=== PATIENT | male | born 1945 | race Caucasian/White ===

== ENCOUNTER 2022-07-01 08:51 | Outpatient (REF) | payer MEDICARE, MEDICAID, SELFPAY ==
--- NOTE | ~2022-07-01 | US_ITS ---
EXAMINATION: US VENOUS WITH DOPPLER LOWER EXTREMITY, LEFT CLINICAL INFORMATION: Left leg edema. Evaluate for deep vein thrombosis. COMPARISON: None TECHNIQUE: Ultrasound of the deep veins is performed from the hip to the calf with compression sonography and color and pulse Doppler assessment. Spectral analysis with color-flow imaging is performed. FINDINGS: There is normal venous compression and respiratory variation and augmented flow. The visualized common femoral vein, superficial femoral vein, profunda femoral vein, popliteal vein, and the trifurcation region shows no evidence of deep venous thrombosis. Prominent lower leg subcutaneous edema. There is no significant popliteal fossa cyst. Prominent left inguinal lymph nodes with normal fatty renae with the largest measuring up to 3 x 1.3 x 1.8 cm. If the patient's symptoms persist, followup ultrasound in 5 days 7 days might be of value to exclude proximal propagation from a non-visualized calf vein. US/US venous duplex LE LT IMPRESSION: No DVT demonstrated in the left lower extremity. Lower leg subcutaneous edema. Prominent left inguinal lymph nodes with normal fatty renae.
== END 2022-07-01 08:52 | disposition home or self-care (01) ==
LOC: HO.US 08:51
PROVIDERS: Visit Provider Nurse Practitioner
DX: M79.89 Other specified soft tissue disorders (principal)
CPT/HCPCS: 93971

== ENCOUNTER 2022-10-07 10:47 | Emergency (ER) | payer MEDICARE, MEDICAID, SELFPAY ==
--- NOTE | ~2022-10-07 | XR_ITS ---
EXAMINATION: XR CHEST CLINICAL INFORMATION: Weakness. Leukocytosis. COMPARISON: Chest 09/19/2015. TECHNIQUE: Frontal view of the chest was obtained. FINDINGS: There is mild cardiomegaly. The pulmonary vascularity is normal. Right central venous dialysis catheter tip is at atrial ventricular junction. The lungs are well-expanded with left basilar opacity likely effusion/atelectasis. No gross bony abnormality seen. XR/XR chest 1V IMPRESSION: Left basilar opacity likely effusion/atelectasis. Tip of right dialysis catheter is at atrial ventricular junction. The heart size is enlarged.
--- NOTE | ~2022-10-07 | CT_ITS ---
EXAMINATION: CT CHEST WITHOUT IV CONTRAST CT ABDOMEN AND PELVIS WITHOUT IV CONTRAST CLINICAL INFORMATION: 77-year-old male with history of sepsis of unknown source. COMPARISON: Chest radiograph from 10/07/2022. TECHNIQUE: Noncontrast multidetector CT imaging examination of the chest, abdomen and pelvis was performed. Axial images are displayed at 0.6 mm and 5 mm slice thickness. Coronal and sagittal reformatted images were generated at the technologist's workstation and submitted for review. This CT examination was performed using dose optimization techniques as appropriate, variously including the following: *Automated exposure control *Adjustment of mA and/or kV according to patient size (this includes techniques or standardized protocols for targeted exams where dose is matched to indication/reason for exam; i.e. extremities or head) *Use of iterative reconstruction technique DLP: 464 mGy-cm FINDINGS: CHEST - LUNGS AND PLEURA: Mild respiratory motion on images through the chest. An old small calcified nodule is present in the lateral segment of the right middle lobe. Small left pleural effusion has a chronic, loculated appearance. The left lower lobe is partially collapsed. The opacity in the periphery of the left lower lobe has the appearance of rounded atelectasis. A linear opacity of focal scarring or atelectasis is present in the posterolateral left upper lobe and at its inferior aspect within the lingula there is a rounded opacity that measures up to 2.7 cm AP dimension. It likely represents chronic rounded atelectasis although there is a degree of uncertainty and no comparison chest CT imaging exams are available. For this reason, consider chest CT follow up in 3 months to ensure stability (or compare with any outside prior CT exams to determine stability). MEDIASTINUM/LOWER NECK: Cardiomegaly with multichamber cardiac enlargement. Three-vessel coronary artery atherosclerotic calcification is present. Atherosclerotic disease of thoracic aorta. The mildly dilated ascending thoracic aorta is 4.1 cm AP diameter at the level the right pulmonary artery. Pulmonary arteries are unremarkable for s noncontrast examination. The tip of the dual-lumen dialysis catheter is within proximal right atrium. The esophagus is unremarkable. Thyroid gland is atrophied. LYMPHATICS: No axillary or internal mammary lymphadenopathy. A prominent lymph node in the precarinal region is 1.5 cm in short axis dimension and subcarinal lymph node 1.2 cm in short axis dimension. No evidence of hilar lymphadenopathy. CHEST WALL/BONES OF THORAX: Mild spondylosis of the thoracic spine. No acute or suspicious osseous abnormality within the thorax. ABDOMEN AND PELVIS - HEPATOBILIARY: Liver has nodular contour, cirrhotic morphology. No focal hepatic lesion. No liver abscess is identified on this noncontrast examination. 1.5 cm stone in the lumen of the gallbladder. No gallbladder wall thickening or pericholecystic fluid. Pneumobilia is present. Query if there is any history of ERCP and sphincterotomy to account for this observation. PANCREAS: Unremarkable. SPLEEN: Mild splenomegaly. Spleen measures up to 14 cm maximum dimension. ADRENAL GLANDS: Unremarkable. KIDNEYS AND URETERS: Mild bilateral cortical atrophy. 4 cm simple parapelvic cyst of the left kidney. No renal imaging follow-up is recommended for a simple cyst. 0.4 cm stone of the mid left kidney. No hydronephrosis or perinephric edema. The ureters are unremarkable. BOWEL AND PERITONEUM: No dilated loops of bowel. The appendix is normal. No overt bowel wall thickening. No mesenteric fat stranding, ascites or pneumoperitoneum. Multiple diverticula of the descending and sigmoid colon without evidence of diverticulitis. No abdominal abscess. ABDOMINAL WALL: A small hernia of the lower abdominal wall directed to the right of midline contains fat and a short segment of small bowel. VESSELS: Atherosclerotic disease of the abdominal aorta and branch vessels. No aortic aneurysm. LYMPH NODES: No pathologic sized lymph nodes in the abdomen or pelvis. No inguinal lymphadenopathy. BLADDER AND PELVIC VISCERA: There is gas within the bladder lumen. Correlate for any recent bladder catheterization. No bladder wall thickening or perivesical edema. Prostate gland is unremarkable. No pelvic free fluid. OTHER MUSCULOSKELETAL: Bones are diffusely osteopenic. Facet osteoarthritis and minimal anterolisthesis at L5-S1. Pelvic bones and proximal femurs are intact. CT/CT abdomen pelvis wo IV con IMPRESSION: * No evidence of pneumonia. No specific source of sepsis is identified. * Small left pleural effusion has a chronic, loculated appearance and there is rounded atelectasis of the left lower lobe and likely chronic rounded atelectasis of the adjacent lingula. * Nonspecific mild mediastinal lymphadenopathy. * Atherosclerotic disease of coronary arteries and aorta. The mildly dilated ascending thoracic aorta is 4.1 cm AP diameter at the level the right pulmonary artery. Cardiomegaly without acute pulmonary edema. * Cholelithiasis without cholecystitis. The presence of pneumobilia requires clinical correlation. Query if there is any history of ERCP and sphincterotomy. * Cirrhotic liver and mild splenomegaly. * Colonic diverticulosis without diverticulitis. * Incidentally noted is a hernia of the lower abdominal wall projecting to the right of midline which contains fat and a short segment of unobstructed small bowel. * The finding of gas within the urinary bladder requires clinical correlation; this could be secondary to recent bladder catheterization.
--- NOTE | 2022-10-07 10:53 | ED_ITS ---
HPI - General Adult General Chief complaint: General Medical Stated complaint: ABNORMAL LABS FROM DIALYSIS PER EMS Time Seen by Provider: 10/07/22 10:52 Source: patient, EMS and old records reviewed Mode of arrival: EMS Limitations: no limitations History of Present Illness HPI narrative: 77 yo male with complex medical history including recently diagnosed ESRD on HD via right chest PermCath for the last couple of months, HTN, history of Vfib arrest in 2016, asthma, vascular dementia, afib no longer on anticoagulation due to recurrent hematuria and GI bleed, portal hypertensive gastropathy, hx CVA wtih left sided deficits, HLD, CLL (not on any treatment), CHF w/ EF 10-20%, liver cirrhosis who presents to the ER from dialysis via EMS for evaluation of low blood pressure and high white blood cell count. Patient reportedly had been hypotensive this week with dialysis. He was found to have a WBC 19K today. Patient states he is here because of blood counts are low. He is otherwise feeling well and offers no physical complaints. He states sometimes dialysis makes him run down but he denies any focal weakness, no nausea, vomiting, abdominal pain, chest pain, SOB, fever or chills. MD complaint: low blood counts? Onset (ago): unknown Relieving factors: none Exacerbating factors: none Associated symptoms: weakness Treatments prior to arrival: none Related Data Home Medications Medication Instructions Recorded Confirmed aspirin 81 mg tablet,delayed 81 mg PO DAILY 10/07/22 10/07/22 release cyanocobalamin (vitamin B-12) 500 500 mcg PO DAILY 10/07/22 10/07/22 mcg tablet docusate sodium 100 mg capsule 100 mg PO DAILY 10/07/22 10/07/22 levothyroxine 50 mcg tablet 50 mcg PO DAILY 10/07/22 10/07/22 rosuvastatin 40 mg tablet 40 mg PO BEDTIME 10/07/22 10/07/22 silver (SilvaSorb topical 1 appl topical DAILY 10/07/22 10/07/22 gel,extended release) vitamin B complex and vitamin C 1 cap PO DAILY 10/07/22 10/07/22 no.20-folic acid 1 mg capsule Allergies Allergy/AdvReac Type Severity Reaction Status Date / Time No Known Allergies Allergy Unverified 02/19/20 14:34 [No Known Allergies*] Review of Systems Review of Systems: Yes all other systems are reviewed and are negative PMFSH Past Medical History Medical History (Updated 10/07/22 @ 14:44 by NESSA Glynn) Afib Chronic kidney disease Social History Social History Alcohol intake: never Smoked in Last 30 Days: No Use of substances other than those prescribed or required for medical reasons: No Advance Directives: No Advance Directives Information Provided: No Physical Exam ED Vital Signs: Vital Signs - 24 hr 10/07/22 11:09 10/07/22 12:00 Temperature 97.3 F 98.4 F Pulse Rate 84 78 Respiratory Rate 18 18 Blood Pressure 104/67 102/62 Pulse Oximetry 94 Oxygen Delivery Method Room Air BMI result Body Mass Index 18.4 Appearance: Alert. Oriented X3. No acute distress. Head: normocephalic, atraumatic. Eyes: Pupils equal, round and reactive to light. ENT: Pharynx normal. No tonsillar swelling or exudate. Neck: Normal inspection. Neck supple. CVS: irregularly irregular, regular rate Pulses normal. Respiratory: No respiratory distress. Breath sounds normal. Abdomen: Well healed surgical scars, Soft and nontender. +BS x4 Skin: Skin warm and dry. Normal skin color. Normal skin turgor. No rashes. Extremities: No lower extremity edema. No joint swelling. Scattered ecchymosis on all 4 extremities Neuro/psych: Oriented X 3. No motor deficit. No sensory deficit. Confused, poor historian. CN II-XII intact. Normal speech and cognition. Course Reevaluation(s) Reevaluation #1: Recent Discharge summary from [facility] 08/21- - he was admitted for CHF exacerbation, loculated pleural effusion. Time: 11:46 Reevaluation #2: Patient found to have a lactic acid of 4.0. He has been hemodynamically stable here. This is most likely due to transient hypotension during dialysis. Sepsis has not been ruled out. He does have leukocytosis of 15.9. No obvious source of infection. Will scan his chest abdomen pelvis. Blood cultures have been sent. He is high risk for line infection. Will start empiric vanco and Zosyn given Time: 14:38 Reevaluation #3: spoke with dialysis nurse - patient received 10 mg of midodrine before treatment. BP 100/40 prior to tx, was as low as 80/50s. he was ran even net UF. Time: 15:22 Additional Reevaluation(s): Signed out to Dhara GILL who will follow-up results of CT scans and plan for admission. Medications Administered Discontinued Medications Generic Name Dose Route Start Last Admin Trade Name Calli PRN Reason Stop Dose Admin Albumin Human 100 mls @ 133.333 mls/hr 10/07/22 14:15 10/07/22 16:17 Kedbumin 25 % IV 10/07/22 15:59 Infused Q1H ROSALIA Infusion Vancomycin HCl 1,500 mg/ 500 mls @ 333.333 mls/hr 10/07/22 14:37 10/07/22 15:47 Sodium Chloride IV 10/07/22 16:06 333.33 mls/hr ONCE ONE Administration Piperacillin Sod/Tazobactam 50 mls @ 100 mls/hr 10/07/22 14:37 10/07/22 15:56 Sod 3.375 gm/ Sodium Chloride IV 10/07/22 15:06 Infused ONCE ONE Infusion Medical Decision Making Medical Decision Making MDM Narrative: 77 yo male with complex medical history including recently diagnosed ESRD on HD via right chest PermCath for the last couple of months, HTN, history of Vfib arrest in 2016, asthma, vascular dementia, afib no longer on anticoagulation due to recurrent hematuria and GI bleed, portal hypertensive gastropathy, hx CVA wtih left sided deficits, HLD, CLL (not on any treatment), CHF w/ EF 10-20%, liver cirrhosis who presents to the ER for evaluation of hypotension during HD along with leukocytosis 19K. Patient normotensive with minimal complaints on arrival. He is a poor historian. No fevers. Labs showing leukocytosis 15.9 with lactic acid 4.0. He is anuric. His CXR shows pleural effusion on the left which is chronic. He has no abd complaints. CT C/A/P pending to assess for other possible source of infection. He may have an infected permcath, blood cultures pending. Leukocytosis also may be from CLL. Patient has a contraindication to 30 cc/kg sepsis bolus with known EF 10%. he has been hemodynamically stable here. He was given albumin 25% x2 instead of sepsis IVF bolus. he meets criteria for exclusion. Differential Diagnosis Differential Diagnoses: The differential diagnosis associated with the presentation includes severe sepsis, empyema, line infection, PNA, dialysis related hypotension with fluid shifts and volume removal acalculus cholecystitis, SBP, diverticulitis, appendicitis less likely given no pain Admission/Observation Consideration of admission/observation: Escalation of care including admission/observation considered Consult Healthcare Provider Management of the patient was discussed with: Hospitalist Lab Data MDM Lab Attestation statement: I reviewed the patient's lab results. reviewed - leukocytosis with elevated lactic acid 10/07/22 13:30 10/07/22 13:30 Labs: Lab Results 10/07/22 10/07/22 10/07/22 Range/Units 13:30 13:30 13:30 WBC 15.9 H (4.8-10.8) X10*3/uL RBC 3.81 L D (4.60-5.80) X10*6/uL Hgb 12.5 L D (14.0-18.0) g/dl Hct 38.4 L D (42.0-52.0) % MCV 100.8 H (80.0-98.0) fL MCH 32.8 (27.0-33.0) pg MCHC 32.6 (31.0-36.0) g/dl RDW 18.1 H (11.0-16.0) % Plt Count 152 L (160-400) X10*3/uL MPV 9.1 L (9.4-12.4) fL Immature Gran % (Auto) 0.4 (0.0-0.4) % Neut % (Auto) 38.9 L (45-73) % Lymph % (Auto) 57.3 H (20-40) % [place] % (Auto) 2.2 (2-11) % Eos % (Auto) 0.9 (0-4) % Baso % (Auto) 0.3 (0-2) % Lymph # (Auto) 9.1 H (1.2-4.9) X10*3/uL [place] # (Auto) 0.4 (0.1-1.2) X10*3/uL Eos # (Auto) 0.2 (0.0-0.4) X10*3/uL Baso # (Auto) 0.1 (0.0-0.2) X10*3/uL Abs Immat Gran (auto) 0.07 H (0.00-0.03) X10*3/uL Absolute Neuts (auto) 6.2 (2.0-8.3) x10*3/uL Absolute Nucleated RBC 0.000 (0.0-0.012) X10*3/uL Nucleated RBC % (auto) 0.0 (0.0-0.2) /100WBC Smear Tech's Comments VERIFIED Absolute Retic 0.096 H (0.026-0.095) X10*6/uL Percent Retic 2.5 H (0.5-1.8) % Immature Retic Fraction 22.2 H (2.3-13.4) % Retic Hgb Equivalent 39.4 H (30.0-35.0) pg PT 12.1 (10.0-13.1) SEC INR 1.1 (0.9-1.1) APTT 29.5 (26.0-36.4) SEC Sodium 141 (135-145) mmol/L Potassium 3.5 (3.3-5.1) mmol/L Chloride 107 (96-108) mmol/L Carbon Dioxide 23 (22-29) mmol/L Anion Gap 15 (12-20) BUN 16 (9-16) mg/dL Creatinine 2.42 H (0.5-1.4) mg/dL Estim Creat Clear Calc 21.5 Estimated GFR 26 Random Glucose 84 (60-115) mg/dL Lactic Acid (0.5-2.0) mmol/L Calcium 7.5 L (8.4-10.2) mg/dL Magnesium 1.7 (1.6-2.6) mg/dL Iron 94 (45-160) mcg/dL TIBC 208 L (228-428) mcg/dL % Saturation 45 (15-50) % Unsat Iron Binding 114 ug/dL Total Bilirubin 1.3 H (0.0-1.0) mg/dL Direct Bilirubin 0.5 (0.0-0.5) mg/dL AST 16 (5-37) U/L ALT 8 (0-40) U/L Alkaline Phosphatase 87 (39-117) U/L Total Protein 6.0 L (6.5-8.0) g/dL Albumin 3.0 L (3.5-5.0) g/dL Blood Type Antibody Screen 10/07/22 10/07/22 10/07/22 Range/Units 13:30 13:31 13:31 WBC (4.8-10.8) X10*3/uL RBC (4.60-5.80) X10*6/uL Hgb (14.0-18.0) g/dl Hct (42.0-52.0) % MCV (80.0-98.0) fL MCH (27.0-33.0) pg MCHC (31.0-36.0) g/dl RDW (11.0-16.0) % Plt Count (160-400) X10*3/uL MPV (9.4-12.4) fL Immature Gran % (Auto) (0.0-0.4) % Neut % (Auto) (45-73) % Lymph % (Auto) (20-40) % [place] % (Auto) (2-11) % Eos % (Auto) (0-4) % Baso % (Auto) (0-2) % Lymph # (Auto) (1.2-4.9) X10*3/uL [place] # (Auto) (0.1-1.2) X10*3/uL Eos # (Auto) (0.0-0.4) X10*3/uL Baso # (Auto) (0.0-0.2) X10*3/uL Abs Immat Gran (auto) (0.00-0.03) X10*3/uL Absolute Neuts (auto) (2.0-8.3) x10*3/uL Absolute Nucleated RBC (0.0-0.012) X10*3/uL Nucleated RBC % (auto) (0.0-0.2) /100WBC Smear Tech's Comments Absolute Retic Cancelled (0.026-0.095) X10*6/uL Percent Retic Cancelled (0.5-1.8) % Immature Retic Fraction Cancelled (2.3-13.4) % Retic Hgb Equivalent Cancelled (30.0-35.0) pg PT (10.0-13.1) SEC INR (0.9-1.1) APTT (26.0-36.4) SEC Sodium (135-145) mmol/L Potassium (3.3-5.1) mmol/L Chloride (96-108) mmol/L Carbon Dioxide (22-29) mmol/L Anion Gap (12-20) BUN (9-16) mg/dL Creatinine (0.5-1.4) mg/dL Estim Creat Clear Calc Estimated GFR Random Glucose (60-115) mg/dL Lactic Acid 4.0 H* (0.5-2.0) mmol/L Calcium (8.4-10.2) mg/dL Magnesium (1.6-2.6) mg/dL Iron (45-160) mcg/dL TIBC (228-428) mcg/dL % Saturation (15-50) % Unsat Iron Binding ug/dL Total Bilirubin (0.0-1.0) mg/dL Direct Bilirubin (0.0-0.5) mg/dL AST (5-37) U/L ALT (0-40) U/L Alkaline Phosphatase (39-117) U/L Total Protein (6.5-8.0) g/dL Albumin (3.5-5.0) g/dL Blood Type A Positive Antibody Screen NEGATIVE Independent Interpretation I performed an independent interpretation of an: EKG and Plain X-Ray Interpretation: EKG with atrial fibrillation, bifascicular block, ventricular rate 70 beats per minute, question ST depression in V2 only Radiology Impression Discussion of test interpretation with radiology: I have reviewed the radiologist's reading. Radiologist Impression: EXAMINATION: XR CHEST CLINICAL INFORMATION: Weakness. Leukocytosis. COMPARISON: Chest 09/19/2015. TECHNIQUE: Frontal view of the chest was obtained. FINDINGS: There is mild cardiomegaly. The pulmonary vascularity is normal. Right central venous dialysis catheter tip is at atrial ventricular junction. The lungs are well-expanded with left basilar opacity likely effusion/atelectasis. No gross bony abnormality seen. XR/XR chest 1V IMPRESSION: Left basilar opacity likely effusion/atelectasis. Tip of right dialysis catheter is at atrial ventricular junction. The heart size is enlarged. Independent Historian Clinical information obtained from an independent historian. History obtained from or confirmed by: EMS External Record Review External record reviewed: Inpatient record, Outpatient record, Prior outpatient labs and Prior outpatient radiology Prescription Management I considered prescription management with: Antibiotic Chronic Conditions Patient?s care impacted by: Other (ESRD) Critical Care Time Critical Care Time Critical Care Time: Yes Total Critical Care Time: 44 Attestation: I have personally provided critical care time exclusive of time spent on separately billable procedures. Time includes review of lab data, radiology res ults, discussion with consultants, and monitoring for potential decompensation. Intervention performed as documented. Discharge Plan Discharge Clinical Impression: Severe sepsis Patient Disposition: Still a Patient Prescriptions: No Action aspirin 81 mg Tablet,Delayed Release (Dr/Ec) 81 mg PO DAILY levothyroxine 50 mcg tablet 50 mcg PO DAILY docusate sodium 100 mg Capsule 100 mg PO DAILY rosuvastatin 40 mg tablet 40 mg PO BEDTIME cyanocobalamin (vitamin B-12) 500 mcg Tablet 500 mcg PO DAILY Nephrocaps 1 mg Capsule 1 cap PO DAILY SilvaSorb Gel,Extended Release 1 appl TOPICAL DAILY
[2022-10-07 11:09] VITALS: BP 104/67; BP 108/56; PULSE 78; PULSE 84; RESP 18; TEMP 36.3; O2SAT 98; BMI 18.4
--- NOTE | 2022-10-07 11:10 | ECG_ITS ---
Test Reason : HYPOTENSION Blood Pressure : / mmHG Vent. Rate : 070 BPM Atrial Rate : 000 BPM P-R Int : 000 ms QRS Dur : 196 ms QT Int : 498 ms P-R-T Axes : 000 -65 096 degrees QTc Int : 537 ms Atrial fibrillation Right bundle branch block Left anterior fascicular block Bifascicular block Abnormal ECG When compared with ECG of 19-SEP-2015 12:20, Atrial fibrillation has replaced Sinus rhythm Left anterior fascicular block is now Present Borderline criteria for Lateral infarct are no longer Present Referred By: Eliana Ding Electronically Signed By:ELLEN ROSADO MD
[2022-10-07 12:00] VITALS: BP 102/62; PULSE 78; RESP 18; TEMP 36.9; O2SAT 94
--- NOTE | 2022-10-07 13:20 | PC.NURSE ---
pt very difficult stick. tech has been unable to get lab draw. phlebotomy is not answering phone. RN trying at the moment to get labs and BCs
--- NOTE | 2022-10-07 13:33 | PC.NURSE ---
pt alert/oriented, forgetful due to dementia. pt on heparin and has sig bruising around left hand and right wrist. Pt began dialysis approx 5 weeks ago and has port in right chest vitals stable. Labs and blood cultures drawn and sent to lab. IV inserted and patent.
[2022-10-07 13:43] LABS: Basophils Absolute Auto 0.1 X10*3/uL (0.0-0.2); Basophils Percent Auto 0.3 % (0-2); Eosinophils Absolute Auto 0.2 X10*3/uL (0.0-0.4); Eosinophils Percent Auto 0.9 % (0-4); Hematocrit 38.4 % (42.0-52.0); Hemoglobin 12.5 g/dl (14.0-18.0); Imm Gran Abs Auto 0.07 X10*3/uL (0.00-0.03); Imm Gran Pct Auto 0.4 % (0.0-0.4); Immature Retic Fraction 22.2 % (2.3-13.4); Lymphocytes Percent Auto 57.3 % (20-40); MANUAL DIFF FLAG SCAN; Mean Corpuscular HGB Conc 32.6 g/dl (31.0-36.0); Mean Corpuscular Hemoglobin 32.8 pg (27.0-33.0); Mean Corpuscular Volume 100.8 fL (80.0-98.0); Mean Platelet Volume 9.1 fL (9.4-12.4); Monocytes Absolute Auto 0.4 X10*3/uL (0.1-1.2); Monocytes Percent Auto 2.2 % (2-11); Neutrophils Absolute Auto 6.2 x10*3/uL (2.0-8.3); Neutrophils Percent Auto 38.9 % (45-73); Platelet Count 152 X10*3/uL (160-400); Red Blood Count 3.81 X10*6/uL (4.60-5.80); Red Cell Distribution Width 18.1 % (11.0-16.0); Retic HGB Equivalent 39.4 pg (30.0-35.0); Reticulocyte Percent 2.5 % (0.5-1.8); Reticulocytes Absolute 0.096 X10*6/uL (0.026-0.095); SCAN SMEAR FLAG 1; White Blood Count 15.9 X10*3/uL (4.8-10.8)
[2022-10-07 13:44] LABS: INTERNATIONAL NORM RATIO 1.1 (0.9-1.1); Lymphocytes Absolute Auto 9.1 X10*3/uL (1.2-4.9); Prothrombin Time 12.1 SEC (10.0-13.1)
[2022-10-07 13:47] LABS: Partial Thromboplastin Time 29.5 SEC (26.0-36.4)
[2022-10-07 13:56] LABS: Alanine Aminotransferase 8 U/L (0-40); Alkaline Phosphatase 87 U/L (39-117); Anion Gap 15 (12-20); Aspartate Amino Transferase 16 U/L (5-37); Bilirubin Direct 0.5 mg/dL (0.0-0.5); Bilirubin Total 1.3 mg/dL (0.0-1.0); Blood Urea Nitrogen 16 mg/dL (9-16); Calcium 7.5 mg/dL (8.4-10.2); Carbon Dioxide 23 mmol/L (22-29); Chloride 107 mmol/L (96-108); Creatinine Clr Calc Pharmacy 21.5; Estimated Glomerular Filt Rate 26; Glucose Random 84 mg/dL (60-115); Iron 94 mcg/dL (45-160); Magnesium 1.7 mg/dL (1.6-2.6); Percent Iron Saturation 45 % (15-50); Potassium 3.5 mmol/L (3.3-5.1); Sodium 141 mmol/L (135-145); Total Iron Binding Capacity 208 mcg/dL (228-428); Unsaturated Iron Binding 114 ug/dL
[2022-10-07] MEDS: Albumin Human 25 % 100 ML 133.33 ML IV ×2 (14:17→15:17)
--- NOTE | 2022-10-07 14:19 | PC.NURSE ---
Albumin infusion started as ordered, documented in appropriate section. pt resting quietly, no apparent distress, denies pain.
[2022-10-07 14:21] LABS: SLIDE REVIEW VERIFIED
[2022-10-07] MEDS: Piperacillin Sodium/Tazobactam 3.375 GM in 0.9 % Sodium Chloride 50 ML IV (15:22)
--- NOTE | 2022-10-07 15:22 | PC.NURSE ---
2 IVs inserted via ultrasound by . second Bill bueno and Joseline per rufino
[2022-10-07 15:36] LABS: Reflex Lactate? Lactic Acid Added
[2022-10-07] MEDS: vancomycin HCL 1,500 MG in 0.9 % Sodium Chloride 500 ML 333.33 MG IV (15:47)
--- NOTE | 2022-10-07 15:48 | PC.NURSE ---
pt to CT scan, tawanda running per NAFISA
--- NOTE | 2022-10-07 16:04 | PHA.MEDREC ---
Pharmacy Consult ? Medication Reconciliation Pharmacy has completed the medication reconciliation. Spoke to patient to confirm meds. Patient recently discharged from [facility] on 08/30/2022 and reported no changes to medications since discharge from the hospital.
--- NOTE | 2022-10-07 16:35 | PM.SEPSBOL4 ---
Sepsis Bolus Exclusion Sepsis Bolus Exclusion Date of Occurrence: 10/07/22 This patient met severe sepsis criteria due to the following condition(s):: Lactate>=4mmol/L In my clinical judgement the administration of 30 ml/kg of crystalloid would be detrimental to this patient due to the patient's following conditions:: NYHA class III or IV Heart Failure(symptoms with low exertion or rest) and Stage III or IV Chronic Kidney Disease (GFR<30) Other (must be specific):: albumin 25% x2 for sepsis Replace the 30 mls/kg with (*zero amount not acceptable): *Note: One of the givens must be documented
[2022-10-07 17:21] VITALS: BP 95/58; PULSE 64; RESP 18; TEMP 36.6; O2SAT 96
[2022-10-07 17:48] VITALS: BP 105/53; PULSE 69; RESP 18; TEMP 36.7
--- NOTE | 2022-10-07 17:48 | PC.NURSE ---
pt moved to Rm 2
[2022-10-07 22:00] VITALS: BP 121/79; PULSE 69; RESP 17; O2SAT 99
[2022-10-07 22:56] LABS: Lactic Acid 0.9 mmol/L (0.5-2.0)
[2022-10-07] MEDS: 0.9 % Sodium Chloride 500 ML IV (22:57)
--- NOTE | 2022-10-07 23:35 | PM.EVENT ---
Event Note Date of Service: 10/07/22 Event Note: I was asked to see this patient for possible admission. The report I received was that patient was sent to the hospital from dialysis with hypotension and increased white cell count. On my evaluation, patient is alert, oriented to self place and time. He states that he wants to go home, has no complaints, denies any shortness of breath, no abdominal pain nausea or vomiting, no diarrhea or constipation, no urinary symptoms, no skin infection, redness or swelling. Denies any pain at the port, the port is clean, no erythema, no warmth. He ate well, on repeat of his l lactic acid after receiving 500 cc of fluid improved from 4 to 0.9. Blood pressure stable. I believe that this is likely secondary to dehydration in the setting of dialysis. I do not believe the patient has sepsis and likely abnormalities are due to dehydration and hemoconcentration. Blood cultures have been obtained. Patient would like to go home. Based on my assessment, history taking, as well as exam, I do not believe the patient is septic or requires admission for further evaluation or monitoring or management. I agree with ED provider in sending patient home. Patient has been advised to return if he becomes symptomatic, has fever, chills, or worsening overall health. Time Spent With Patient Time: Total time managing care of this patient today ____ minutes.
[2022-10-08] VITALS (7 sets, daily range): BP systolic 92–115; BP diastolic 54–81; PULSE 56–73; RESP 13–18; TEMP 36.6–36.7; O2SAT 94–100
[2022-10-08 00:29] LABS: Basophils Absolute Auto 0.1 X10*3/uL (0.0-0.2); Basophils Percent Auto 0.5 % (0-2); Eosinophils Absolute Auto 0.2 X10*3/uL (0.0-0.4); Eosinophils Percent Auto 1.6 % (0-4); Hematocrit 29.7 % (42.0-52.0); Hemoglobin 9.6 g/dl (14.0-18.0); Imm Gran Abs Auto 0.04 X10*3/uL (0.00-0.03); Imm Gran Pct Auto 0.3 % (0.0-0.4); Lymphocytes Absolute Auto 5.9 X10*3/uL (1.2-4.9); Lymphocytes Percent Auto 49.7 % (20-40); MANUAL DIFF FLAG SCAN; Mean Corpuscular HGB Conc 32.3 g/dl (31.0-36.0); Mean Corpuscular Hemoglobin 32.8 pg (27.0-33.0); Mean Corpuscular Volume 101.4 fL (80.0-98.0); Monocytes Absolute Auto 0.5 X10*3/uL (0.1-1.2); Monocytes Percent Auto 4.4 % (2-11); Neutrophils Absolute Auto 5.2 x10*3/uL (2.0-8.3); Neutrophils Percent Auto 43.5 % (45-73); Platelet Count 105 X10*3/uL (160-400); Red Blood Count 2.93 X10*6/uL (4.60-5.80); SCAN SMEAR FLAG 1; White Blood Count 11.9 X10*3/uL (4.8-10.8)
[2022-10-08 01:07] LABS: SLIDE REVIEW VERIFIED
[2022-10-08 02:13] LABS: Appearance Urine Turbid; Color Urine Dark Yellow; Glucose Urine UA Negative (Negative); Leukocyte Esterase Urine Large (3+) (Negative); Nitrite Urine Negative (Negative); PH 5.5 (5.0-9.0); UMIC TRIGGER UACC YES; Urine Blood Large (3+) (Negative); Urine Ketones Trace mg/dL (Negative); Urine Protein 300 (3+) mg/dL (Neg-Trace)
[2022-10-08 02:34] LABS: Bacteria Urine 4+ (None Seen); Hyaline Casts Urine >20 /LPF (0-2); RBC Urine >20 /HPF (0-2); UACC Culture Trigger YES; WBC Urine >50 /HPF (0-5)
[2022-10-08] MEDS: cephALEXin 500 MG CAPSULE PO (06:14)
--- NOTE | 2022-10-08 07:35 | PC.NURSE ---
resumed care of patient this morning, he is resting comfortablly in bed, pt plan is to be discharged back to facility today. Vitals stable at this time
--- NOTE | 2022-10-08 08:49 | PC.NURSE ---
Pt is alert and oriented at this time, denying pain at this time, pt in agreement with plan to d/c back to facility. He states he feels that he is dealing with dialysis well at this time.
--- NOTE | 2022-10-08 11:17 | PC.NURSE ---
Attempted to call sister again to discuss d/c and to come pick pt up, however she did not answer and I was unable to leave a VM
== END 2022-10-08 14:02 | disposition home or self-care (01) ==
PROVIDERS: Physician Assistant; Emergency Provider Emergency Medicine Emergency Medical Services
DX: A41.9 Sepsis, unspecified organism (principal); E78.5 Hyperlipidemia, unspecified; I48.91 Unspecified atrial fibrillation; I69.354 Hemiplegia and hemiparesis following cerebral infarction affecting left non-dominant side; I12.0 Hypertensive chronic kidney disease with stage 5 chronic kidney disease or end stage renal disease; N18.6 End stage renal disease; Z99.2 Dependence on renal dialysis; Z79.82 Long term (current) use of aspirin; Z79.02 Long term (current) use of antithrombotics/antiplatelets; Z79.899 Other long term (current) drug therapy
CPT/HCPCS: 36415; 51701; 71045; 71250; 74176; 80048; 80076; 81001; 83540; 83605; 83735; 85025; 85045; 85610; 85730; 86850; 86900; 86901; 87040; 87086; 87088; 87186; 93005; 96361; 96365; 96366; 96368; 96375; 99285; J2543; J3371; P9047

== ENCOUNTER 2022-10-19 11:13 | Emergency (ER) | payer MEDICARE, MEDICAID, SELFPAY ==
--- NOTE | ~2022-10-19 | CT_ITS ---
EXAMINATION: CT CERVICAL SPINE WITHOUT CONTRAST CLINICAL INFORMATION: Fall with pain COMPARISON: None available. TECHNIQUE: CT cervical spine with sagittal and coronal reconstructions. This CT examination was performed using dose optimization techniques as appropriate, variously including the following: *Automated exposure control *Adjustment of mA and/or kV according to patient size (this includes techniques or standardized protocols for targeted exams where dose is matched to indication/reason for exam; i.e. extremities or head) *Use of iterative reconstruction technique DLP: 327 mGy-cm FINDINGS: No abnormal prevertebral soft tissue swelling is identified. The paraspinal muscle fat planes are maintained. No acute cervical spine fracture is evident. There is narrowing of the anterior atlantodental axial joint with spurring and synovial calcification. There is disc space narrowing seen C2-C6. Marginal spurring is noted at these levels. There is some mild neural foraminal management anteriorly from spurring of joints of [place] at the C3-C4, C3 C5, and C5-C6 levels on the right and C4-C5 and C5-C6 levels on the left. There is bilateral facet arthropathy seen C2-C7. Apical pleural-parenchymal scarring is seen bilaterally. Visualized thyroid gland unremarkable. Dual lumen right internal jugular dialysis catheter present. Carotid and vertebral artery calcifications present. CT/CT cervical spine wo IV con IMPRESSION: No acute cervical spine fracture. Diffuse cervical spondylosis. Fleischner guidelines were followed.
--- NOTE | ~2022-10-19 | CT_ITS ---
EXAMINATION: CT HEAD WITHOUT CONTRAST CLINICAL INFORMATION: Fall COMPARISON: MRI of September 19, 2014 TECHNIQUE: Contiguous axial imaging was performed from the skull base to vertex without intravenous administration of contrast. This CT examination was performed using dose optimization techniques as appropriate, variously including the following: *Automated exposure control *Adjustment of mA and/or kV according to patient size (this includes techniques or standardized protocols for targeted exams where dose is matched to indication/reason for exam; i.e. extremities or head) *Use of iterative reconstruction technique DLP: 669 mGy-cm FINDINGS: No intracranial hemorrhage is identified. No significant mass effect or midline structure shift is seen. There is a large region of encephalomalacia seen within the left posterior parietal/occipital region which is chronic. There is a large amount of periventricular white matter low density. There is prominence of ventricles, sulci, and cisterns. There is calcification of the vertebral and carotid arteries. Calvarium intact. Visualized paranasal sinuses and mastoid air cells are aerated. Pterygoid plates intact. There is some degenerative change of the left temporomandibular joint with narrowing of the joint space and sclerosis with subchondral cyst formation about the mandibular head. CT/CT head/brain wo IV con IMPRESSION: No acute intracranial pathology. Previous left parietal/occipital infarct with encephalomalacia. Large amount of periventricular white matter low density consistent with microangiopathy.
[2022-10-19 11:26] VITALS: BP 110/77; BP 115/76; PULSE 58; PULSE 63; RESP 18; TEMP 36.4; O2SAT 99; BMI 19.3
--- NOTE | 2022-10-19 12:00 | ECG_ITS ---
Test Reason : FALL/SYNCOPE? Blood Pressure : / mmHG Vent. Rate : 076 BPM Atrial Rate : 088 BPM P-R Int : 192 ms QRS Dur : 184 ms QT Int : 508 ms P-R-T Axes : 066 -70 102 degrees QTc Int : 571 ms Undetermined rhythm Right bundle branch block Left anterior fascicular block Bifascicular block T wave abnormality, consider lateral ischemia Abnormal ECG When compared with ECG of 07-OCT-2022 11:41, Current undetermined rhythm precludes rhythm comparison, needs review Referred By: Vickie Brandon Electronically Signed By:
--- NOTE | 2022-10-19 12:03 | ED_ITS ---
HPI - Fall General Chief Complaint: Fall Stated Complaint: fell at dialysis per ems Time Seen by Provider: 10/19/22 11:40 Source: patient Mode of arrival: EMS History of Present Illness HPI Narrative: This is a 77-year-old male who is brought in by EMS from the dialysis center with reports that patient got up after his dialysis and fell due to his legs giving out , denies any loss of consciousness or use of blood thinners. Patient denies any recent fevers, chills and is otherwise been eating and drinking at his normal rate and has no acute complaints of pain. Related Data Home Medications Medication Instructions Recorded Confirmed aspirin 81 mg tablet,delayed 81 mg PO DAILY 10/07/22 10/07/22 release cyanocobalamin (vitamin B-12) 500 500 mcg PO DAILY 10/07/22 10/07/22 mcg tablet docusate sodium 100 mg capsule 100 mg PO DAILY 10/07/22 10/07/22 levothyroxine 50 mcg tablet 50 mcg PO DAILY 10/07/22 10/07/22 rosuvastatin 40 mg tablet 40 mg PO BEDTIME 10/07/22 10/07/22 silver (SilvaSorb topical 1 appl topical DAILY 10/07/22 10/07/22 gel,extended release) vitamin B complex and vitamin C 1 cap PO DAILY 10/07/22 10/07/22 no.20-folic acid 1 mg capsule Previous Rx's Medication Instructions Recorded cephalexin 500 mg capsule 500 mg PO QID 5 days #20 caps 10/08/22 nitrofurantoin 100 mg PO BID uti 7 days #14 caps 10/13/22 monohydrate/macrocrystals 100 mg capsule (Macrobid) Allergies Allergy/AdvReac Type Severity Reaction Status Date / Time No Known Allergies Allergy Unverified 02/19/20 14:34 [No Known Allergies*] Review of Systems Review of Systems: Pertinent positives and negatives as stated in HPI PMFSH Past Medical History Source: nursing notes reviewed Medical History Afib Chronic kidney disease Social History Social History Alcohol intake: never Smoked in Last 30 Days: No Use of substances other than those prescribed or required for medical reasons: No Advance Directives: No Physical Exam Vital Signs: Vital Signs: Last Vital Signs Temp 97.6 F 10/19/22 11:26 Pulse 63 10/19/22 11:26 Resp 18 10/19/22 11:26 BP 115/76 10/19/22 11:26 Pulse Ox 99 10/19/22 11:26 O2 Del Method Room Air 10/19/22 11:26 BMI result Body Mass Index 19.3 VITAL SIGNS: Reviewed. GENERAL: Well developed, well nourished, in no acute distress. HEAD: Normocephalic/atraumatic EYES: PERRLA, EOMI EARS: Ext canals without abnormality NOSE: Nares patent bilateral OROPHARYNX: no oral lesions noted, posterior pharynx clear NECK: Supple, no adenopathy LUNGS: Normal breath sounds. No adventitious sounds or accessory muscle use. SpO2<99>; CHEST WALL: No deformity or crepitus and no tenderness on palpation, there is a dialysis catheter noted to the right anterior chest does not have any surrounding erythema or induration. CARDIOVASCULAR: Regular rate and rhythm without noted murmurs, no JVD or lower extremity edema. ABDOMEN: Soft, non-tender, non-distended with bowel sounds. MUSCULOSKELETAL: No tenderness, deformities, or effusions noted on gross inspection. EXTREMITIES: No cyanosis, clubbing or edema, bilateral skin tears to the knees that have been approximated after significant irrigation with Steri-Strips, Telfa was then applied with Kerlix overlying.. SKIN: Inspection of the skin reveals no rashes NEUROLOGIC: Alert and oriented x 4. Strength and sensation to light touch were grossly intact x 4. Medical Decision Making Medical Decision Making MDM Narrative: 77-year-old male with history and clinical presentation consistent with vasovagal syncope after fluid shift from dialysis. He has minor skin tears to bilateral knees which were approximated with Steri-Strips and otherwise bandaged after irrigation of the wounds. There are no other traumatic injuries noted in patient has no acute complaints. Lab work on review appears to be chronically stable, imaging studies are interpreted by me in agreement with radiology's impression. Patient is otherwise discharged to home with instructions to follow-up with his primary care provider. Differential Diagnosis Please see the discussion above Lab Data Please see the discussion above 10/19/22 12:29 10/19/22 12:29 Labs: Lab Results 05/18/23 05/18/23 05/18/23 Range/Units 12:29 12:29 12:29 WBC 12.2 H (4.8-10.8) X10*3/uL RBC 3.20 L (4.60-5.80) X10*6/uL Hgb 10.5 L (14.0-18.0) g/dl Hct 32.7 L (42.0-52.0) % MCV 102.2 H (80.0-98.0) fL MCH 32.8 (27.0-33.0) pg MCHC 32.1 (31.0-36.0) g/dl RDW 17.4 H (11.0-16.0) % Plt Count 102 L (160-400) X10*3/uL MPV 9.2 L (9.4-12.4) fL Immature Gran % (Auto) 0.2 (0.0-0.4) % Neut % (Auto) 57.4 (45-73) % Lymph % (Auto) 38.5 (20-40) % [place] % (Auto) 3.3 (2-11) % Eos % (Auto) 0.4 (0-4) % Baso % (Auto) 0.2 (0-2) % Lymph # (Auto) 4.7 (1.2-4.9) X10*3/uL [place] # (Auto) 0.4 (0.1-1.2) X10*3/uL Eos # (Auto) 0.1 (0.0-0.4) X10*3/uL Baso # (Auto) 0.0 (0.0-0.2) X10*3/uL Abs Immat Gran (auto) 0.03 (0.00-0.03) X10*3/uL Absolute Neuts (auto) 7.0 (2.0-8.3) x10*3/uL Absolute Nucleated RBC 0.000 (0.0-0.012) X10*3/uL Nucleated RBC % (auto) 0.0 (0.0-0.2) /100WBC PT 12.0 (10.0-13.1) SEC INR 1.0 (0.9-1.1) Sodium 137 (135-145) mmol/L Potassium 4.2 (3.3-5.1) mmol/L Chloride 98 (96-108) mmol/L Carbon Dioxide 24 (22-29) mmol/L Anion Gap 19 (12-20) BUN 16 (9-16) mg/dL Creatinine 2.28 H (0.5-1.4) mg/dL Estim Creat Clear Calc 23.9 Estimated GFR 28 Random Glucose 94 (60-115) mg/dL Calcium 8.6 D (8.4-10.2) mg/dL Total Bilirubin 1.5 H (0.0-1.0) mg/dL AST 31 (5-37) U/L ALT 14 (0-40) U/L Alkaline Phosphatase 101 (39-117) U/L Total Protein 6.8 (6.5-8.0) g/dL Albumin 3.4 L (3.5-5.0) g/dL Independent Interpretation I performed an independent interpretation of an: EKG Interpretation: Atrial fibrillation with PVCs, HR-80, no STEMI, QRS and QTC are consistent with baseline. Radiology Impression Radiologist Impression: My interpretation is in agreement with radiology's impression of the imaging studies. External Record Review External record reviewed: Outpatient record and Prior outpatient labs Discharge Plan Discharge Clinical Impression: Vasovagal near syncope, Skin tear of lower leg without complication Patient Disposition: Home, Self-Care Instructions: Near Syncope (ED), Skin Tear (ED) Additional Instructions: 1. Resume all home medications as prescribed. 2. Follow-up with your primary care provider tomorrow morning. Return to the ER for any worsening symptoms. Prescriptions: No Action aspirin 81 mg Tablet,Delayed Release (Dr/Ec) 81 mg PO DAILY levothyroxine 50 mcg tablet 50 mcg PO DAILY docusate sodium 100 mg Capsule 100 mg PO DAILY rosuvastatin 40 mg tablet 40 mg PO BEDTIME cyanocobalamin (vitamin B-12) 500 mcg Tablet 500 mcg PO DAILY Nephrocaps 1 mg Capsule 1 cap PO DAILY SilvaSorb Gel,Extended Release 1 appl TOPICAL DAILY cephalexin 500 mg capsule 500 mg PO QID 5 Days Qty: 20 0RF nitrofurantoin monohyd/m-cryst [Macrobid] 100 mg capsule 100 mg PO BID 7 Days Qty: 14 0RF Rx Instructions: must administer with a meal/food
[2022-10-19 12:32] LABS: MANUAL DIFF FLAG NO
[2022-10-19 12:34] LABS: Basophils Percent Auto 0.2 % (0-2); Eosinophils Absolute Auto 0.1 X10*3/uL (0.0-0.4); Eosinophils Percent Auto 0.4 % (0-4); Hematocrit 32.7 % (42.0-52.0); Hemoglobin 10.5 g/dl (14.0-18.0); Imm Gran Abs Auto 0.03 X10*3/uL (0.00-0.03); Imm Gran Pct Auto 0.2 % (0.0-0.4); Lymphocytes Absolute Auto 4.7 X10*3/uL (1.2-4.9); Lymphocytes Percent Auto 38.5 % (20-40); Mean Corpuscular HGB Conc 32.1 g/dl (31.0-36.0); Mean Corpuscular Hemoglobin 32.8 pg (27.0-33.0); Mean Corpuscular Volume 102.2 fL (80.0-98.0); Mean Platelet Volume 9.2 fL (9.4-12.4); Monocytes Absolute Auto 0.4 X10*3/uL (0.1-1.2); Monocytes Percent Auto 3.3 % (2-11); Neutrophils Percent Auto 57.4 % (45-73); Platelet Count 102 X10*3/uL (160-400); Red Cell Distribution Width 17.4 % (11.0-16.0); White Blood Count 12.2 X10*3/uL (4.8-10.8)
[2022-10-19 12:59] LABS: Alanine Aminotransferase 14 U/L (0-40); Albumin Level 3.4 g/dL (3.5-5.0); Alkaline Phosphatase 101 U/L (39-117); Anion Gap 19 (12-20); Aspartate Amino Transferase 31 U/L (5-37); Bilirubin Total 1.5 mg/dL (0.0-1.0); Blood Urea Nitrogen 16 mg/dL (9-16); Calcium 8.6 mg/dL (8.4-10.2); Carbon Dioxide 24 mmol/L (22-29); Chloride 98 mmol/L (96-108); Creatinine Clr Calc Pharmacy 23.9; Estimated Glomerular Filt Rate 28; Glucose Random 94 mg/dL (60-115); Potassium 4.2 mmol/L (3.3-5.1); Sodium 137 mmol/L (135-145); Total Protein 6.8 g/dL (6.5-8.0)
[2022-10-19 15:19] VITALS: BP 100/54; PULSE 86; RESP 16; TEMP 36.7; O2SAT 99
--- NOTE | 2022-10-19 15:26 | PC.NURSE ---
called family to pick pt up
== END 2022-10-19 16:36 | disposition home or self-care (01) ==
PROVIDERS: Emergency Provider Student in an Organized Health Care Education/Training Program
DX: R55 Syncope and collapse (principal); S81.812A Laceration without foreign body, left lower leg, initial encounter; W17.89XA Other fall from one level to another, initial encounter; Y93.89 Activity, other specified; Y92.538 Other ambulatory health services establishments as the place of occurrence of the external cause; Y99.9 Unspecified external cause status; Z79.899 Other long term (current) drug therapy
CPT/HCPCS: 36415; 70450; 72125; 80053; 85025; 85610; 93005; 99284

== ENCOUNTER 2022-12-27 13:58 | Outpatient (REF) | payer MEDICARE, MEDICAID, SELFPAY ==
--- NOTE | ~2022-12-27 | US_ITS ---
EXAMINATION: NONINVASIVE ASSESSMENT OF THE ARTERIES OF BOTH LOWER EXTREMITIES WITH PVR EXAM AND BILATERAL LOWER EXTREMITY DUPLEX Therese Denny MD CLINICAL INFORMATION: PAD, pain TECHNIQUE: Ankle pulse volume recordings, ankle pressure measurements and ankle brachial indices were obtained of the lower extremity arterial system bilaterally in addition to duplex Doppler techniques with wave form analysis and measurement of velocities in the common femoral, profunda femoral, superficial femoral, popliteal and tibial arteries. The study was performed only at rest. COMPARISON: None FINDINGS: a) AT REST: RIGHT LE. The right ankle-brachial index is: 0.90 * >0.97-1.25 = normal - no significant arterial disease * 0.75-0.96 = mild peripheral arterial disease * 0.5-0.74 = moderate peripheral arterial disease * <0.50 = severe peripheral arterial disease 2. Right ankle pressure: normal. 3. Right ankle PVR waveform: Abnormal 4. Right direct duplex Doppler findings: Common femoral artery: 124 cm/s, Multiphasic Profunda femoris artery: 71 cm/s, Multiphasic Superficial femoral artery (proximal): 173 cm/s, Multiphasic Superficial femoral artery (mid): 109 cm/s, Multiphasic Superficial femoral artery (distal): 146 cm/s, Multiphasic Proximal Popliteal artery: 93 cm/s, Multiphasic Mid posterior tibial artery: 118 cm/s, Multiphasic LEFT LE. The left ankle-brachial index is: 0.78 * >0.97-1.25 = normal - no significant arterial disease * 0.75-0.96 = mild peripheral arterial disease * 0.5-0.74 = moderate peripheral arterial disease * <0.50 = severe peripheral arterial disease 2. Left ankle pressure: normal. 3. Left ankle PVR waveform: Abnormal 4. Left direct duplex Doppler findings: Common femoral artery: 143 cm/s, Multiphasic Profunda femoris artery: 162 cm/s, Multiphasic Superficial femoral artery (proximal): 61 cm/s, Multiphasic Superficial femoral artery (mid): 76 cm/s, Multiphasic Superficial femoral artery (distal): 139 cm/s, Multiphasic Proximal Popliteal artery: 58 cm/s, Multiphasic Mid posterior tibial artery: 124 cm/s, Multiphasic US/US YOHANA complete IMPRESSION: RIGHT LEG: Mild peripheral arterial disease. LEFT LEG: Mild-moderate peripheral arterial disease.
--- NOTE | ~2022-12-27 | US_ITS ---
EXAMINATION: NONINVASIVE ASSESSMENT OF THE ARTERIES OF BOTH LOWER EXTREMITIES WITH PVR EXAM AND BILATERAL LOWER EXTREMITY DUPLEX Therese Denny MD CLINICAL INFORMATION: PAD, pain TECHNIQUE: Ankle pulse volume recordings, ankle pressure measurements and ankle brachial indices were obtained of the lower extremity arterial system bilaterally in addition to duplex Doppler techniques with wave form analysis and measurement of velocities in the common femoral, profunda femoral, superficial femoral, popliteal and tibial arteries. The study was performed only at rest. COMPARISON: None FINDINGS: a) AT REST: RIGHT LE. The right ankle-brachial index is: 0.90 * >0.97-1.25 = normal - no significant arterial disease * 0.75-0.96 = mild peripheral arterial disease * 0.5-0.74 = moderate peripheral arterial disease * <0.50 = severe peripheral arterial disease 2. Right ankle pressure: normal. 3. Right ankle PVR waveform: Abnormal 4. Right direct duplex Doppler findings: Common femoral artery: 124 cm/s, Multiphasic Profunda femoris artery: 71 cm/s, Multiphasic Superficial femoral artery (proximal): 173 cm/s, Multiphasic Superficial femoral artery (mid): 109 cm/s, Multiphasic Superficial femoral artery (distal): 146 cm/s, Multiphasic Proximal Popliteal artery: 93 cm/s, Multiphasic Mid posterior tibial artery: 118 cm/s, Multiphasic LEFT LE. The left ankle-brachial index is: 0.78 * >0.97-1.25 = normal - no significant arterial disease * 0.75-0.96 = mild peripheral arterial disease * 0.5-0.74 = moderate peripheral arterial disease * <0.50 = severe peripheral arterial disease 2. Left ankle pressure: normal. 3. Left ankle PVR waveform: Abnormal 4. Left direct duplex Doppler findings: Common femoral artery: 143 cm/s, Multiphasic Profunda femoris artery: 162 cm/s, Multiphasic Superficial femoral artery (proximal): 61 cm/s, Multiphasic Superficial femoral artery (mid): 76 cm/s, Multiphasic Superficial femoral artery (distal): 139 cm/s, Multiphasic Proximal Popliteal artery: 58 cm/s, Multiphasic Mid posterior tibial artery: 124 cm/s, Multiphasic US/US arterial duplex LE BI IMPRESSION: RIGHT LEG: Mild peripheral arterial disease. LEFT LEG: Mild-moderate peripheral arterial disease.
== END 2022-12-27 13:59 | disposition home or self-care (01) ==
LOC: HO.US 13:58
PROVIDERS: Visit Provider Surgery
DX: I73.9 Peripheral vascular disease, unspecified (principal)
CPT/HCPCS: 93923; 93925

== ENCOUNTER 2023-01-12 15:52 | Emergency (ER) | payer MEDICARE, MEDICAID, SELFPAY ==
[2023-01-12 17:02] VITALS: BP 117/71; PULSE 89; RESP 16; TEMP 36.9; O2SAT 99; BMI 20.8
--- NOTE | 2023-01-12 17:05 | ED_ITS ---
HPI - General Adult General Chief complaint: Urogenital-Male Stated complaint: UTI Related Data Home Medications ?Medication ?Instructions ?Recorded ?Confirmed levothyroxine 50 mcg tablet 50 mcg PO DAILY 10/07/22 07/09/23 vitamin B complex and vitamin C 1 cap PO DAILY 10/07/22 07/09/23 no.20-folic acid 1 mg capsule rosuvastatin 10 mg tablet (Crestor) 10 mg PO BEDTIME 05/01/23 07/09/23 ipratropium 0.5 mg-albuterol 3 mg 3 ml inhalation Q4H PRN Shortness 07/09/23 07/09/23 (2.5 mg base)/3 mL nebulization Of Breath/Wheezing soln sevelamer carbonate 0.8 gram oral 0.8 g PO TID 07/09/23 07/09/23 powder packet Previous Rx's ?Medication ?Instructions ?Recorded acetaminophen 325 mg tablet 650 mg (2 x 325 mg) PO Q6H PRN 05/07/23 Pain, Mild (Pain Scale 1-3) #30 tabs docusate sodium 100 mg capsule 100 mg PO DAILY PRN Constipation 05/07/23 #30 caps heparin (porcine) 5,000 unit/mL 5,000 unit subcut Q12H 42 days #84 05/07/23 injection solution mL fosfomycin tromethamine 3 gram 1 packet PO Q OTHER DAY 3 doses #3 07/13/23 oral packet ea oxycodone 5 mg tablet 5 mg PO Q4H PRN mod pain #15 tabs 07/13/23 Allergies Allergy/AdvReac Type Severity Reaction Status Date / Time No Known Allergies Allergy Verified 05/08/23 04:31 [No Known Allergies*] [facility] Past Medical History Medical History Cardiomyopathy CAD (coronary artery disease) ESRD (end stage renal disease) Liver cirrhosis CHF (congestive heart failure) CLL (chronic lymphocytic leukemia) CVA (cerebral vascular accident) GI bleed Recurrent hematuria HLD (hyperlipidemia) HTN (hypertension) Hypothyroid Dementia Dialysis patient Afib Chronic kidney disease Surgical History S/P triple vessel bypass Social History Social History Household Members: Other Household Members Other:: sister, patient was currently at a rehab facility Housing: House Do you presently have visiting nurse or other home services: Yes Alcohol intake: never Patient Tobacco Use Status: Never used Tobacco Advance Directives Date on File: 05/08/23 service: No Physical Exam ED Vital Signs: BMI result Body Mass Index 20.8 Course Course Course Narrative: This is an RME: Additional HPI, ROS, PE not included below will be deferred to primary provider. 77 year old male present w/ urinary frequency, urgency, hesitancy X 5 days was told by pcp to come to the ED. Sister says however he has been retianing urine and now has been complaining of flank pain Plan- labs, UA Medical Decision Making Lab Data 01/12/23 17:41 01/12/23 17:41 Labs: Lab Results 01/12/23 01/12/23 Range/Units 17:41 18:43 WBC 10.4 (4.8-10.8) X10*3/uL RBC 3.72 L D (4.60-5.80) X10*6/uL Hgb 13.1 L D (14.0-18.0) g/dl Hct 41.5 L D (42.0-52.0) % MCV 111.6 H (80.0-98.0) fL MCH 35.2 H (27.0-33.0) pg MCHC 31.6 (31.0-36.0) g/dl RDW 16.7 H (11.0-16.0) % Plt Count 127 L D (160-400) X10*3/uL MPV 9.5 (9.4-12.4) fL Immature Gran % (Auto) 0.5 H (0.0-0.4) % Neut % (Auto) 54.0 (45-73) % Lymph % (Auto) 38.4 (20-40) % [place] % (Auto) 5.3 (2-11) % Eos % (Auto) 1.2 (0-4) % Baso % (Auto) 0.6 (0-2) % Lymph # (Auto) 4.0 (1.2-4.9) X10*3/uL [place] # (Auto) 0.6 (0.1-1.2) X10*3/uL Eos # (Auto) 0.1 (0.0-0.4) X10*3/uL Baso # (Auto) 0.1 (0.0-0.2) X10*3/uL Abs Immat Gran (auto) 0.05 H (0.00-0.03) X10*3/uL Absolute Neuts (auto) 5.6 (2.0-8.3) x10*3/uL Absolute Nucleated RBC 0.000 (0.0-0.012) X10*3/uL Nucleated RBC % (auto) 0.0 (0.0-0.2) /100WBC Sodium 139 (135-145) mmol/L Potassium 4.4 (3.3-5.1) mmol/L Chloride 101 (96-108) mmol/L Carbon Dioxide 26 (22-29) mmol/L Anion Gap 16 (12-20) BUN 31 H (9-16) mg/dL Creatinine 3.96 H (0.5-1.4) mg/dL Estim Creat Clear Calc 13.6 Estimated GFR 15 Random Glucose 85 (60-115) mg/dL Calcium 9.7 D (8.4-10.2) mg/dL Magnesium 2.5 (1.6-2.6) mg/dL Total Bilirubin 1.2 H (0.0-1.0) mg/dL AST 31 (5-37) U/L ALT 21 (0-40) U/L Alkaline Phosphatase 128 H (39-117) U/L Total Protein 8.1 H (6.5-8.0) g/dL Albumin 4.2 (3.5-5.0) g/dL Lipase 14 (8-78) U/L Urine Color Straw Urine Appearance Clear Urine pH 7.0 (5.0-9.0) Ur Specific [place] <= 1.005 (1.005-1.025) Urine Protein Negative (Neg-Trace) mg/dL Urine Glucose (UA) Negative (Negative) mg/dL Urine Ketones Negative (Negative) mg/dL Urine Blood Large (3+) H (Negative) Urine Nitrite Negative (Negative) Ur Leukocyte Esterase Moderate (2+) H (Negative) Urine RBC 3-5 H (0-2) /HPF Urine WBC 11-20 H (0-5) /HPF Ur Squamous Epith Cells 0-2 (0-2) /HPF Urine Bacteria Trace (None Seen) Hyaline Casts 0-2 (0-2) /LPF Discharge Plan Discharge Clinical Impression: Eloped from emergency department Patient Disposition: Elopement Prescriptions: No Action levothyroxine 50 mcg tablet 50 mcg PO DAILY B complex with C 20-folic acid 1 mg Capsule 1 cap PO DAILY rosuvastatin [Crestor] 10 mg Tablet 10 mg PO BEDTIME docusate sodium 100 mg Capsule 100 mg PO DAILY PRN (Reason: Constipation) Qty: 30 0RF acetaminophen 325 mg Tablet 650 mg PO Q6H PRN (Reason: Pain, Mild (Pain Scale 1-3)) Qty: 30 0RF heparin (porcine) 5,000 unit/mL Solution 5,000 unit subcut Q12H 42 Days Qty: 84 0RF sevelamer carbonate 0.8 gram powder in packet 0.8 g PO TID ipratropium-albuterol 0.5 mg-3 mg(2.5 mg base)/3 mL solution for nebulization 3 ml inhalation Q4H PRN (Reason: Shortness Of Breath/Wheezing) oxycodone 5 mg Tablet 5 mg PO Q4H PRN (Reason: mod pain) Qty: 15 0RF Rx Instructions: Partial Fill upon patient request. fosfomycin tromethamine 3 gram packet 1 packet PO Q OTHER DAY Qty: 3 0RF Interventions: ED Discharge Assessment Last Done: 01/12/23 21:55 Discharge Date/Time: 01/12/23 21:56 Print Language: German
[2023-01-12 17:44] LABS: MANUAL DIFF FLAG NO
[2023-01-12 17:47] LABS: Basophils Absolute Auto 0.1 X10*3/uL (0.0-0.2); Basophils Percent Auto 0.6 % (0-2); Eosinophils Absolute Auto 0.1 X10*3/uL (0.0-0.4); Eosinophils Percent Auto 1.2 % (0-4); Hematocrit 41.5 % (42.0-52.0); Hemoglobin 13.1 g/dl (14.0-18.0); Imm Gran Abs Auto 0.05 X10*3/uL (0.00-0.03); Imm Gran Pct Auto 0.5 % (0.0-0.4); Lymphocytes Percent Auto 38.4 % (20-40); Mean Corpuscular HGB Conc 31.6 g/dl (31.0-36.0); Mean Corpuscular Hemoglobin 35.2 pg (27.0-33.0); Mean Platelet Volume 9.5 fL (9.4-12.4); Monocytes Absolute Auto 0.6 X10*3/uL (0.1-1.2); Monocytes Percent Auto 5.3 % (2-11); Neutrophils Absolute Auto 5.6 x10*3/uL (2.0-8.3); Platelet Count 127 X10*3/uL (160-400); Red Blood Count 3.72 X10*6/uL (4.60-5.80); Red Cell Distribution Width 16.7 % (11.0-16.0); White Blood Count 10.4 X10*3/uL (4.8-10.8)
--- NOTE | 2023-01-12 17:47 | MHC.EDTECH ---
Patient unable to void at this time. Is aware we need urine specimn. SG
[2023-01-12 17:48] LABS: Mean Corpuscular Volume 111.6 fL (80.0-98.0)
[2023-01-12 18:09] LABS: Alanine Aminotransferase 21 U/L (0-40); Albumin Level 4.2 g/dL (3.5-5.0); Alkaline Phosphatase 128 U/L (39-117); Anion Gap 16 (12-20); Aspartate Amino Transferase 31 U/L (5-37); Bilirubin Total 1.2 mg/dL (0.0-1.0); Blood Urea Nitrogen 31 mg/dL (9-16); Calcium 9.7 mg/dL (8.4-10.2); Carbon Dioxide 26 mmol/L (22-29); Chloride 101 mmol/L (96-108); Creatinine Clr Calc Pharmacy 13.6; Estimated Glomerular Filt Rate 15; Glucose Random 85 mg/dL (60-115); Lipase 14 U/L (8-78); Magnesium 2.5 mg/dL (1.6-2.6); Potassium 4.4 mmol/L (3.3-5.1); Sodium 139 mmol/L (135-145); Total Protein 8.1 g/dL (6.5-8.0)
[2023-01-12 20:34] LABS: Appearance Urine Clear; Color Urine Straw; Glucose Urine UA Negative (Negative); Leukocyte Esterase Urine Moderate (2+) (Negative); Nitrite Urine Negative (Negative); Specific Gravity - Urine <= 1.005 (1.005-1.025); UMIC TRIGGER UACC YES; Urine Blood Large (3+) (Negative); Urine Ketones Negative (Negative); Urine Protein Negative (Neg-Trace)
[2023-01-12 20:47] LABS: Bacteria Urine Trace (None Seen); Hyaline Casts Urine 0-2 /LPF (0-2); Squamous Epithelial Cell Urine 0-2 /HPF (0-2); UACC Culture Trigger YES
== END 2023-01-12 21:56 | disposition left against medical advice (07) ==
PROVIDERS: Physician Assistant; Emergency Provider Emergency Medicine; PCP Family Medicine
DX: N39.0 Urinary tract infection, site not specified (principal); B96.20 Unspecified Escherichia coli [E. coli] as the cause of diseases classified elsewhere; N18.9 Chronic kidney disease, unspecified; I48.91 Unspecified atrial fibrillation
CPT/HCPCS: 36415; 51798; 80053; 81001; 81003; 83690; 83735; 85025; 87086; 87088; 87186; 99282; 99283

== ENCOUNTER 2023-01-14 13:41 | Emergency (ER) | payer MEDICARE, MEDICAID, SELFPAY ==
--- NOTE | 2023-01-14 | ECG_ITS ---
Test Reason : BRADYCARDIA Blood Pressure : / mmHG Vent. Rate : 075 BPM Atrial Rate : 000 BPM P-R Int : 000 ms QRS Dur : 176 ms QT Int : 470 ms P-R-T Axes : 000 -68 083 degrees QTc Int : 524 ms Atrial fibrillation with premature ventricular or aberrantly conducted complexes Left axis deviation Right bundle branch block Abnormal ECG When compared with ECG of 19-OCT-2022 12:50, Criteria for Septal infarct are no longer Present Referred By: Generic ED Physician Electronically Signed By:ELLEN ROSADO MD
[2023-01-14 14:33] VITALS: BP 94/36; PULSE 61; RESP 18; TEMP 36.4; O2SAT 97; BMI 19.8
--- NOTE | 2023-01-14 14:36 | ED_ITS ---
HPI - General Adult General Chief complaint: Urogenital-Male Stated complaint: UTI? Time Seen by Provider: 01/14/23 16:14 Source: patient and family Mode of arrival: ambulatory Limitations: no limitations History of Present Illness HPI narrative: Patient with history of end-stage renal disease on hemodialysis //Sunday with recurrent UTI last UTI was in 10/08/2022 with E coli was grown which was ESBL positive was seen here on 01/12 for your symptoms with frequency and disc UA was done which was infective but patient discharged on cephalexin comes back as still having the same feeling with frequency and dysuria otherwise patient feels good no fever no chills Related Data Home Medications Medication Instructions Recorded Confirmed aspirin 81 mg tablet,delayed 81 mg PO DAILY 10/07/22 10/07/22 release cyanocobalamin (vitamin B-12) 500 500 mcg PO DAILY 10/07/22 10/07/22 mcg tablet docusate sodium 100 mg capsule 100 mg PO DAILY 10/07/22 10/07/22 levothyroxine 50 mcg tablet 50 mcg PO DAILY 10/07/22 10/07/22 rosuvastatin 40 mg tablet 40 mg PO BEDTIME 10/07/22 10/07/22 silver (SilvaSorb topical 1 appl topical DAILY 10/07/22 10/07/22 gel,extended release) vitamin B complex and vitamin C 1 cap PO DAILY 10/07/22 10/07/22 no.20-folic acid 1 mg capsule Previous Rx's Medication Instructions Recorded cephalexin 500 mg capsule 500 mg PO QID 5 days #20 caps 10/08/22 nitrofurantoin 100 mg PO BID uti 7 days #14 caps 10/13/22 monohydrate/macrocrystals 100 mg capsule (Macrobid) Allergies Allergy/AdvReac Type Severity Reaction Status Date / Time No Known Allergies Allergy Verified 01/14/23 14:33 [No Known Allergies*] Review of Systems Review of Systems: Yes all other systems are reviewed and are negative [facility] Past Medical History Medical History Afib Chronic kidney disease Surgical History S/P triple vessel bypass Social History Social History Alcohol intake: never Smoked in Last 30 Days: No Use of substances other than those prescribed or required for medical reasons: No Advance Directives: No Advance Directives Information Provided: Yes Physical Exam ED Vital Signs: Vital Signs - 24 hr 01/14/23 14:33 01/14/23 14:44 01/14/23 16:00 Temperature 97.6 F 98 F Pulse Rate 61 70 69 Respiratory Rate 18 12 16 Blood Pressure 94/36 L 93/46 L 117/59 L Pulse Oximetry 97 99 98 Oxygen Delivery Method Room Air Room Air Room Air 01/14/23 17:32 01/14/23 20:00 Temperature 98 F Pulse Rate 77 77 Respiratory Rate 16 18 Blood Pressure 99/59 L 103/70 Pulse Oximetry 98 98 Oxygen Delivery Method Room Air Room Air BMI result Body Mass Index 19.8 Appearance: Alert. Oriented X3. No acute distress. Eyes: No pallor or icterus ENT: Pharynx normal. Oral Mucosa moist Neck: Normal inspection. Neck supple. CVS: Normal heart rate and rhythm. Pulses normal. Respiratory: No respiratory distress. Equal air entry bilateral, no wheezing/rales/rhonchi Abdomen: Soft and nontender. Bowel sounds are present, no mass palpable, no CVA tenderness Skin: Skin warm and dry. Normal skin color. Normal skin turgor. Extremities: No lower extremity edema. No calf tenderness Neuro: Oriented X 3. No motor deficit. No sensory deficit.No cerebellar signs , cranial nerves II-XII intact Course Course Course Narrative: RME: 77 yold male with recurrent UTI presents to the ED with UTI Symptoms. Patient left before getting results when they in waiting room on sunday. Patient looks well, but positive for UTI. hypotensive, but looks well. Charge nurse made aware. patieint brought into the ED Medications Administered Discontinued Medications Generic Name Dose Route Start Last Admin Trade Name Freq PRN Reason Stop Dose Admin Sodium Chloride 2,000 mls @ 2,000 mls/hr 01/14/23 16:23 01/14/23 17:19 Ns IV 01/14/23 17:22 2,000 mls/hr .Q1H STA Administration Ertapenem 1 gm/ Sodium 50 mls @ 100 mls/hr 01/14/23 17:30 01/14/23 17:34 Chloride IV 01/14/23 17:59 100 mls/hr ONCE ONE Administration Medical Decision Making Medical Decision Making [facility] Narrative: Patient Gram-negative E coli likely ESBL in the urine as in the past no signs of systemic sepsis patient received ertapenem 1 g discharge patient home advised to have ertapenem 1 g during days of dialysis and follow-up with Nephrology stra ight cath was placed to drain the urine Differential Diagnosis UTI/urinary retention/bacteremia Lab Data [facility] Lab Attestation statement: I reviewed the patient's lab results. 01/14/23 15:06 01/14/23 15:06 Labs: Lab Results 01/14/23 01/14/23 01/14/23 Range/Units 15:06 15:06 15:06 WBC 10.0 (4.8-10.8) X10*3/uL RBC 2.82 L D (4.60-5.80) X10*6/uL Hgb 10.1 L D (14.0-18.0) g/dl Hct 30.9 L D (42.0-52.0) % MCV 109.6 H (80.0-98.0) fL MCH 35.8 H (27.0-33.0) pg MCHC 32.7 (31.0-36.0) g/dl RDW 16.5 H (11.0-16.0) % Plt Count 115 L (160-400) X10*3/uL MPV 9.4 (9.4-12.4) fL Immature Gran % (Auto) 0.6 H (0.0-0.4) % Neut % (Auto) 56.7 (45-73) % Lymph % (Auto) 35.0 (20-40) % [place] % (Auto) 6.5 (2-11) % Eos % (Auto) 0.8 (0-4) % Baso % (Auto) 0.4 (0-2) % Lymph # (Auto) 3.5 (1.2-4.9) X10*3/uL [place] # (Auto) 0.7 (0.1-1.2) X10*3/uL Eos # (Auto) 0.1 (0.0-0.4) X10*3/uL Baso # (Auto) 0.0 (0.0-0.2) X10*3/uL Abs Immat Gran (auto) 0.06 H (0.00-0.03) X10*3/uL Absolute Neuts (auto) 5.7 (2.0-8.3) x10*3/uL Absolute Nucleated RBC 0.000 (0.0-0.012) X10*3/uL Nucleated RBC % (auto) 0.0 (0.0-0.2) /100WBC Sodium 142 (135-145) mmol/L Potassium 3.9 (3.3-5.1) mmol/L Chloride 101 (96-108) mmol/L Carbon Dioxide 29 (22-29) mmol/L Anion Gap 16 (12-20) BUN 35 H (9-16) mg/dL Creatinine 4.22 H* (0.5-1.4) mg/dL Estim Creat Clear Calc 12.9 Estimated GFR 14 Random Glucose 116 H (60-115) mg/dL Lactic Acid 1.0 (0.5-2.0) mmol/L Calcium 8.9 D (8.4-10.2) mg/dL Total Bilirubin 1.0 (0.0-1.0) mg/dL AST 20 (5-37) U/L ALT 16 (0-40) U/L Alkaline Phosphatase 103 (39-117) U/L Total Protein 6.6 (6.5-8.0) g/dL Albumin 3.5 (3.5-5.0) g/dL Urine Color Urine Appearance Urine pH (5.0-9.0) Ur Specific [place] (1.005-1.025) Urine Protein (Neg-Trace) mg/dL Urine Glucose (UA) (Negative) mg/dL Urine Ketones (Negative) mg/dL Urine Blood (Negative) Urine Nitrite (Negative) Ur Leukocyte Esterase (Negative) Urine RBC (0-2) /HPF Urine WBC (0-5) /HPF Ur Squamous Epith Cells (0-2) /HPF Urine Bacteria (None Seen) Hyaline Casts (0-2) /LPF 01/14/23 Range/Units 20:43 WBC (4.8-10.8) X10*3/uL RBC (4.60-5.80) X10*6/uL Hgb (14.0-18.0) g/dl Hct (42.0-52.0) % MCV (80.0-98.0) fL MCH (27.0-33.0) pg MCHC (31.0-36.0) g/dl RDW (11.0-16.0) % Plt Count (160-400) X10*3/uL MPV (9.4-12.4) fL Immature Gran % (Auto) (0.0-0.4) % Neut % (Auto) (45-73) % Lymph % (Auto) (20-40) % [place] % (Auto) (2-11) % Eos % (Auto) (0-4) % Baso % (Auto) (0-2) % Lymph # (Auto) (1.2-4.9) X10*3/uL [place] # (Auto) (0.1-1.2) X10*3/uL Eos # (Auto) (0.0-0.4) X10*3/uL Baso # (Auto) (0.0-0.2) X10*3/uL Abs Immat Gran (auto) (0.00-0.03) X10*3/uL Absolute Neuts (auto) (2.0-8.3) x10*3/uL Absolute Nucleated RBC (0.0-0.012) X10*3/uL Nucleated RBC % (auto) (0.0-0.2) /100WBC Sodium (135-145) mmol/L Potassium (3.3-5.1) mmol/L Chloride (96-108) mmol/L Carbon Dioxide (22-29) mmol/L Anion Gap (12-20) BUN (9-16) mg/dL Creatinine (0.5-1.4) mg/dL Estim Creat Clear Calc Estimated GFR Random Glucose (60-115) mg/dL Lactic Acid (0.5-2.0) mmol/L Calcium (8.4-10.2) mg/dL Total Bilirubin (0.0-1.0) mg/dL AST (5-37) U/L ALT (0-40) U/L Alkaline Phosphatase (39-117) U/L Total Protein (6.5-8.0) g/dL Albumin (3.5-5.0) g/dL Urine Color Dark Yellow Urine Appearance Cloudy Urine pH 6.5 (5.0-9.0) Ur Specific [place] 1.020 (1.005-1.025) Urine Protein 300 (3+) H (Neg-Trace) mg/dL Urine Glucose (UA) Negative (Negative) mg/dL Urine Ketones Trace (Negative) mg/dL Urine Blood Moderate (2+) H (Negative) Urine Nitrite Negative (Negative) Ur Leukocyte Esterase Large (3+) H (Negative) Urine RBC 6-10 H (0-2) /HPF Urine WBC 21-50 (0-5) /HPF Ur Squamous Epith Cells 0-2 (0-2) /HPF Urine Bacteria 4+ (None Seen) Hyaline Casts 3-5 (0-2) /LPF Discharge Plan Discharge Clinical Impression: Urinary tract infection Patient Disposition: Home, Self-Care Instructions: Urinary Tract Infection in Men (ED) Additional Instructions: Likely you have E coli ESBL infection as in the past Advised to stop cephalexin Start taking ertapenem 1 g at the time of dialysis for 4 weeks to be decided by the cage maker depending upon urine results Prescriptions: No Action aspirin 81 mg Tablet,Delayed Release (Dr/Ec) 81 mg PO DAILY levothyroxine 50 mcg tablet 50 mcg PO DAILY docusate sodium 100 mg Capsule 100 mg PO DAILY rosuvastatin 40 mg tablet 40 mg PO BEDTIME cyanocobalamin (vitamin B-12) 500 mcg Tablet 500 mcg PO DAILY Nephrocaps 1 mg Capsule 1 cap PO DAILY SilvaSorb Gel,Extended Release 1 appl TOPICAL DAILY cephalexin 500 mg capsule 500 mg PO QID 5 Days Qty: 20 0RF nitrofurantoin monohyd/m-cryst [Macrobid] 100 mg capsule 100 mg PO BID 7 Days Qty: 14 0RF Rx Instructions: must administer with a meal/food Interventions: ED Discharge Assessment Last Done: 01/14/23 21:17 Discharge Date/Time: 01/14/23 20:30
[2023-01-14 14:44] VITALS: BP 93/46; PULSE 70; RESP 12; O2SAT 99
[2023-01-14 15:17] LABS: MANUAL DIFF FLAG NO
[2023-01-14 15:23] LABS: Basophils Percent Auto 0.4 % (0-2); Eosinophils Absolute Auto 0.1 X10*3/uL (0.0-0.4); Eosinophils Percent Auto 0.8 % (0-4); Hematocrit 30.9 % (42.0-52.0); Hemoglobin 10.1 g/dl (14.0-18.0); Imm Gran Abs Auto 0.06 X10*3/uL (0.00-0.03); Imm Gran Pct Auto 0.6 % (0.0-0.4); Lymphocytes Absolute Auto 3.5 X10*3/uL (1.2-4.9); Mean Corpuscular HGB Conc 32.7 g/dl (31.0-36.0); Mean Corpuscular Hemoglobin 35.8 pg (27.0-33.0); Mean Corpuscular Volume 109.6 fL (80.0-98.0); Mean Platelet Volume 9.4 fL (9.4-12.4); Monocytes Absolute Auto 0.7 X10*3/uL (0.1-1.2); Monocytes Percent Auto 6.5 % (2-11); Neutrophils Absolute Auto 5.7 x10*3/uL (2.0-8.3); Neutrophils Percent Auto 56.7 % (45-73); Platelet Count 115 X10*3/uL (160-400); Red Blood Count 2.82 X10*6/uL (4.60-5.80); Red Cell Distribution Width 16.5 % (11.0-16.0)
--- NOTE | 2023-01-14 15:32 | PC.NURSE ---
pt alert and oriented only to self, pt stating that he is at [facility] and that he is unsure of what year it is. vss, nsr with frequent pvc's on the court monitor. ekg performed, documented, and given to provider. pt stating that he has dysuria on urination. denies hematuria, n/v/d. pt also denies chills/having fever within the past few days. abdomen non-tender to the touch, hyperactive bs noted. pt states that he has slight lower back discomfort. pt's sister is bedside for support. call infante placed within reach. will continue to monitor.
[2023-01-14 15:56] LABS: Alanine Aminotransferase 16 U/L (0-40); Albumin Level 3.5 g/dL (3.5-5.0); Alkaline Phosphatase 103 U/L (39-117); Anion Gap 16 (12-20); Aspartate Amino Transferase 20 U/L (5-37); Blood Urea Nitrogen 35 mg/dL (9-16); Calcium 8.9 mg/dL (8.4-10.2); Carbon Dioxide 29 mmol/L (22-29); Chloride 101 mmol/L (96-108); Creatinine Clr Calc Pharmacy 12.9; Estimated Glomerular Filt Rate 14; Glucose Random 116 mg/dL (60-115); Potassium 3.9 mmol/L (3.3-5.1); Sodium 142 mmol/L (135-145); Total Protein 6.6 g/dL (6.5-8.0)
[2023-01-14 16:00] VITALS: BP 117/59; PULSE 69; RESP 16; TEMP 36.6; O2SAT 98
--- NOTE | 2023-01-14 16:29 | PC.NURSE ---
resting. vss. talking well. denies pain
--- NOTE | 2023-01-14 17:00 | PC.NURSE ---
md browne notified bl scan results- no interventions further ordered. no bladder tenderness/distention
[2023-01-14] MEDS: 0.9 % Sodium Chloride 2,000 ML 2000 ML IV (17:19)
[2023-01-14 17:32] VITALS: BP 99/59; PULSE 77; RESP 16; O2SAT 98
--- NOTE | 2023-01-14 17:33 | PC.NURSE ---
vss. medication administered per provider order.
[2023-01-14] MEDS: Ertapenem Sodium 1 GM in 0.9 % Sodium Chloride 50 ML IV (17:34)
[2023-01-14 20:00] VITALS: BP 103/70; PULSE 77; RESP 18; TEMP 36.6; O2SAT 98
[2023-01-14 20:56] LABS: Appearance Urine Cloudy; Color Urine Dark Yellow; Glucose Urine UA Negative (Negative); Leukocyte Esterase Urine Large (3+) (Negative); Nitrite Urine Negative (Negative); PH 6.5 (5.0-9.0); UMIC TRIGGER UACC YES; Urine Blood Moderate (2+) (Negative); Urine Ketones Trace mg/dL (Negative); Urine Protein 300 (3+) mg/dL (Neg-Trace)
--- NOTE | 2023-01-14 21:08 | PC.NURSE ---
Reviewed discharge instructions with pt, pt verbalized understanding, Notified GUERLINE Bal
--- NOTE | 2023-01-14 21:18 | PC.NURSE ---
dc at 2029- delay for d/c r/t md browne need to straight cath for urine sample as attempted multiple times by staff for urine w strt caths. calm, coop. no distress. ambulated to wheelchair w rn assist to waiting room. piv out. vss
[2023-01-14 21:27] LABS: Bacteria Urine 4+ (None Seen); Squamous Epithelial Cell Urine 0-2 /HPF (0-2); UACC Culture Trigger YES; WBC Urine 21-50 /HPF (0-5)
== END 2023-01-14 20:30 | disposition home or self-care (01) ==
PROVIDERS: Physician Assistant; Emergency Provider Internal Medicine; PCP Family Medicine
DX: N39.0 Urinary tract infection, site not specified (principal); R00.1 Bradycardia, unspecified; I45.10 Unspecified right bundle-branch block; I48.91 Unspecified atrial fibrillation; Z79.899 Other long term (current) drug therapy
CPT/HCPCS: 36415; 51798; 80053; 81001; 83605; 85025; 87040; 87086; 87088; 87186; 93005; 96365; 96366; 99284; 99285; J1335

== ENCOUNTER → 2023-01-14 15:08 | Outpatient (BNV) | payer MEDICARE, MEDICAID, SELFPAY | PROVIDERS: Emergency Provider Internal Medicine; PCP Family Medicine; Visit Provider Internal Medicine Cardiovascular Disease | DX: I49.3 Ventricular premature depolarization (principal); I45.10 Unspecified right bundle-branch block | CPT/HCPCS: 93010 ==

== ENCOUNTER 2023-05-01 12:44 | Inpatient (IN) | payer MEDICARE, MEDICAID, SELFPAY ==
--- NOTE | ~2023-05-01 | XR_ITS ---
EXAMINATION: Right hip and pelvis. Chest 2 views. COMPARISON: Chest x-ray 10/07/2022 CLINICAL INDICATIONS: Fall and pain. TECHNIQUE: Chest 2 views. AP pelvis and right hip 3 views. FINDINGS: CHEST: The lungs are well-expanded with moderate left lower lobe opacity likely consolidation/atelectasis. Effusion cannot be excluded. Rest lungs are clear. The heart size is enlarged. Pulmonary vascularity is normal. There is a right central venous dialysis catheter with its tip in mid to distal SVC. No gross bony abnormality seen. AP PELVIS AND RIGHT HIP: There is a minimally distracted right femoral neck fracture. No dislocation. Rest of the visualized pelvis, left hip and SI joints are unremarkable. XR/XR hip RT w PEL1V IMPRESSION: Nondisplaced right femoral neck fracture. Left lower lobe consolidation/atelectasis. Effusion is not excluded. Rest of lungs are clear.
--- NOTE | ~2023-05-01 | XR_ITS ---
EXAMINATION: Right hip and pelvis. Chest 2 views. COMPARISON: Chest x-ray 10/07/2022 CLINICAL INDICATIONS: Fall and pain. TECHNIQUE: Chest 2 views. AP pelvis and right hip 3 views. FINDINGS: CHEST: The lungs are well-expanded with moderate left lower lobe opacity likely consolidation/atelectasis. Effusion cannot be excluded. Rest lungs are clear. The heart size is enlarged. Pulmonary vascularity is normal. There is a right central venous dialysis catheter with its tip in mid to distal SVC. No gross bony abnormality seen. AP PELVIS AND RIGHT HIP: There is a minimally distracted right femoral neck fracture. No dislocation. Rest of the visualized pelvis, left hip and SI joints are unremarkable. XR/XR chest 1V IMPRESSION: Nondisplaced right femoral neck fracture. Left lower lobe consolidation/atelectasis. Effusion is not excluded. Rest of lungs are clear.
--- NOTE | ~2023-05-01 | CT_ITS ---
CT HEAD WITHOUT IV CONTRAST CT CERVICAL SPINE WITHOUT IV CONTRAST INDICATION: Fall with pain. COMPARISON: Head and cervical spine CT 10/19/2022. TECHNIQUE: Multidetector CT acquisitions of the head and cervical spine were obtained without IV contrast. Multiplanar reformats were acquired and utilized for image interpretation. This CT examination was performed using dose optimization techniques as appropriate, variously including the following: *Automated exposure control *Adjustment of mA and/or kV according to patient size (this includes techniques or standardized protocols for targeted exams where dose is matched to indication/reason for exam; i.e. extremities or head) *Use of iterative reconstruction technique FINDINGS: HEAD: There is global cerebral volume loss, there is advanced chronic microangiopathy, and there is a chronic left SALES MANAGER [employer]ANGED [employer]ERALS territory infarct. There is extensive atherosclerotic calcification throughout the intracranial arterial vasculature. There is no intracranial hemorrhage, hydrocephalus, extra-axial surface collection, midline shift, or other herniation pattern. Calderon to white matter differentiation is diffusely maintained without evidence of an evolved acute territorial infarct. The basilar cisterns are preserved. No significant soft tissue abnormality. No acute osseous abnormality. The paranasal sinuses and the mastoid air cells are well aerated. CERVICAL SPINE: Mild degenerative anterior subluxation of C7 on T1. There is multilevel hypertrophic facet arthropathy and there are hypertrophic degenerative changes involving the atlantodental interval. Multilevel degenerative disc disease and multilevel endplate osteophytes. There are no acute fractures and there are no acute subluxations. There is no prevertebral soft tissue swelling. No significant soft tissue abnormality within the neck. The visualized lung apices are clear. Right IJ venous catheter partially imaged. CT/CT head/brain wo IV con IMPRESSION: - No acute intracranial abnormality. There is global cerebral volume loss, there is advanced chronic microangiopathy, and there is a chronic left SALES MANAGER [employer] territory infarct. There is extensive atherosclerotic calcification throughout the intracranial arterial vasculature. - No acute osseous abnormality within the cervical spine. Cervical spondylosis.
--- NOTE | ~2023-05-01 | CT_ITS ---
CT HEAD WITHOUT IV CONTRAST CT CERVICAL SPINE WITHOUT IV CONTRAST INDICATION: Fall with pain. COMPARISON: Head and cervical spine CT 10/19/2022. TECHNIQUE: Multidetector CT acquisitions of the head and cervical spine were obtained without IV contrast. Multiplanar reformats were acquired and utilized for image interpretation. This CT examination was performed using dose optimization techniques as appropriate, variously including the following: *Automated exposure control *Adjustment of mA and/or kV according to patient size (this includes techniques or standardized protocols for targeted exams where dose is matched to indication/reason for exam; i.e. extremities or head) *Use of iterative reconstruction technique FINDINGS: HEAD: There is global cerebral volume loss, there is advanced chronic microangiopathy, and there is a chronic left AIRDROP SYSTEMS TECHNICIAN territory infarct. There is extensive atherosclerotic calcification throughout the intracranial arterial vasculature. There is no intracranial hemorrhage, hydrocephalus, extra-axial surface collection, midline shift, or other herniation pattern. Calderon to white matter differentiation is diffusely maintained without evidence of an evolved acute territorial infarct. The basilar cisterns are preserved. No significant soft tissue abnormality. No acute osseous abnormality. The paranasal sinuses and the mastoid air cells are well aerated. CERVICAL SPINE: Mild degenerative anterior subluxation of C7 on T1. There is multilevel hypertrophic facet arthropathy and there are hypertrophic degenerative changes involving the atlantodental interval. Multilevel degenerative disc disease and multilevel endplate osteophytes. There are no acute fractures and there are no acute subluxations. There is no prevertebral soft tissue swelling. No significant soft tissue abnormality within the neck. The visualized lung apices are clear. Right IJ venous catheter partially imaged. CT/CT cervical spine wo IV con IMPRESSION: - No acute intracranial abnormality. There is global cerebral volume loss, there is advanced chronic microangiopathy, and there is a chronic left AIRDROP SYSTEMS TECHNICIAN territory infarct. There is extensive atherosclerotic calcification throughout the intracranial arterial vasculature. - No acute osseous abnormality within the cervical spine. Cervical spondylosis.
[2023-05-01 12:58] VITALS: BP 155/65; BP 93/60; PULSE 84; PULSE 88; RESP 18; TEMP 36.4; O2SAT 95; O2SAT 99; BMI 20.4
--- NOTE | 2023-05-01 13:28 | ED.FALL ---
HPI - Fall General Chief Complaint: Fall Stated Complaint: SLIP/FALL OUT OF SHOWER,R HIP PAIN W/ROTATION Time Seen by Provider: 05/01/23 13:14 Source: patient and EMS Mode of arrival: EMS Limitations: other (dementia) History of Present Illness HPI Narrative: Patient is supposed to walk with walker, unsure if he did, slipped and fall at home, sister called EMS, patient complaining of hip pain complaint: fall Onset (ago): minute(s) Fall from: standing Fall witnessed: no Place fall occurred: home Loss of consciousness: none Related Data Home Medications Medication Instructions Recorded Confirmed aspirin 81 mg tablet,delayed 81 mg PO DAILY 10/07/22 10/07/22 release cyanocobalamin (vitamin B-12) 500 500 mcg PO DAILY 10/07/22 10/07/22 mcg tablet docusate sodium 100 mg capsule 100 mg PO DAILY 10/07/22 10/07/22 levothyroxine 50 mcg tablet 50 mcg PO DAILY 10/07/22 10/07/22 rosuvastatin 40 mg tablet 40 mg PO BEDTIME 10/07/22 10/07/22 silver (SilvaSorb topical 1 appl topical DAILY 10/07/22 10/07/22 gel,extended release) vitamin B complex and vitamin C 1 cap PO DAILY 10/07/22 10/07/22 no.20-folic acid 1 mg capsule Previous Rx's Medication Instructions Recorded cephalexin 500 mg capsule 500 mg PO QID 5 days #20 caps 10/08/22 nitrofurantoin 100 mg PO BID uti 7 days #14 caps 10/13/22 monohydrate/macrocrystals 100 mg capsule (Macrobid) Allergies Allergy/AdvReac Type Severity Reaction Status Date / Time No Known Allergies Allergy Verified 05/01/23 13:03 [No Known Allergies*] Review of Systems Review of Systems: Yes Unobtainable due to mental status (dementia) Neurologic: Denies Sensory deficit (Neuro) PMFSH Past Medical History Medical History Hypothyroid Dementia Dialysis patient Afib Chronic kidney disease Surgical History S/P triple vessel bypass Social History Social History Alcohol intake: never Smoked in Last 30 Days: No Use of substances other than those prescribed or required for medical reasons: No Advance Directives: Yes Advance Directives Information Provided: Yes Advance Directives on File: No Physical Exam Vital Signs: Vital Signs: Last Vital Signs Temp 98.5 F 05/01/23 13:29 Pulse 80 05/01/23 14:42 Resp 18 05/01/23 14:42 BP 118/69 05/01/23 14:42 Pulse Ox 95 05/01/23 14:42 O2 Del Method Room Air 05/01/23 14:42 BMI result Body Mass Index 20.4 Const: Other: frail chronically ill Orientation/consciousness: oriented to person and patient oriented x3 Limitations: other limitations (dementia) HEENT: Head: Yes normal to inspection Ears: external ears normal General nose exam: Normal external nose present Mouth: Normal oral and palatal mucosa present and oropharynx normal Throat: Yes posterior oropharynx normal Eyes: General: appearance normal, both eyes and all related structures Neck: Other: ccollar Chest: Chest palpation & inspection: normal inspection of the chest Resp: Auscultation: clear to auscultation bilaterally Cardio: Jugular venous distension: no JVD Rate: regular rate Rhythm: regular rhythm Heart sounds: S1 normal heart sound present and S2 normal heart sound present GI: Inspection: Yes normal to inspection Palpation (GI): Soft to palpation, nontender and No hepatosplenomegaly present Auscultation: normal bowel sounds : General: Yes no CVA tenderness Back/Spine/Pelvis: Back: no CVA tenderness Skin: Other: multiple ecchymosis Neuro: General: oriented to person and patient oriented x3 Cranial nerves: Yes CN's II-XII intact bilaterally Motor exam (neuro): 5/5 motor strength present throughout Sensory Exam: No Sensory deficit (Neuro) Extrem: Other: right hip with external rotation and pain and movement Psych: Appearance: grossly normal Course Reevaluation(s) Reevaluation #1: Patient with right femoral neck fracture and hyperkalemia due for diaylsis tomorrow will admit Time: 15:51 Medical Decision Making Differential Diagnosis Differential Diagnoses: The differential diagnosis associated with the presentation includes (head trauma, neck trauma, hip fracture, hyperkalemia) Admission/Observation Consideration of admission/observation: Escalation of care including admission/observation considered (upon arrival patient was considered for admission) Consult Healthcare Provider Management of the patient was discussed with: Hospitalist and [employer] Operator (ortho) Lab Data MDM Lab Attestation statement: I reviewed the patient's lab results. (hyperkalemia) 05/01/23 14:15 05/01/23 14:15 Labs: Lab Results 05/01/23 Range/Units 14:15 WBC 10.3 (4.8-10.8) X10*3/uL RBC 3.25 L (4.60-5.80) X10*6/uL Hgb 11.3 L (14.0-18.0) g/dl Hct 34.9 L (42.0-52.0) % MCV 107.4 H (80.0-98.0) fL MCH 34.8 H (27.0-33.0) pg MCHC 32.4 (31.0-36.0) g/dl RDW 14.2 (11.0-16.0) % Plt Count 101 L (160-400) X10*3/uL MPV 9.1 L (9.4-12.4) fL Immature Gran % (Auto) 0.6 H (0.0-0.4) % Neut % (Auto) 72.7 (45-73) % Lymph % (Auto) 21.5 (20-40) % [place] % (Auto) 4.6 (2-11) % Eos % (Auto) 0.3 (0-4) % Baso % (Auto) 0.3 (0-2) % Lymph # (Auto) 2.2 (1.2-4.9) X10*3/uL [place] # (Auto) 0.5 (0.1-1.2) X10*3/uL Eos # (Auto) 0.0 (0.0-0.4) X10*3/uL Baso # (Auto) 0.0 (0.0-0.2) X10*3/uL Abs Immat Gran (auto) 0.06 H (0.00-0.03) X10*3/uL Absolute Neuts (auto) 7.5 (2.0-8.3) x10*3/uL Absolute Nucleated RBC 0.000 (0.0-0.012) X10*3/uL Nucleated RBC % (auto) 0.0 (0.0-0.2) /100WBC Sodium 139 (135-145) mmol/L Potassium 5.7 H D (3.3-5.1) mmol/L Chloride 102 (96-108) mmol/L Carbon Dioxide 27 (22-29) mmol/L Anion Gap 16 (12-20) BUN 68 H (9-16) mg/dL Creatinine 6.40 H* (0.5-1.4) mg/dL Estim Creat Clear Calc 9.3 Estimated GFR 8 Random Glucose 135 H (60-115) mg/dL Calcium 9.5 D (8.4-10.2) mg/dL Independent Interpretation I performed an independent interpretation of an: EKG (atrial fibrillation RBBB no hyper acute ts), Plain X-Ray (right femoral neck fracture) and CT Scan (Brain: atrophy neck: no fracture) Radiology Impression Discussion of test interpretation with radiology: I have reviewed the radiologist's reading. Independent Historian Clinical information obtained from an independent historian. History obtained from or confirmed by: EMS External Record Review External record reviewed: Outpatient record Chronic Conditions Patient?s care impacted by: Other (end stage renal disease) Discharge Plan Discharge Clinical Impression: Closed hip fracture, Renal failure, Acute hyperkalemia Patient Disposition: Admitted As Inpatient
[2023-05-01 13:29] VITALS: BP 112/68; PULSE 84; RESP 18; TEMP 36.9; O2SAT 99
--- NOTE | 2023-05-01 13:29 | ECG_ITS ---
Test Reason : WEAKNESS Blood Pressure : / mmHG Vent. Rate : 081 BPM Atrial Rate : 000 BPM P-R Int : 000 ms QRS Dur : 170 ms QT Int : 440 ms P-R-T Axes : 000 -72 084 degrees QTc Int : 511 ms Atrial fibrillation Left axis deviation Right bundle branch block Abnormal ECG When compared with ECG of 14-JAN-2023 15:08, Premature ventricular complexes is no longer Present Referred By: Antoni Aguayo Electronically Signed By:DEBI COLEY MD
[2023-05-01 14:17] LABS: MANUAL DIFF FLAG NO
--- NOTE | 2023-05-01 14:19 | PM.EVENT ---
Event Note Date of Service: 05/01/23 Event Note: X-rays reviewed revealse a right hip femoral neck fracture Admit to medicine NPO after midnight Formal consult to follow Time Spent With Patient Time: Total time managing care of this patient today ____ minutes.
[2023-05-01 14:21] LABS: Basophils Percent Auto 0.3 % (0-2); Eosinophils Percent Auto 0.3 % (0-4); Hematocrit 34.9 % (42.0-52.0); Hemoglobin 11.3 g/dl (14.0-18.0); Imm Gran Abs Auto 0.06 X10*3/uL (0.00-0.03); Imm Gran Pct Auto 0.6 % (0.0-0.4); Lymphocytes Absolute Auto 2.2 X10*3/uL (1.2-4.9); Lymphocytes Percent Auto 21.5 % (20-40); Mean Corpuscular HGB Conc 32.4 g/dl (31.0-36.0); Mean Corpuscular Hemoglobin 34.8 pg (27.0-33.0); Mean Corpuscular Volume 107.4 fL (80.0-98.0); Mean Platelet Volume 9.1 fL (9.4-12.4); Monocytes Absolute Auto 0.5 X10*3/uL (0.1-1.2); Monocytes Percent Auto 4.6 % (2-11); Neutrophils Absolute Auto 7.5 x10*3/uL (2.0-8.3); Neutrophils Percent Auto 72.7 % (45-73); Platelet Count 101 X10*3/uL (160-400); Red Blood Count 3.25 X10*6/uL (4.60-5.80); Red Cell Distribution Width 14.2 % (11.0-16.0); White Blood Count 10.3 X10*3/uL (4.8-10.8)
[2023-05-01 14:42] VITALS: BP 118/69; PULSE 80; RESP 18; O2SAT 95
[2023-05-01 14:53] LABS: Anion Gap 16 (12-20); Blood Urea Nitrogen 68 mg/dL (9-16); Calcium 9.5 mg/dL (8.4-10.2); Carbon Dioxide 27 mmol/L (22-29); Chloride 102 mmol/L (96-108); Creatinine Clr Calc Pharmacy 9.3; Estimated Glomerular Filt Rate 8; Glucose Random 135 mg/dL (60-115); Potassium 5.7 mmol/L (3.3-5.1); Sodium 139 mmol/L (135-145)
[2023-05-01] MEDS: Sodium Zirconium Cyclosilicate 10 GM POWD.PACK PO (16:38)
--- NOTE | 2023-05-01 16:44 | P.HPHOSP_ITS ---
History of Present Illness Date of Service: 05/01/23 Attending physician on admission: Bear Arauz Chief Complaint: Right hip pain after fall at home Pt is a 77-year-old male with a PMH significant for?ESRD on HD on Sun/Sun/Sun, vascular dementia, hypothyroidism, HTN, HLD, history of Vfib arrest in 2016, asthma, afib no longer on anticoagulation due to recurrent hematuria and GI bleed, portal hypertensive gastropathy, hx CVA wtih left sided deficits, CLL (not on any treatment), CHF w/ EF 10-20%, and liver cirrhosis who presents to the ED with?right leg pain after mechanical fall at home. Patient with vascular dementia at baseline, is fully alert and oriented to self only. HPI supplemented by his sister whom he lives with. Sister says patient was shaving in the bathroom earlier today getting ready for dialysis when [employer] entered the home and startled the pt, who fell to the floor on his right side. Denies head strike, no lightheadedness or dizziness. Sister notes pt has been less steady on his feet since he has started dialysis and she has insisted he use the walker in the house. Pt only complains of right leg pain, though he is unable to further specify the location. Pt otherwise denies any other acute medical complaints. No shortness of breath, cough, BONNER. Denies chest pain/pressure, palpitation. No fever, chills, nausea, vomiting, abdominal pain. Pt did miss dialysis today d/t fall and presentation to the ED. Of note, sister mentions that pt has been to STR at [facility] twice before and would prefer to stay there if possible as it is close to his dialysis center. In the ED pt was afebrile and otherwise hemodynamically stable, satting at 95% on RA. Labs were significant for stable macrocytic anemia of H&H of 11.3/34.9, potassium 5.7, BUN 68, and creatinine 6.40, otherwise grossly WNL. Hip and pelvis x-ray found nondisplaced right femoral neck fracture. CXR showed left lower lobe consolidation/atelectasis with effusion not excluded. CT of head showed no acute intracranial abnormality but with global cerebral volume loss and advanced chronic microangiopathy with a chronic left MASH TUB COOKER OPERATOR territory infarct and extensive atherosclerotic calcification throughout the intracranial arteriovascular. CT of cervical spine found no acute osseous abnormality but with cervical spondylolysis. EKG demonstrated atrial fibrillation with right bundle-branch block but no significant ST elevations or depressions. Pt was treated with Lokelma. Pt will be admitted to the hospital for treatment further evaluation of right hip fracture with likely surgical procedure tomorrow. Review of Systems 2 Review of Systems: Right leg pain after mechanical fall at home Patient has no other acute medical complaints at this time [facility] Medical History (Updated 05/02/23 @ 16:34 by Sofi Horta MD) ESRD (end stage renal disease) Liver cirrhosis CHF (congestive heart failure) CLL (chronic lymphocytic leukemia) CVA (cerebral vascular accident) GI bleed Recurrent hematuria HLD (hyperlipidemia) HTN (hypertension) Hypothyroid Dementia Dialysis patient Afib Chronic kidney disease Surgical History S/P triple vessel bypass Social History Alcohol intake: never Patient Tobacco Use Status: Never used Tobacco service: No Meds Allergies Allergy/AdvReac Type Severity Reaction Status Date / Time No Known Allergies Allergy Verified 05/01/23 13:03 [No Known Allergies*] Home Medications Medication Instructions Recorded Confirmed Last Taken Type aspirin 81 mg tablet,delayed 81 mg PO DAILY 10/07/22 05/01/23 05/01/23 History release levothyroxine 50 mcg tablet 50 mcg PO DAILY 10/07/22 05/01/23 05/01/23 History vitamin B complex and vitamin C 1 cap PO DAILY 10/07/22 05/01/23 05/01/23 History no.20-folic acid 1 mg capsule rosuvastatin 10 mg tablet (Crestor) 10 mg PO BEDTIME 05/01/23 05/01/23 04/30/23 History Physical Exam 2 Vital Signs and Narrative: Vital Signs: Last Vital Signs Temp 98.5 F 05/01/23 13:29 Pulse 80 05/01/23 14:42 Resp 18 05/01/23 14:42 BP 118/69 05/01/23 14:42 Pulse Ox 95 05/01/23 14:42 O2 Del Method Room Air 05/01/23 14:42 BMI result Body Mass Index 20.4 Constitutional: Alert, pleasantly confused, in no acute distress. Mental Status: Oriented to person, but not to time or fully to place or situation. Eyes: Pupils are equal, round, and reactive to light. Ear, Nose, and Throat: Oropharynx clear, mucous membranes moist. Ears and nose without deformities. Trachea midline. Respiratory: Clear to auscultation bilaterally. No wheezing, rales, or rhonchi. Cardiovascular: Irregularly irregular rhythm, fast. No murmurs, rubs, or gallops. Gastrointestinal: Abdomen soft, non-tender, non-distended. Normal bowel sounds. Neurologic: Cranial nerves II-XII are grossly intact bilaterally. No focal neurological deficits. Moves all extremities spontaneously. Skin: Warm, dry. Areas of ecchymosis on upper extremities bilaterally. Musculoskeletal: Right leg shortened and externally rotated. Extremities: No edema. Results Labs 05/02/23 05:10 05/02/23 16:20 Labs: Laboratory Results - last 24 hr 05/01/23 14:15 MCV 107.4 H MCH 34.8 H MCHC 32.4 RDW 14.2 Plt Count 101 L MPV 9.1 L Immature Gran % (Auto) 0.6 H Neut % (Auto) 72.7 Lymph % (Auto) 21.5 [place] % (Auto) 4.6 Eos % (Auto) 0.3 Baso % (Auto) 0.3 Lymph # (Auto) 2.2 [place] # (Auto) 0.5 Eos # (Auto) 0.0 Baso # (Auto) 0.0 Abs Immat Gran (auto) 0.06 H Absolute Neuts (auto) 7.5 Absolute Nucleated RBC 0.000 Nucleated RBC % (auto) 0.0 Anion Gap 16 Estim Creat Clear Calc 9.3 Estimated GFR 8 Random Glucose 135 H Calcium 9.5 D Imaging Radiologist's Impressions: Impressions Chest X-Ray 05/01/23 13:50 IMPRESSION: Nondisplaced right femoral neck fracture. Left lower lobe consolidation/atelectasis. Effusion is not excluded. Rest of lungs are clear. Hip/Pelvis X-Ray 05/01/23 13:50 IMPRESSION: Nondisplaced right femoral neck fracture. Left lower lobe consolidation/atelectasis. Effusion is not excluded. Rest of lungs are clear. Cervical Spine CT 05/01/23 13:54 IMPRESSION: - No acute intracranial abnormality. There is global cerebral volume loss, there is advanced chronic microangiopathy, and there is a chronic left MASH TUB COOKER OPERATOR territory infarct. There is extensive atherosclerotic calcification throughout the intracranial arterial vasculature. - No acute osseous abnormality within the cervical spine. Cervical spondylosis. Head CT 05/01/23 13:54 IMPRESSION: - No acute intracranial abnormality. There is global cerebral volume loss, there is advanced chronic microangiopathy, and there is a chronic left MASH TUB COOKER OPERATOR territory infarct. There is extensive atherosclerotic calcification throughout the intracranial arterial vasculature. - No acute osseous abnormality within the cervical spine. Cervical spondylosis. Assessment and Plan (1) Acute hyperkalemia: Status: Acute (2) Closed hip fracture: Status: Acute Plan Pt is a 77-year-old male with a PMH significant for?ESRD on HD on Sun/Yanira/Sun, vascular dementia, hypothyroidism, HTN, HLD, history of Vfib arrest in 2015, asthma, afib no longer on anticoagulation due to recurrent hematuria and GI bleed, portal hypertensive gastropathy, hx CVA wtih left sided deficits, CLL (not on any treatment), CHF w/ EF 10-20%, and liver cirrhosis who presents to the ED with?right leg pain after mechanical fall at home. Pt will be admitted to the hospital for treatment further evaluation of right hip fracture with likely surgical procedure tomorrow. Right hip fracture Secondary to mechanical fall at home in bathroom Hip x-ray found nondisplaced right femoral neck fracture Will be made NPO in anticipation of likely surgical procedure tomorrow Analgesics for pain management IVF: D5ns Hold aspirin Pt will be moderate risk for planned procedure d/t comorbidities ESRD on HD Sun/Yanira/Sun Missed dialysis today d/t fall at home and presentation to ED Pt with creatinine 6.40, hyperkalemia of 5.7 at time of presentation Given Lokelma in the ED Will need emergent dialysis Nephrology consult Low-potassium, low-phosphorus diet Follow BMP, Mg Atelectasis CXR with left lower lobe consolidation/atelectasis, similar to prior in October 2022 Patient denies SOB, cough, BONNER, no leukocytosis or fever DuoNebs p.r.n., incentive spirometry CAD Pt with hx of triple bypass Continue statin Hold aspirin d/t likely surgical procedure tomorrow Cardiac diet Hypothyroidism Continue levothyroxine Full Code Attending:?Dr. Arauz DVT Prophylaxis: Pneumatic boots d/t likely surgical procedure tomorrow Pt will require a hospitalization of at least two nights for treatment of?right hip fracture with likely surgical procedure. Quality Stroke Does the patient have a stroke diagnosis?: No VTE Prior VTE?: No VTE Risk Level:: Medical - moderate - high VTE Device Contraindication: N/A - Device Ordered VTE Drug Contraindication: Treatment Not Indicated
--- NOTE | 2023-05-01 16:55 | PHA.MEDREC ---
Pharmacy Consult ? Medication Reconciliation Pharmacy has completed the medication reconciliation.
--- NOTE | 2023-05-01 17:02 | PC.NURSE ---
Sister of pt ( Sandra Velazquez; [phone]) called for an update; update provided. Tania states pt is usually seen at [facility]. Tania states she would like to be notified of all updates in regard to pt.
[2023-05-01 18:16] VITALS: BP 114/72; PULSE 82; RESP 12; O2SAT 95
[2023-05-01] MEDS: Morphine Sulfate 4 MG/ML CARTRIDGE 2 MG IVPUSH (18:40)
--- NOTE | 2023-05-01 21:52 | MHC.EDTECH ---
Antoine crawford put on
[2023-05-01 23:10] VITALS: BP 105/61; PULSE 73; RESP 14; TEMP 36.6; O2SAT 97
[2023-05-02] MEDS: Dextrose 5 % and 0.9 % NaCl 1,000 ML 100 ML IVCONT (02:12)
[2023-05-02] MEDS: Morphine Sulfate 4 MG/ML CARTRIDGE 2 MG IVPUSH ×2 (02:16→08:38)
--- NOTE | 2023-05-02 03:20 | PC.NURSE ---
pt medicated according to mar. pt reported 10/10 pain pt provided with prn ivp morphine lights dimmed to promote rest
[2023-05-02 05:51] LABS: Hematocrit 34.6 % (42.0-52.0); Hemoglobin 11.3 g/dl (14.0-18.0); Mean Corpuscular HGB Conc 32.7 g/dl (31.0-36.0); Mean Corpuscular Hemoglobin 35.2 pg (27.0-33.0); Mean Corpuscular Volume 107.8 fL (80.0-98.0); Mean Platelet Volume 9.3 fL (9.4-12.4); Platelet Count 110 X10*3/uL (160-400); Red Blood Count 3.21 X10*6/uL (4.60-5.80); Red Cell Distribution Width 14.1 % (11.0-16.0); White Blood Count 9.1 X10*3/uL (4.8-10.8)
--- NOTE | 2023-05-02 06:05 | PC.NURSE ---
pt sleeping positioned in hospital bed on back pt remains on bus driver/monitor rise and fall of chest noted, lights dimmed to promote rest
[2023-05-02 06:14] LABS: Anion Gap 19 (12-20); Blood Urea Nitrogen 76 mg/dL (9-16); Carbon Dioxide 23 mmol/L (22-29); Chloride 103 mmol/L (96-108); Estimated Glomerular Filt Rate 8; Glucose Random 133 mg/dL (60-115); Magnesium 2.8 mg/dL (1.6-2.6); Potassium 5.5 mmol/L (3.3-5.1); Sodium 139 mmol/L (135-145)
--- NOTE | 2023-05-02 06:38 | PC.NURSE ---
pt just had a run of vt 6 beat.
--- NOTE | 2023-05-02 06:44 | ECG_ITS ---
Test Reason : V TAC Blood Pressure : / mmHG Vent. Rate : 081 BPM Atrial Rate : 000 BPM P-R Int : 000 ms QRS Dur : 158 ms QT Int : 424 ms P-R-T Axes : 000 -78 083 degrees QTc Int : 492 ms Atrial fibrillation Left axis deviation Right bundle branch block Abnormal ECG When compared with ECG of 01-MAY-2023 13:58, No significant changes seen Referred By: [facility]y [facility] Electronically Signed By:DEBI COLEY MD
--- NOTE | 2023-05-02 06:45 | PM.EVENT ---
Event Note Date of Service: 05/02/23 Event Note: k 5.5, 4 beat of vtach, mag 2.8, ecg, give 10 of kristel, unsure potassium ok prior to surgery Time Spent With Patient Time: Total time managing care of this patient today ____ minutes.
[2023-05-02 06:58] VITALS: BP 104/72; PULSE 78; RESP 24; TEMP 36.9; O2SAT 93
--- NOTE | 2023-05-02 06:59 | PC.NURSE ---
@ 8436 unit sec made this rn aware of pt run of vtach. pt had 4 beat run of vtach one time. this rn made dr camejo aware. repeat ekg order placed. ekg sent to dr camejo . oncoming nurse made aware vss
[2023-05-02] MEDS: Sodium Zirconium Cyclosilicate 10 GM POWD.PACK PO (07:40)
--- NOTE | 2023-05-02 07:58 | P.HPOP_ITS ---
History of Present Illness History of Present Illness Date of Service: 05/02/23 Chief complaint: Right hip Fracture, missed dialysis Narrative: Brayden Velazquez is a 77 year old male with a PMH significant for?ESRD on HD on Sun/Sun/Sun, vascular dementia, hypothyroidism, HTN, HLD, history of Vfib arrest in 2016, asthma, afib no longer on anticoagulation due to recurrent hematuria and GI bleed, portal hypertensive gastropathy, hx CVA wtih left sided deficits, CLL (not on any treatment), CHF w/ EF 10-20%, and liver cirrhosis who presents to the ED with?right leg pain after mechanical fall at home. Patient with vascular dementia at baseline, is fully alert and oriented to self only. X-rays obtained of the right hip revealed a right hip femoral neck fracture. The patient was admitted to the medical service with orthopedeic consult for further evaluation and treatment of the hip. Overnight the patient was found to be hyperkalemic due to ESRD and sustained NSVT. Cardiology and nephrology were consulted and pending evaluation. Review of Systems 2 Review of Systems: Yes all other systems are reviewed and are negative [facility] Past Medical History Medical History (Updated 05/01/23 @ 18:06 by NESSA Oliver) Liver cirrhosis CHF (congestive heart failure) CLL (chronic lymphocytic leukemia) CVA (cerebral vascular accident) GI bleed Recurrent hematuria HLD (hyperlipidemia) HTN (hypertension) Hypothyroid Dementia Dialysis patient Afib Chronic kidney disease Surgical History Surgical History S/P triple vessel bypass Social History Social History Alcohol intake: never Patient Tobacco Use Status: Never used Tobacco Smoked in Last 30 Days: No Use of substances other than those prescribed or required for medical reasons: No Advance Directives: Yes Advance Directives Information Provided: Yes Advance Directives on File: No Nutrition Risks: No Nutritional Risk Meds Allergies Allergy/AdvReac Type Severity Reaction Status Date / Time No Known Allergies Allergy Verified 05/01/23 13:03 [No Known Allergies*] Active Medications: Current Medications Acetaminophen (Acetaminophen 325 Mg Tablet) 650 mg PO Q6H PRN PRN Reason: Pain, Mild (Pain Scale 1-3) Albuterol/Ipratropium (Albuterol/Iprat 2.5/0.5mg 3 Ml Ampul.Neb) 3 ml INHALE RQ4H WHILE AWAKE PRN PRN Reason: Shortness of Breath/Wheezing Benzonatate (Benzonatate 100 Mg Capsule) 100 mg PO TID PRN PRN Reason: Cough Docusate Sodium (Docusate Sodium 100 Mg Capsule) 100 mg PO DAILY PRN PRN Reason: Constipation Cefazolin Sodium/Dextrose (Ancef) 2 gm in 50 mls @ 100 mls/hr IV PREOP ONE Stop: 05/02/23 08:29 Levothyroxine Sodium (Levothyroxine Sodium 50 Mcg Tablet) 50 mcg PO DAILY@0600 [facility] Last Admin: 05/02/23 06:07 Dose: Not Given Melatonin (Melatonin 3 Mg Tablet) 6 mg PO BEDTIME PRN PRN Reason: Insomnia Morphine Sulfate (Morphine Sulfate 4 Mg/Ml Cartridge) 2 mg IVPUSH Q4H PRN; Protocol PRN Reason: Pain, Severe (Pain Scale 7-10) Last Admin: 05/02/23 02:16 Dose: 2 mg Multivitamins/Vitamin C (Multivitamin Tablet) 1 tab PO DAILY [facility] Ondansetron HCl (Ondansetron Hcl 4 Mg/2 Ml Vial) 4 mg IVPUSH Q8H PRN PRN Reason: Nausea and Vomiting Sodium Chloride (0.9 % Sodium Chloride Flush 3 Ml Syringe) 3 ml IVFLUSH QSHIFT [facility] Last Admin: 05/02/23 07:49 Dose: Not Given Home Medications Medication Instructions Recorded Confirmed Last Taken Type aspirin 81 mg tablet,delayed 81 mg PO DAILY 10/07/22 05/01/23 05/01/23 History release levothyroxine 50 mcg tablet 50 mcg PO DAILY 10/07/22 05/01/23 05/01/23 History vitamin B complex and vitamin C 1 cap PO DAILY 10/07/22 05/01/23 05/01/23 History no.20-folic acid 1 mg capsule rosuvastatin 10 mg tablet (Crestor) 10 mg PO BEDTIME 05/01/23 05/01/23 04/30/23 History Physical Exam 2 Vital Signs: Vital Signs: Last Vital Signs Temp 98.4 F 05/02/23 06:58 Pulse 78 05/02/23 06:58 Resp 24 H 05/02/23 06:58 BP 104/72 05/02/23 06:58 Pulse Ox 93 05/02/23 06:58 O2 Del Method Room Air 05/02/23 06:58 BMI result Body Mass Index 20.4 Const: General: cooperative, healthy appearing and no acute distress Resp: Effort & Inspection: normal respiratory effort and able to speak in complete sentences Cardio: Rate: regular rate Peripheral pulses: Peripheral pulses 2+ throughout GI: Palpation (GI): Soft to palpation Skin: Lesions: no lesions Rashes: no rashes Extrem: Other: RLE shortened and externally rotated. Pain arnulfo log roll. Able to dorsi/plantar flex. NVI. Results Labs 05/02/23 05:10 05/02/23 05:10 Labs: Abnormal lab results 05/01/23 05/02/23 Range/Units 14:15 05:10 RBC 3.25 L 3.21 L (4.60-5.80) X10*6/uL Hgb 11.3 L 11.3 L (14.0-18.0) g/dl Hct 34.9 L 34.6 L (42.0-52.0) % MCV 107.4 H 107.8 H (80.0-98.0) fL MCH 34.8 H 35.2 H (27.0-33.0) pg Plt Count 101 L 110 L (160-400) X10*3/uL MPV 9.1 L 9.3 L (9.4-12.4) fL Immature Gran % (Auto) 0.6 H (0.0-0.4) % Abs Immat Gran (auto) 0.06 H (0.00-0.03) X10*3/uL Potassium 5.7 H D 5.5 H (3.3-5.1) mmol/L BUN 68 H 76 H (9-16) mg/dL Creatinine 6.40 H* 6.59 H* (0.5-1.4) mg/dL Random Glucose 135 H 133 H (60-115) mg/dL Magnesium 2.8 H (1.6-2.6) mg/dL H & H 05/01/23 05/02/23 Range/Units 14:15 05:10 Hgb 11.3 L 11.3 L (14.0-18.0) g/dl Hct 34.9 L 34.6 L (42.0-52.0) % All other labs normal. Assessment and Plan (1) Acute hyperkalemia: Status: Acute (2) Renal failure: Status: Acute (3) Closed hip fracture: Status: Acute I discussed the case with Dr. dixon and explained the extent of the injury to the patient's HCP/Sister Tania and options available which include surgical intervention. I explained the procedure in detail along with the length of recovery and rehab course. I explained the risk, benefits and alternatives. Risk including, but not limited to infection, blood clots, bleeding, non union or malunion and nerve/tissue damage to surrounding areas. I answered all their questions and with their understanding they have consented to move forward with Operative Fixation of The right hip. The patient will be T&S, remain NPO, pending cardiology and nephrology clearance. Overnight the patient was found to be hyperkalemic due to ESRD and sustained NSVT. Cardiology and nephrology were consulted and pending evaluation. Quality Stroke Does the patient have a stroke diagnosis?: No VTE Prior VTE?: No VTE Risk Level:: Medical - moderate - high VTE Device Contraindication: N/A - Device Ordered VTE Drug Contraindication: Treatment Not Indicated Procedures Date of Service Date of Service: 05/02/23
--- NOTE | 2023-05-02 08:40 | PC.NURSE ---
assumed care of pt at 0700. pt a&o x4, pleasant, calm, and cooperative. pt rating 10/10 pain to right hip. medicated with prn for pain. pt NPO since previous night. aware of plan of care. awaiting being seen by carpentry supervisor and time as to when pt will go to dialysis. pt in no apparent distress. rr even/unlabored. call infante within reach. plan of care ongoing.
--- NOTE | 2023-05-02 08:43 | MHC.CM.PN ---
Patient has a diagnosis of Vascular Dementia; CM spoke with Sister/HCP/Tania @ [phone] and addressed IMM with her(original will be mailed certified letter to Tania and a copy will be placed on the chart). Patient lives in a house with Tania and he uses a walker to assist with mobility. Patient is active with [facility] and he attends HD Q //SAT @ [facility]. Should STR be necessary, Qasim [facility] is Patient/Sister's first choice. CM has initiated ad will follow for dc planning. PCP is Dr. Reza Juan.
[2023-05-02] MEDS: Multivitamin TABLET 1 TAB PO (09:52)
--- NOTE | 2023-05-02 09:55 | PC.NURSE ---
pt to dialysis.
--- NOTE | 2023-05-02 11:03 | P.PNNP_ITS ---
Subjective Subjective Date of Service: 05/02/23 Interval history: Pt seen on HD Feels OK Physical Exam 2 Vital Signs: Vital Signs: Last Vital Signs Temp 98.4 F 05/02/23 06:58 Pulse 78 05/02/23 06:58 Resp 24 H 05/02/23 06:58 BP 104/72 05/02/23 06:58 Pulse Ox 93 05/02/23 06:58 O2 Del Method Room Air 05/02/23 06:58 BMI result Body Mass Index 20.4 Const: General: cooperative, healthy appearing and no acute distress Resp: Effort & Inspection: normal respiratory effort and able to speak in complete sentences Cardio: Rate: regular rate Peripheral pulses: Peripheral pulses 2+ throughout GI: Palpation (GI): Soft to palpation Skin: Lesions: no lesions Rashes: no rashes Extrem: Other: RLE shortened and externally rotated. Pain arnulfo log roll. Able to dorsi/plantar flex. NVI. Objective Data Labs 05/02/23 05:10 05/02/23 05:10 Labs: Laboratory Results - last 24 hr 05/01/23 05/01/23 05/02/23 14:15 23:51 05:10 WBC 10.3 9.1 RBC 3.25 L 3.21 L Hgb 11.3 L 11.3 L Hct 34.9 L 34.6 L MCV 107.4 H 107.8 H MCH 34.8 H 35.2 H MCHC 32.4 32.7 RDW 14.2 14.1 Plt Count 101 L 110 L MPV 9.1 L 9.3 L Immature Gran % (Auto) 0.6 H Neut % (Auto) 72.7 Lymph % (Auto) 21.5 [place] % (Auto) 4.6 Eos % (Auto) 0.3 Baso % (Auto) 0.3 Lymph # (Auto) 2.2 [place] # (Auto) 0.5 Eos # (Auto) 0.0 Baso # (Auto) 0.0 Abs Immat Gran (auto) 0.06 H Absolute Neuts (auto) 7.5 Absolute Nucleated RBC 0.000 0.000 Nucleated RBC % (auto) 0.0 0.0 Sodium 139 139 Potassium 5.7 H D 5.5 H Chloride 102 103 Carbon Dioxide 27 23 Anion Gap 16 19 BUN 68 H 76 H Creatinine 6.40 H* 6.59 H* Estim Creat Clear Calc 9.3 9.0 Estimated GFR 8 8 Random Glucose 135 H 133 H Calcium 9.5 D 9.0 Magnesium 2.8 H Blood Type A Positive Antibody Screen NEGATIVE Procedures Date of Service Date of Service: 05/02/23 Assessment & Plan Assessment and plan (1) ESRD (end stage renal disease): Status: Acute Assessment and Plan: 1. ESRDon HD 2. Hyperkalemia 3. Hip Fracture 4. Low BP 5. Skin cancer Continue HD today Ususl HD MWF Will use Permcath 2 K bath Vol Removal as tolerated Midodrine for low BP in HD No NeedforEPO For Hip Surgery D/w HD nurse / Daphnie and Dr. Arauz (2) Acute hyperkalemia: Status: Acute (3) Closed hip fracture: Status: Acute Time Spent With Patient Time: Total time managing care of this patient today ____ minutes. Progress Note: Quality Stroke Does the patient have a stroke diagnosis?: No
--- NOTE | 2023-05-02 13:06 | PC.NURSE ---
nurse to nurse report given to SSS. awaiting pt to arrive back from dialysis. pt to go to surgery sometime after 1530.
--- NOTE | 2023-05-02 13:10 | MHC.CM.PN ---
CM made a referral to [facility]; Patient's Sister/HCP/Tania has questions regarding the [employer] Waiver. CM will follow.
--- NOTE | 2023-05-02 14:26 | PC.NURSE ---
pt back from dialysis.
--- NOTE | 2023-05-02 14:37 | PM.CNCAR ---
History of Present Illness History of Present Illness Date of Service: 05/02/23 Requesting physician: Bear Arauz Consult reason: pre-op evaluation Chief complaint: Right hip Fracture, missed dialysis Narrative: I was consulted to see Brayden in cardiology consultation today as patient fell down and has fracture of his right hip and needs to undergo surgery. Patient with complicated past medical history. Patient is a poor historian given his dementia and could not provide me much detail history. I did obtain history from the current medical chart as well as from [facility] medical records. Patient with prior history of severe ischemic cardiomyopathy with heart failure with reduced ejection fraction with last echocardiogram from 2021 showing LVEF of 20-25% with severe tricuspid regurgitation, prior history of VFib arrest in the setting of acute myocardial infarction 2015 after which he underwent coronary artery bypass grafting, course was very complicated because of mediastinal night is. Patient also history of vascular dementia, chronic atrial fibrillation not on oral anticoagulation due to recurrent GI and bleed. Patient has poor functional status overall and at home walks with help of a walker. He has also history of end-stage renal disease on hemodialysis as well as cirrhosis of the liver. Patient was brought to the emergency room after sister with whom patient lives call 911 as patient fell down and had right hip pain. I could not reach assisted to provide adequate history. Patient currently not having any chest pain or shortness of breath. Underwent dialysis this morning. Blood pressure is 104/72. His EKG shows atrial fibrillation with right bundle-branch block and left axis deviation, unchanged from prior EKGs from [facility] and from here. Cardiology consult was sought for preoperative cardiovascular risk stratification. Review of Systems Review of Systems: Yes Unobtainable due to mental status PMFSH Past Medical History Medical History ESRD (end stage renal disease) Liver cirrhosis CHF (congestive heart failure) CLL (chronic lymphocytic leukemia) CVA (cerebral vascular accident) GI bleed Recurrent hematuria HLD (hyperlipidemia) HTN (hypertension) Hypothyroid Dementia Dialysis patient Afib Chronic kidney disease Surgical History Surgical History S/P triple vessel bypass Social History Social History Alcohol intake: never Patient Tobacco Use Status: Never used Tobacco Smoked in Last 30 Days: No Use of substances other than those prescribed or required for medical reasons: No Advance Directives: Yes Advance Directives Information Provided: Yes Advance Directives on File: No Nutrition Risks: No Nutritional Risk service: No Meds Allergies Allergy/AdvReac Type Severity Reaction Status Date / Time No Known Allergies Allergy Verified 05/01/23 13:03 [No Known Allergies*] Active Medications: Current Medications Acetaminophen (Acetaminophen 325 Mg Tablet) 650 mg PO Q6H PRN PRN Reason: Pain, Mild (Pain Scale 1-3) Albuterol/Ipratropium (Albuterol/Iprat 2.5/0.5mg 3 Ml Ampul.Neb) 3 ml INHALE RQ4H WHILE AWAKE PRN PRN Reason: Shortness of Breath/Wheezing Benzonatate (Benzonatate 100 Mg Capsule) 100 mg PO TID PRN PRN Reason: Cough Docusate Sodium (Docusate Sodium 100 Mg Capsule) 100 mg PO DAILY PRN PRN Reason: Constipation Levothyroxine Sodium (Levothyroxine Sodium 50 Mcg Tablet) 50 mcg PO DAILY@0600 [facility] Last Admin: 05/02/23 06:07 Dose: Not Given Melatonin (Melatonin 3 Mg Tablet) 6 mg PO BEDTIME PRN PRN Reason: Insomnia Morphine Sulfate (Morphine Sulfate 4 Mg/Ml Cartridge) 2 mg IVPUSH Q4H PRN; Protocol PRN Reason: Pain, Severe (Pain Scale 7-10) Last Admin: 05/02/23 08:38 Dose: 2 mg Multivitamins/Vitamin C (Multivitamin Tablet) 1 tab PO DAILY [facility] Last Admin: 05/02/23 09:52 Dose: 1 tab Ondansetron HCl (Ondansetron Hcl 4 Mg/2 Ml Vial) 4 mg IVPUSH Q8H PRN PRN Reason: Nausea and Vomiting Sodium Chloride (0.9 % Sodium Chloride Flush 3 Ml Syringe) 3 ml IVFLUSH QSHIFT [facility] Last Admin: 05/02/23 07:49 Dose: Not Given Home Medications Medication Instructions Recorded Confirmed Last Taken Type aspirin 81 mg tablet,delayed 81 mg PO DAILY 10/07/22 05/01/23 05/01/23 History release levothyroxine 50 mcg tablet 50 mcg PO DAILY 10/07/22 05/01/23 05/01/23 History vitamin B complex and vitamin C 1 cap PO DAILY 10/07/22 05/01/23 05/01/23 History no.20-folic acid 1 mg capsule rosuvastatin 10 mg tablet (Crestor) 10 mg PO BEDTIME 05/01/23 05/01/23 04/30/23 History Physical Exam Vital Signs: Vital Signs: Last Vital Signs Temp 98.4 F 05/02/23 06:58 Pulse 78 05/02/23 06:58 Resp 24 H 05/02/23 06:58 BP 104/72 05/02/23 06:58 Pulse Ox 93 05/02/23 06:58 O2 Del Method Room Air 05/02/23 06:58 BMI result Body Mass Index 20.4 Const: General: cooperative, comfortable, no acute distress, alert and awake Nutritional Appearance: thin HEENT: Head: Yes normocephalic and Yes atraumatic Neck: Neck: Yes trachea midline, Yes supple and Yes no JVD Resp: Effort & Inspection: decreased respiratory effort Auscultation: no crackles, no rales and diminished lung sounds Cardio: Jugular venous distension: no JVD (Prominent V-waves) Palpation: abnormal PMI displaced PMI and enlarged PMI Rate: regular rate Rhythm: abnormal rhythm irregularly irregular Heart sounds: S1 normal heart sound present, S2 normal heart sound present, no click, no gallops and Murmur heart sound present systolic at the right sternal border GI: Auscultation: normal bowel sounds Skin: General skin exam: ecchymosis Neuro: General: moves all extremities Extrem: General: Yes no clubbing, cyanosis or edema Objective Labs and Meds 05/02/23 05:10 05/02/23 05:10 Lab results: Laboratory Results - last 24 hr 05/01/23 05/01/23 05/02/23 14:15 23:51 05:10 WBC 9.1 RBC 3.21 L Hgb 11.3 L Hct 34.6 L MCV 107.8 H MCH 35.2 H MCHC 32.7 RDW 14.1 Plt Count 110 L MPV 9.3 L Absolute Nucleated RBC 0.000 Nucleated RBC % (auto) 0.0 Sodium 139 139 Potassium 5.7 H D 5.5 H Chloride 102 103 Carbon Dioxide 27 23 Anion Gap 16 19 BUN 68 H 76 H Creatinine 6.40 H* 6.59 H* Estim Creat Clear Calc 9.3 9.0 Estimated GFR 8 8 Random Glucose 135 H 133 H Calcium 9.5 D 9.0 Magnesium 2.8 H Blood Type A Positive Antibody Screen NEGATIVE Imaging Radiologist's impression: Impressions Chest X-Ray 05/01/23 13:50 IMPRESSION: Nondisplaced right femoral neck fracture. Left lower lobe consolidation/atelectasis. Effusion is not excluded. Rest of lungs are clear. Hip/Pelvis X-Ray 05/01/23 13:50 IMPRESSION: Nondisplaced right femoral neck fracture. Left lower lobe consolidation/atelectasis. Effusion is not excluded. Rest of lungs are clear. Cervical Spine CT 05/01/23 13:54 IMPRESSION: - No acute intracranial abnormality. There is global cerebral volume loss, there is advanced chronic microangiopathy, and there is a chronic left [employer] territory infarct. There is extensive atherosclerotic calcification throughout the intracranial arterial vasculature. - No acute osseous abnormality within the cervical spine. Cervical spondylosis. Head CT 05/01/23 13:54 IMPRESSION: - No acute intracranial abnormality. There is global cerebral volume loss, there is advanced chronic microangiopathy, and there is a chronic left [employer] territory infarct. There is extensive atherosclerotic calcification throughout the intracranial arterial vasculature. - No acute osseous abnormality within the cervical spine. Cervical spondylosis. Assessment and Plan (1) Preoperative cardiovascular examination: Status: Acute Preoperative cardiovascular risk stratification this elderly gentleman with multiple cardiac comorbidities including poor LV systolic function, severe tricuspid regurgitation, prior coronary artery disease and surgical revascularization, prior ventricular arrhythmias and chronic atrial fibrillation as well as overall significant medical comorbidities including end-stage renal disease, cirrhosis, prior stroke, prior GI bleeding, frailty, limited exercise capacity to undergo urgent hip surgery for right hip fracture related to mechanical fall. Patient currently appears is optimized and in active cardiac issues noted although is high risk for perioperative cardiovascular morbidity mortality due to multiple cardiac as well as systemic issues. Close hemodynamic monitoring during surgery and use of amiodarone if he has any ventricular arrhythmias can be pursued. Replacement of blood volume as soon as possible. Close attention to fluid balance should be pursued. Will follow with you if need be. Thank you for allowing me to partake in his care Procedures Date of Service Date of Service: 05/02/23
--- NOTE | 2023-05-02 16:12 | HO.ANESPROP2 ---
HPI - Anesthesia Eval Consult details Narrative: Patient seen by commercial stripper- high risk in light of comorbidities. Patient will most probably need ICU post procedure. No beds available this evening. Decision made to postpone surgery to tomorrow. Discussed with patient and Sister(HCP) who agree with plan [facility] Active Problems Active Problems: All Active Problems (Updated 05/02/23 @ 16:24 by Sofi Horta MD) Preoperative cardiovascular examination (Acute) ESRD (end stage renal disease) (Acute)On dialysis Tues, Thurs, Sat Acute hyperkalemia (Acute). S/p hemodialysis today Renal failure (Acute) Vascular dementia- alert, oriented to self H/o Vfib arrest 2015 in setting of acute SC S/p CABG x3 CVA with Left-sided deficit Afib- no anticoagulation secondary to recurrent hematuria and GI bleed Portal hypertensive gastropathy CLL- no treatment CHF with EF 10-20% CXR- LLL consolidation/atelectasis ? Cholelithiasis (gall bladder problems per sister). Seen at [facility]- decision made not to do cholecystectomy. Patient had what sounds like ?ERCP Past Medical History Medical History (Updated 05/02/23 @ 16:34 by Sofi Horta MD) ESRD (end stage renal disease) Liver cirrhosis CHF (congestive heart failure) CLL (chronic lymphocytic leukemia) CVA (cerebral vascular accident) GI bleed Recurrent hematuria HLD (hyperlipidemia) HTN (hypertension) Hypothyroid Dementia Dialysis patient Afib Chronic kidney disease Family History Family history of problems with anesthesia: No Surgical History Surgical History S/P triple vessel bypass History of Problems with Anesthesia: No Social History Social History Alcohol intake: never Patient Tobacco Use Status: Never used Tobacco service: No Meds Allergies Allergy/AdvReac Type Severity Reaction Status Date / Time No Known Allergies Allergy Verified 05/01/23 13:03 [No Known Allergies*] Active Medications: Current Medications Acetaminophen (Acetaminophen 325 Mg Tablet) 650 mg PO Q6H PRN PRN Reason: Pain, Mild (Pain Scale 1-3) Albuterol/Ipratropium (Albuterol/Iprat 2.5/0.5mg 3 Ml Ampul.Neb) 3 ml INHALE RQ4H WHILE AWAKE PRN PRN Reason: Shortness of Breath/Wheezing Benzonatate (Benzonatate 100 Mg Capsule) 100 mg PO TID PRN PRN Reason: Cough Docusate Sodium (Docusate Sodium 100 Mg Capsule) 100 mg PO DAILY PRN PRN Reason: Constipation Levothyroxine Sodium (Levothyroxine Sodium 50 Mcg Tablet) 50 mcg PO DAILY@0600 [facility] Last Admin: 05/02/23 06:07 Dose: Not Given Melatonin (Melatonin 3 Mg Tablet) 6 mg PO BEDTIME PRN PRN Reason: Insomnia Morphine Sulfate (Morphine Sulfate 4 Mg/Ml Cartridge) 2 mg IVPUSH Q4H PRN; Protocol PRN Reason: Pain, Severe (Pain Scale 7-10) Last Admin: 05/02/23 08:38 Dose: 2 mg Multivitamins/Vitamin C (Multivitamin Tablet) 1 tab PO DAILY [facility] Last Admin: 05/02/23 09:52 Dose: 1 tab Ondansetron HCl (Ondansetron Hcl 4 Mg/2 Ml Vial) 4 mg IVPUSH Q8H PRN PRN Reason: Nausea and Vomiting Sodium Chloride (0.9 % Sodium Chloride Flush 3 Ml Syringe) 3 ml IVFLUSH QSHIFT [facility] Last Admin: 05/02/23 07:49 Dose: Not Given Home Medications Medication Instructions Recorded Confirmed Last Taken Type aspirin 81 mg tablet,delayed 81 mg PO DAILY 10/07/22 05/01/23 05/01/23 History release levothyroxine 50 mcg tablet 50 mcg PO DAILY 10/07/22 05/01/23 05/01/23 History vitamin B complex and vitamin C 1 cap PO DAILY 10/07/22 05/01/23 05/01/23 History no.20-folic acid 1 mg capsule rosuvastatin 10 mg tablet (Crestor) 10 mg PO BEDTIME 05/01/23 05/01/23 04/30/23 History Exam Height,Weight and Vital Signs: Height 6 ft 1 in Weight 70.307 kg Last Vital Signs Temp 98.4 F 05/02/23 06:58 Pulse 78 05/02/23 06:58 Resp 24 H 05/02/23 06:58 BP 104/72 05/02/23 06:58 Pulse Ox 93 05/02/23 06:58 O2 Del Method Room Air 05/02/23 06:58 Pertinent Lab Results Pertinent Lab Results: Laboratory Tests 05/01/23 05/01/23 05/02/23 14:15 23:51 05:10 WBC 10.3 9.1 RBC 3.25 L 3.21 L Hgb 11.3 L 11.3 L Hct 34.9 L 34.6 L MCV 107.4 H 107.8 H MCH 34.8 H 35.2 H MCHC 32.4 32.7 RDW 14.2 14.1 Plt Count 101 L 110 L MPV 9.1 L 9.3 L Immature Gran % (Auto) 0.6 H Neut % (Auto) 72.7 Lymph % (Auto) 21.5 [place] % (Auto) 4.6 Eos % (Auto) 0.3 Baso % (Auto) 0.3 Lymph # (Auto) 2.2 [place] # (Auto) 0.5 Eos # (Auto) 0.0 Baso # (Auto) 0.0 Abs Immat Gran (auto) 0.06 H Absolute Neuts (auto) 7.5 Absolute Nucleated RBC 0.000 0.000 Nucleated RBC % (auto) 0.0 0.0 Sodium 139 139 Potassium 5.7 H D 5.5 H Chloride 102 103 Carbon Dioxide 27 23 Anion Gap 16 19 BUN 68 H 76 H Creatinine 6.40 H* 6.59 H* Estim Creat Clear Calc 9.3 9.0 Estimated GFR 8 8 Random Glucose 135 H 133 H Calcium 9.5 D 9.0 Magnesium 2.8 H Blood Type A Positive Antibody Screen NEGATIVE Airway Mallampati Class: II TM Dist: >3cm Neck ROM: Full Partial: Upper and Lower Loose/Missing/Broken Teeth: Yes (Denies broken or loose teeth) Heart: Irregularly irregular. Praecordial heave Lungs: CTAB Assessment and Plan Assessment Anesthesia Assessment: Anesthesia Plan Discussed and Chart Reviewed Final Anesthetic Review Family History of Problems with Anesthesia: No History of Problems with Anesthesia: No NPO: Yes ASA Class: IV and Emergency Final Preanesthetic Review: No Changes in Pt Med Stat, Meds/Allgs Chart Reviewed, Consent Obtained/Reviewed and Anes Risks/Benef Reviewed Patient Risk: High Procedure Risk: Intermediate Assessment/Block/Sedation in SS: Assess/Block/Sedation-SS Anesthetic Plan Anesthetic Plan: GA Disposition: Standard PACU
[2023-05-02 16:45] LABS: Alanine Aminotransferase 19 U/L (0-40); Albumin Level 3.5 g/dL (3.5-5.0); Alkaline Phosphatase 126 U/L (39-117); Anion Gap 16 (12-20); Aspartate Amino Transferase 26 U/L (5-37); Bilirubin Total 1.7 mg/dL (0.0-1.0); Blood Urea Nitrogen 29 mg/dL (9-16); Calcium 9.1 mg/dL (8.4-10.2); Carbon Dioxide 25 mmol/L (22-29); Chloride 97 mmol/L (96-108); Creatinine Clr Calc Pharmacy 16.6; Estimated Glomerular Filt Rate 17; Glucose Fasting 107 mg/dL (60-99); Potassium 4.1 mmol/L (3.3-5.1); Sodium 134 mmol/L (135-145); Total Protein 6.9 g/dL (6.5-8.0)
--- NOTE | 2023-05-02 18:06 | P.PNIM_ITS ---
Subjective Subjective Date of Service: 05/02/23 Interval History: Right hip fracture,ESRD on HD Review of Systems Has less hip pain has more soreness in the hip area. Denies any nausea vomiting or abdominal pain. Physical Exam 2 Vital Signs: Vital Signs: Last Vital Signs Temp 98.4 F 05/02/23 06:58 Pulse 78 05/02/23 06:58 Resp 24 H 05/02/23 06:58 BP 104/72 05/02/23 06:58 Pulse Ox 93 05/02/23 06:58 O2 Del Method Room Air 05/02/23 06:58 BMI result Body Mass Index 20.4 Appearance: Alert.pleasantly confused . cvs: rrr, [id number] , no murmur res: clear to auscultation ,no rhonchii or wheezing abd: no rebound or guarding ,nt, bs present. ext pulses present , no cyanosis . neuro: axo3 , nonfocal. Objective Data Active Medications Acetaminophen (Acetaminophen 325 Mg Tablet) 650 mg PO Q6H PRN PRN Reason: Pain, Mild (Pain Scale 1-3) Albuterol/Ipratropium (Albuterol/Iprat 2.5/0.5mg 3 Ml Ampul.Neb) 3 ml INHALE RQ4H WHILE AWAKE PRN PRN Reason: Shortness of Breath/Wheezing Benzonatate (Benzonatate 100 Mg Capsule) 100 mg PO TID PRN PRN Reason: Cough Docusate Sodium (Docusate Sodium 100 Mg Capsule) 100 mg PO DAILY PRN PRN Reason: Constipation Sodium Chloride (Ns) 1,000 mls @ 50 mls/hr IVCONT .Q20H [facility] Levothyroxine Sodium (Levothyroxine Sodium 50 Mcg Tablet) 50 mcg PO DAILY@0600 [facility] Last Admin: 05/02/23 06:07 Dose: Not Given Documented By: NICKY Non-Admin Reason: NPO Melatonin (Melatonin 3 Mg Tablet) 6 mg PO BEDTIME PRN PRN Reason: Insomnia Morphine Sulfate (Morphine Sulfate 4 Mg/Ml Cartridge) 2 mg IVPUSH Q4H PRN; Protocol PRN Reason: Pain, Severe (Pain Scale 7-10) Last Admin: 05/02/23 08:38 Dose: 2 mg Documented By: MARLA Multivitamins/Vitamin C (Multivitamin Tablet) 1 tab PO DAILY [facility] Last Admin: 05/02/23 09:52 Dose: 1 tab Documented By: MARLA Ondansetron HCl (Ondansetron Hcl 4 Mg/2 Ml Vial) 4 mg IVPUSH Q8H PRN PRN Reason: Nausea and Vomiting Sodium Chloride (0.9 % Sodium Chloride Flush 3 Ml Syringe) 3 ml IVFLUSH QSHIFT [facility] Last Admin: 05/02/23 07:49 Dose: Not Given Documented By: MARLA Non-Admin Reason: Med Not Available Labs 05/02/23 05:10 05/02/23 16:20 Labs: Laboratory Results - last 24 hr 05/01/23 05/02/23 05/02/23 23:51 05:10 16:20 MCV 107.8 H MCH 35.2 H MCHC 32.7 RDW 14.1 Plt Count 110 L MPV 9.3 L Absolute Nucleated RBC 0.000 Nucleated RBC % (auto) 0.0 Anion Gap 19 16 Estim Creat Clear Calc 9.0 16.6 Estimated GFR 8 17 Random Glucose 133 H Fasting Glucose 107 H Calcium 9.0 9.1 Magnesium 2.8 H Total Bilirubin 1.7 H AST 26 ALT 19 Alkaline Phosphatase 126 H Total Protein 6.9 Albumin 3.5 Blood Type A Positive Antibody Screen NEGATIVE Assessment and Plan (1) ESRD (end stage renal disease): Status: Acute (2) Acute hyperkalemia: Status: Acute (3) Renal failure: Status: Acute (4) NSVT (nonsustained ventricular tachycardia): Status: Acute Plan 77-year-old male with a PMH significant for?ESRD on HD on Sun/Sun/Sun, vascular dementia, hypothyroidism, HTN, HLD, history of Vfib arrest in 2016, asthma, afib no longer on anticoagulation due to recurrent hematuria and GI bleed, portal hypertensive gastropathy, hx CVA wtih left sided deficits, CLL (not on any treatment), CHF w/ EF 10-20%, and liver cirrhosis who presents to the ED with?right leg pain after mechanical fall at home. Pt will be admitted to the hospital for treatment further evaluation of right hip fracture with likely surgical procedure tomorrow. Right hip fracture Secondary to mechanical fall at home in bathroom Hip x-ray found nondisplaced right femoral neck fracture keep npo past midnight Hold aspirin Pt will be moderate risk for planned procedure d/t comorbidities ESRD on HD Tue/Yanira/Sat Missed dialysis today d/t fall at home and presentation to ED Pcr and hyperkalemia seems improivng Given Lokelma and got HD Will need emergent dialysis Low-potassium, low-phosphorus diet Follow BMP, Mg Nephrology following Atelectasis CXR with left lower lobe consolidation/atelectasis, similar to prior in October 2022 Patient denies SOB, cough, BONNER, no leukocytosis or fever DuoNebs p.r.n., incentive spirometry CAD Pt with hx of triple bypass 4 beat vtach Continue statin Hold aspirin d/t likely surgical procedure tomorrow Cardiac diet seen by cardio-Patient currently appears is optimized and in active cardiac issues noted although is high risk for perioperative cardiovascular morbidity mortality due to multiple cardiac as well as systemic issues. Hypothyroidism Continue levothyroxine Full Code DVT Prophylaxis: Pneumatic boots d/t likely surgical procedure tomorrow ongoing hospitalization : treatment of?right hip fracture with likely surgical procedure,esrd on hd -need Quality Stroke Does the patient have a stroke diagnosis?: No VTE Prior VTE?: No VTE Risk Level:: Medical - moderate - high VTE Device Contraindication: N/A - Device Ordered VTE Drug Contraindication: Treatment Not Indicated
[2023-05-02 20:00] VITALS: BP 122/58; PULSE 82; RESP 20; TEMP 36.6; O2SAT 92
[2023-05-02 20:07] VITALS: BMI 18.3
[2023-05-02] MEDS: 0.9 % Sodium Chloride Flush 3 ML SYRINGE IVFLUSH (20:39)
[2023-05-02 22:55] VITALS: BP 143/67; PULSE 67; RESP 18; TEMP 36.5; O2SAT 92
[2023-05-03] VITALS (18 sets, daily range): BP systolic 90–112; BP diastolic 44–63; PULSE 75–96; RESP 13–20; TEMP 36.1–36.8; O2SAT 93–100
[2023-05-03] MEDS: 0.9 % Sodium Chloride Flush 3 ML SYRINGE IVFLUSH ×2 (00:14→08:46)
[2023-05-03] MEDS: Dextrose 5 % and 0.9 % NaCl 1,000 ML 70 ML IVCONT (00:14)
--- NOTE | 2023-05-03 04:20 | HO.SKINPHOTO ---
LEFT RAMOS ..... RIGHT RAMOS
--- NOTE | 2023-05-03 05:16 | PC.NURSE ---
Patient admitted to [facility] from ED at 20:00. Pt seen this hospitalization for right hip fx 2/2 unwitnessed fall at home in the bathroom. Pt has hx of vascular dementia and CVA with left deficits per chart review. Pt is A&Ox1-2 to self and vaguely to situation (aware of fall at home, not oriented to place/plan of care). Pt reoriented. Continues in afib with BBB (hx afib not on acx 2/2 hx GIB and hematuria per chart). Rate is controlled in the 60-90's. Pt denies chest pain and sob. Breathing is even and unlabored without distress on RA. NPO for OR 05/03 for hip. D5NS infusing at 70ml/hr as ordered. Pt has ESRD with HD on HD T//SUN with an active new right chest HD port that is c/d/i; also had an occlusive dressing over left chest from previous HD port per handoff report. Last HD 05/02. [place] cath in place is patent of concentrated cyu. Pt has scattered bruising to his extremities and a skin tear to each anterior herrera (see wound photos). Pt denies pain. Q2H T+R as pt tolerates. Bed alarm on and high falls risk measures in place. 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
[2023-05-03] MEDS: Levothyroxine Sodium 50 MCG TABLET PO (06:21)
[2023-05-03 08:05] LABS: Hematocrit 33.1 % (42.0-52.0); Hemoglobin 10.9 g/dl (14.0-18.0); Mean Corpuscular HGB Conc 32.9 g/dl (31.0-36.0); Mean Corpuscular Hemoglobin 34.8 pg (27.0-33.0); Mean Corpuscular Volume 105.8 fL (80.0-98.0); Mean Platelet Volume 9.4 fL (9.4-12.4); Red Blood Count 3.13 X10*6/uL (4.60-5.80); Red Cell Distribution Width 14.5 % (11.0-16.0); White Blood Count 9.4 X10*3/uL (4.8-10.8)
[2023-05-03 08:08] LABS: Platelet Count 98 X10*3/uL (160-400)
[2023-05-03 08:22] LABS: Anion Gap 16 (12-20); Blood Urea Nitrogen 48 mg/dL (9-16); Calcium 8.7 mg/dL (8.4-10.2); Carbon Dioxide 26 mmol/L (22-29); Chloride 98 mmol/L (96-108); Glucose Random 108 mg/dL (60-115); Magnesium 2.5 mg/dL (1.6-2.6); Potassium 4.5 mmol/L (3.3-5.1); Sodium 135 mmol/L (135-145)
[2023-05-03 08:40] LABS: Creatinine Clr Calc Pharmacy 11.2; Estimated Glomerular Filt Rate 12
[2023-05-03] MEDS: Acetaminophen 325 MG TABLET 650 MG PO (08:45)
[2023-05-03] MEDS: ondansetron HCL 4 MG/2 ML VIAL IVPUSH (08:45)
[2023-05-03] MEDS: Docusate Sodium 100 MG CAPSULE PO (08:45)
[2023-05-03] MEDS: Multivitamin TABLET 1 TAB PO (08:45)
[2023-05-03] MEDS: Morphine Sulfate 4 MG/ML CARTRIDGE 2 MG IVPUSH (08:46)
--- NOTE | 2023-05-03 09:56 | P.PNNP_ITS ---
Subjective Subjective Date of Service: 05/03/23 Interval history: Right hip fracture,ESRD on HD Resting in the bed Feels better Physical Exam 2 Vital Signs: Vital Signs: Last Vital Signs Temp 97.2 F 05/03/23 07:26 Pulse 89 05/03/23 07:26 Resp 20 05/03/23 07:26 BP 98/52 L 05/03/23 08:50 Pulse Ox 95 05/03/23 07:26 O2 Del Method Room Air 05/03/23 07:26 BMI result Body Mass Index 18.3 Appearance: Alert.pleasantly confused . cvs: rrr, [id number] , no murmur res: clear to auscultation ,no rhonchii or wheezing abd: no rebound or guarding ,nt, bs present. ext pulses present , no cyanosis . neuro: axo3 , nonfocal. Objective Data Labs 05/03/23 07:46 05/03/23 07:46 Labs: Laboratory Results - last 24 hr 05/02/23 05/03/23 16:20 07:46 WBC 9.4 RBC 3.13 L Hgb 10.9 L Hct 33.1 L MCV 105.8 H MCH 34.8 H MCHC 32.9 RDW 14.5 Plt Count 98 L MPV 9.4 Absolute Nucleated RBC 0.000 Nucleated RBC % (auto) 0.0 Sodium 134 L 135 Potassium 4.1 D 4.5 Chloride 97 98 Carbon Dioxide 25 26 Anion Gap 16 16 BUN 29 H 48 H Creatinine 3.58 H 4.73 H* Estim Creat Clear Calc 16.6 11.2 Estimated GFR 17 12 Random Glucose 108 Fasting Glucose 107 H Calcium 9.1 8.7 Magnesium 2.5 Total Bilirubin 1.7 H AST 26 ALT 19 Alkaline Phosphatase 126 H Total Protein 6.9 Albumin 3.5 Procedures Date of Service Date of Service: 05/03/23 Assessment & Plan Assessment and plan (1) ESRD (end stage renal disease): Status: Acute Assessment and Plan: 1. ESRDon HD 2. Hyperkalemia 3. Hip Fracture- waiting for surgery 4. Low BP 5. Skin cancer HD in AM Usual HD MWF Will use Permcath 2 K bath Vol Removal as tolerated Midodrine for low BP in HD No need forEpo Cardiology f/u D/w Dr. Arauz (2) Acute hyperkalemia: Status: Acute (3) Closed hip fracture: Status: Acute Time Spent With Patient Time: Total time managing care of this patient today ____ minutes. Progress Note: Quality Stroke Does the patient have a stroke diagnosis?: No
--- NOTE | 2023-05-03 10:39 | MHC.CM.PN ---
Per ROUNDS discussion, Patient will have his Hip Repair Surgery today; CM will follow.
--- NOTE | 2023-05-03 12:43 | P.CDIM_ITS ---
PROVIDER RESPONSE TEXT: To clarify, the appropriate diagnosis supported by the clinical indicators: Underweight QUERY TEXT: PHYSICIAN'S DOCUMENTATION REQUEST Date of Query: 05/03/2023 07:54 AM EST Patient Name: Brayden Velazquez Admit Date: 05/01/2023 Dear Bear Arauz, A review of the medical record indicates additional documentation may be needed. Please review below and update the documentation accordingly. Clinical Indicators: Nursing notes Height and Weight: BMI 18 Underweight 62.8kg If possible, please provide an associated diagnosis related to the abnormal BMI, such as: Underweight Weight loss malnourished mild, moderate or severe Other (explain) Clinically unable to determine (explain) Thank you, Kristen Lagos, CCS, CDIS Use of terms such as suspected, likely, concern for, or probable (associated with a specific diagnosi s that is being evaluated, monitored, or treated as if it exists) are acceptable and can be coded in the inpatient se tting, when documented at the time of discharge. Please use your independent medical judgment in providing your response. THIS QUERY IS PART OF THE PERMANENT MEDICAL RECORD
--- NOTE | 2023-05-03 12:53 | P.PNIM_ITS ---
Subjective Subjective Date of Service: 05/04/23 Interval History: esrd, hematuria ,hip fx Review of Systems patient says hip area soarness no fever or abd pain Physical Exam 2 Vital Signs: Vital Signs: Last Vital Signs Temp 97.2 F 05/03/23 11:23 Pulse 80 05/03/23 11:23 Resp 20 05/03/23 11:23 BP 97/54 L 05/03/23 11:23 Pulse Ox 97 05/03/23 11:23 O2 Del Method Room Air 05/03/23 11:23 BMI result Body Mass Index 18.3 Appearance: Alert.pleasantly confused . cvs: rrr, [id number] , no murmur res: clear to auscultation ,no rhonchii or wheezing abd: no rebound or guarding ,nt, bs present. ext pulses present , no cyanosis . skin: has left upper pectoral area -skin lesion (ch -squomous cell ca) neuro: axo3 , nonfocal. Objective Data Active Medications Acetaminophen (Acetaminophen 325 Mg Tablet) 650 mg PO Q6H PRN PRN Reason: Pain, Mild (Pain Scale 1-3) Last Admin: 05/03/23 08:45 Dose: 650 mg Documented By: ZEINAB Albuterol/Ipratropium (Albuterol/Iprat 2.5/0.5mg 3 Ml Ampul.Neb) 3 ml INHALE RQ4H WHILE AWAKE PRN PRN Reason: Shortness of Breath/Wheezing Benzonatate (Benzonatate 100 Mg Capsule) 100 mg PO TID PRN PRN Reason: Cough Docusate Sodium (Docusate Sodium 100 Mg Capsule) 100 mg PO DAILY PRN PRN Reason: Constipation Last Admin: 05/03/23 08:45 Dose: 100 mg Documented By: ZEINAB Dextrose/Sodium Chloride (D5ns) 1,000 mls @ 80 mls/hr IVCONT .[id number] [facility] Last Admin: 05/03/23 00:14 Dose: 70 mls/hr Documented By: DOROTA Levothyroxine Sodium (Levothyroxine Sodium 50 Mcg Tablet) 50 mcg PO DAILY@0600 [facility] Last Admin: 05/03/23 06:21 Dose: 50 mcg Documented By: DOROTA Melatonin (Melatonin 3 Mg Tablet) 6 mg PO BEDTIME PRN PRN Reason: Insomnia Morphine Sulfate (Morphine Sulfate 4 Mg/Ml Cartridge) 2 mg IVPUSH Q4H PRN; Protocol PRN Reason: Pain, Severe (Pain Scale 7-10) Last Admin: 05/03/23 08:46 Dose: 2 mg Documented By: ZEINAB Multivitamins/Vitamin C (Multivitamin Tablet) 1 tab PO DAILY [facility] Last Admin: 05/03/23 08:45 Dose: 1 tab Documented By: ZEINAB Ondansetron HCl (Ondansetron Hcl 4 Mg/2 Ml Vial) 4 mg IVPUSH Q8H PRN PRN Reason: Nausea and Vomiting Last Admin: 05/03/23 08:45 Dose: 4 mg Documented By: ZEINAB Sodium Chloride (0.9 % Sodium Chloride Flush 3 Ml Syringe) 3 ml IVFLUSH QSHIFT [facility] Last Admin: 05/03/23 08:46 Dose: 3 ml Documented By: ZEINAB Labs 05/04/23 05:32 05/04/23 05:32 Labs: Laboratory Results - last 24 hr 05/02/23 05/03/23 16:20 07:46 MCV 105.8 H MCH 34.8 H MCHC 32.9 RDW 14.5 Plt Count 98 L MPV 9.4 Absolute Nucleated RBC 0.000 Nucleated RBC % (auto) 0.0 Anion Gap 16 16 Estim Creat Clear Calc 16.6 11.2 Estimated GFR 17 12 Random Glucose 108 Fasting Glucose 107 H Calcium 9.1 8.7 Magnesium 2.5 Total Bilirubin 1.7 H AST 26 ALT 19 Alkaline Phosphatase 126 H Total Protein 6.9 Albumin 3.5 Assessment and Plan (1) ESRD (end stage renal disease): Status: Acute (2) Renal failure: Status: Acute (3) NSVT (nonsustained ventricular tachycardia): Status: Acute Plan 77-year-old male with a PMH significant for?ESRD on HD on Sun/Sun/Sun, vascular dementia, hypothyroidism, HTN, HLD, history of Vfib arrest in 2016, asthma, afib no longer on anticoagulation due to recurrent hematuria and GI bleed, portal hypertensive gastropathy, hx CVA wtih left sided deficits, CLL (not on any treatment), CHF w/ EF 10-20%, and liver cirrhosis who presents to the ED with?right leg pain after mechanical fall at home. Pt will be admitted to the hospital for treatment further evaluation of right hip fracture with likely surgical procedure tomorrow. Right hip fracture Secondary to mechanical fall at home in bathroom Hip x-ray found nondisplaced right femoral neck fracture keep npo past midnight Hold aspirin Pt will be moderate risk for planned procedure d/t comorbidities ESRD on HD Tue/[place]/Sat Missed dialysis today d/t fall at home and presentation to ED Pcr and hyperkalemia seems improivng Given Lokelma and got HD Will need emergent dialysis Low-potassium, low-phosphorus diet Follow BMP, Mg Nephrology following Atelectasis CXR with left lower lobe consolidation/atelectasis, similar to prior in October 2022 Patient denies SOB, cough, BONNER, no leukocytosis or fever DuoNebs p.r.n., incentive spirometry CAD Pt with hx of triple bypass 5 beat vtach Continue statin Hold aspirin d/t likely surgical procedure tomorrow Cardiac diet seen by cardio-Patient currently appears is optimized and in active cardiac issues noted although is high risk for perioperative cardiovascular morbidity mortality due to multiple cardiac as well as systemic issues. Hx of left upper chest lesion (hx Squomous cell cancer as per patient sister): wound care following ,plan is outpatient surgery Hypothyroidism Continue levothyroxine Full Code DVT Prophylaxis: Pneumatic boots d/t likely surgical procedure tomorrow ongoing hospitalization : treatment of?right hip fracture with likely surgical procedure,esrd on hd -need Quality Stroke Does the patient have a stroke diagnosis?: No VTE Prior VTE?: No VTE Risk Level:: Medical - moderate - high VTE Device Contraindication: N/A - Device Ordered VTE Drug Contraindication: Treatment Not Indicated
--- NOTE | 2023-05-03 13:09 | HO.WOUND ---
Wound Consult: Initial 77yr old male admitted to [facility] on?05/01/23 17:29 - See progress notes and H&P for detailed history. Pt suffered a fall at home while getting out of the shower per his statement - resulting in Right Hip Fracture - pending OR repair with Orthopedic team after medical clearance. Left Chest Etiology: Suspected Cancerous Lesion Measurements: see charting for details Wound Bed: pink Fungating Neoplasm, not assessed to be friable at this time. Drainage / Odor: odor noted upon entering room - mild odor noted after cleansing Edges: ?Irregular and not attached - mushroom appearance Soila wound: ? Intact No Induration, No Fluctuance, Erythema, Warmth - does not appear infected at time of my assessment Pain: denies Goals of Treatment: ? Defer to provider to confirm diagnosis and or treatment options. Topical care can consist of exudate absorption and odor management. Bilateral Lower Legs Etiology: Skin Tears Measurements: see charting for details Wound Bed: dry pink wound beds with areas of dried scabbing noted. Drainage / Odor: None Edges: ?Irregular and attached Soila wound: ? Intact No Induration, No Fluctuance, Erythema, Warmth - Hemosiderin stainging noted Pain: denies Goals of Treatment: ? Moist wound healing with xeroform Left thigh Etiology: Suspected cutaneous horn Wound Bed: dry sharp horn noted Drainage / Odor: None Edges: ?Irregular and attached Soila wound: ? Intact Pain: tenderness reported Goals of Treatment: ? Defer to Dermatology for Biopsy / etiology and treatment - protect surrounding tissue from injury with foam dressings Sacrum Etiology: Previous Pressure injury - currently resurfaced Wound Bed: hypopigmented tissue intact Drainage / Odor: None Soila wound: ? Intact Pain: denies Goals of Treatment: foam dressings Recommendations: 1. Turn and Reposition every 2 hours and as needed for patient comfort. 2. Off Load all bony prominences with use of pillows and heel boots, apply preventiave foam dressings over bony prominences. 3. Monitor for incontinence and moisture control - use barrier creams as needed. 4. Provide adequate and supplemental nutrition. 5. Order low air loss mattress. 6. Sacrum - Apply Sacral foam dressing for prevention. Peel back and assess Q shift and change every 3 days and PRN. 7. Left Chest - Cleanse with NS, Pat Dry. Apply Alginate (Durafiber AG) to wound bed cover with Foam dressing. Change every other day. If Alginate is sticking to wound bed wet prior to removal as cancerous lesions can bleed easily. Defer to Hemotolgy for biopsy and workup if not already completed. 8. Bilateral Lower Legs - Cleanse with [place], dry with soft cloth. Apply lotion to lower legs. Cover open wounds with double layer xeroform, cover with foam dressing. Apply patients tubigrip socks from home fold at toes and prior to knee for patient comfort. Change daily. 9. Left Thigh - Protect surrounding tissue from injury with foam dressings. Peel back and assess Q shift and change every 3 days and PRN. Re-consult wound care Nurse for wound deterioration
[2023-05-03] MEDS: Dextrose 5 % and 0.9 % NaCl 1,000 ML 80 ML IVCONT (14:22)
[2023-05-03 14:39] LABS: Potassium 4.8 mmol/L (3.3-5.1)
--- NOTE | 2023-05-03 15:30 | PC.NURSE ---
patient transported down to OR at this time via OR tech/controls design engineer.
--- NOTE | 2023-05-03 16:17 | P.CONAN_ITS ---
HPI - Anesthesia Eval Consult details Narrative: for right hemiarthroplasty PMFSH Active Problems Active Problems: All Active Problems (Updated 05/02/23 @ 18:20 by Bear Arauz MD) NSVT (nonsustained ventricular tachycardia) (Acute) Preoperative cardiovascular examination (Acute) ESRD (end stage renal disease) (Acute) Acute hyperkalemia (Acute) Renal failure (Acute) Closed hip fracture (Acute) Past Medical History Medical History (Updated 05/02/23 @ 18:20 by Bear Arauz MD) ESRD (end stage renal disease) Liver cirrhosis CHF (congestive heart failure) CLL (chronic lymphocytic leukemia) CVA (cerebral vascular accident) GI bleed Recurrent hematuria HLD (hyperlipidemia) HTN (hypertension) Hypothyroid Dementia Dialysis patient Afib Chronic kidney disease Family History Family history of problems with anesthesia: No Surgical History Surgical History S/P triple vessel bypass History of Problems with Anesthesia: No Social History Social History Household Members: Family Household Members Other:: Sister Joyce Housing: House Do you presently have visiting nurse or other home services: Yes Alcohol intake: never Patient Tobacco Use Status: Never used Tobacco service: No Meds Allergies Allergy/AdvReac Type Severity Reaction Status Date / Time No Known Allergies Allergy Verified 05/01/23 13:03 [No Known Allergies*] Active Medications: Current Medications Acetaminophen (Acetaminophen 325 Mg Tablet) 650 mg PO Q6H PRN PRN Reason: Pain, Mild (Pain Scale 1-3) Last Admin: 05/03/23 08:45 Dose: 650 mg Albuterol/Ipratropium (Albuterol/Iprat 2.5/0.5mg 3 Ml Ampul.Neb) 3 ml INHALE RQ4H WHILE AWAKE PRN PRN Reason: Shortness of Breath/Wheezing Benzonatate (Benzonatate 100 Mg Capsule) 100 mg PO TID PRN PRN Reason: Cough Docusate Sodium (Docusate Sodium 100 Mg Capsule) 100 mg PO DAILY PRN PRN Reason: Constipation Last Admin: 05/03/23 08:45 Dose: 100 mg Dextrose/Sodium Chloride (D5ns) 1,000 mls @ 80 mls/hr IVCONT .[id number] [place] Last Admin: 05/03/23 14:22 Dose: 80 mls/hr Levothyroxine Sodium (Levothyroxine Sodium 50 Mcg Tablet) 50 mcg PO DAILY@0600 [facility] Last Admin: 05/03/23 06:21 Dose: 50 mcg Melatonin (Melatonin 3 Mg Tablet) 6 mg PO BEDTIME PRN PRN Reason: Insomnia Morphine Sulfate (Morphine Sulfate 4 Mg/Ml Cartridge) 2 mg IVPUSH Q4H PRN; Protocol PRN Reason: Pain, Severe (Pain Scale 7-10) Last Admin: 05/03/23 08:46 Dose: 2 mg Multivitamins/Vitamin C (Multivitamin Tablet) 1 tab PO DAILY [facility] Last Admin: 05/03/23 08:45 Dose: 1 tab Ondansetron HCl (Ondansetron Hcl 4 Mg/2 Ml Vial) 4 mg IVPUSH Q8H PRN PRN Reason: Nausea and Vomiting Last Admin: 05/03/23 08:45 Dose: 4 mg Sodium Chloride (0.9 % Sodium Chloride Flush 3 Ml Syringe) [facility] Last Admin: 05/03/23 08:46 Dose: 3 ml Home Medications Medication Instructions Recorded Confirmed Last Taken Type aspirin 81 mg tablet,delayed 81 mg PO DAILY 10/07/22 05/01/23 05/01/23 History release levothyroxine 50 mcg tablet 50 mcg PO DAILY 10/07/22 05/01/23 05/01/23 History vitamin B complex and vitamin C 1 cap PO DAILY 10/07/22 05/01/23 05/01/23 History no.20-folic acid 1 mg capsule rosuvastatin 10 mg tablet (Crestor) 10 mg PO BEDTIME 05/01/23 05/01/23 04/30/23 History Exam Height,Weight and Vital Signs: Height 6 ft 1 in Weight 62.8 kg Last Vital Signs Temp 98.0 F 05/03/23 15:17 Pulse 75 05/03/23 15:17 Resp 20 05/03/23 15:17 BP 91/49 L 05/03/23 15:17 Pulse Ox 98 05/03/23 15:17 O2 Del Method Room Air 05/03/23 15:17 Pertinent Lab Results Pertinent Lab Results: Laboratory Tests 05/01/23 05/01/23 05/02/23 14:15 23:51 05:10 WBC 10.3 9.1 RBC 3.25 L 3.21 L Hgb 11.3 L 11.3 L Hct 34.9 L 34.6 L MCV 107.4 H 107.8 H MCH 34.8 H 35.2 H MCHC 32.4 32.7 RDW 14.2 14.1 Plt Count 101 L 110 L MPV 9.1 L 9.3 L Immature Gran % (Auto) 0.6 H Neut % (Auto) 72.7 Lymph % (Auto) 21.5 [place] % (Auto) 4.6 Eos % (Auto) 0.3 Baso % (Auto) 0.3 Lymph # (Auto) 2.2 [place] # (Auto) 0.5 Eos # (Auto) 0.0 Baso # (Auto) 0.0 Abs Immat Gran (auto) 0.06 H Absolute Neuts (auto) 7.5 Absolute Nucleated RBC 0.000 0.000 Nucleated RBC % (auto) 0.0 0.0 Sodium 139 139 Potassium 5.7 H D 5.5 H Chloride 102 103 Carbon Dioxide 27 23 Anion Gap 16 19 BUN 68 H 76 H Creatinine 6.40 H* 6.59 H* Estim Creat Clear Calc 9.3 9.0 Estimated GFR 8 8 Random Glucose 135 H 133 H Fasting Glucose Calcium 9.5 D 9.0 Magnesium 2.8 H Total Bilirubin AST ALT Alkaline Phosphatase Total Protein Albumin Blood Type A Positive Antibody Screen NEGATIVE 05/02/23 05/03/23 05/03/23 16:20 07:46 14:25 WBC 9.4 RBC 3.13 L Hgb 10.9 L Hct 33.1 L MCV 105.8 H MCH 34.8 H MCHC 32.9 RDW 14.5 Plt Count 98 L MPV 9.4 Immature Gran % (Auto) Neut % (Auto) Lymph % (Auto) [place] % (Auto) Eos % (Auto) Baso % (Auto) Lymph # (Auto) [place] # (Auto) Eos # (Auto) Baso # (Auto) Abs Immat Gran (auto) Absolute Neuts (auto) Absolute Nucleated RBC 0.000 Nucleated RBC % (auto) 0.0 Sodium 134 L 135 Potassium 4.1 D 4.5 4.8 Chloride 97 98 Carbon Dioxide 25 26 Anion Gap 16 16 BUN 29 H 48 H Creatinine 3.58 H 4.73 H* Estim Creat Clear Calc 16.6 11.2 Estimated GFR 17 12 Random Glucose 108 Fasting Glucose 107 H Calcium 9.1 8.7 Magnesium 2.5 Total Bilirubin 1.7 H AST 26 ALT 19 Alkaline Phosphatase 126 H Total Protein 6.9 Albumin 3.5 Blood Type Antibody Screen Airway Mallampati Class: II TM Dist: >3cm Neck ROM: Full Partial: Upper and Lower Loose/Missing/Broken Teeth: Yes Heart: severe CMOP. Afib. Lungs: CTA. Assessment and Plan Assessment Anesthesia Assessment: Anesthesia Plan Discussed and Chart Reviewed Final Anesthetic Review Family History of Problems with Anesthesia: No History of Problems with Anesthesia: No NPO: Yes ASA Class: IV Final Preanesthetic Review: No Changes in Pt Med Stat, Meds/Allgs Chart Reviewed, Consent Obtained/Reviewed and Anes Risks/Benef Reviewed Patient Risk: High Procedure Risk: Intermediate Anesthetic Plan Anesthetic Plan: Spinal and Agree w/ Assess. and Plan Disposition: Standard PACU
--- NOTE | 2023-05-03 16:17 | CONS_ITS ---
DATE OF SERVICE: 05/02/2023 REASON FOR CONSULTATION: Consult requested by the medical team to evaluate and help in management of patient with ESRD, on hemodialysis, who has been admitted with fall and right hip pain. Patient has ESRD, on hemodialysis on Sunday, , Sunday; history of vascular dementia; hypothyroidism; hypertension; hyperlipidemia; history of AFib arrest in 2016, who presented to the hospital after he had a fall. He has right lower extremity pain/hip pain. Evaluation in the ER showed the patient has a right hip fracture and the patient has been admitted for further evaluation and management. Renal consult has been requested for dialysis management. REVIEW OF SYSTEMS: As noted above. Other systems reviewed and negative. Patient is not a good historian. PAST MEDICAL HISTORY: ESRD, on hemodialysis; liver cirrhosis; history of CHF; CLL; CVA; GI bleed; recurrent hematuria; hyperlipidemia; hypertension; hypothyroidism; dementia; AFib. PAST SURGICAL HISTORY: Triple-vessel bypass surgery. PERSONAL AND SOCIAL HISTORY: Patient does not smoke. Does not use alcohol or use drugs. ALLERGIES: PATIENT HAS NO KNOWN DRUG ALLERGIES. MEDICATIONS: Outpatient medications reviewed. PHYSICAL EXAMINATION: GENERAL: Patient is resting in the bed. Awake, able to follow commands. VITAL SIGNS: Blood pressure was 118/69, pulse 80, afebrile. HEENT/NECK: Shows pupils equal, round, and reactive bilaterally to light. No jugular venous distention was noted. Neck was supple. No thyromegaly was noted. Mucosa dry. There was no scleral icterus or conjunctival congestion. CARDIOVASCULAR: S1, S2 without rub or murmur. RESPIRATORY: Mildly decreased in the bases. ABDOMEN: Soft, nontender. No guarding noted. Bowel sounds normal. EXTREMITIES: Showed no edema. The patient also has AV fistula in the left upper extremity, which is not being used at the present time. CHEST: There was mass on the left side of his chest and PermCath on the right side. LABORATORY DATA: Labs done today. WBC 9.1, hemoglobin 11.3, hematocrit 36.4, platelets 110. Sodium 134, potassium 4.1, chloride 97, CO2 25, BUN 29, creatinine 3.58. IMPRESSION: A 77-year-old male with: 1. End-stage renal disease, on hemodialysis on Sunday, , Sunday. 2. History of fall with right hip fracture/mechanical fall. 3. Chest x-ray showing atelectasis. 4. Coronary artery disease. 5. Hypertension. RECOMMENDATION: At this juncture, I have arranged hemodialysis for the patient in the inpatient dialysis unit. He was hyperkalemic with the potassium of 5.7, which has been treated with Lokelma. We will try to remove fluid as tolerated. Potassium per protocol. His hemoglobin level is acceptable and there is no immediate need for erythropoietin injection. Thank you for allowing me to participate in medical management of this patient. MD VIRY Collins/DOUGLAS / [phone]
--- NOTE | 2023-05-03 18:21 | P.BOP_ITS ---
Brief Operative Note Date of Service: 05/03/23 Pre-op diagnosis: Right femoral neck fracture Post-op diagnosis: same Procedure: right hip gela Implants: Rita accolade #6 127 deg with +0 26/51 bipolar Surgeon: Michael Edwards MD Anesthesia: spinal Was an [facility] used for this Procedure?: No Estimated blood loss (mL): 150 IV fluids (mL): 100 Pathology: other Condition: stable Disposition: PACU
--- NOTE | 2023-05-03 19:59 | W.PM.CCCN ---
History of Present Illness Data of Consult Service Date: 05/03/23 Requesting physician: Marcus Chou Primary Care Provider: Reza Juan MD HPI Reason for consult: post op hypotension HPI: ?77-year-old patient with underlying history of coronary disease status post triple bypass, NSVT, end-stage renal disease on hemodialysis , liver cirrhosis, CHF with ejection fraction of 10-20%,; history of chronic lymphocytic leukemia, CVL and vascular dementia, prior GI bleed, recurrent hematuria, hypertension, hyperlipidemia, hypothyroid, atrial fibrillation not on blood thinners; due to prior GI bleeding hematuria. Patient had presented to the emergency room with complaints of right leg pain status post a mechanical fall in the bathroom of his house on 05/02/2023, there is no reported head trauma, neck trauma or loss of consciousness.? The workup in the emergency room which included trauma survey revealed no evidence of acute intracranial hemorrhage, no evidence of cervical spine pathology, however he was found to have a right femoral neck fracture.? He was seen by the orthopedic team, he was admitted to the hospital and he underwent a right hemiarthroplasty this afternoon by Dr. Edwards with minimal reported EBL of 150 cc; under having transient hypotension in the PACU and the patient was started on an epinephrine drip.? Upon arrival to the ICU the patient appears comfortable, denies pain, there is no evidence of respiratory distress. ROS:? Unable to obtain Past Medical History:? As above Past Surgical History: per chart Triple bypass Right Port-A-Cath Family history:? Noncontributory Social History:? Patient lives at home, there is no history of alcohol, tobacco or drug use ever CODE STATUS: FULL CODE? Allergies: NKDA Home Medications: See Med Rec PHYSICAL EXAM: VS: 97/58; 85, 12, 100% on 4 L nasal cannula General:? Alert to place only; mumbles words, incoherent speech, able to follow basic commands like wiggling toes. Skin:? Multiple ecchymotic spots throughout the Lue upper and lower extremities, cauliflower like growth of a proximally 2 x 3 cm, raised over the subclavicular distal area of the left shoulder, S small left thigh horn like lesion slightly raised, erythema of the sacrum with a central area of skin damage consistent with stage I and stage II pressure wounds. HEENT:? Head is normocephalic, atraumatic, pupils equal round reactive to light accommodation bilaterally.? Extraocular movements appear intact.? Buccal mucosa is moist, Neck is supple without lymphadenopathy. Cardiac:? Clear S1-S2, no murmurs rubs or gallops. ?Right chest Port-A-Cath Pulmonary:? Clear to auscultation, no wheezes, rales or rhonchi. Abdomen:? Protuberant, positive bowel sounds in all 4 quadrants.? Soft, nontender, no rebound or guarding.? Musculoskeletal:? Patient is moving bilateral upper extremities on his own.? Minimal movement upon request of the lower extremities at the major joints, capable of moving his toes.? No edema, no asymmetry of the legs.? Right surgical site clean, dry, intact. Neurologic:? As above, incomprehensible speech, mumbling, otherwise No focal deficits noted. Vascular:? 2+ pulses upper and lower extremities distally. SIGNIFICANT LABORATORY DATA:? As above REVIEW OF IMAGES: CXR IMPRESSION: Nondisplaced right femoral neck fracture. Left lower lobe consolidation/atelectasis. Effusion is not excluded. Rest of lungs are clear. HIP XR IMPRESSION: Nondisplaced right femoral neck fracture. Left lower lobe consolidation/atelectasis. Effusion is not excluded. Rest of lungs are clear. HEAD AND C SPINE IMPRESSION: - No acute intracranial abnormality. There is global cerebral volume loss, there is advanced chronic microangiopathy, and there is a chronic left [employer] [place] [place] territory infarct. There is extensive atherosclerotic calcification throughout the intracranial arterial vasculature. - No acute osseous abnormality within the cervical spine. Cervical spondylosis. EKG REVIEW: ?To my view this is a Rate controlled atrial fibrillation with a rate of 80 beats per minute.? No ST elevations, no ST depressions.? Evidence of right bundle-branch block, left axis.? QTC 492.? No comparison. ASSESSMENT : 1. Postop day 0. status post right hemiarthroplasty secondary to femoral neck fracture after a mechanical fall at home 2. Resolved Transient postop hypotension 3. Chronic end-stage renal disease on HD , , sun; no evidence of fluid overload clinically 4. Anemia of chronic disease appears stable 5. Chronic (stable) thrombocytopenia 6. Chronic history of vascular dementia 7. Multiple lesions in wounds including left AC shoulder, left thigh, stage 1 early 2 sacral pressure wound present on admission 8. Chronic rate controlled atrial fibrillation and history of NSVT 9. 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 I discontinued epinephrine drip that was hanging upon arrival, currently his blood pressure is 112/60, heart rate 91, respirations 12, O2 sat 97%. Patient will be monitor closely, I do not anticipate any significant complications, dialysis in the morning per Nephrology's discretion.? Will continue with his medications and repeat laboratories tomorrow morning. Will discontinue morphine and change these to Dilaudid given his renal dysfunction and risk of retention of morphine by products leading to respiratory depression. Will discuss with the orthopedic team in the morning for possibility of resuming aspirin given his coronary artery disease. GI PROPHYLAXIS: ?IV ppi and aspiration precautions DVT PROPHYLAXIS: ?Will order Pneumatic stockings Critical care time used for critical evaluation of this patient, diagnosis, treatment and coordination of care, review her records and documentation TOTAL CRITICAL CARE TIME??90 min . discussion and coordination with consultants, completely separate from any procedures performed. Patient's care was discussed in detail with Dr. Alba.? He is aware of all the above as well as the plan of care for this patient. [facility] Past Medical History Medical History (Updated 05/02/23 @ 18:20 by Bear Arauz MD) ESRD (end stage renal disease) Liver cirrhosis CHF (congestive heart failure) CLL (chronic lymphocytic leukemia) CVA (cerebral vascular accident) GI bleed Recurrent hematuria HLD (hyperlipidemia) HTN (hypertension) Hypothyroid Dementia Dialysis patient Afib Chronic kidney disease Surgical History Surgical History S/P triple vessel bypass Social History Social History Household Members: Family Household Members Other:: Sister Joyce Housing: House Do you presently have visiting nurse or other home services: Yes Alcohol intake: never Patient Tobacco Use Status: Never used Tobacco service: No Meds Allergies Allergy/AdvReac Type Severity Reaction Status Date / Time No Known Allergies Allergy Verified 05/01/23 13:03 [No Known Allergies*] Active Medications: Current Medications Acetaminophen (Acetaminophen 325 Mg Tablet) 650 mg PO Q6H PRN PRN Reason: Pain, Mild (Pain Scale 1-3) Last Admin: 05/03/23 08:45 Dose: 650 mg Albuterol/Ipratropium (Albuterol/Iprat 2.5/0.5mg 3 Ml Ampul.Neb) 3 ml INHALE RQ4H WHILE AWAKE PRN PRN Reason: Shortness of Breath/Wheezing Benzonatate (Benzonatate 100 Mg Capsule) 100 mg PO TID PRN PRN Reason: Cough Docusate Sodium (Docusate Sodium 100 Mg Capsule) 100 mg PO DAILY PRN PRN Reason: Constipation Last Admin: 05/03/23 08:45 Dose: 100 mg Fentanyl (Fentanyl Citrate/Pf 100 Mcg/2 Ml Vial) 25 mcg IVPUSH Q5M PRN; Protocol PRN Reason: Pain, Moderate(Pain Scale 4-6) Hydromorphone HCl (Hydromorphone Hcl 0.5 Mg/0.5 Ml Syringe) 0.25 mg IVPUSH Q5M PRN; Protocol PRN Reason: Pain, Severe (Pain Scale 7-10) Dextrose/Sodium Chloride (D5ns) 1,000 mls @ 80 mls/hr IVCONT .[id number] [facility] Last Infusion: 05/03/23 19:36 Dose: 0 mls/hr Levothyroxine Sodium (Levothyroxine Sodium 50 Mcg Tablet) 50 mcg PO DAILY@0600 [facility] Last Admin: 05/03/23 06:21 Dose: 50 mcg Melatonin (Melatonin 3 Mg Tablet) 6 mg PO BEDTIME PRN PRN Reason: Insomnia Morphine Sulfate (Morphine Sulfate 4 Mg/Ml Cartridge) 2 mg IVPUSH Q4H PRN; Protocol PRN Reason: Pain, Severe (Pain Scale 7-10) Last Admin: 05/03/23 08:46 Dose: 2 mg Multivitamins/Vitamin C (Multivitamin Tablet) 1 tab PO DAILY [facility] Last Admin: 05/03/23 08:45 Dose: 1 tab Ondansetron HCl (Ondansetron Hcl 4 Mg/2 Ml Vial) 4 mg IVPUSH Q8H PRN PRN Reason: Nausea and Vomiting Last Admin: 05/03/23 08:45 Dose: 4 mg Ondansetron HCl (Ondansetron Hcl 4 Mg/2 Ml Vial) 4 mg IVPUSH ONCE PRN PRN Reason: Nausea and Vomiting Sodium Chloride (0.9 % Sodium Chloride Flush 3 Ml Syringe) 3 ml IVFLUSH QSHIFT [facility] Last Admin: 05/03/23 17:08 Dose: Not Given Home Medications Medication Instructions Recorded Confirmed Last Taken Type aspirin 81 mg tablet,delayed 81 mg PO DAILY 10/07/22 05/01/23 05/01/23 History release levothyroxine 50 mcg tablet 50 mcg PO DAILY 10/07/22 05/01/23 05/01/23 History vitamin B complex and vitamin C 1 cap PO DAILY 10/07/22 05/01/23 05/01/23 History no.20-folic acid 1 mg capsule rosuvastatin 10 mg tablet (Crestor) 10 mg PO BEDTIME 05/01/23 05/01/23 04/30/23 History Physical Exam Vital Signs: Vital Signs: Last Vital Signs Temp 97 F 05/03/23 19:10 Pulse 94 05/03/23 19:26 Resp 15 05/03/23 19:26 BP 107/45 L 05/03/23 19:26 Pulse Ox 100 05/03/23 19:26 O2 Del Method Nasal Cannula 05/03/23 19:26 O2 Flow Rate 4 05/03/23 19:26 BMI result Body Mass Index 18.3 Results Labs 05/03/23 07:46 05/03/23 14:25 Labs: Short CBC 05/03/23 Range/Units 07:46 WBC 9.4 (4.8-10.8) X10*3/uL Hgb 10.9 L (14.0-18.0) g/dl Hct 33.1 L (42.0-52.0) % Plt Count 98 L (160-400) X10*3/uL BMP 05/03/23 05/03/23 07:46 14:25 Sodium 135 Potassium 4.5 4.8 Chloride 98 Carbon Dioxide 26 BUN 48 H Creatinine 4.73 H* Calcium 8.7
[2023-05-04] VITALS (15 sets, daily range): BP systolic 87–114; BP diastolic 47–62; PULSE 73–118; RESP 11–18; TEMP 36.2–37.1; O2SAT 94–100; BMI 18.3
[2023-05-04] MEDS: 0.9 % Sodium Chloride Flush 3 ML SYRINGE IVFLUSH ×3 (01:24→23:57)
--- NOTE | 2023-05-04 02:06 | PC.NURSE ---
Addendum entered by Kevin Stroud RN 05/04/23 02:11: IV FLUID ORDER HELD PER ICU PA Original Note: TRANSFERED FROM PACU TO [facility]-1 APPROX 7PM...AWAKE..CONVERSES..DISORIENTED TO PLACE/TIME...VAGUE RESPONSES AT TIME....O2 4 L/M..RESPIRATIONS EASY..SAO2 96-97%...RIGHT HIP SURGICAL DRESSING INTACT..NO BLEEDING...EPINEPHRINE DRIP OFF AT ARRIVAL TO ICU..BP STABLE....ATRIAL FIB RBBB WITH RARE PVC...[place] CATHETER COLLECTING SMALL AMOUNTS DARK SAIDA URINE...DENIES DISCOMFORT..NAPPING W/O DIFFICULTY
[2023-05-04 05:41] LABS: MANUAL DIFF FLAG NO
[2023-05-04] MEDS: Pantoprazole Sodium 40 MG/10 ML VIAL IVPUSH (05:47)
[2023-05-04] MEDS: Levothyroxine Sodium 50 MCG TABLET PO (05:47)
[2023-05-04 05:50] LABS: Basophils Percent Auto 0.1 % (0-2); Eosinophils Percent Auto 0.1 % (0-4); Hematocrit 30.6 % (42.0-52.0); Hemoglobin 10.2 g/dl (14.0-18.0); Imm Gran Abs Auto 0.12 X10*3/uL (0.00-0.03); Imm Gran Pct Auto 1.2 % (0.0-0.4); Lymphocytes Absolute Auto 4.5 X10*3/uL (1.2-4.9); Lymphocytes Percent Auto 43.7 % (20-40); Mean Corpuscular HGB Conc 33.3 g/dl (31.0-36.0); Mean Corpuscular Hemoglobin 34.9 pg (27.0-33.0); Mean Corpuscular Volume 104.8 fL (80.0-98.0); Mean Platelet Volume 9.5 fL (9.4-12.4); Monocytes Absolute Auto 0.3 X10*3/uL (0.1-1.2); Monocytes Percent Auto 2.6 % (2-11); Neutrophils Absolute Auto 5.4 x10*3/uL (2.0-8.3); Neutrophils Percent Auto 52.3 % (45-73); Red Blood Count 2.92 X10*6/uL (4.60-5.80); Red Cell Distribution Width 14.1 % (11.0-16.0); White Blood Count 10.4 X10*3/uL (4.8-10.8)
[2023-05-04 05:52] LABS: Platelet Count 91 X10*3/uL (160-400)
[2023-05-04 06:30] LABS: Alanine Aminotransferase 12 U/L (0-40); Albumin Level 3.1 g/dL (3.5-5.0); Alkaline Phosphatase 106 U/L (39-117); Anion Gap 21 (12-20); Aspartate Amino Transferase 20 U/L (5-37); Blood Urea Nitrogen 71 mg/dL (9-16); Calcium 8.6 mg/dL (8.4-10.2); Carbon Dioxide 19 mmol/L (22-29); Chloride 102 mmol/L (96-108); Estimated Glomerular Filt Rate 9; Glucose Random 148 mg/dL (60-115); Magnesium 2.9 mg/dL (1.6-2.6); Potassium 4.8 mmol/L (3.3-5.1); Sodium 137 mmol/L (135-145); Total Protein 6.1 g/dL (6.5-8.0)
--- NOTE | 2023-05-04 07:44 | P.PNOP_ITS ---
Subjective Subjective Date of Service: 05/04/23 Interval history: POD 1 s/p Rt hip hemiarthroplasty no overnight events-transferred to ICU from PACU due to hypotsn denies sob, cp, palpitations Physical Exam Vital Signs: Vital Signs: Last Vital Signs Temp 97.6 F 05/04/23 03:52 Pulse 75 05/04/23 07:00 Resp 15 05/04/23 07:00 BP 110/55 L 05/04/23 07:00 Pulse Ox 100 05/04/23 07:00 O2 Del Method Nasal Cannula 05/04/23 07:00 O2 Flow Rate 4 05/04/23 07:00 Oxygen Flow Rate 4 05/03/23 17:21 BMI result Body Mass Index 18.3 Const: General: cooperative, healthy appearing and no acute distress Resp: Effort & Inspection: normal respiratory effort and able to speak in complete sentences Cardio: Rate: regular rate Peripheral pulses: Peripheral pulses 2+ throughout GI: Palpation (GI): Soft to palpation Skin: General skin exam: no rashes or lesions noted Extrem: Other: incision clean dry and intact. Brigido intact. No erythema or effusion. Calf supple nontender. Neurovascularly intact. Procedures Date of Service Date of Service: 05/04/23 Progress Note: A&P Assessment and plan (1) Closed hip fracture: Status: Acute Assessment and Plan: * Continue pain mgmnt * Begin dvt ppx * begin PT / OT for Rt hip gela posterior precautions * Dispo planning-Pending PT eval, pain mgmnt Time Spent With Patient Time: Total time managing care of this patient today ____ minutes. Quality Stroke Does the patient have a stroke diagnosis?: No VTE Prior VTE?: No VTE Risk Level:: Medical - moderate - high VTE Device Contraindication: N/A - Device Ordered VTE Drug Contraindication: Treatment Not Indicated
--- NOTE | 2023-05-04 08:29 | P.PNCC_ITS ---
Subjective Subjective Date of Service: 05/04/23 Interval History: POD 0, no significant overnight events Critical Care Time (minutes): 60 Physical Exam 2 Vital Signs: Vital Signs: Last Vital Signs Temp 97.5 F 05/04/23 08:00 Pulse 81 05/04/23 08:00 Resp 15 05/04/23 08:00 BP 109/55 L 05/04/23 08:00 Pulse Ox 96 05/04/23 08:00 O2 Del Method Nasal Cannula 05/04/23 08:00 O2 Flow Rate 4 05/04/23 08:00 Oxygen Flow Rate 4 05/03/23 17:21 BMI result Body Mass Index 18.3 Const: General: cooperative, healthy appearing, comfortable, no acute distress, well developed, alert, awake and Physically active O rientation/consciousness: oriented to person HEENT: Head: Yes normal to inspection, Yes normocephalic and Yes atraumatic Eyes: General: appearance normal, both eyes and all related structures Neck: Neck: Yes normal visual inspection, Yes full ROM and Yes supple Chest: Chest palpation & inspection: normal inspection of the chest Resp: Other: no appreciable rales, rhonchi, wheezing Effort & Inspection: normal respiratory effort Cardio: Rate: regular rate Rhythm: regular rhythm : Male General Exam: Yes normal external exam Skin: Other: R thigh incision clean, dry, intact; no appreciable fluctuance, induration; thigh compartments soft General skin exam: no rashes or lesions noted Neuro: General: oriented to person, tone normal and moves all extremities Extrem: General: Yes capillary refill normal and Yes no clubbing, cyanosis or edema Psych: Other: very pleasant Appearance: grossly normal Objective Data Labs 05/04/23 05:32 05/04/23 05:32 Labs: Laboratory Results - last 24 hr 05/03/23 05/03/23 05/04/23 07:46 14:25 05:32 WBC 10.4 RBC 2.92 L Hgb 10.2 L Hct 30.6 L MCV 104.8 H MCH 34.9 H MCHC 33.3 RDW 14.1 Plt Count 91 L MPV 9.5 Immature Gran % (Auto) 1.2 H Neut % (Auto) 52.3 Lymph % (Auto) 43.7 H [place] % (Auto) 2.6 Eos % (Auto) 0.1 Baso % (Auto) 0.1 Lymph # (Auto) 4.5 [place] # (Auto) 0.3 Eos # (Auto) 0.0 Baso # (Auto) 0.0 Abs Immat Gran (auto) 0.12 H Absolute Neuts (auto) 5.4 Absolute Nucleated RBC 0.000 Nucleated RBC % (auto) 0.0 Sodium 137 Potassium 4.8 4.8 Chloride 102 Carbon Dioxide 19 L Anion Gap 21 H BUN 71 H Creatinine 4.73 H* 5.85 H* Estim Creat Clear Calc 11.2 9.0 Estimated GFR 12 9 Random Glucose 148 H Calcium 8.6 Magnesium 2.9 H Total Bilirubin 1.0 AST 20 ALT 12 Alkaline Phosphatase 106 Total Protein 6.1 L Albumin 3.1 L Progress Note: A&P Assessment and plan (1) ESRD (end stage renal disease): Status: Acute (2) Femur fracture: Status: Acute (3) CAD (coronary artery disease) of artery bypass graft: Status: Acute Plan Patient is a 77 Y M w/ CAD s/p bypass x3, c/b CHF LVEF 10-20%, atrial fibrillation not on anticoagulation d/t prior GI bleeding, ESRD on hemodialysis M/W/F, and dementia, presenting on 05/02 s/p mechanical fall, found to have R femoral neck fracture, s/p repair 05/03 N: no acute issues; vascular dementia CV: no acute issues R: no acute issues GI: renal diet : ESRD, on hemodialysis M/W/F; plan for hemodialysis today H: no acute issues; mechanical DVT prophylaxis; chemical DVT prophylaxis per surgery ID: no acute issues MSK: R femoral fracture s/p repair Quality Stroke Does the patient have a stroke diagnosis?: No VTE Prior VTE?: No VTE Risk Level:: Medical - moderate - high VTE Device Contraindication: N/A - Device Ordered VTE Drug Contraindication: Treatment Not Tolerated
--- NOTE | 2023-05-04 13:17 | HO.POSTANES ---
Post Anesthesia Evaluation Post Anesthesia Evaluation Date of Service: 05/04/23 Vital Signs: Vital Signs Temp Pulse Resp BP Pulse Ox O2 Del Method O2 Flow Rate 05/04/23 09:20 81 109/55 L 96 05/04/23 08:00 97.5 F 81 15 109/55 L 96 Nasal Cannula 4 05/04/23 07:00 75 15 110/55 L 100 Nasal Cannula 4 05/04/23 05:56 82 16 101/56 L 98 Nasal Cannula 4 05/04/23 05:00 73 12 99/59 L 100 Nasal Cannula 4 05/04/23 03:52 97.6 F 85 16 106/62 98 Nasal Cannula 4 05/04/23 02:57 93 14 104/60 99 Nasal Cannula 4 05/04/23 02:00 89 17 107/54 L 100 Nasal Cannula 4 Anesthesia: Spinal Mental Status: Awake Pain Control: Satisfactory Nausea/Vomiting: None Hydration: Adequate Anesthesia-Related Issues: No Anes. Related Issues
--- NOTE | 2023-05-04 16:10 | PM.EVENT ---
Event Note Date of Service: 05/05/23 Event Note: Patient was downgraded by ICU this afternoon. Seen and examined: Patient is status post a fracture and status post surgery yesterday-went to ICU afterwards-for transient hypotension intra and postoperatively-was possibly briefly was on pressor drip and then was taken off: Today's transfer back Physical exam: Please see ICU note Patient seems awake near baseline Hip area: Clean, no bleeding or discharge gu: ? Hematuria Assessment and plan: Coordinated in ICU note. Discussed with ICU in detail. Time Spent With Patient Time: Total time managing care of this patient today ____ minutes.
--- NOTE | 2023-05-04 17:29 | PC.NURSE ---
Pt arrived from ICU as transfer in wheelchair. 2 staff assist with transfer to bed. Pt alert to self and hospital although states [facility] . Pleasant and cooperative. BRANCH to command 4/5, RLE 3/5 sensation intact per pt. +pp bilat no edema noted. Denies headache, dizziness or vision changes. Report pain only with standing to right leg. Dressings to right hip with only shadowing noted. LS dim denies shortness of breath or chest pain, Afib with BBB on tele. BS+X4 abdomen soft non-tender denies nausea/vomiting tolerating diet. [place] cath with dark haseeb/red small amount of urine Dr Arauz aware. Off at dialysis approx [phone] returns to unit at 1700. SBP soft Dr Arauz aware patient pressure baseline low. Resting in bed alarm for safety. Will continue to monitor and report changes
--- NOTE | 2023-05-04 18:11 | P.PNNP_ITS ---
Subjective Subjective Date of Service: 05/04/23 Interval history: doing well with HD today Physical Exam 2 Vital Signs: Vital Signs: Last Vital Signs Temp 97.1 F 05/04/23 17:38 Pulse 80 05/04/23 17:38 Resp 18 05/04/23 17:38 BP 87/53 L 05/04/23 17:38 Pulse Ox 98 05/04/23 17:21 O2 Del Method Nasal Cannula 05/04/23 17:21 O2 Flow Rate 4 05/04/23 08:00 Oxygen Flow Rate 2 05/04/23 17:21 BMI result Body Mass Index 18.3 Const: General: comfortable, alert and awake Orientation/consciousness: p atient oriented x3 Resp: Effort & Inspection: normal respiratory effort Auscultation: no crackles Cardio: Rate: regular rate Rhythm: regular rhythm GI: Palpation (GI): nontender Neuro: General: patient oriented x3 Objective Data Labs 05/04/23 05:32 05/04/23 05:32 Labs: Laboratory Results - last 24 hr 05/04/23 05:32 WBC 10.4 RBC 2.92 L Hgb 10.2 L Hct 30.6 L MCV 104.8 H MCH 34.9 H MCHC 33.3 RDW 14.1 Plt Count 91 L MPV 9.5 Immature Gran % (Auto) 1.2 H Neut % (Auto) 52.3 Lymph % (Auto) 43.7 H [place] % (Auto) 2.6 Eos % (Auto) 0.1 Baso % (Auto) 0.1 Lymph # (Auto) 4.5 [place] # (Auto) 0.3 Eos # (Auto) 0.0 Baso # (Auto) 0.0 Abs Immat Gran (auto) 0.12 H Absolute Neuts (auto) 5.4 Absolute Nucleated RBC 0.000 Nucleated RBC % (auto) 0.0 Sodium 137 Potassium 4.8 Chloride 102 Carbon Dioxide 19 L Anion Gap 21 H BUN 71 H Creatinine 5.85 H* Estim Creat Clear Calc 9.0 Estimated GFR 9 Random Glucose 148 H Calcium 8.6 Magnesium 2.9 H Total Bilirubin 1.0 AST 20 ALT 12 Alkaline Phosphatase 106 Total Protein 6.1 L Albumin 3.1 L Procedures Date of Service Date of Service: 05/04/23 Assessment & Plan Assessment and plan (1) ESRD (end stage renal disease): Status: Acute Assessment and Plan: 1. ESRDon HD 2. Hyperkalemia 3. Hip Fracture- waiting for surgery 4. Low BP 5. Skin cancer HD today per MW schedule protect permcath monitor LLE finger ischemia Midodrine for low BP in HD No need forEpo (2) Acute hyperkalemia: Status: Acute (3) Closed hip fracture: Status: Acute Time Spent With Patient Time: Total time managing care of this patient today ____ minutes. Progress Note: Quality Stroke Does the patient have a stroke diagnosis?: No
[2023-05-05] VITALS (7 sets, daily range): BP systolic 93–107; BP diastolic 43–55; PULSE 76–118; RESP 16–20; TEMP 36.2–36.7; O2SAT 95–100
[2023-05-05] MEDS: Levothyroxine Sodium 50 MCG TABLET PO (05:59)
[2023-05-05] MEDS: Pantoprazole Sodium 40 MG/10 ML VIAL IVPUSH (05:59)
[2023-05-05 06:36] LABS: Anion Gap 15 (12-20); Blood Urea Nitrogen 48 mg/dL (9-16); Calcium 8.3 mg/dL (8.4-10.2); Carbon Dioxide 22 mmol/L (22-29); Chloride 103 mmol/L (96-108); Creatinine Clr Calc Pharmacy 11.7; Estimated Glomerular Filt Rate 13; Glucose Random 136 mg/dL (60-115); Magnesium 2.6 mg/dL (1.6-2.6); Sodium 136 mmol/L (135-145)
[2023-05-05] MEDS: Midodrine HCl 5 MG TABLET PO ×2 (08:27→19:32)
[2023-05-05] MEDS: 0.9 % Sodium Chloride Flush 3 ML SYRINGE IVFLUSH ×2 (08:27→15:54)
--- NOTE | 2023-05-05 11:35 | P.PNIM_ITS ---
Subjective Subjective Date of Service: 05/05/23 Interval History: esrd, hematuria ,hip fx Review of Systems patient says hip area soarness no fever or abd pain Physical Exam 2 Vital Signs: Vital Signs: Last Vital Signs Temp 98.0 F 05/05/23 11:09 Pulse 89 05/05/23 11:09 Resp 20 05/05/23 11:09 BP 96/47 L 05/05/23 11:09 Pulse Ox 97 05/05/23 11:09 O2 Del Method Room Air 05/05/23 11:09 O2 Flow Rate 4 05/04/23 08:00 Oxygen Flow Rate 2 05/04/23 17:21 BMI result Body Mass Index 18.3 Appearance: Alert.pleasantly confused . cvs: rrr, [id number] , no murmur res: clear to auscultation ,no rhonchii or wheezing abd: no rebound or guarding ,nt, bs present. ext pulses present , no cyanosis . skin: has left upper pectoral area -skin lesion (ch -squomous cell ca) neuro: axo3 , nonfocal. Objective Data Active Medications Acetaminophen (Acetaminophen 325 Mg Tablet) 650 mg PO Q6H PRN PRN Reason: Pain, Mild (Pain Scale 1-3) Last Admin: 05/03/23 08:45 Dose: 650 mg Documented By: ZEINAB Albuterol/Ipratropium (Albuterol/Iprat 2.5/0.5mg 3 Ml Ampul.Neb) 3 ml INHALE RQ4H WHILE AWAKE PRN PRN Reason: Shortness of Breath/Wheezing Benzonatate (Benzonatate 100 Mg Capsule) 100 mg PO TID PRN PRN Reason: Cough Docusate Sodium (Docusate Sodium 100 Mg Capsule) 100 mg PO DAILY PRN PRN Reason: Constipation Last Admin: 05/03/23 08:45 Dose: 100 mg Documented By: ZEINAB Hydromorphone HCl (Hydromorphone Hcl 0.5 Mg/0.5 Ml Syringe) 0.25 mg IVPUSH Q5M PRN; Protocol PRN Reason: Pain, Severe (Pain Scale 7-10) Levothyroxine Sodium (Levothyroxine Sodium 50 Mcg Tablet) 50 mcg PO DAILY@0600 [facility] Last Admin: 05/05/23 05:59 Dose: 50 mcg Documented By: JABIER Melatonin (Melatonin 3 Mg Tablet) 6 mg PO BEDTIME PRN PRN Reason: Insomnia Midodrine (Midodrine Hcl 5 Mg Tablet) 5 mg PO BID [facility] Last Admin: 05/05/23 08:27 Dose: 5 mg Documented By: MARTY Morphine Sulfate (Morphine Sulfate 4 Mg/Ml Cartridge) 2 mg IVPUSH Q4H PRN; Protocol PRN Reason: Pain, Severe (Pain Scale 7-10) Last Admin: 05/03/23 08:46 Dose: 2 mg Documented By: ZEINAB Ondansetron HCl (Ondansetron Hcl 4 Mg/2 Ml Vial) 4 mg IVPUSH Q8H PRN PRN Reason: Nausea and Vomiting Last Admin: 05/03/23 08:45 Dose: 4 mg Documented By: ZEINAB Ondansetron HCl (Ondansetron Hcl 4 Mg/2 Ml Vial) 4 mg IVPUSH ONCE PRN PRN Reason: Nausea and Vomiting Pantoprazole Sodium (Pantoprazole Sodium 40 Mg/10 Ml Vial) 40 mg IVPUSH DAILY@0630 [facility] Last Admin: 05/05/23 05:59 Dose: 40 mg Documented By: JABIER Sodium Chloride (0.9 % Sodium Chloride Flush 3 Ml Syringe) 3 ml IVFLUSH QSHIFT [facility] Last Admin: 05/05/23 08:27 Dose: 3 ml Documented By: MARTY Labs 05/04/23 05:32 05/05/23 05:54 Labs: Laboratory Results - last 24 hr 05/05/23 05:54 Anion Gap 15 Estim Creat Clear Calc 11.7 Estimated GFR 13 Random Glucose 136 H Calcium 8.3 L Magnesium 2.6 Assessment and Plan (1) CAD (coronary artery disease) of artery bypass graft: Status: Acute (2) ESRD (end stage renal disease): Status: Acute Plan 77-year-old male with a PMH significant for?ESRD on HD on Sun/Sun/Sun, vascular dementia, hypothyroidism, HTN, HLD, history of Vfib arrest in 2016, asthma, afib no longer on anticoagulation due to recurrent hematuria and GI bleed, portal hypertensive gastropathy, hx CVA wtih left sided deficits, CLL (not on any treatment), CHF w/ EF 10-20%, and liver cirrhosis who presents to the ED with?right leg pain after mechanical fall at home. Pt will be admitted to the hospital for treatment further evaluation of right hip fracture with likely surgical procedure tomorrow. Right hip fracture Secondary to mechanical fall at home in bathroom Hip x-ray found nondisplaced right femoral neck fracture keep npo past midnight Hold aspirin Pt will be moderate risk for planned procedure d/t comorbidities ESRD on HD Tue/[facility]anira/Sat Missed dialysis today d/t fall at home and presentation to ED hyperkalemia is improved. Given Lokelma and got HD boderline bp-nephro recomended adding midodrine. Nephrology following Atelectasis CXR with left lower lobe consolidation/atelectasis, similar to prior in October 2022 Patient denies SOB, cough, BONNER, no leukocytosis or fever DuoNebs p.r.n., incentive spirometry CAD Pt with hx of triple bypass Continue statin Hold aspirin d/t likely surgical procedure tomorrow Cardiac diet seen by cardio-Patient currently appears is optimized and in active cardiac issues noted although is high risk for perioperative cardiovascular morbidity mortality due to multiple cardiac as well as systemic issues. Hx of left upper chest lesion (hx Squomous cell cancer as per patient sister): wound care following ,plan is outpatient surgery Hypothyroidism Continue levothyroxine Full Code DVT Prophylaxis: Pneumatic boots d/t likely surgical procedure tomorrow ongoing hospitalization : treatment of?right hip fracture with likely surgical procedure,esrd on hd -need Quality Stroke Does the patient have a stroke diagnosis?: No VTE Prior VTE?: No VTE Risk Level:: Medical - moderate - high VTE Device Contraindication: N/A - Device Ordered VTE Drug Contraindication: Treatment Not Tolerated
--- NOTE | 2023-05-05 12:46 | P.PNNP_ITS ---
Subjective Subjective Date of Service: 05/05/23 Interval history: dialyzed yesterday no complaints Physical Exam 2 Vital Signs: Vital Signs: Last Vital Signs Temp 98.0 F 05/05/23 11:09 Pulse 89 05/05/23 12:20 Resp 20 05/05/23 11:09 BP 96/47 L 05/05/23 12:20 Pulse Ox 97 05/05/23 12:20 O2 Del Method Room Air 05/05/23 11:09 O2 Flow Rate 4 05/04/23 08:00 Oxygen Flow Rate 2 05/04/23 17:21 BMI result Body Mass Index 18.3 Const: General: comfortable, alert and awake Orientation/consciousness: p atient oriented x3 Resp: Effort & Inspection: normal respiratory effort Auscultation: no crackles Cardio: Rate: regular rate Rhythm: regular rhythm GI: Palpation (GI): nontender Neuro: General: patient oriented x3 Objective Data Labs 05/04/23 05:32 05/05/23 05:54 Labs: Laboratory Results - last 24 hr 05/05/23 05:54 Sodium 136 Potassium 4.0 Chloride 103 Carbon Dioxide 22 Anion Gap 15 BUN 48 H Creatinine 4.54 H* Estim Creat Clear Calc 11.7 Estimated GFR 13 Random Glucose 136 H Calcium 8.3 L Magnesium 2.6 Procedures Date of Service Date of Service: 05/05/23 Assessment & Plan Assessment and plan (1) ESRD (end stage renal disease): Status: Acute Assessment and Plan: 1. ESRDon HD 2. Hyperkalemia 3. Hip Fracture- waiting for surgery 4. Low BP 5. Skin cancer HD on MWF schedule protect permcath monitor LLE finger ischemia Midodrine for low BP in HD No need forEpo (2) Acute hyperkalemia: Status: Acute (3) Closed hip fracture: Status: Acute Time Spent With Patient Time: Total time managing care of this patient today ____ minutes. Progress Note: Quality Stroke Does the patient have a stroke diagnosis?: No
[2023-05-05] MEDS: Heparin Sodium,Porcine 5,000 UNIT/ML VIAL 5000 UNIT SUBCUT (14:39)
[2023-05-05] MEDS: Acetaminophen 325 MG TABLET 650 MG PO (19:32)
[2023-05-06] MEDS: Heparin Sodium,Porcine 5,000 UNIT/ML VIAL 5000 UNIT SUBCUT ×3 (01:42→20:23)
[2023-05-06] MEDS: 0.9 % Sodium Chloride Flush 3 ML SYRINGE IVFLUSH ×3 (01:44→16:20)
[2023-05-06 03:37] VITALS: BP 108/43; PULSE 100; RESP 20; TEMP 36.7; O2SAT 99
[2023-05-06] MEDS: Pantoprazole Sodium 40 MG/10 ML VIAL IVPUSH (06:23)
[2023-05-06] MEDS: Levothyroxine Sodium 50 MCG TABLET PO (06:23)
[2023-05-06 06:51] LABS: Anion Gap 16 (12-20); Blood Urea Nitrogen 69 mg/dL (9-16); Carbon Dioxide 22 mmol/L (22-29); Chloride 104 mmol/L (96-108); Creatinine Clr Calc Pharmacy 8.4; Estimated Glomerular Filt Rate 9; Glucose Random 95 mg/dL (60-115); Magnesium 2.4 mg/dL (1.6-2.6); Potassium 4.1 mmol/L (3.3-5.1); Sodium 138 mmol/L (135-145)
[2023-05-06 07:29] VITALS: BP 91/44; PULSE 82; RESP 20; TEMP 36.6; O2SAT 97
[2023-05-06 07:46] LABS: Hemoglobin 9.1 g/dl (14.0-18.0)
[2023-05-06 08:55] LABS: Platelet Count 107 X10*3/uL (160-400)
[2023-05-06] MEDS: Midodrine HCl 5 MG TABLET PO ×2 (09:36→20:23)
[2023-05-06 11:10] VITALS: BP 98/54; PULSE 76; RESP 18; TEMP 36.8; O2SAT 97
--- NOTE | 2023-05-06 12:52 | P.PNIM_ITS ---
Subjective Subjective Date of Service: 05/06/23 Interval History: esrd, hematuria ,hip fx Review of Systems patient says hip area soarness no fever or abd pain Physical Exam 2 Vital Signs: Vital Signs: Last Vital Signs Temp 98.3 F 05/06/23 11:10 Pulse 76 05/06/23 11:10 Resp 18 05/06/23 11:10 BP 98/54 L 05/06/23 11:10 Pulse Ox 97 05/06/23 11:10 O2 Del Method Room Air 05/06/23 11:10 O2 Flow Rate 4 05/04/23 08:00 Oxygen Flow Rate 2 05/04/23 17:21 BMI result Body Mass Index 18.3 Appearance: Alert.pleasantly confused . cvs: rrr, [id number] , no murmur res: clear to auscultation ,no rhonchii or wheezing abd: no rebound or guarding ,nt, bs present. ext pulses present , no cyanosis . skin: has left upper pectoral area -skin lesion (ch -squomous cell ca) neuro: axo3 , nonfocal. Objective Data Active Medications Acetaminophen (Acetaminophen 325 Mg Tablet) 650 mg PO Q6H PRN PRN Reason: Pain, Mild (Pain Scale 1-3) Last Admin: 05/05/23 19:32 Dose: 650 mg Documented By: BRITTANI Albuterol/Ipratropium (Albuterol/Iprat 2.5/0.5mg 3 Ml Ampul.Neb) 3 ml INHALE RQ4H WHILE AWAKE PRN PRN Reason: Shortness of Breath/Wheezing Benzonatate (Benzonatate 100 Mg Capsule) 100 mg PO TID PRN PRN Reason: Cough Docusate Sodium (Docusate Sodium 100 Mg Capsule) 100 mg PO DAILY PRN PRN Reason: Constipation Last Admin: 05/03/23 08:45 Dose: 100 mg Documented By: ZEINAB Heparin Sodium (Porcine) (Heparin Sodium,Porcine 5,000 Unit/Ml Vial) 5,000 unit SUBCUT Q12H [facility] Last Admin: 05/06/23 09:36 Dose: 5,000 unit Documented By: DESTINY Hydromorphone HCl (Hydromorphone Hcl 0.5 Mg/0.5 Ml Syringe) 0.25 mg IVPUSH Q5M PRN; Protocol PRN Reason: Pain, Severe (Pain Scale 7-10) Levothyroxine Sodium (Levothyroxine Sodium 50 Mcg Tablet) 50 mcg PO DAILY@0600 [facility] [place] Last Admin: 05/06/23 06:23 Dose: 50 mcg Documented By: KWESI Melatonin (Melatonin 3 Mg Tablet) 6 mg PO BEDTIME PRN PRN Reason: Insomnia Midodrine (Midodrine Hcl 5 Mg Tablet) 5 mg PO BID [facility] Last Admin: 05/06/23 09:36 Dose: 5 mg Documented By: DESTINY Morphine Sulfate (Morphine Sulfate 4 Mg/Ml Cartridge) 2 mg IVPUSH Q4H PRN; Protocol PRN Reason: Pain, Severe (Pain Scale 7-10) Last Admin: 05/03/23 08:46 Dose: 2 mg Documented By: ZEINAB Ondansetron HCl (Ondansetron Hcl 4 Mg/2 Ml Vial) 4 mg IVPUSH Q8H PRN PRN Reason: Nausea and Vomiting Last Admin: 05/03/23 08:45 Dose: 4 mg Documented By: ZEINAB Ondansetron HCl (Ondansetron Hcl 4 Mg/2 Ml Vial) 4 mg IVPUSH ONCE PRN PRN Reason: Nausea and Vomiting Pantoprazole Sodium (Pantoprazole Sodium 40 Mg/10 Ml Vial) 40 mg IVPUSH DAILY@0630 [facility] [place] Last Admin: 05/06/23 06:23 Dose: 40 mg Documented By: KWESI Sodium Chloride (0.9 % Sodium Chloride Flush 3 Ml Syringe) 3 ml IVFLUSH QSHIFT [facility] [place] Last Admin: 05/06/23 09:36 Dose: 3 ml Documented By: DESTINY Labs 05/06/23 07:32 05/06/23 06:18 Labs: Laboratory Results - last 24 hr 05/06/23 05/06/23 06:18 07:32 Plt Count 107 L Hold Purple Top SEE NOTE Anion Gap 16 Estim Creat Clear Calc 8.4 Estimated GFR 9 Random Glucose 95 Calcium 8.0 L Magnesium 2.4 Assessment and Plan (1) ESRD (end stage renal disease): Status: Acute (2) Closed hip fracture: Status: Acute Plan 77-year-old male with a PMH significant for?ESRD on HD on Sun/Sun/Sun, vascular dementia, hypothyroidism, HTN, HLD, history of Vfib arrest in 2016, asthma, afib no longer on anticoagulation due to recurrent hematuria and GI bleed, portal hypertensive gastropathy, hx CVA wtih left sided deficits, CLL (not on any treatment), CHF w/ EF 10-20%, and liver cirrhosis who presents to the ED with?right leg pain after mechanical fall at home. Pt will be admitted to the hospital for treatment further evaluation of right hip fracture with likely surgical procedure tomorrow. Right hip fracture Secondary to mechanical fall at home in bathroom Hip x-ray found nondisplaced right femoral neck fracture keep npo past midnight Hold aspirin Pt will be moderate risk for planned procedure d/t comorbidities ESRD on HD Tue/[place]/Sat Missed dialysis today d/t fall at home and presentation to ED hyperkalemia is improved. Given Lokelma and got HD boderline bp-nephro recomended adding midodrine. Nephrology following Atelectasis CXR with left lower lobe consolidation/atelectasis, similar to prior in October 2022 Patient denies SOB, cough, BONNER, no leukocytosis or fever DuoNebs p.r.n., incentive spirometry CAD Pt with hx of triple bypass Continue statin Hold aspirin d/t likely surgical procedure tomorrow Cardiac diet seen by cardio-Patient currently appears is optimized and in active cardiac issues noted although is high risk for perioperative cardiovascular morbidity mortality due to multiple cardiac as well as systemic issues. Hx of left upper chest lesion (hx Squomous cell cancer as per patient sister): wound care following ,plan is outpatient surgery Hypothyroidism Continue levothyroxine Hematuria: seems improving continue to moniter urology eval. Full Code DVT Prophylaxis: s/c heparin ongoing hospitalization : treatment of?right hip fracture with likely surgical procedure,esrd on hd -need Quality Stroke Does the patient have a stroke diagnosis?: No VTE Prior VTE?: No VTE Risk Level:: Medical - moderate - high VTE Device Contraindication: N/A - Device Ordered VTE Drug Contraindication: Treatment Not Tolerated
[2023-05-06 15:36] VITALS: BP 96/34; PULSE 72; RESP 16; TEMP 36.5; O2SAT 93
[2023-05-06] MEDS: Acetaminophen 325 MG TABLET 650 MG PO (16:27)
--- NOTE | 2023-05-06 16:47 | P.PNNP_ITS ---
Subjective Subjective Date of Service: 05/06/23 Interval history: no events Physical Exam 2 Vital Signs: Vital Signs: Last Vital Signs Temp 97.7 F 05/06/23 15:36 Pulse 72 05/06/23 15:36 Resp 16 05/06/23 15:36 BP 96/34 L 05/06/23 15:36 Pulse Ox 93 05/06/23 15:36 O2 Del Method Room Air 05/06/23 15:36 O2 Flow Rate 4 05/04/23 08:00 Oxygen Flow Rate 2 05/04/23 17:21 BMI result Body Mass Index 18.3 Const: General: comfortable, alert and awake Orientation/consciousness: p atient oriented x3 Resp: Effort & Inspection: normal respiratory effort Auscultation: no crackles Cardio: Rate: regular rate Rhythm: regular rhythm GI: Palpation (GI): nontender Neuro: General: patient oriented x3 Objective Data Labs 05/06/23 07:32 05/06/23 06:18 Labs: Laboratory Results - last 24 hr 05/06/23 05/06/23 06:18 07:32 Hgb 9.1 L Hct 27.0 L Plt Count 107 L Hold Purple Top SEE NOTE Sodium 138 Potassium 4.1 Chloride 104 Carbon Dioxide 22 Anion Gap 16 BUN 69 H Creatinine 6.30 H* Estim Creat Clear Calc 8.4 Estimated GFR 9 Random Glucose 95 Calcium 8.0 L Magnesium 2.4 Procedures Date of Service Date of Service: 05/06/23 Assessment & Plan Assessment and plan (1) ESRD (end stage renal disease): Status: Acute Assessment and Plan: 1. ESRDon HD 2. Hyperkalemia 3. Hip Fracture- waiting for surgery 4. Low BP 5. Skin cancer HD on MWF schedule protect permcath monitor LUE finger for evidence of ischemia Midodrine for low BP in HD No need forEpo (2) Acute hyperkalemia: Status: Acute (3) Closed hip fracture: Status: Acute Time Spent With Patient Time: Total time managing care of this patient today ____ minutes. Progress Note: Quality Stroke Does the patient have a stroke diagnosis?: No
[2023-05-06] MEDS: Docusate Sodium 100 MG CAPSULE PO (20:23)
[2023-05-06 21:24] VITALS: BP 94/45; PULSE 75; RESP 18
[2023-05-06 21:26] VITALS: TEMP 36.4; O2SAT 97
[2023-05-07] VITALS: BP 94/54; PULSE 63; RESP 18; TEMP 36.8; O2SAT 96
[2023-05-07] MEDS: 0.9 % Sodium Chloride Flush 3 ML SYRINGE IVFLUSH ×3 (00:27→14:29)
[2023-05-07] MEDS: Acetaminophen 325 MG TABLET 650 MG PO (00:32)
[2023-05-07 03:14] VITALS: BP 113/57; PULSE 77; RESP 18; TEMP 36.8; O2SAT 95
[2023-05-07] MEDS: Levothyroxine Sodium 50 MCG TABLET PO (06:20)
[2023-05-07] MEDS: Pantoprazole Sodium 40 MG/10 ML VIAL IVPUSH (06:20)
[2023-05-07 07:18] VITALS: BP 127/72; PULSE 85; RESP 18; TEMP 36.3; O2SAT 94
[2023-05-07] MEDS: Heparin Sodium,Porcine 5,000 UNIT/ML VIAL 5000 UNIT SUBCUT (07:29)
[2023-05-07] MEDS: Midodrine HCl 5 MG TABLET PO (07:29)
[2023-05-07 08:46] LABS: Anion Gap 18 (12-20); Blood Urea Nitrogen 85 mg/dL (9-16); Carbon Dioxide 19 mmol/L (22-29); Chloride 102 mmol/L (96-108); Creatinine Clr Calc Pharmacy 7.2; Estimated Glomerular Filt Rate 7; Glucose Random 118 mg/dL (60-115); Magnesium 2.7 mg/dL (1.6-2.6); Potassium 4.4 mmol/L (3.3-5.1); Sodium 135 mmol/L (135-145)
--- NOTE | 2023-05-07 10:56 | MHC.CLN ---
F/U PO INTAKE 75-100% DIET RX: REGULAR-APPROPRIATE REVIEWED LABS MONITOR PO INTAKE AND WEIGHT CLOSELY
--- NOTE | 2023-05-07 12:36 | P.DS_ITS ---
DS: Providers Provider Date of Service: 05/07/23 Date of admission: 05/01/23 17:29 Date of discharge: 05/07/23 Primary care physician: Reza Juan MD Consults: 05/01/23 17:29 Consult to Nephrology Routine Consulting Provider: [facility] Reason for consultation: ESRD on HD //Sun, missed dialysis today, ?surgery for hip fx tomorrow 05/01/23 17:40 Consult to Orthopedics Routine Consulting Provider: [facility] Reason for consultation: Right hip fracture 05/02/23 07:36 Consult to Cardiology Routine Consulting Provider: [facility] Cardi[facility] Services Reason for consultation: risk starifictaion(has hx of afib ,overnight nsvt )- hip fx Has provider been notified: No 05/03/23 09:22 Consult to Wound Care Routine Reason for consultation: large infected tumor to left chest/ multiple skin tears Has provider been notified: Yes 05/03/23 10:34 Consult to Urology Routine Consulting Provider: [facility] Urology Services Reason for consultation: Hematuria Has provider been notified: No Attending physician on discharge: Bear Arauz Discharging clinician: Bear Arauz DS: Diagnosis Discharge Diagnosis (1) ESRD (end stage renal disease): Status: Acute (2) Acute hyperkalemia: Status: Acute (3) Closed hip fracture: Status: Acute DS: Summary Hospital Course Hospital Course: 77-year-old male with a PMH significant for?ESRD on HD on Sun/Sun/Sun, vascular dementia, hypothyroidism, HTN, HLD, history of Vfib arrest in 2016, asthma, afib no longer on anticoagulation due to recurrent hematuria and GI bleed, portal hypertensive gastropathy, hx CVA wtih left sided deficits, CLL (not on any treatment), CHF w/ EF 10-20%, and liver cirrhosis who presents to the ED with?right leg pain after mechanical fall at home. Patient with vascular dementia at baseline, is fully alert and oriented to self only. HPI supplemented by his sister whom he lives with. Sister says patient was shaving in the bathroom earlier today getting ready for dialysis when [employer] entered the home and startled the pt, who fell to the floor on his right side. Denies head strike, no lightheadedness or dizziness. Sister notes pt has been less steady on his feet since he has started dialysis and she has insisted he use the walker in the house. Pt only complains of right leg pain, though he is unable to further specify the location. Pt otherwise denies any other acute medical complaints. No shortness of breath, cough, BONNER. Denies chest pain/pressure, palpitation. No fever, chills, nausea, vomiting, abdominal pain. Pt did miss dialysis today d/t fall and presentation to the ED. Of note, sister mentions that pt has been to [facility] at [facility] twice before and would prefer to stay there if possible as it is close to his dialysis center. In the ED pt was afebrile and otherwise hemodynamically stable, satting at 95% on RA. Labs were significant for stable macrocytic anemia of H&H of 11.3/34.9, potassium 5.7, BUN 68, and creatinine 6.40, otherwise grossly WNL. Hip and pelvis x-ray found nondisplaced right femoral neck fracture. CXR showed left lower lobe consolidation/atelectasis with effusion not excluded. CT of head showed no acute intracranial abnormality but with global cerebral volume loss and advanced chronic microangiopathy with a chronic left PIECE JOBBER territory infarct and extensive atherosclerotic calcification throughout the intracranial arteriovascular. CT of cervical spine found no acute osseous abnormality but with cervical spondylolysis. EKG demonstrated atrial fibrillation with right bundle-branch block but no significant ST elevations or depressions. Pt was tr eated with Lokelma. Pt will be admitted to the hospital for treatment further evaluation of right hip fracture with likely surgical procedure tomorrow. Hopsital course: Patient was admitted for hip fracture:s/p Rt hip hemiarthroplasty: Says he pain improved significantly, patient will be going to the residential back, follow- up with Ortho. SubQ heparin mary added for DVT prophylaxis since has he fracture-discussed with Ortho and Hematology. patient has hx of afib ,also has episode nsvt: consider follow up with cardiology outpatient. Monitor CBC Q weekly while on subQ heparin.hold asaprin until on heparin. ch anemia (esrd) and thrombocytopenia(platelet counts between 80-110): Monitor CBC closely Q weekly while on subQ heparin. esrd: continue HD. Mild hematuria: Initially had mild 's urea which resolved spontaneously, follow-up out patiently with Urology. Off note patient has history of recurrent hematuria. Borderline blood pressure : Discussed with the nephrology-patient has borderline blood pressure, the use out patiently p.r.n. midodrine. atelactasis: Use incentive spirometry, chest physiotherapy, p.r.n. nebs as needed. chest wound left side ( hx skin squamous cell lesion): Wound care see instructions. Assigned monitor assessment and plan coordination time spent 50 minute. Time Attestation Discharge coordination time: Greater than 30 minutes Quality: Safe Use of Opioids Does Pt have an Active Cancer Diagnosis on the Problem List?: No Quality: Stroke Does the patient have a stroke diagnosis?: No Physical Exam Vital Signs: Vital Signs: Last Vital Signs Temp 97.4 F 05/07/23 07:18 Pulse 85 05/07/23 07:18 Resp 18 05/07/23 07:18 BP 127/72 05/07/23 07:18 Pulse Ox 94 05/07/23 07:18 O2 Del Method Room Air 05/07/23 07:18 O2 Flow Rate 4 05/04/23 08:00 Oxygen Flow Rate 2 05/04/23 17:21 BMI result Body Mass Index 18.3 Appearance: awake seems near baseline . cvs: rrr, [id number] . chest: clear to ausculatation,no rhonchii or wheezing abd: no rebound or guarding ,nt, bs present. ext pulses present , no cyanosis . skin: has left upper pectoral area -skin lesion (ch -squomous cell ca) neuro: axo3 , nonfocal. DS: Data Data Completed and Pending Pending studies at discharge: Pending at discharge 05/03/23 17:48 Surgical [PTH] Routine 05/03/23 17:50 Surgical [PTH] Routine Labs on day of discharge: Laboratory Results - last 24 hr 05/07/23 06:46 Hold Purple Top SEE NOTE Sodium 135 Potassium 4.4 Chloride 102 Carbon Dioxide 19 L Anion Gap 18 BUN 85 H Creatinine 7.33 H* Estim Creat Clear Calc 7.2 Estimated GFR 7 Random Glucose 118 H Calcium 8.0 L Magnesium 2.7 H Imaging Chest x-ray: Radiologist's impression: ITS Impressions Chest X-Ray 05/01/23 13:50 IMPRESSION: Nondisplaced right femoral neck fracture. Left lower lobe consolidation/atelectasis. Effusion is not excluded. Rest of lungs are clear. Hip/Pelvis X-Ray 05/01/23 13:50 IMPRESSION: Nondisplaced right femoral neck fracture. Left lower lobe consolidation/atelectasis. Effusion is not excluded. Rest of lungs are clear. Cervical Spine CT 05/01/23 13:54 IMPRESSION: - No acute intracranial abnormality. There is global cerebral volume loss, there is advanced chronic microangiopathy, and there is a chronic left PIECE JOBBER territory infarct. There is extensive atherosclerotic calcification throughout the intracranial arterial vasculature. - No acute osseous abnormality within the cervical spine. Cervical spondylosis. Head CT 05/01/23 13:54 IMPRESSION: - No acute intracranial abnormality. There is global cerebral volume loss, there is advanced chronic microangiopathy, and there is a chronic left PIECE JOBBER territory infarct. There is extensive atherosclerotic calcification throughout the intracranial arterial vasculature. - No acute osseous abnormality within the cervical spine. Cervical spondylosis. Discharge Plan Discharge Anticipated Discharge Date/Time: 05/07/23 12:06 Patient Disposition: [facility] Discharge Diagnosis: hip fracture Referrals: Yasmin Saenz MD [Physician] - 1 Week () Michelle Davila PA-C [Physician House Wirer Helper] - 2 Weeks (05/18/23 11:30 [facility] Orthopedic Surgeons Michelle Davila PA-C) Discharge Medications: New acetaminophen 325 mg Tablet 650 mg PO Q6H PRN (Reason: Pain, Mild (Pain Scale 1-3)) Qty: 30 0RF ipratropium-albuterol 0.5 mg-3 mg(2.5 mg base)/3 mL Solution For Nebulization 3 ml inhalation RQ4H WHILE AWAKE PRN (Reason: Shortness Of Breath/Wheezing) Qty: 1 0RF docusate sodium 100 mg Capsule 100 mg PO DAILY PRN (Reason: Constipation) Qty: 30 0RF heparin (porcine) 5,000 unit/mL Solution 5,000 unit subcut Q12H 42 Days Qty: 84 0RF Continued levothyroxine 50 mcg tablet 50 mcg PO DAILY Nephrocaps 1 mg Capsule 1 cap PO DAILY rosuvastatin [Crestor] 10 mg Tablet 10 mg PO BEDTIME Held aspirin 81 mg Tablet,Delayed Release (Dr/Ec) 81 mg PO DAILY Hold Instructions: Resume on 07/04/23. Discharge Orders: Discharge Order (Routine); Ordered 05/07/23 Ordered By: Bear Arauz Diet: Advance to usual diet Activity on Discharge: As tolerated Stand Alone Forms: Patient Portal Discharge page Activity Restrictions/Additional Instructions: Wound Care Recommendations: 1. Turn and Reposition every 2 hours and as needed for patient comfort. 2. Off Load all bony prominences with use of pillows and heel boots, apply preventiave foam dressings over bony prominences. 3. Monitor for incontinence and moisture control - use barrier creams as needed. 4. Provide adequate and supplemental nutrition. 5. Order low air loss mattress. 6. Sacrum - Apply Sacral foam dressing for prevention. Peel back and assess Q shift and change every 3 days and PRN. 7. Left Chest - Cleanse with NS, Pat Dry. Apply Alginate (Durafiber AG) to wound bed cover with Foam dressing. Change every other day. If Alginate is sticking to wound bed wet prior to removal as cancerous lesions can bleed easily. Defer to Hematology for biopsy and workup if not already completed. 8. Bilateral Lower Legs - Cleanse with [place], dry with soft cloth. Apply lotion to lower legs. Cover open wounds with double layer xeroform, cover with foam dressing. Apply patients tubigrip socks from home fold at toes and prior to knee for patient comfort. Change daily. 9. Left Thigh - Protect surrounding tissue from injury with foam dressings. Peel back and assess Q shift and change every 3 days and PRN. Care Plan Goals: Patient was admitted for hip fracture:s/p Rt hip hemiarthroplasty: Says he pain improved significantly, patient will be going to the residential back, follow- up with Ortho. SubQ heparin mary added for DVT prophylaxis since has he fracture-discussed with Ortho and Hematology. Monitor CBC Q weekly while on subQ heparin.hold asaprin until on heparin. Mild hematuria: Initially had mild 's urea which resolved spontaneously, follow-up out patiently with Urology. Off note patient has history of recurrent hematuria. Borderline blood pressure : Discussed with the nephrology-patient has borderline blood pressure, the use out patiently p.r.n. midodrine. atelactasis: Use incentive spirometry, chest physiotherapy, p.r.n. nebs as needed. Health Concerns: as above. Plan of Treatment: * Physical Therapy for right hip hemiarthroplasty: wbat, posterior precautions, gait training, ROM, strength * Limit stair climbing * No showering, no tub bath-keep dressing clean, dry and intact * No driving x6 weeks * Continuedvt ppc x 6 weeks * Follow up with [facility] Orthopedics in 2 weeks: 05/18/23 11:30 [facility] Orthopedic SurgeonsMichelle Davila PA-C Assessment: as above.
[2023-05-07 13:08] VITALS: BP 108/59; PULSE 85; RESP 17; TEMP 36.6; O2SAT 97
--- NOTE | 2023-05-07 13:19 | MHC.CM.PN ---
PT CLEARED TO DC TODAY TO [facility] VM MESSAGE LEFT FOR PTS SISTER/HCP, EMILIE BROWN [phone] INFORMING HER PT WOULD DC AT 1500 HOURS SECOND COPY OF MCR RIGHTS WILL BE MAILED TO HER
[2023-05-07 15:28] VITALS: BP 115/57; PULSE 87; RESP 17; TEMP 37.1; O2SAT 97
--- NOTE | 2023-05-09 11:44 | P.OP_ITS ---
Operative Note Operative Note Date of Service: 05/03/23 Narrative: Date of Service: 05/03/23 Pre-op diagnosis: Right femoral neck fracture Post-op diagnosis: same Procedure: right hip gela Implants: Rita accolade #6 127 deg with +0 26/51 bipolar Surgeon: Michael Edwards MD Anesthesia: spinal Was an Supervisor Customer Records Division used for this Procedure?: No Estimated blood loss (mL): 150 IV fluids (mL): 100 Pathology: other Condition: stable Disposition: PACU Procedure in detail: Patient was brought to the operative room placed in the lateral decubitus position. All bony prominences were well padded and the was prepped and draped in standard sterile fashion. IV antibiotics per weight were administered and a time-out was called to identify proper site proper procedure proper surgeon. Radiographs were available and confirmed. I began by making a curvilinear incision over the posterolateral aspect of the greater trochanter. Dissection was taken down to the tensor fascia which was incised in line with the incision and a Charnley retractor was placed. The hip was internally rotated and the external rotators were identified. All vessels in the area were cauterized and a full-thickness capsular/external rotator layer was developed in a hockey-stick fashion starting just proximal to the piriformis. This layer was tagged and the displaced femoral neck fracture was identified. Clean-up cuts was performed while protecxtion the posterolateral soft tissues and the head was removed and measured (51 mm) on the back table. I then copiously irrigated the acetabulum and removed all bony fragments. Once this was done I used a cookie cutter to lateralize and a Charnley awl to identify the canal and then sequentially broached up to a 127 deg #6. I then trialed with a +0 standard head and a bipolar component matching the femoral head size. I was satisfied with the range of motion and stability and length. Therefore I removed all instrumentation and copiously irrigated. I then placed my final femoral implant and then retrialed. I was satisfied with the femoral implant. My final bipolar components were then placed. I closed the capsular layer with FiberWire and then. I performed a layered closure with maria antonia on skin. The patient was placed in sterile dressing extubated brought to recovery room in stable condition there were no known complications.
== END 2023-05-07 15:38 | disposition skilled nursing facility (03) | DRG 521 ==
LOC: HO.ED 15:56 → HO.EDOVER 19:10 → HO.IMC 05-02 16:49 → HO.ICU 05-03 18:28 → HO.IMC 05-04 10:47
PROVIDERS: Anesthesiology; Orthopaedic Surgery; Physician Assistant; Physician Assistant Medical; Admitting Provider Student in an Organized Health Care Education/Training Program; Emergency Provider Emergency Medicine; PCP Family Medicine; Visit Provider Internal Medicine
PROC: 0SRR0JA Replacement of Right Hip Joint, Femoral Surface with Synthetic Substitute, Uncemented, Open Approach (ICD-10-PCS; CPT 27125; principal; 2023-05-03 16:30)
DX: S72.001A Fracture of unspecified part of neck of right femur, initial encounter for closed fracture (principal); N18.6 End stage renal disease; I13.2 Hypertensive heart and chronic kidney disease with heart failure and with stage 5 chronic kidney disease, or end stage renal disease; I50.22 Chronic systolic (congestive) heart failure; I47.20 Ventricular tachycardia, unspecified; Z68.1 Body mass index [BMI] 19.9 or less, adult; J98.11 Atelectasis; I48.20 Chronic atrial fibrillation, unspecified; I25.2 Old myocardial infarction; C44.529 Squamous cell carcinoma of skin of other part of trunk; D69.6 Thrombocytopenia, unspecified; F01.50 Vascular dementia, unspecified severity, without behavioral disturbance, psychotic disturbance, mood disturbance, and anxiety; I95.81 Postprocedural hypotension; I25.10 Atherosclerotic heart disease of native coronary artery without angina pectoris; Z95.1 Presence of aortocoronary bypass graft; I95.3 Hypotension of hemodialysis; R63.6 Underweight; K74.60 Unspecified cirrhosis of liver; W19.XXXA Unspecified fall, initial encounter; E87.5 Hyperkalemia; Z99.2 Dependence on renal dialysis; Z91.158 Patient's noncompliance with renal dialysis for other reason; Z91.199 Patient's noncompliance with other medical treatment and regimen due to unspecified reason; Z79.890 Hormone replacement therapy; Z79.899 Other long term (current) drug therapy
CPT/HCPCS: 36415; 70450; 71045; 72125; 72170; 73502; 80048; 80053; 80076; 81001; 83605; 83690; 83735; 84132; 84145; 84484; 85014; 85018; 85025; 85027; 85049; 85610; 86850; 86900; 86901; 87040; 87086; 87088; 87186; 87635; 88304; 88305; 88311; 90999; 93005; 93306; 97110; 97162; 97166; 97530; 97535; 99024; 99285; C1776; C9113; J0690; J0696; J1644; J2185; J2270; J2371; J2405; J2543; J2704; J2795; J3010; Q9957

== ENCOUNTER → 2023-05-01 14:07 | Outpatient (BNV) | payer MEDICARE, MEDICAID, SELFPAY | PROVIDERS: Emergency Provider Emergency Medicine; Visit Provider Physician Assistant | DX: S72.009A Fracture of unspecified part of neck of unspecified femur, initial encounter for closed fracture (principal) | CPT/HCPCS: 27236; 99232; 99499 ==

== ENCOUNTER → 2023-05-01 17:29 | Outpatient (BNV) | payer MEDICARE, MEDICAID, SELFPAY | PROVIDERS: Admitting Provider Student in an Organized Health Care Education/Training Program; Emergency Provider Emergency Medicine; Visit Provider Internal Medicine Cardiovascular Disease | DX: Z01.810 Encounter for preprocedural cardiovascular examination (principal) | CPT/HCPCS: 99222 ==

== ENCOUNTER → 2023-05-01 17:29 | Outpatient (BNV) | payer MEDICARE, MEDICAID, SELFPAY | PROVIDERS: Admitting Provider Student in an Organized Health Care Education/Training Program; Emergency Provider Emergency Medicine; PCP Family Medicine; Visit Provider Physician Assistant Medical | DX: N18.6 End stage renal disease (principal); F01.50 Vascular dementia, unspecified severity, without behavioral disturbance, psychotic disturbance, mood disturbance, and anxiety; S72.90XD Unspecified fracture of unspecified femur, subsequent encounter for closed fracture with routine healing; I25.810 Atherosclerosis of coronary artery bypass graft(s) without angina pectoris | CPT/HCPCS: 99291; 99292 ==

== ENCOUNTER → 2023-05-01 17:29 | Outpatient (BNV) | payer MEDICARE, MEDICAID, SELFPAY | PROVIDERS: Admitting Provider Student in an Organized Health Care Education/Training Program; Emergency Provider Emergency Medicine; Visit Provider Internal Medicine | DX: N18.6 End stage renal disease (principal); E87.5 Hyperkalemia; S72.009A Fracture of unspecified part of neck of unspecified femur, initial encounter for closed fracture | CPT/HCPCS: 99223; 99232; 99239; 99499 ==

== ENCOUNTER 2023-05-08 02:23 | Inpatient (IN) | payer MEDICARE, OTHER, SELFPAY ==
[2023-05-08] VITALS (13 sets, daily range): BP systolic 91–112; BP diastolic 46–67; PULSE 58–83; RESP 14–22; TEMP 36.2–37.6; O2SAT 94–100; BMI 19.9
--- NOTE | ~2023-05-08 | XR_ITS ---
EXAMINATION: XR CHEST CLINICAL INFORMATION: Weakness. COMPARISON: 05/01/2023. TECHNIQUE: Frontal view of the chest was obtained. FINDINGS: The lung volumes are low and the patient is mildly rotated. The cardiomediastinal silhouette is stable. There is pulmonary vascular congestion and perihilar increased markings. There is no focal consolidation or evidence for significant pleural effusion. A Mediport is noted in a stable position. XR/XR chest 1V IMPRESSION: Low lung volumes and mild rotation limits evaluation. There is pulmonary vascular congestion and perihilar increased markings which may be partly technical due to low lung volumes. Fluid overload and/or developing congestive heart failure with interstitial edema could have this appearance. Correlation is needed.
--- NOTE | ~2023-05-08 | XR_ITS ---
EXAMINATION: XR PELVIS CLINICAL INFORMATION: Postoperative x-rays. COMPARISON: None available. TECHNIQUE: AP view of the pelvis. FINDINGS: The total right hip arthroplasty with prosthetic components in satisfactory alignment. Immediate postoperative changes seen. There is minimal loss of left hip joint space with no fracture or dislocation involving left hip or the visualized pelvic bones. XR/XR pelvis 1-2V IMPRESSION: 1. Total right hip arthroplasty with prosthetic components in satisfactory alignment. Immediate postoperative changes seen. 2. Mild degenerative changes left hip joint.
--- NOTE | 2023-05-08 02:53 | ECG_ITS ---
Test Reason : FEVER Blood Pressure : / mmHG Vent. Rate : 073 BPM Atrial Rate : 000 BPM P-R Int : 000 ms QRS Dur : 166 ms QT Int : 434 ms P-R-T Axes : 000 -79 105 degrees QTc Int : 478 ms Atrial fibrillation with premature ventricular or aberrantly conducted complexes Left axis deviation Right bundle branch block Inferior infarct (cited on or before 08-MAY-2023) Cannot rule out Anterior infarct (cited on or before 08-MAY-2023) Abnormal ECG When compared with ECG of 02-MAY-2023 06:49, No significant changes seen Referred By: Ching Giang Electronically Signed By:CYNTHIA FRANCOIS
[2023-05-08 03:15] LABS: Basophils Percent Auto 0.2 % (0-2); Eosinophils Absolute Auto 0.1 X10*3/uL (0.0-0.4); Eosinophils Percent Auto 0.7 % (0-4); Hematocrit 29.1 % (42.0-52.0); Hemoglobin 9.7 g/dl (14.0-18.0); Imm Gran Abs Auto 0.41 X10*3/uL (0.00-0.03); Imm Gran Pct Auto 2.1 % (0.0-0.4); MANUAL DIFF FLAG SCAN; Mean Corpuscular HGB Conc 33.3 g/dl (31.0-36.0); Mean Corpuscular Hemoglobin 35.7 pg (27.0-33.0); Mean Platelet Volume 8.8 fL (9.4-12.4); Monocytes Absolute Auto 0.7 X10*3/uL (0.1-1.2); Monocytes Percent Auto 3.6 % (2-11); NRBC Pct Auto 0.1 /100WBC (0.0-0.2); Neutrophils Absolute Auto 9.4 x10*3/uL (2.0-8.3); Neutrophils Percent Auto 48.4 % (45-73); Platelet Count 110 X10*3/uL (160-400); Red Blood Count 2.72 X10*6/uL (4.60-5.80); Red Cell Distribution Width 15.3 % (11.0-16.0); SCAN SMEAR FLAG 1; White Blood Count 19.4 X10*3/uL (4.8-10.8)
[2023-05-08 03:16] LABS: Lymphocytes Absolute Auto 8.7 X10*3/uL (1.2-4.9)
[2023-05-08 03:20] LABS: INTERNATIONAL NORM RATIO 1.2 (0.9-1.1); Prothrombin Time 14.6 SEC (11.1-13.3)
--- NOTE | 2023-05-08 03:21 | PC.NURSE ---
pt biba from snf reporting recent R. hip hemiorthoplasty; they reported increased bleeding at incision site. snf reported fever however temp was 99.7; 99.6F rectal here. hx dementia pt at baseline mentation per snf staff. R. hip bandage in place filled with blood Dr. Giang aware to leave bandage in place. L. upper chest wound from previous visit; bandage on wound Dr. Giang also aware. R. upper chest dialysis port in place. skin tear to L. forearm bandage removed and new bandage applied. bruising noted across body. pt cleaned and changed, new linen placed. straight cathed pt tolerated well ua sent to lab. labs drawn 1st set of blood cultures obtained awaiting second by nerupa pct. Dr. Giang aware of bp. axox to self. neuros intact pt calm cooperative.
[2023-05-08 03:28] LABS: Lactic Acid 1.5 mmol/L (0.5-2.0)
[2023-05-08 03:34] LABS: SLIDE REVIEW VERIFIED
[2023-05-08 03:36] LABS: Troponin-I High Sensitivity 96.3 ng/L (<3.5-35.0)
[2023-05-08] MEDS: 0.9 % Sodium Chloride 1,000 ML 999 ML IVCONT (03:39)
[2023-05-08] MEDS: Piperacillin Sodium/Tazobactam 3.375 GM in 0.9 % Sodium Chloride 50 ML IV (03:39)
[2023-05-08 03:43] LABS: Alanine Aminotransferase < 5 U/L (0-40); Alkaline Phosphatase 106 U/L (39-117); Anion Gap 15 (12-20); Aspartate Amino Transferase 18 U/L (5-37); Bilirubin Direct 0.6 mg/dL (0.0-0.5); Bilirubin Total 1.2 mg/dL (0.0-1.0); Blood Urea Nitrogen 46 mg/dL (9-16); Calcium 8.3 mg/dL (8.4-10.2); Carbon Dioxide 23 mmol/L (22-29); Chloride 103 mmol/L (96-108); Creatinine Clr Calc Pharmacy 11.1; Estimated Glomerular Filt Rate 12; Glucose Random 150 mg/dL (60-115); Lipase 15 U/L (8-78); Magnesium 2.3 mg/dL (1.6-2.6); Potassium 4.1 mmol/L (3.3-5.1); Sodium 137 mmol/L (135-145); Total Protein 5.8 g/dL (6.5-8.0)
--- NOTE | 2023-05-08 03:52 | MHC.EDTECH ---
Patient biba from SN[facility] ,Patient was change into hospital attire ,vitals taken ,ekg done and was read by Provider ,type and screen drawn and 2nd sets of blood culture drawn and sent to lab ,Call infante within Pt reach .
[2023-05-08 03:53] LABS: Appearance Urine Turbid; Color Urine BROWN; Glucose Urine UA Negative (Negative); Nitrite Urine Positive (Negative); UMIC TRIGGER UACC YES; Urine Blood Large (3+) (Negative); Urine Ketones Trace mg/dL (Negative); Urine Protein 300 (3+) mg/dL (Neg-Trace)
[2023-05-08 03:54] LABS: Procalcitonin 1.98 ng/mL
[2023-05-08 03:55] LABS: Leukocyte Esterase Urine Large (3+) (Negative)
[2023-05-08 04:02] LABS: COVID-19 Test Negative (Negative); IDNOW Serial# 08D9AD1C
[2023-05-08 04:11] LABS: Bacteria Urine 4+ (None Seen); Calcium Oxalate Crystals Urine Present; RBC Urine >20 /HPF (0-2); UACC Culture Trigger YES; WBC Urine >50 /HPF (0-5)
--- NOTE | 2023-05-08 04:27 | ED.GENADULT ---
HPI - General Adult General Chief complaint: General Medical Stated complaint: possible sepsis Time Seen by Provider: 05/08/23 02:51 Source: patient Mode of arrival: EMS Limitations: other (dementia) History of Present Illness HPI narrative: 77 yo male with PMH of CAD s/p CABG, NSVT, ESRD on HD T//, vascular dementia, hypothyroidism, HTN, HLD, asthma, afib not on thinners due to recurrent hematuria, CVA with L sided deficits, CLL, CHF with EF 10%, liver cirrhosis who was just discharged from here on 05/07 for fall s/p R hip hemiarthroplasty. He comes back here today with c/o concern for fever and weakness though temp reported was 99.7. The patient himself states he has no complaints - SNF told EMS patient was at baseline. MD complaint: possible fever Onset (ago): day(s) (1) Radiation: non-radiation Severity: mild Relieving factors: none Exacerbating factors: none Associated symptoms: malaise Treatments prior to arrival: none Related Data Home Medications Medication Instructions Recorded Confirmed aspirin 81 mg tablet,delayed 81 mg PO DAILY 10/07/22 05/01/23 release levothyroxine 50 mcg tablet 50 mcg PO DAILY 10/07/22 05/01/23 vitamin B complex and vitamin C 1 cap PO DAILY 10/07/22 05/01/23 no.20-folic acid 1 mg capsule rosuvastatin 10 mg tablet (Crestor) 10 mg PO BEDTIME 05/01/23 05/01/23 Previous Rx's Medication Instructions Recorded acetaminophen 325 mg tablet 650 mg (2 x 325 mg) PO Q6H PRN 05/07/23 Pain, Mild (Pain Scale 1-3) #30 tabs docusate sodium 100 mg capsule 100 mg PO DAILY PRN Constipation 05/07/23 #30 caps heparin (porcine) 5,000 unit/mL 5,000 unit subcut Q12H 42 days #84 05/07/23 injection solution mL ipratropium 0.5 mg-albuterol 3 mg 3 ml inhalation RQ4H WHILE AWAKE 05/07/23 (2.5 mg base)/3 mL nebulization PRN Shortness Of Breath/Wheezing soln #1 mL Allergies Allergy/AdvReac Type Severity Reaction Status Date / Time No Known Allergies Allergy Verified 05/08/23 04:31 [No Known Allergies*] Review of Systems Review of Systems: ROS unable to be obtained due to dementia [facility] Past Medical History Medical History (Updated 05/08/23 @ 04:43 by Ching Giang DO) ESRD (end stage renal disease) Liver cirrhosis CHF (congestive heart failure) CLL (chronic lymphocytic leukemia) CVA (cerebral vascular accident) GI bleed Recurrent hematuria HLD (hyperlipidemia) HTN (hypertension) Hypothyroid Dementia Dialysis patient Afib Chronic kidney disease Surgical History S/P triple vessel bypass Social History Social History Household Members: Family Household Members Other:: Sister Joyce Housing: House Do you presently have visiting nurse or other home services: Yes Alcohol intake: never Patient Tobacco Use Status: Never used Tobacco Advance Directives: Yes Advance Directives on File: Yes Advance Directives Date on File: 05/08/23 service: No Physical Exam ED Vital Signs: Vital Signs - 24 hr 05/08/23 02:46 05/08/23 03:50 05/08/23 04:30 Temperature 99.6 F 98.9 F Pulse Rate 77 71 76 Respiratory Rate 17 16 16 Blood Pressure 95/46 L 99/54 L 91/54 L Pulse Oximetry 97 95 96 Oxygen Delivery Method Room Air Room Air Room Air 05/08/23 05:14 Temperature 98.1 F Pulse Rate 76 Respiratory Rate 16 Blood Pressure 91/59 L Pulse Oximetry 100 Oxygen Delivery Method Room Air BMI result Body Mass Index 19.9 Appearance: Alert. Oriented X2. No acute distress. Eyes: Pupils equal, round and reactive to light. ENT: Pharynx very dry MM Neck: Normal inspection. Neck supple. CVS: irregular heart rate and rhythm. Pulses normal. Chest: fungating mass seen left upper chest wall no abscess or extending cellulitis seen Respiratory: No respiratory distress. Breath sounds normal. Abdomen: Soft and non-tender. Skin: Skin warm and dry. Normal skin color. poor skin turgor. Extremities: No lower extremity edema. R hip dressing is moderate saturated but intact and no pooling it appears appropriate post surgery no redness surrounding the area Neuro: Oriented X 2. No motor deficit. No sensory deficit. Course Course Course Narrative: BP at baseline Reevaluation(s) Reevaluation #1: trop stable and no increase Medications Administered Discontinued Medications Generic Name Dose Route Start Last Admin Trade Name Calli PRN Reason Stop Dose Admin Sodium Chloride 1,000 mls @ 999 mls/hr 05/08/23 03:00 05/08/23 04:29 Ns IVCONT 05/08/23 04:00 Infused .Q1H1M ROSALIA Infusion Piperacillin Sod/Tazobactam 50 mls @ 100 mls/hr 05/08/23 03:05 05/08/23 04:29 Sod 3.375 gm/ Sodium Chloride IV 05/08/23 03:34 Infused ONCE ONE Infusion Midodrine 10 mg 05/08/23 04:31 05/08/23 04:39 Midodrine Hcl 10 Mg Tablet PO 05/08/23 04:32 10 mg ONCE ONE Administration Medical Decision Making Medical Decision Making MDM Narrative: 77 yo male with PMH of CAD s/p CABG, NSVT, ESRD on HD T//, vascular dementia, hypothyroidism, HTN, HLD, asthma, afib not on thinners due to recurrent hematuria, CVA with L sided deficits, CLL, CHF with EF 10%, liver cirrhosis who was just discharged from here on 05/07 for fall s/p R hip hemiarthroplasty now here with low grade temps, very dry on exam , will obtain CXR, UA, basic labs, H/H - has low BP to begin with will given 1 L of IVF and start on midodrine, empiric zosyn. Likely admission. Differential Diagnosis Differential Diagnoses: The differential diagnosis associated with the presentation includes pneumonia, uti, cellulitis Admission/Observation Consideration of admission/observation: Escalation of care including admission/observation considered admit for further management Consult Healthcare Provider Management of the patient was discussed with: Hospitalist Lab Data [facility] Lab Attestation statement: I reviewed the patient's lab results. 05/08/23 03:07 05/08/23 03:07 Labs: Lab Results 05/08/23 05/08/23 05/08/23 Range/Units 03:07 03:25 03:26 WBC 19.4 H (4.8-10.8) X10*3/uL RBC 2.72 L (4.60-5.80) X10*6/uL Hgb 9.7 L (14.0-18.0) g/dl Hct 29.1 L (42.0-52.0) % MCV 107.0 H (80.0-98.0) fL MCH 35.7 H (27.0-33.0) pg MCHC 33.3 (31.0-36.0) g/dl RDW 15.3 (11.0-16.0) % Plt Count 110 L (160-400) X10*3/uL MPV 8.8 L (9.4-12.4) fL Immature Gran % (Auto) 2.1 H (0.0-0.4) % Neut % (Auto) 48.4 (45-73) % Lymph % (Auto) 45.0 H (20-40) % [place] % (Auto) 3.6 (2-11) % Eos % (Auto) 0.7 (0-4) % Baso % (Auto) 0.2 (0-2) % Lymph # (Auto) 8.7 H (1.2-4.9) X10*3/uL [place] # (Auto) 0.7 (0.1-1.2) X10*3/uL Eos # (Auto) 0.1 (0.0-0.4) X10*3/uL Baso # (Auto) 0.0 (0.0-0.2) X10*3/uL Abs Immat Gran (auto) 0.41 H (0.00-0.03) X10*3/uL Absolute Neuts (auto) 9.4 H (2.0-8.3) x10*3/uL Absolute Nucleated RBC 0.020 H (0.0-0.012) X10*3/uL Nucleated RBC % (auto) 0.1 (0.0-0.2) /100WBC Smear Tech's Comments VERIFIED PT 14.6 H (11.1-13.3) SEC INR 1.2 H (0.9-1.1) Sodium 137 (135-145) mmol/L Potassium 4.1 (3.3-5.1) mmol/L Chloride 103 (96-108) mmol/L Carbon Dioxide 23 (22-29) mmol/L Anion Gap 15 (12-20) BUN 46 H (9-16) mg/dL Creatinine 4.79 H* (0.5-1.4) mg/dL Estim Creat Clear Calc 11.1 Estimated GFR 12 Random Glucose 150 H (60-115) mg/dL Lactic Acid 1.5 (0.5-2.0) mmol/L Calcium 8.3 L (8.4-10.2) mg/dL Magnesium 2.3 (1.6-2.6) mg/dL Total Bilirubin 1.2 H (0.0-1.0) mg/dL Direct Bilirubin 0.6 H (0.0-0.5) mg/dL AST 18 (5-37) U/L ALT < 5 (0-40) U/L Alkaline Phosphatase 106 (39-117) U/L Troponin I High Sens 96.3 H (<3.5-35.0) ng/L Total Protein 5.8 L (6.5-8.0) g/dL Albumin 3.0 L (3.5-5.0) g/dL Lipase 15 (8-78) U/L Procalcitonin 1.98 ng/mL Urine Color BROWN Urine Appearance Turbid Urine pH 6.0 (5.0-9.0) Ur Specific [place] 1.020 (1.005-1.025) Urine Protein 300 (3+) H (Neg-Trace) mg/dL Urine Glucose (UA) Negative (Negative) mg/dL Urine Ketones Trace (Negative) mg/dL Urine Blood Large (3+) H (Negative) Urine Nitrite Positive H (Negative) Ur Leukocyte Esterase Large (3+) H (Negative) Urine RBC >20 H (0-2) /HPF Urine WBC >50 H (0-5) /HPF Ur Squamous Epith Cells 11-20 (0-2) /HPF Calcium Oxalate Crystal Present Urine Bacteria 4+ (None Seen) Hyaline Casts 3-5 (0-2) /LPF COVID-19 (JAYLON) Negative (Negative) COVID-19 Clin Com See Note Blood Type Antibody Screen 05/08/23 05/08/23 Range/Units 03:31 05:10 WBC (4.8-10.8) X10*3/uL RBC (4.60-5.80) X10*6/uL Hgb (14.0-18.0) g/dl Hct (42.0-52.0) % MCV (80.0-98.0) fL MCH (27.0-33.0) pg MCHC (31.0-36.0) g/dl RDW (11.0-16.0) % Plt Count (160-400) X10*3/uL MPV (9.4-12.4) fL Immature Gran % (Auto) (0.0-0.4) % Neut % (Auto) (45-73) % Lymph % (Auto) (20-40) % [place] % (Auto) (2-11) % Eos % (Auto) (0-4) % Baso % (Auto) (0-2) % Lymph # (Auto) (1.2-4.9) X10*3/uL [place] # (Auto) (0.1-1.2) X10*3/uL Eos # (Auto) (0.0-0.4) X10*3/uL Baso # (Auto) (0.0-0.2) X10*3/uL Abs Immat Gran (auto) (0.00-0.03) X10*3/uL Absolute Neuts (auto) (2.0-8.3) x10*3/uL Absolute Nucleated RBC (0.0-0.012) X10*3/uL Nucleated RBC % (auto) (0.0-0.2) /100WBC Smear Tech's Comments PT (11.1-13.3) SEC INR (0.9-1.1) Sodium (135-145) mmol/L Potassium (3.3-5.1) mmol/L Chloride (96-108) mmol/L Carbon Dioxide (22-29) mmol/L Anion Gap (12-20) BUN (9-16) mg/dL Creatinine (0.5-1.4) mg/dL Estim Creat Clear Calc Estimated GFR Random Glucose (60-115) mg/dL Lactic Acid (0.5-2.0) mmol/L Calcium (8.4-10.2) mg/dL Magnesium (1.6-2.6) mg/dL Total Bilirubin (0.0-1.0) mg/dL Direct Bilirubin (0.0-0.5) mg/dL AST (5-37) U/L ALT (0-40) U/L Alkaline Phosphatase (39-117) U/L Troponin I High Sens 81.5 H (<3.5-35.0) ng/L Total Protein (6.5-8.0) g/dL Albumin (3.5-5.0) g/dL Lipase (8-78) U/L Procalcitonin ng/mL Urine Color Urine Appearance Urine pH (5.0-9.0) Ur Specific [place] (1.005-1.025) Urine Protein (Neg-Trace) mg/dL Urine Glucose (UA) (Negative) mg/dL Urine Ketones (Negative) mg/dL Urine Blood (Negative) Urine Nitrite (Negative) Ur Leukocyte Esterase (Negative) Urine RBC (0-2) /HPF Urine WBC (0-5) /HPF Ur Squamous Epith Cells (0-2) /HPF Calcium Oxalate Crystal Urine Bacteria (None Seen) Hyaline Casts (0-2) /LPF COVID-19 (JAYLON) (Negative) COVID-19 Clin Com Blood Type A Positive Antibody Screen NEGATIVE Independent Interpretation I performed an independent interpretation of an: EKG and Plain X-Ray (no pneumonia) Interpretation: Rate: 73 Rhythm: afib [place]: left RBBB ST T wave : no BOWEN, inverted t wave V1 qTC: slightly prolonged prior studies: no sig change from priors The study has been interpreted contemporaneously by me. . Radiology Impression Discussion of test interpretation with radiology: I have reviewed the radiologist's reading. Independent Historian Clinical information obtained from an independent historian. History obtained from or confirmed by: EMS External Record Review External record reviewed: Inpatient record Discharge Plan Discharge Clinical Impression: Acute UTI, Elevated troponin Elevated WBC count Qualifiers: Leukocytosis type: unspecified Qualified Code(s): D72.829 - Elevated white blood cell count, unspecified Patient Disposition: Admitted As Inpatient
--- NOTE | 2023-05-08 04:32 | PC.NURSE ---
2nd liter cancelled by dr james.
[2023-05-08] MEDS: Midodrine HCl 10 MG TABLET PO (04:39)
--- NOTE | 2023-05-08 05:15 | MHC.EDTECH ---
Repeated trop drawn and sent to lab ,vitals re check ,Provider Rahat is aware of pt low bp .
[2023-05-08 05:38] LABS: Troponin-I High Sensitivity 81.5 ng/L (<3.5-35.0)
[2023-05-08] MEDS: cefTRIAXone sodium 1 GM in 0.9 % Sodium Chloride 50 ML IV (06:26)
--- NOTE | 2023-05-08 07:49 | PHA.MEDREC ---
Pharmacy Consult ? Medication Reconciliation Pharmacy has completed the medication reconciliation.MED REC COMPLETE USING DISCHARGE DOCUMENT FROM THIS FACILITY DATED 05/07/23
[2023-05-08] MEDS: 0.9 % Sodium Chloride 1,000 ML 125 ML IVCONT (10:46)
[2023-05-08] MEDS: Acetaminophen 325 MG TABLET 650 MG PO (11:27)
--- NOTE | 2023-05-08 11:52 | PM.IMHP ---
History of Present Illness Date of Service: 05/08/23 Attending physician on admission: [facility] Chief Complaint: weakness, fevers 77-year-old male with history of hepatic cirrhosis, heart failure reduced ejection fraction with EF 10-20%, vascular dementia, hypertension, hyperlipidemia, history of VFib arrest in 2016, asthma, paroxysmal atrial fibrillation no longer on anticoagulation (recurrent hematuria and GI bleed), portal hypertensive gastropathy, history CVA with left-sided deficits, CLL, and ESRD TTS (follows with Dr. Mcduffie) presents to the ED for evaluation of subjective fevers and weakness from [facility] where he has been residing for skilled rehab s/p right hemiathroplasty 05/03. He was discharged to [facility] yesterday. He tells me he is not ambulatory at this time. Reports 7/10 pain in the right hip. He is somewhat limited historian secondary to his vascular dementia only oriented to self. He is able to tell me he has had sweats and chills and has felt generally weak. He has also noted increased frequency of urination. Denies any rigors, abdominal pain, nausea, vomiting, dysuria, hematuria, urgency, flank pain. No shortness of breath, lightheadedness, palpitations, or chest pain. Since arrival to the ED, blood pressures have been soft with intermittent episodes of hypotension. There is a leukocytosis of 19.4. Stable macrocytic anemia with H/H 9.7/29.1%. Platelets 110. Creatinine 4.79, BUN 46, electrolyte levels normal. Lactic acid 1.5. Hepatic function baseline. Initial troponin 96.3, repeat 81.5. Procalcitonin 1.98. Urinalysis significant for 3+ leukocytes, positive nitrites, 3+ blood, positive urinary sediment, 4+ bacteria. There is also 3+ protein and trace ketones. Negative for COVID-19. Chest x-ray shows low lung volumes and pulmonary vascular congestion with perihilar increased markings which may be technical secondary to low lung volumes. Fluid overload versus developing congestive heart failure with interstitial edema could have this appearance as well. In the ED, he received 10 mg of midodrine early this morning, 1 L IV NS bolus and has been started on maintenance fluids. He was also given 1 g IV ceftriaxone and 3.375 g zosyn. [facility] Medical History (Updated 05/08/23 @ 13:36 by NESSA Jordan) ESRD (end stage renal disease) Liver cirrhosis CHF (congestive heart failure) CLL (chronic lymphocytic leukemia) CVA (cerebral vascular accident) GI bleed Recurrent hematuria HLD (hyperlipidemia) HTN (hypertension) Hypothyroid Dementia Dialysis patient Afib Chronic kidney disease Surgical History S/P triple vessel bypass Social History Household Members: Family Household Members Other:: Sister Joyce Housing: House Do you presently have visiting nurse or other home services: Yes Alcohol intake: never Patient Tobacco Use Status: Never used Tobacco Advance Directives: Yes Advance Directives on File: Yes Advance Directives Date on File: 05/08/23 service: No Meds Allergies Allergy/AdvReac Type Severity Reaction Status Date / Time No Known Allergies Allergy Verified 05/08/23 04:31 [No Known Allergies*] Active Medications: Current Medications Acetaminophen (Acetaminophen 325 Mg Tablet) 650 mg PO Q6H PRN PRN Reason: Pain, Mild (Pain Scale 1-3) Last Admin: 05/08/23 11:27 Dose: 650 mg Sodium Chloride (Ns) 1,000 mls @ 100 mls/hr IVCONT .Q10H [facility] Last Infusion: 05/08/23 11:45 Dose: 0 mls/hr Magnesium Hydroxide (Milk Of Magnesia 30 Ml Oral.Susp) 30 ml PO DAILY PRN PRN Reason: Constipation Melatonin (Melatonin 3 Mg Tablet) 3 mg PO BEDTIME PRN PRN Reason: Insomnia Ondansetron HCl (Ondansetron Hcl 4 Mg/2 Ml Vial) 4 mg IVPUSH Q8H PRN PRN Reason: Nausea and Vomiting Sodium Chloride (0.9 % Sodium Chloride Flush 3 Ml Syringe) 3 ml IVFLUSH QSHIFT [facility] Home Medications Medication Instructions Recorded Confirmed Last Taken Type levothyroxine 50 mcg tablet 50 mcg PO DAILY 10/07/22 05/08/23 05/01/23 History vitamin B complex and vitamin C 1 cap PO DAILY 10/07/22 05/08/23 05/01/23 History no.20-folic acid 1 mg capsule rosuvastatin 10 mg tablet (Crestor) 10 mg PO BEDTIME 05/01/23 05/08/23 04/30/23 History Physical Exam Vital Signs and Narrative: Vital Signs: Last Vital Signs Temp 98.0 F 05/08/23 06:31 Pulse 62 05/08/23 10:21 Resp 14 05/08/23 10:21 BP 96/57 L 05/08/23 10:21 Pulse Ox 97 05/08/23 08:26 O2 Del Method Room Air 05/08/23 08:26 BMI result Body Mass Index 19.9 Constitutional - Awake and Alert, No apparent distress Eyes - PERRLA, EOMI Cardiovascular - S1S2, RRR, No edema Respiratory - Normal lung expansion, Normal respiratory effort, No respiratory distress, scattered crackles bilaterally Gastrointestinal - NT / ND; +BS; No rebound or guarding Extremities - no calf tenderness bilaterally, no swelling Skin - Warm/Dry. Venous stasis to BLE. 2cm x1cm stage 2 venous ulcers on bilateral anterior lower legs. No purulent drainage, fluctuance, or surrounding erythema. There is also a contusion to the left dorsal forearm with small skin tear without active bleeding Neurological - Alert & oriented to self only Psychological - Appropriate affect Results Labs 05/08/23 03:07 05/08/23 03:07 Labs: Laboratory Results - last 24 hr 05/08/23 05/08/23 05/08/23 03:07 03:25 03:26 MCV 107.0 H MCH 35.7 H MCHC 33.3 RDW 15.3 Plt Count 110 L MPV 8.8 L Immature Gran % (Auto) 2.1 H Neut % (Auto) 48.4 Lymph % (Auto) 45.0 H [place] % (Auto) 3.6 Eos % (Auto) 0.7 Baso % (Auto) 0.2 Lymph # (Auto) 8.7 H [place] # (Auto) 0.7 Eos # (Auto) 0.1 Baso # (Auto) 0.0 Abs Immat Gran (auto) 0.41 H Absolute Neuts (auto) 9.4 H Absolute Nucleated RBC 0.020 H Nucleated RBC % (auto) 0.1 Smear Tech's Comments VERIFIED PT 14.6 H INR 1.2 H Anion Gap 15 Estim Creat Clear Calc 11.1 Estimated GFR 12 Random Glucose 150 H Lactic Acid 1.5 Calcium 8.3 L Magnesium 2.3 Total Bilirubin 1.2 H Direct Bilirubin 0.6 H AST 18 ALT < 5 Alkaline Phosphatase 106 Total Protein 5.8 L Albumin 3.0 L Lipase 15 Procalcitonin 1.98 Urine Color BROWN Urine Appearance Turbid Urine pH 6.0 Ur Specific [place] 1.020 Urine Protein 300 (3+) H Urine Glucose (UA) Negative Urine Ketones Trace Urine Blood Large (3+) H Urine Nitrite Positive H Ur Leukocyte Esterase Large (3+) H Urine RBC >20 H Urine WBC >50 H Ur Squamous Epith Cells 11-20 Calcium Oxalate Crystal Present Urine Bacteria 4+ Hyaline Casts 3-5 COVID-19 (JAYLON) Negative COVID-19 Clin Com See Note Blood Type Antibody Screen 05/08/23 03:31 MCV MCH MCHC RDW Plt Count MPV Immature Gran % (Auto) Neut % (Auto) Lymph % (Auto) [place] % (Auto) Eos % (Auto) Baso % (Auto) Lymph # (Auto) [place] # (Auto) Eos # (Auto) Baso # (Auto) Abs Immat Gran (auto) Absolute Neuts (auto) Absolute Nucleated RBC Nucleated RBC % (auto) Smear Tech's Comments PT INR Anion Gap Estim Creat Clear Calc Estimated GFR Random Glucose Lactic Acid Calcium Magnesium Total Bilirubin Direct Bilirubin AST ALT Alkaline Phosphatase Total Protein Albumin Lipase Procalcitonin Urine Color Urine Appearance Urine pH Ur Specific [place] Urine Protein Urine Glucose (UA) Urine Ketones Urine Blood Urine Nitrite Ur Leukocyte Esterase Urine RBC Urine WBC Ur Squamous Epith Cells Calcium Oxalate Crystal Urine Bacteria Hyaline Casts COVID-19 (JAYLON) COVID-19 Clin Com Blood Type A Positive Antibody Screen NEGATIVE Imaging Radiologist's Impressions: Impressions Chest X-Ray 05/08/23 03:20 IMPRESSION: Low lung volumes and mild rotation limits evaluation. There is pulmonary vascular congestion and perihilar increased markings which may be partly technical due to low lung volumes. Fluid overload and/or developing congestive heart failure with interstitial edema could have this appearance. Correlation is needed. Assessment and Plan (1) Elevated troponin: Status: Acute (2) Acute UTI: Status: Acute (3) Hypotension: Status: Acute (4) ESRD (end stage renal disease): Status: Acute Plan 77-year-old male with history of hepatic cirrhosis, heart failure reduced ejection fraction with EF 10-20%, vascular dementia, hypertension, hyperlipidemia, history of VFib arrest in 2016, asthma, paroxysmal atrial fibrillation no longer on anticoagulation (recurrent hematuria and GI bleed), portal hypertensive gastropathy, history CVA with left-sided deficits, CLL, and ESRD TTS (follows with Dr. Mcduffie) admitted for complicated UTI and hypotension with elevated troponins. #Acute UTI -leukocytosis 19.4. No other sirs criteria. No sepsis -UA with 3+ leukocytes, positive nitrites, 3+ blood, positive urinary sediment, 4+ bacteria -IV ceftriaxone 1 g (initiated 05/08) -Procalcitonin 1.98 -follow cultures # hypotension - likekly r/t hypoperfusion in ESRD (not severe sepsis) -BP's chronically low likely 2/2 cirrhosis, ESRD -Resolved on admission. Continue IV NS @100ml/hr x 1L -Add midodrine 5mg TID, hold if SBP >120 -monitor BP closely #Elevated troponins -etiology inclear, no chest pain -Initial 96.3, repeat 81.5 -echo ordered -cardiology consult -Monitor on telemetry #ESRD on HD- TTS schedule -Per pt follows with Dr. Mcduffie -Creat 4.79, BUN 46. Lytes normal -Nephrology consult, due for HD today #R hip gela-arthroplasty -Seen by ortho- no surgical intervention needed -Wound dressing changed -PT eval- wbat, posterior precautions #HFrEF -no acute exacerbation -CXR with come increased interstitial markings/edema -Pt asymptomatic -Check BNP given elevated trops -IV diuretics do not appear to be indicated at this time -Strict I&O -Cardiac diet # chronic atrial fibrillation-rate controlled -not on AC due to recurrent hematuria and GI bleed -not on rate control medications # hypothyroidism -continue levothyroxine # CAD/HLD -continue statin # vascular dementia -mentation appears baseline at this time #Stage 2 venous ulcers BLE -wound rn consult DVT prophylaxis-heparin Full code Patient requires inpatient stay at least 2 midnights for management of acute complicated UTI with elevated procalcitonin requiring IV antibiotics as well as further monitoring and management of acute hypotension likely related to hypoperfusion in patient with ESRD requiring HD. Quality Stroke Does the patient have a stroke diagnosis?: No VTE Prior VTE?: No VTE Risk Level:: Medical - moderate - high VTE Device Contraindication: N/A - Device Ordered VTE Drug Contraindication: N/A - Med Ordered
--- NOTE | 2023-05-08 12:01 | P.CONOP_ITS ---
History of Present Illness HPI Consult date: 05/08/23 Chief complaint: UTI Narrative: Mr. Velazquez is a 77-year-old male with history of hepatic cirrhosis, heart failure reduced ejection fraction with EF 10-20%, vascular dementia, hypertension, hyperlipidemia, history of VFib arrest in 2016, asthma, paroxysmal atrial fibrillation no longer on anticoagulation (recurrent hematuria and GI bleed), portal hypertensive gastropathy, history CVA with left-sided deficits, CLL, and ESRD TTS (follows with Dr. Saldana) presents to the ED for evaluation of subjective fevers and weakness from [facility] where he has been residing for skilled rehab s/p right hemiathroplasty 05/03/[address] Edwards. He was discharged to [facility] yesterday. Reports some soreness in the right hip. He is somewhat limited historian secondary to his vascular dementia only oriented to self. Review of Systems 2 Review of Systems: Yes all other systems are reviewed and are negative PMFSH Past Medical History Medical History (Updated 05/08/23 @ 04:43 by Ching Giang DO) ESRD (end stage renal disease) Liver cirrhosis CHF (congestive heart failure) CLL (chronic lymphocytic leukemia) CVA (cerebral vascular accident) GI bleed Recurrent hematuria HLD (hyperlipidemia) HTN (hypertension) Hypothyroid Dementia Dialysis patient Afib Chronic kidney disease Surgical History Surgical History S/P triple vessel bypass Social History Social History Household Members: Family Household Members Other:: Sister Joyce Housing: House Do you presently have visiting nurse or other home services: Yes Alcohol intake: never Patient Tobacco Use Status: Never used Tobacco Advance Directives: Yes Advance Directives on File: Yes Advance Directives Date on File: 05/08/23 service: No Meds Allergies Allergy/AdvReac Type Severity Reaction Status Date / Time No Known Allergies Allergy Verified 05/08/23 04:31 [No Known Allergies*] Active Medications: Current Medications Acetaminophen (Acetaminophen 325 Mg Tablet) 650 mg PO Q6H PRN PRN Reason: Pain, Mild (Pain Scale 1-3) Last Admin: 05/08/23 11:27 Dose: 650 mg Sodium Chloride (Ns) 1,000 mls @ 100 mls/hr IVCONT .Q10H [facility] Last Infusion: 05/08/23 11:54 Dose: 100 mls/hr Magnesium Hydroxide (Milk Of Magnesia 30 Ml Oral.Susp) 30 ml PO DAILY PRN PRN Reason: Constipation Melatonin (Melatonin 3 Mg Tablet) 3 mg PO BEDTIME PRN PRN Reason: Insomnia Midodrine (Midodrine Hcl 5 Mg Tablet) 5 mg PO TID [facility] Ondansetron HCl (Ondansetron Hcl 4 Mg/2 Ml Vial) 4 mg IVPUSH Q8H PRN PRN Reason: Nausea and Vomiting Sodium Chloride (0.9 % Sodium Chloride Flush 3 Ml Syringe) 3 ml IVFLUSH QSHIFT [facility] Home Medications Medication Instructions Recorded Confirmed Last Taken Type levothyroxine 50 mcg tablet 50 mcg PO DAILY 10/07/22 05/08/23 05/01/23 History vitamin B complex and vitamin C 1 cap PO DAILY 10/07/22 05/08/23 05/01/23 History no.20-folic acid 1 mg capsule rosuvastatin 10 mg tablet (Crestor) 10 mg PO BEDTIME 05/01/23 05/08/23 04/30/23 History Physical Exam 2 Vital Signs: Vital Signs: Last Vital Signs Temp 98.0 F 05/08/23 06:31 Pulse 62 05/08/23 10:21 Resp 14 05/08/23 10:21 BP 96/57 L 05/08/23 10:21 Pulse Ox 97 05/08/23 08:26 O2 Del Method Room Air 05/08/23 08:26 BMI result Body Mass Index 19.9 Const: General: cooperative, healthy appearing and no acute distress Resp: Effort & Inspection: normal respiratory effort and able to speak in complete sentences Cardio: Rate: regular rate Peripheral pulses: Peripheral pulses 2+ throughout GI: Palpation (GI): Soft to palpation Skin: Lesions: no lesions Rashes: no rashes Extrem: Other: Right hip Aquacel dressing removed. Incision site is c/d/i. [place] intact. no surrounding erythema or drainage. No signs of infection. No pain with passive ROM. NVI. Results Labs 05/08/23 03:07 05/08/23 03:07 Labs: Abnormal lab results 05/08/23 05/08/23 05/08/23 Range/Units 03:07 03:25 05:10 WBC 19.4 H (4.8-10.8) X10*3/uL RBC 2.72 L (4.60-5.80) X10*6/uL Hgb 9.7 L (14.0-18.0) g/dl Hct 29.1 L (42.0-52.0) % MCV 107.0 H (80.0-98.0) fL MCH 35.7 H (27.0-33.0) pg Plt Count 110 L (160-400) X10*3/uL MPV 8.8 L (9.4-12.4) fL Immature Gran % (Auto) 2.1 H (0.0-0.4) % Lymph % (Auto) 45.0 H (20-40) % Lymph # (Auto) 8.7 H (1.2-4.9) X10*3/uL Abs Immat Gran (auto) 0.41 H (0.00-0.03) X10*3/uL Absolute Neuts (auto) 9.4 H (2.0-8.3) x10*3/uL Absolute Nucleated RBC 0.020 H (0.0-0.012) X10*3/uL PT 14.6 H (11.1-13.3) SEC INR 1.2 H (0.9-1.1) BUN 46 H (9-16) mg/dL Creatinine 4.79 H* (0.5-1.4) mg/dL Random Glucose 150 H (60-115) mg/dL Calcium 8.3 L (8.4-10.2) mg/dL Total Bilirubin 1.2 H (0.0-1.0) mg/dL Direct Bilirubin 0.6 H (0.0-0.5) mg/dL Troponin I High Sens 96.3 H 81.5 H (<3.5-35.0) ng/L Total Protein 5.8 L (6.5-8.0) g/dL Albumin 3.0 L (3.5-5.0) g/dL Urine Protein 300 (3+) H (Neg-Trace) mg/dL Urine Blood Large (3+) H (Negative) Urine Nitrite Positive H (Negative) Ur Leukocyte Esterase Large (3+) H (Negative) Urine RBC >20 H (0-2) /HPF Urine WBC >50 H (0-5) /HPF H & H 05/08/23 Range/Units 03:07 Hgb 9.7 L (14.0-18.0) g/dl Hct 29.1 L (42.0-52.0) % Coagulation 05/08/23 Range/Units 03:07 INR 1.2 H (0.9-1.1) All other labs normal. Assessment and Plan (1) Acute UTI: Status: Acute (2) Closed hip fracture: Status: Acute Dressing changed at bedside. No evidence of surgical site infection. Encourage P.T. with posterior precautions. WBAT No additional surgical intervention needed at this time. Procedures Date of Service Date of Service: 05/08/23
--- NOTE | 2023-05-08 13:14 | CA_ITS ---
Transthoracic Echocardiogram Patient (Last, First, Middle): Brayden Velazquez R Gender: Male Date of : 1945 Age: 77 Procedure Date: 05/08/2023 Procedure Type: Transthoracic Echocardiogram Location: [facility] Height: 177.8 cm Weight: 62.6 kg BSA: 1.78 m2 Heart Rate: bpm BP: 96 / 57 mmHg Heating And Refrigeration Inspector: Referring MD: Connie SZYMANSKI Symptoms: elevated troponins Study Quality: Fair w Definity ECG Rhythm: Atrial Fibrillation Conclusions: - The left ventricular systolic function is severely decreased. The visually estimated ejection fraction is between 10-15%. - The basal inferior, mid inferior, and basal inferolateral segments are akinetic. - Severe biatrial enlargement. - There is moderate mitral valve regurgitation. - There is moderate to severe tricuspid valve regurgitation. - There is mild dilatation of the ascending aorta measuring 4.40 cm. Findings Procedure Information Contrast agent, definity, is being given per protocol without apparent complications. Left Ventricle Moderately increased left ventricular cavity size. There is moderately increased left ventricular wall thickness. The left ventricular systolic function is severely decreased. The visually estimated ejection fraction is between 10-15%. There is severe global hypokinesis. Diastolic function is indeterminate on the basis of available data. Wall Motion Rest Echo Findings The basal inferior, mid inferior, and basal inferolateral segments are akinetic. Right Ventricle Moderately increased right ventricular cavity size. There is normal right ventricular systolic function. Atria Severe biatrial enlargement. Aortic Valve There is a normal trileaflet aortic valve. There is no aortic valve stenosis. There is no aortic valve regurgitation. Mitral Valve The mitral valve appears normal. There is moderate mitral valve regurgitation. There is no mitral valve stenosis. Pulmonic Valve The pulmonic valve is likely normal. There is trace pulmonic valve regurgitation. Tricuspid Valve Normal tricuspid valve structure. There is moderate to severe tricuspid valve regurgitation. Mild pulmonary hypertension is present. Great Vessels There is mild dilatation of the ascending aorta measuring 4.40 cm. Venous The inferior vena cava is mildly dilated and collapses greater than 50% with inspiration. There is evidence of a dilated coronary sinus. Pericardium/Pleural There is a small left sided pleural effusion. Prior Study Comparison No prior study available for comparison. Measurements 2D Linear Measurements IVSd: 1.47 0.6-0.9/0.6-1.0 cm LVIDd: 6.20 3.9-5.3/4.2-5.9 cm LVIDd Index: 3.48 2.4-3.2/2.2-3.1 cm/m2 LVIDs: 5.28 2.0-3.6 cm LVPWd: 1.29 0.7-1.1 cm Ao Root: 3.30 2.1-3.5 cm LA Diam: 4.20 2.7-3.8/3.0-4.0 cm LAIDs Index: 2.36 1.5-2.3 cm/m2 LV Mass: 500.23 67-162/88-224 g LV Mass Index: 281.03 43-95/49-115 g/m2 LVOT Diam: 2.20 3.0+(-)1.3 cm 2D Systolic Function EF 4C: 13.60 >55% EF 2C: 8.68 >55% EF BiP: 11.10 >55% Mitral Valve MV Pk E: 1.15 MV Decel Time: 184.00 E'Lateral: 7.62 E'Medial: 5.33 E/E' Med: 21.60 E/E' Lat: 15.10 PHT: 54.00 MVA PHT: 4.07 Decel Mcdonough: 6.22 MR Vol - PW Dopp: 37.96 MR VTI: 1.46 MR ERO: 26.00 MR Alias James: 0.35 MR RAD: 0.70 Aortic Valve AoV Pk James: 1.81 AoV Mn James: 1.10 AoV VTI: 0.40 AoV Pk Grad: 13.00 Aov Mn Grad: 6.00 SORAIDA Cont.VTI: 1.58 LVOT LVOT Pk James: 0.90 LVOT Mn James: 0.51 LVOT VTI: 0.17 LVOT Pk Grad: 3.00 LVOT Mn Grad: 1.00 LVOT Diam: 2.20 LVOT Area: 3.80 Diastolic Function MV Pk E: 1.15 E'Medial: 5.33 E/E' Med: 21.60 E' Laterial: 7.62 E/E' Lat: 15.10 Right Ventricle TAPSE (mm): 27.00 TVS' James: 9.00 Tricuspid Valve TR Pk James: 2.87 TR Pk Grad: 33.00 RA Press: 15.00 RVSP: 48.00 Great Vessels Aorta Ao Root-2D: 3.30 2.0-3.7 cm Ao Asc: 4.40 2.1-3.4 cm Pulmonary Valve PV Pk James: 1.18 Peak PV Grad: 6.00 Updated in Other Vendor System with Status of Final Samir Juarez MD electronically signed on 05/09/2023 10:58:30 AM with status of Final
[2023-05-08] MEDS: Midodrine HCl 5 MG TABLET PO ×2 (14:20→20:02)
[2023-05-08] MEDS: Heparin Sodium,Porcine 5,000 UNIT/ML VIAL 5000 UNIT SUBCUT (14:20)
--- NOTE | 2023-05-08 19:56 | PM.CNNEP ---
History of Present Illness Reason for Consult Consult date: 05/08/23 Reason for consult: ESRD Chief Complaint Chief complaint: UTI History of Present Illness Narrative: ALBER consulted for HD manageent in ESRD PT just d/c'd yesterday and now readm with incr WBC, low BP and dirty urine c/w UTI. Last hosp he was adm with hip Fx and s/p repair Normally gets HD TTS at [facility] but was swithced to MWF while inpt last time--his ast HD was / ( [facility]) Overall feeling better now --still hip pain at surg site Review of Systems Review of Systems ROS unable to be obtained due to dementia Yes all other systems are reviewed and are negative [facility] Past Medical History Medical History (Updated 05/08/23 @ 13:36 by NESSA Jordan) ESRD (end stage renal disease) Liver cirrhosis CHF (congestive heart failure) CLL (chronic lymphocytic leukemia) CVA (cerebral vascular accident) GI bleed Recurrent hematuria HLD (hyperlipidemia) HTN (hypertension) Hypothyroid Dementia Dialysis patient Afib Chronic kidney disease Surgical History Surgical History S/P triple vessel bypass Social History Social History Household Members: Family Household Members Other:: Sister Joyce Housing: House Do you presently have visiting nurse or other home services: Yes Alcohol intake: never Patient Tobacco Use Status: Never used Tobacco Advance Directives: Yes Advance Directives on File: Yes Advance Directives Date on File: 05/08/23 service: No Meds Allergies Allergy/AdvReac Type Severity Reaction Status Date / Time No Known Allergies Allergy Verified 05/08/23 04:31 [No Known Allergies*] Active Medications: Current Medications Acetaminophen (Acetaminophen 325 Mg Tablet) 650 mg PO Q6H PRN PRN Reason: Pain, Mild (Pain Scale 1-3) Last Admin: 05/08/23 11:27 Dose: 650 mg Heparin Sodium (Porcine) (Heparin Sodium,Porcine 5,000 Unit/Ml Vial) 5,000 unit SUBCUT Q12H [facility] Last Admin: 05/08/23 14:20 Dose: 5,000 unit Sodium Chloride (Ns) 1,000 mls @ 100 mls/hr IVCONT .Q10H [facility] Last Infusion: 12/05/23 11:54 Dose: 100 mls/hr Ceftriaxone Sodium 1 gm/ (Sodium Chloride) 50 mls @ 100 mls/hr IV Q24H [facility] Magnesium Hydroxide (Milk Of Magnesia 30 Ml Oral.Susp) 30 ml PO DAILY PRN PRN Reason: Constipation Melatonin (Melatonin 3 Mg Tablet) 3 mg PO BEDTIME PRN PRN Reason: Insomnia Midodrine (Midodrine Hcl 5 Mg Tablet) 5 mg PO TID [facility] Last Admin: 05/08/23 14:20 Dose: 5 mg Ondansetron HCl (Ondansetron Hcl 4 Mg/2 Ml Vial) 4 mg IVPUSH Q8H PRN PRN Reason: Nausea and Vomiting Sodium Chloride (0.9 % Sodium Chloride Flush 3 Ml Syringe) 3 ml IVFLUSH QSHIFT [facility] Last Admin: 05/08/23 14:23 Dose: Not Given Home Medications Medication Instructions Recorded Confirmed Last Taken Type levothyroxine 50 mcg tablet 50 mcg PO DAILY 10/07/22 05/08/23 05/01/23 History vitamin B complex and vitamin C 1 cap PO DAILY 10/07/22 05/08/23 05/01/23 History no.20-folic acid 1 mg capsule rosuvastatin 10 mg tablet (Crestor) 10 mg PO BEDTIME 05/01/23 05/08/23 04/30/23 History Physical Exam Vital Signs: Last Vital Signs Temp 97.8 F 05/08/23 17:19 Pulse 71 05/08/23 17:19 Resp 20 05/08/23 17:19 BP 98/50 L 05/08/23 17:19 Pulse Ox 100 05/08/23 17:19 O2 Del Method Room Air 05/08/23 17:19 BMI result Body Mass Index 19.9 Const General: cooperative, healthy appearing and no acute distress Resp Effort & Inspection: normal respiratory effort and able to speak in complete sentences Cardio Rate: regular rate Peripheral pulses: Peripheral pulses 2+ throughout GI Palpation (GI): Soft to palpation Skin Lesions: no lesions Rashes: no rashes Extrem Other: Right hip Aquacel dressing removed. Incision site is c/d/i. [place] intact. no surrounding erythema or drainage. No signs of infection. No pain with passive ROM. NVI. Results Lab Results 05/08/23 03:07 05/08/23 03:07 Lab results: Chemistry 05/08/23 03:07 Sodium 137 Potassium 4.1 Carbon Dioxide 23 BUN 46 H Creatinine 4.79 H* Calcium 8.3 L Hematology 05/08/23 03:07 WBC 19.4 H Hgb 9.7 L Plt Count 110 L Urinalysis 05/08/23 03:25 Urine Color BROWN Urine Appearance Turbid Urine pH 6.0 Ur Specific [place] 1.020 Urine Protein 300 (3+) H Urine Glucose (UA) Negative Urine Ketones Trace Urine Blood Large (3+) H Urine Nitrite Positive H Ur Leukocyte Esterase Large (3+) H Urine RBC >20 H Urine WBC >50 H Ur Squamous Epith Cells 11-20 Hyaline Casts 3-5 Assessment and Plan (1) Elevated troponin: Status: Acute (2) Acute UTI: Status: Acute (3) Hypotension: Status: Acute (4) ESRD (end stage renal disease): Status: Acute Plan 77-year-old male with history of hepatic cirrhosis, heart failure reduced ejection fraction with EF 10-20%, vascular dementia, hypertension, hyperlipidemia, history of VFib arrest in 2016, asthma, paroxysmal atrial fibrillation no longer on anticoagulation (recurrent hematuria and GI bleed), portal hypertensive gastropathy, history CVA with left-sided deficits, CLL, and ESRD TTS ( [facility] follwos with [facility] 1. ESRD: next HD Th to get back on TTS schedule 2. Incr WBC with pyuria: c/w UTI 3. Low BPs: ongoing prob--gets midrdine pre HD REC: eval in am and if stable then push next HD to Thurs and get back on TTS schedue; ABx as noted Will follow w team Procedures Date of Service Date of Service: 05/08/23
[2023-05-08] MEDS: 0.9 % Sodium Chloride 1,000 ML 100 ML IVCONT (19:58)
[2023-05-09] MEDS: Heparin Sodium,Porcine 5,000 UNIT/ML VIAL 5000 UNIT SUBCUT ×2 (01:21→14:17)
[2023-05-09 03:06] VITALS: BP 125/55; PULSE 79; RESP 20; TEMP 36.3; O2SAT 99
[2023-05-09 09:15] LABS: Alanine Aminotransferase < 5 U/L (0-40); Albumin Level 2.8 g/dL (3.5-5.0); Alkaline Phosphatase 103 U/L (39-117); Anion Gap 14 (12-20); Aspartate Amino Transferase 16 U/L (5-37); Bilirubin Total 1.2 mg/dL (0.0-1.0); Blood Urea Nitrogen 23 mg/dL (9-16); Calcium 8.2 mg/dL (8.4-10.2); Carbon Dioxide 22 mmol/L (22-29); Chloride 103 mmol/L (96-108); Creatinine Clr Calc Pharmacy 21.1; Estimated Glomerular Filt Rate 25; Glucose Random 85 mg/dL (60-115); Potassium 3.6 mmol/L (3.3-5.1); Sodium 135 mmol/L (135-145); Total Protein 5.7 g/dL (6.5-8.0)
--- NOTE | 2023-05-09 09:34 | HO.PM.IMPN ---
Subjective Subjective Date of Service: 05/09/23 Interval History: seen during dialysis, has no complaint, no fever or chills Physical Exam Vital Signs: Vital Signs: Last Vital Signs Temp 97.3 F 05/09/23 03:06 Pulse 79 05/09/23 03:06 Resp 20 05/09/23 03:06 BP 125/55 L 05/09/23 03:06 Pulse Ox 99 05/09/23 03:06 O2 Del Method Room Air 05/09/23 03:06 BMI result Body Mass Index 19.9 Const: Other: Constitutional - Awake and Alert, No apparent distress Eyes - PERRLA, EOMI Cardiovascular - S1S2, RRR, No edema Respiratory - Normal lung expansion, Normal respiratory effort, No respiratory distress, scattered crackles bilaterally Gastrointestinal - NT / ND; +BS; No rebound or guarding Extremities - no calf tenderness bilaterally, no swelling Skin - Warm/Dry. Venous stasis to BLE. 2cm x1cm stage 2 venous ulcers on bilateral anterior lower legs. No purulent drainage, fluctuance, or surrounding erythema. There is also a contusion to the left dorsal forearm with small skin tear without active bleeding--unchanged surgical wound site ok Neurological - Alert & oriented to self only Psychological - Appropriate affect Objective Data Active Medications Acetaminophen (Acetaminophen 325 Mg Tablet) 650 mg PO Q6H PRN PRN Reason: Pain, Mild (Pain Scale 1-3) Last Admin: 05/08/23 11:27 Dose: 650 mg Documented By: ROWAN Heparin Sodium (Porcine) (Heparin Sodium,Porcine 5,000 Unit/Ml Vial) 5,000 unit SUBCUT Q12H [facility] Last Admin: 05/09/23 01:21 Dose: 5,000 unit Documented By: DILIA Sodium Chloride (Ns) 1,000 mls @ 100 mls/hr IVCONT .Q10H [facility] Last Infusion: 05/09/23 06:04 Dose: Infused Documented By: DILIA Ceftriaxone Sodium 1 gm/ (Sodium Chloride) 50 mls @ 100 mls/hr IV Q24H [facility] Magnesium Hydroxide (Milk Of Magnesia 30 Ml Oral.Susp) 30 ml PO DAILY PRN PRN Reason: Constipation Melatonin (Melatonin 3 Mg Tablet) 3 mg PO BEDTIME PRN PRN Reason: Insomnia Midodrine (Midodrine Hcl 5 Mg Tablet) 5 mg PO TID [facility] Last Admin: 05/08/23 20:02 Dose: 5 mg Documented By: ROWAN Ondansetron HCl (Ondansetron Hcl 4 Mg/2 Ml Vial) 4 mg IVPUSH Q8H PRN PRN Reason: Nausea and Vomiting Sodium Chloride (0.9 % Sodium Chloride Flush 3 Ml Syringe) 3 ml IVFLUSH QSHIFT [facility] Last Admin: 05/08/23 23:53 Dose: Not Given Documented By: DILIA Non-Admin Reason: IV Running Labs 05/08/23 03:07 05/09/23 08:17 Labs: Laboratory Results - last 24 hr 05/09/23 08:17 Hold Purple Top SEE NOTE Anion Gap 14 Estim Creat Clear Calc 21.1 Estimated GFR 25 Random Glucose 85 Calcium 8.2 L Total Bilirubin 1.2 H AST 16 ALT < 5 Alkaline Phosphatase 103 Total Protein 5.7 L Albumin 2.8 L Microbiology Microbiology Results: Microbiology 05/08/23 03:31 Blood Culture - Preliminary Blood - Venous No growth after 24 hours. 05/08/23 03:07 Blood Culture - Preliminary Blood - Venous No growth after 24 hours. Assessment and Plan (1) Hypotension: Status: Acute (2) Elevated troponin: Status: Acute (3) Acute UTI: Status: Acute Plan 77-year-old male with history of hepatic cirrhosis, heart failure reduced ejection fraction with EF 10-20%, vascular dementia, hypertension, hyperlipidemia, history of VFib arrest in 2016, asthma, paroxysmal atrial fibrillation no longer on anticoagulation (recurrent hematuria and GI bleed), portal hypertensive gastropathy, history CVA with left-sided deficits, CLL, and ESRD TTS (follows with Dr. Mcduffie) admitted for complicated UTI and hypotension with elevated troponins. #Acute UTI, cutlures pending, no fever, repeat wbc tomorrow, clinically responding to therapy, continue Ceftriaxone started 05/08 # hypotension - likekly r/t hypoperfusion in ESRD (not severe sepsis), received some ivf, midodrine and resolved. #Elevated troponins, flat likely related ESRD, no further testing indicated #ESRD on HD- TTS schedule #R hip gela-arthroplast, seen by ortho, no surgical site infection, continue wound dressing changes, pt eval #HFrEF, no decomepensation # chronic atrial fibrillation-rate controlled, no anticoagulation d/t major bleeding in past # hypothyroidism -continue levothyroxine # CAD/HLD -continue statin # vascular dementia -mentation appears baseline at this time #Stage 2 venous ulcers BLE -wound rn consult DVT prophylaxis-heparin Full code need for inpt: d/t uti, and hypotension inpt with multiple comorbidities, he needs iv abx and close monitoring for potential detlioration into full blown sepsis Quality Stroke Does the patient have a stroke diagnosis?: No VTE Prior VTE?: No VTE Risk Level:: Medical - moderate - high VTE Device Contraindication: N/A - Device Ordered VTE Drug Contraindication: N/A - Med Ordered
[2023-05-09] MEDS: cefTRIAXone sodium 1 GM in 0.9 % Sodium Chloride 50 ML IV (09:37)
[2023-05-09] MEDS: 0.9 % Sodium Chloride Flush 3 ML SYRINGE IVFLUSH (09:37)
[2023-05-09] MEDS: Midodrine HCl 5 MG TABLET PO ×3 (09:39→21:42)
[2023-05-09] MEDS: 0.9 % Sodium Chloride 1,000 ML 100 ML IVCONT ×2 (09:39→17:19)
[2023-05-09 09:43] VITALS: BP 110/63; RESP 18; TEMP 36.6; O2SAT 100
[2023-05-09 09:50] VITALS: BMI 19.9
--- NOTE | 2023-05-09 10:22 | PM.CNCAR ---
History of Present Illness History of Present Illness Date of Service: 05/09/23 Chief complaint: UTI Narrative: This is a cardiology consultation regarding elevated troponins. Patient himself is not able to give any history at all. He states he does not know why he is here. When I specifically questioned him about cardiac symptoms like chest pain, he states no. 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 Otherwise, many comorbidities including cirrhosis, LV dysfunction, vascular dementia, VFib arrest in 2016, paroxysmal atrial fibrillation but no longer anticoagulation due to recurrent hematuria/GI bleed, portal hypertensive gastropathy, stroke, ESRD. Recently had right hip hemiarthroplasty few days back. It seems he was discharged remote memory just 1 day prior. However, he has been readmitted and there is a concern for hypotension. Again from a cardiac standpoint no history is obtainable. There is a low-grade troponin leak and hence we have been asked to evaluate. Review of Systems Review of Systems: Unable to obtain [facility] Past Medical History Medical History (Updated 05/09/23 @ 10:28 by Samir Juarez MD) ESRD (end stage renal disease) Liver cirrhosis CHF (congestive heart failure) CLL (chronic lymphocytic leukemia) CVA (cerebral vascular accident) GI bleed Recurrent hematuria HLD (hyperlipidemia) HTN (hypertension) Hypothyroid Dementia Dialysis patient Afib Chronic kidney disease Family History Pertinent family history: Unable to obtain Surgical History Surgical History S/P triple vessel bypass Social History Social History Household Members: Family Household Members Other:: Sister Joyce Housing: House Do you presently have visiting nurse or other home services: Yes Alcohol intake: never Patient Tobacco Use Status: Never used Tobacco Advance Directives Date on File: 05/08/23 service: No Meds Allergies Allergy/AdvReac Type Severity Reaction Status Date / Time No Known Allergies Allergy Verified 05/08/23 04:31 [No Known Allergies*] Active Medications: Current Medications Acetaminophen (Acetaminophen 325 Mg Tablet) 650 mg PO Q6H PRN PRN Reason: Pain, Mild (Pain Scale 1-3) Last Admin: 05/08/23 11:27 Dose: 650 mg Albuterol/Ipratropium (Albuterol/Iprat 2.5/0.5mg 3 Ml Ampul.Neb) 3 ml INHALE RQ4H WHILE AWAKE PRN PRN Reason: Shortness Of Breath/Wheezing Atorvastatin Calcium (Atorvastatin Calcium 40 Mg Tablet) 40 mg PO BEDTIME [facility] Docusate Sodium (Docusate Sodium 100 Mg Capsule) 100 mg PO DAILY PRN PRN Reason: Constipation Heparin Sodium (Porcine) (Heparin Sodium,Porcine 5,000 Unit/Ml Vial) 5,000 unit SUBCUT Q12H [facility] Last Admin: 05/09/23 01:21 Dose: 5,000 unit Sodium Chloride (Ns) 1,000 mls @ 100 mls/hr IVCONT .Q10H [facility] Last Admin: 05/09/23 09:39 Dose: 100 mls/hr Ceftriaxone Sodium 1 gm/ (Sodium Chloride) 50 mls @ 100 mls/hr IV Q24H [facility] Last Admin: 05/09/23 09:37 Dose: 100 mls/hr Levothyroxine Sodium (Levothyroxine Sodium 50 Mcg Tablet) 50 mcg PO DAILY@0600 [facility] Magnesium Hydroxide (Milk Of Magnesia 30 Ml Oral.Susp) 30 ml PO DAILY PRN PRN Reason: Constipation Melatonin (Melatonin 3 Mg Tablet) 3 mg PO BEDTIME PRN PRN Reason: Insomnia Midodrine (Midodrine Hcl 5 Mg Tablet) 5 mg PO TID [facility] Last Admin: 05/09/23 09:39 Dose: 5 mg Multivitamins/Vitamin C (Multivitamin Tablet) 1 tab PO DAILY [facility] Ondansetron HCl (Ondansetron Hcl 4 Mg/2 Ml Vial) 4 mg IVPUSH Q8H PRN PRN Reason: Nausea and Vomiting Sodium Chloride (0.9 % Sodium Chloride Flush 3 Ml Syringe) 3 ml IVFLUSH QSHIFT [facility] Last Admin: 05/09/23 09:37 Dose: 3 ml Home Medications Medication Instructions Recorded Confirmed Last Taken Type levothyroxine 50 mcg tablet 50 mcg PO DAILY 10/07/22 05/08/23 05/01/23 History vitamin B complex and vitamin C 1 cap PO DAILY 10/07/22 05/08/23 05/01/23 History no.20-folic acid 1 mg capsule rosuvastatin 10 mg tablet (Crestor) 10 mg PO BEDTIME 05/01/23 05/08/23 04/30/23 History Physical Exam Vital Signs: Vital Signs: Last Vital Signs Temp 98 F 05/09/23 09:43 Pulse 79 05/09/23 03:06 Resp 18 05/09/23 09:43 BP 110/63 05/09/23 09:43 Pulse Ox 100 05/09/23 09:43 O2 Del Method Room Air 05/09/23 09:43 BMI result Body Mass Index 19.9 Const: General: comfortable and no acute distress Orientation/consciousness: No patient oriented x3 HEENT: Other: Unremarkable Head: Yes normal to inspection Neck: Neck: Yes normal visual inspection Chest: Chest palpation & inspection: normal inspection of the chest Resp: Auscultation: clear to auscultation bilaterally Cardio: Palpation: normal PMI Heart sounds: S1 normal heart sound present, S2 normal heart sound present, no gallops, no murmurs and no rubs GI: Palpation (GI): Soft to palpation Back/Spine/Pelvis: Other: unremarkable Skin: General skin exam: no rashes or lesions noted Neuro: General: No patient oriented x3 Extrem: General: Yes normal to inspection Psych: Mental Status: mental status grossly abnormal Objective Labs and Meds 05/08/23 03:07 05/09/23 08:17 Lab results: Laboratory Results - last 24 hr 05/09/23 08:17 Hold Purple Top SEE NOTE Sodium 135 Potassium 3.6 Chloride 103 Carbon Dioxide 22 Anion Gap 14 BUN 23 H Creatinine 2.52 H Estim Creat Clear Calc 21.1 Estimated GFR 25 Random Glucose 85 Calcium 8.2 L Total Bilirubin 1.2 H AST 16 ALT < 5 Alkaline Phosphatase 103 Total Protein 5.7 L Albumin 2.8 L ECG Interpretation: EKG shows atrial fibrillation at a rate of 73/Min; right bundle-branch block; old inferior infarct; PVC; artifact. A prior EKG from last week looks similar. Assessment and Plan (1) Elevated troponin: Status: Acute (2) CAD (coronary artery disease): Status: Acute (3) Cardiomyopathy: Status: Acute Plan Suspected to be some combination of UTI/hypotension from cirrhosis/dialysis. From cardiac, slight troponin leak could be a demand event and also related to renal insufficiency. Unable to get any meaningful information from patient. Considering his many comorbidities, conservative care only. Would not do anything aggressive at all. Will review the echocardiogram. Procedures Date of Service Date of Service: 05/09/23
[2023-05-09] MEDS: Multivitamin TABLET 1 TAB PO (10:34)
[2023-05-09] MEDS: Levothyroxine Sodium 50 MCG TABLET PO (10:34)
--- NOTE | 2023-05-09 10:59 | PM.PNNEP ---
Subjective Subjective Date of Service: 05/09/23 Interval history: has no complaint, no fever or chills Physical Exam Vital Signs: Vital Signs: Last Vital Signs Temp 98 F 05/09/23 09:43 Pulse 79 05/09/23 03:06 Resp 18 05/09/23 09:43 BP 110/63 05/09/23 09:43 Pulse Ox 100 05/09/23 09:43 O2 Del Method Room Air 05/09/23 09:43 BMI result Body Mass Index 19.9 Const: General: cooperative, healthy appearing and no acute distress Resp: Effort & Inspection: normal respiratory effort and able to speak in complete sentences Cardio: Rate: regular rate Peripheral pulses: Peripheral pulses 2+ throughout GI: Palpation (GI): Soft to palpation Skin: Lesions: no lesions Rashes: no rashes Extrem: Other: Right hip Aquacel dressing removed. Incision site is c/d/i. Brigido intact. no surrounding erythema or drainage. No signs of infection. No pain with passive ROM. NVI. Objective Data Labs 05/08/23 03:07 05/09/23 08:17 Labs: Laboratory Results - last 24 hr 05/09/23 08:17 Hold Purple Top SEE NOTE Sodium 135 Potassium 3.6 Chloride 103 Carbon Dioxide 22 Anion Gap 14 BUN 23 H Creatinine 2.52 H Estim Creat Clear Calc 21.1 Estimated GFR 25 Random Glucose 85 Calcium 8.2 L Total Bilirubin 1.2 H AST 16 ALT < 5 Alkaline Phosphatase 103 Total Protein 5.7 L Albumin 2.8 L Microbiology Microbiology Results: Microbiology 05/08/23 03:31 Blood - Venous Blood Culture - Preliminary No growth after 24 hours. 05/08/23 03:07 Blood - Venous Blood Culture - Preliminary No growth after 24 hours. Procedures Date of Service Date of Service: 05/09/23 Assessment & Plan Assessment and plan (1) Elevated troponin: Status: Acute (2) Acute UTI: Status: Acute (3) Hypotension: Status: Acute (4) ESRD (end stage renal disease): Status: Acute Plan 77-year-old male with history of hepatic cirrhosis, heart failure reduced ejection fraction with EF 10-20%, vascular dementia, hypertension, hyperlipidemia, history of VFib arrest in 2016, asthma, paroxysmal atrial fibrillation no longer on anticoagulation (recurrent hematuria and GI bleed), portal hypertensive gastropathy, history CVA with left-sided deficits, CLL, and ESRD TTS ( [facility] follwos with [facility] 1. ESRD: HD today ( off shift as usu TTS) next HD Fri or Sat--will reassess 2. Incr WBC with pyuria: c/w UTI 3. Low BPs: ongoing prob--gets midrdine pre HD REC: ABx as noted; cont HD 3x/wk and midrdine for BP support Will follow w team Time Spent With Patient Time: Total time managing care of this patient today ____ minutes. Progress Note: Quality Stroke Does the patient have a stroke diagnosis?: No
--- NOTE | 2023-05-09 11:44 | P.OP_ITS ---
Operative Note Operative Note Date of Service: 05/03/23 Narrative: Date of Service: 05/03/23 Pre-op diagnosis: Right femoral neck fracture Post-op diagnosis: same Procedure: right hip gela Implants: Rita accolade #6 127 deg with +0 26/51 bipolar Surgeon: Michael Edwards MD Anesthesia: spinal Was an Catalytic Case Operator used for this Procedure?: No Estimated blood loss (mL): 150 IV fluids (mL): 100 Pathology: other Condition: stable Disposition: PACU Procedure in detail: Patient was brought to the operative room placed in the lateral decubitus position. All bony prominences were well padded and the was prepped and draped in standard sterile fashion. IV antibiotics per weight were administered and a time-out was called to identify proper site proper procedure proper surgeon. Radiographs were available and confirmed. I began by making a curvilinear incision over the posterolateral aspect of the greater trochanter. Dissection was taken down to the tensor fascia which was incised in line with the incision and a Charnley retractor was placed. The hip was internally rotated and the external rotators were identified. All vessels in the area were cauterized and a full-thickness capsular/external rotator layer was developed in a hockey-stick fashion starting just proximal to the piriformis. This layer was tagged and the displaced femoral neck fracture was identified. Clean-up cuts was performed while protecxtion the posterolateral soft tissues and the head was removed and measured (51 mm) on the back table. I then copiously irrigated the acetabulum and removed all bony fragments. Once this was done I used a cookie cutter to lateralize and a Charnley awl to identify the canal and then sequentially broached up to a 127 deg #6. I then trialed with a +0 standard head and a bipolar component matching the femoral head size. I was satisfied with the range of motion and stability and length. Therefore I removed all instrumentation and copiously irrigated. I then placed my final femoral implant and then retrialed. I was satisfied with the femoral implant. My final bipolar components were then placed. I closed the capsular layer with FiberWire and then. I performed a layered closure with maria antonia on skin. The patient was placed in sterile dressing extubated brought to recovery room in stable condition there were no known complications.
--- NOTE | 2023-05-09 12:05 | MHC.CM.PN ---
pt is a resident of [facility] where he will return when dc pt is a dialysis pt
[2023-05-09 15:28] VITALS: BP 102/64; PULSE 74; RESP 18; TEMP 36.9; O2SAT 98
[2023-05-09 19:41] VITALS: BP 106/52; PULSE 76; RESP 16; TEMP 36.5; O2SAT 96
[2023-05-09] MEDS: Atorvastatin Calcium 40 MG TABLET PO (21:42)
--- NOTE | 2023-05-09 23:21 | PC.NURSE ---
Dressings to bilateral lower legs and left lower arm changed. Patient did not void, is a dialysis patient, stated voided 2 day ago. Bladder scanned for 200 ml. Will continue to monitor.
[2023-05-10] MEDS: Heparin Sodium,Porcine 5,000 UNIT/ML VIAL 5000 UNIT SUBCUT ×2 (01:18→13:52)
[2023-05-10] MEDS: 0.9 % Sodium Chloride 1,000 ML 100 ML IVCONT (03:02)
[2023-05-10 03:04] VITALS: BP 102/54; PULSE 61; RESP 18; TEMP 36.6; O2SAT 96
[2023-05-10 05:54] LABS: Hematocrit 26.5 % (42.0-52.0); Hemoglobin 8.7 g/dl (14.0-18.0); Mean Corpuscular HGB Conc 32.8 g/dl (31.0-36.0); Mean Corpuscular Hemoglobin 35.1 pg (27.0-33.0); Mean Corpuscular Volume 106.9 fL (80.0-98.0); Mean Platelet Volume 9.1 fL (9.4-12.4); Red Blood Count 2.48 X10*6/uL (4.60-5.80); Red Cell Distribution Width 15.9 % (11.0-16.0); White Blood Count 14.4 X10*3/uL (4.8-10.8)
[2023-05-10 06:04] LABS: Platelet Count 94 X10*3/uL (160-400)
--- NOTE | 2023-05-10 06:25 | PC.NURSE ---
Patient did not void, bladder scanned for 186 ml. Offers no complaints.
[2023-05-10] MEDS: Levothyroxine Sodium 50 MCG TABLET PO (06:27)
[2023-05-10] MEDS: cefTRIAXone sodium 1 GM in 0.9 % Sodium Chloride 50 ML IV (06:27)
[2023-05-10 07:45] VITALS: BP 101/56; PULSE 58; RESP 18; TEMP 36.1; O2SAT 98
[2023-05-10] MEDS: Multivitamin TABLET 1 TAB PO (08:20)
[2023-05-10] MEDS: Midodrine HCl 5 MG TABLET PO ×2 (08:20→21:41)
--- NOTE | 2023-05-10 10:23 | P.DS_ITS ---
DS: Providers Provider Date of Service: 05/10/23 Date of admission: 05/08/23 10:23 Primary care physician: Shola Chinchilla MD Consults: 05/08/23 11:47 Consult to Orthopedics Routine Consulting Provider: [facility] Reason for consultation: s/p R hip arthroplasty. Post-op bandage with mod- large amt blood 05/08/23 13:14 Consult to Cardiology Routine Consulting Provider: [facility] Reason for consultation: elevated troponins 05/08/23 13:23 Consult to Nephrology Routine Consulting Provider: [facility] Reason for consultation: ESRD on HD- TTS schedule DS: Diagnosis Discharge Diagnosis (1) Elevated troponin: Status: Resolved (2) Acute UTI: Status: Acute (3) Hypotension: Status: Resolved (4) ESRD (end stage renal disease): Status: Acute DS: Summary Hospital Course Hospital Course: Admission HPI Chief Complaint: weakness, fevers 77-year-old male with history of hepatic cirrhosis, heart failure reduced ejection fraction with EF 10-20%, vascular dementia, hypertension, hyperlipidemia, history of VFib arrest in 2016, asthma, paroxysmal atrial fibrillation no longer on anticoagulation (recurrent hematuria and GI bleed), portal hypertensive gastropathy, history CVA with left-sided deficits, CLL, and ESRD TTS (follows with Dr. Mcduffie) presents to the ED for evaluation of subjective fevers and weakness from [facility] where he has been residing for skilled rehab s/p right hemiathroplasty 05/03. He was discharged to [facility] yesterday. He tells me he is not ambulatory at this time. Reports 7/10 pain in the right hip. He is somewhat limited historian secondary to his vascular dementia only oriented to self. He is able to tell me he has had sweats and chills and has felt generally weak. He has also noted increased frequency of urination. Denies any rigors, abdominal pain, nausea, vomiting, dysuria, hematuria, urgency, flank pain. No shortness of breath, lightheadedness, palpitations, or chest pain. Since arrival to the ED, blood pressures have been soft with intermittent episodes of hypotension. There is a leukocytosis of 19.4. Stable macrocytic anemia with H/H 9.7/29.1%. Platelets 110. Creatinine 4.79, BUN 46, electrolyte levels normal. Lactic acid 1.5. Hepatic function baseline. Initial troponin 96.3, repeat 81.5. Procalcitonin 1.98. Urinalysis significant for 3+ leukocytes, positive nitrites, 3+ blood, positive urinary sediment, 4+ bacteria. There is also 3+ protein and trace ketones. Negative for COVID-19. Chest x- ray shows low lung volumes and pulmonary vascular congestion with perihilar increased markings which may be technical secondary to low lung volumes. Fluid overload versus developing congestive heart failure with interstitial edema could have this appearance as well. In the ED, he received 10 mg of midodrine early this morning, 1 L IV NS bolus and has been started on maintenance fluids. He was also given 1 g IV ceftriaxone and 3.375 g zosyn. Hospital course: The patient returned to the hospital within 24 hours of leaving the SNF after undergoing hip fracture repair. Upon arrival, he was having, weakness, and an assessment in the ED identified an acute UTI. In response, he was given Zosyn initially and later continued on Ceftriaxone. While the patient was hypotensive, it was determined not to be related to sepsis based on the absence of sepsis criteria. The hypotension, stemming from chronic issues related to cirrhosis and ESRD, was managed with IV fluids and midodrine. Additionally, there was a slight elevation in troponin I, which was attributed to renal failure, UTI, and hypotension. The UTI was confirmed through culture as + E.coli that is ESBL positive, leading to a switch in medication to Meropenem. Upon discharge, the patient will be prescribed Meropenem 1 gram post-dialysis (MWF) for 14 days. Addressing the chronic hypotension, the patient is currently receiving treatment with IV fluids and is being administered midodrine, which will be continued at 5 mg twice daily. Despite the elevated troponin levels, the patient did not report chest pain. Cardiology evaluated the patient and did not recommend further testing. The patient will maintain his regular hemodialysis schedule (Sunday, Sunday, Sunday). Regarding the recent hip fracture, orthopedics assessed the wound and advised continuing physical therapy, dressing changes, and heparin for DVT prophylaxis as there was no evidence of wound infection. Time Attestation Discharge coordination time: Greater than 30 minutes Quality: Safe Use of Opioids Does Pt have an Active Cancer Diagnosis on the Problem List?: No Quality: Stroke Does the patient have a stroke diagnosis?: No Physical Exam Vital Signs: Vital Signs: Last Vital Signs Temp 96.9 F 05/10/23 07:45 Pulse 58 05/10/23 07:45 Resp 18 05/10/23 07:45 BP 101/56 L 05/10/23 07:45 Pulse Ox 98 05/10/23 07:45 O2 Del Method Room Air 05/10/23 07:45 BMI result Body Mass Index 19.9 DS: Data Data Completed and Pending Labs on day of discharge: Laboratory Results - last 24 hr 05/10/23 05:21 WBC 14.4 H RBC 2.48 L Hgb 8.7 L Hct 26.5 L MCV 106.9 H MCH 35.1 H MCHC 32.8 RDW 15.9 Plt Count 94 L MPV 9.1 L Absolute Nucleated RBC 0.000 Nucleated RBC % (auto) 0.0 Preliminary micro results at discharge 05/08/23 Unknown Urine Culture - Preliminary Urine Catheterized - La Catheter Escherichia coli 05/08/23 03:31 Blood Culture - Preliminary Blood - Venous No growth after 48 hours. 05/08/23 03:07 Blood Culture - Preliminary Blood - Venous No growth after 48 hours. Discharge Plan Discharge Anticipated Discharge Date/Time: 05/11/23 15:20 Patient Disposition: er SNF Discharge Diagnosis: ESBL Ecoli UTI, Hypotension Referrals: [facility] [Other] - 1 Week Shola Chinchilla MD [Primary Care Provider] - 1 Week Discharge Medications: New midodrine 5 mg Tablet 5 mg PO BID Qty: 60 0RF meropenem 500 mg Recon Soln 500 mg IV Q24H Qty: 8 0RF Continued levothyroxine 50 mcg tablet 50 mcg PO DAILY B complex with C 20-folic acid 1 mg Capsule 1 cap PO DAILY rosuvastatin [Crestor] 10 mg Tablet 10 mg PO BEDTIME docusate sodium 100 mg Capsule 100 mg PO DAILY PRN (Reason: Constipation) Qty: 30 0RF acetaminophen 325 mg Tablet 650 mg PO Q6H PRN (Reason: Pain, Mild (Pain Scale 1-3)) Qty: 30 0RF heparin (porcine) 5,000 unit/mL Solution 5,000 unit subcut Q12H 42 Days Qty: 84 0RF ipratropium-albuterol 0.5 mg-3 mg(2.5 mg base)/3 mL Solution For Nebulization 3 ml inhalation RQ4H WHILE AWAKE PRN (Reason: Shortness Of Breath/Wheezing) Qty: 1 0RF Discharge Orders: Discharge Order (Routine); Ordered 05/11/23 Ordered By: Sergey Alejandre Diet: Advance to usual diet Activity on Discharge: As tolerated Stand Alone Forms: Patient Portal Discharge page Activity Restrictions/Additional Instructions: Topical Wound Care Recommendations: 1. Turn and Reposition every 2 hours and as needed for patient comfort. 2. Off Load all bony prominences with use of pillows and heel boots, apply preventative foam dressings over bony prominences. 3. Monitor for incontinence and moisture control - use barrier creams as needed. 4. Provide adequate and supplemental nutrition. 5. Sacrum - Apply Sacral foam dressing for prevention. Peel back and assess Q shift and change every 3 days and PRN. 6. Left Chest - Cleanse with NS, Pat Dry. Apply Cuticern moist gauze over wound bed to prevent sticking apply Alginate (Durafiber AG) to wound bed cover with Foam dressing. Change every other day. If Alginate is sticking to wound bed wet prior to removal to prevent bleeding. Defer to Hemotolgy for biopsy and workup if not already completed. 7. Bilateral Lower Legs and left forearm - Cleanse with NS or [place], dry with soft cloth. Apply lotion / Vaseline to lower legs. Cover open wounds with double layer xeroform, cover with abd pad and gauze wrap. Change daily. .? Do not apply tape to patients skin.? Avoid adhesive application to skin - when necessary apply skin prep prior.? Keep nails short, trimmed and smooth. Cover legs and arms with clothing as added protection. 8. Left Thigh - Protect surrounding tissue from injury with foam dressings. Peel back and assess Q shift and change every 3 days and PRN. Care Plan Goals: ereadication of ESBL UTI Health Concerns: ESBL E coli UTI Hypotension recent hip fracture Plan of Treatment: UTI: Meropenem 500 mg IV daily for 8 more days for a total of 10 days for UTI chronic hypotension: Midodrine for hypotension for hip fracture ( from last hospitalization) * Physical Therapy for right hip hemiarthroplasty: wbat, posterior precautions, gait training, ROM, strength * Limit stair climbing * No showering, no tub bath-keep dressing clean, dry and intact * No driving x6 weeks * Continuedvt ppc x 6 weeks * Follow up with [facility] in 2 weeks: 05/18/23 11:30 [facility] Davila PA-C * Sub cut heparin for 6 weeks wound care recommendation from last visit 1. Turn and Reposition every 2 hours and as needed for patient comfort. 2. Off Load all bony prominences with use of pillows and heel boots, apply preventiave foam dressings over bony prominences. 3. Monitor for incontinence and moisture control - use barrier creams as needed. 4. Provide adequate and supplemental nutrition. 5. Order low air loss mattress. 6. Sacrum - Apply Sacral foam dressing for prevention. Peel back and assess Q shift and change every 3 days and PRN. 7. Left Chest - Cleanse with NS, Pat Dry. Apply Alginate (Durafiber AG) to wound bed cover with Foam dressing. Change every other day. If Alginate is sticking to wound bed wet prior to removal as cancerous lesions can bleed easily. Defer to Hematology for biopsy and workup if not already completed. 8. Bilateral Lower Legs - Cleanse with [place], dry with soft cloth. Apply lotion to lower legs. Cover open wounds with double layer xeroform, cover with foam dressing. Apply patients tubigrip socks from home fold at toes and prior to knee for patient comfort. Change daily. 9. Left Thigh - Protect surrounding tissue from injury with foam dressings. Peel back and assess Q shift and change every 3 days and PRN. Assessment: See above Discharge Date/Time: 05/11/23 18:36
--- NOTE | 2023-05-10 10:49 | HO.PM.IMPN ---
Subjective Subjective Date of Service: 05/10/23 Interval History: f/u on uti, hypotension, elevated trop overll is doing better, no fever, hypotension resolved Physical Exam Vital Signs: Vital Signs: Last Vital Signs Temp 96.9 F 05/10/23 07:45 Pulse 58 05/10/23 07:45 Resp 18 05/10/23 07:45 BP 101/56 L 05/10/23 07:45 Pulse Ox 98 05/10/23 07:45 O2 Del Method Room Air 05/10/23 07:45 BMI result Body Mass Index 19.9 Const: Other: Constitutional - Awake and Alert, No apparent distress Eyes - PERRLA, EOMI Cardiovascular - S1S2, RRR, No edema Respiratory - Normal lung expansion, Normal respiratory effort, No respiratory distress, scattered crackles bilaterally Gastrointestinal - NT / ND; +BS; No rebound or guarding Extremities - no calf tenderness bilaterally, no swelling Skin - Warm/Dry. Venous stasis to BLE. 2cm x1cm stage 2 venous ulcers on bilateral anterior lower legs. No purulent drainage, fluctuance, or surrounding erythema. There is also a contusion to the left dorsal forearm with small skin tear without active bleeding--unchanged surgical wound site ok Neurological - Alert & oriented to self only Psychological - Appropriate affect Objective Data Active Medications Acetaminophen (Acetaminophen 325 Mg Tablet) 650 mg PO Q6H PRN PRN Reason: Pain, Mild (Pain Scale 1-3) Last Admin: 05/08/23 11:27 Dose: 650 mg Documented By: COOPEB Albuterol/Ipratropium (Albuterol/Iprat 2.5/0.5mg 3 Ml Ampul.Neb) 3 ml INHALE RQ4H WHILE AWAKE PRN PRN Reason: Shortness Of Breath/Wheezing Atorvastatin Calcium (Atorvastatin Calcium 40 Mg Tablet) 40 mg PO BEDTIME COUNT INCLUDES THE [facility] Last Admin: 05/09/23 21:42 Dose: 40 mg Documented By: ALOK Docusate Sodium (Docusate Sodium 100 Mg Capsule) 100 mg PO DAILY PRN PRN Reason: Constipation Heparin Sodium (Porcine) (Heparin Sodium,Porcine 5,000 Unit/Ml Vial) 5,000 unit SUBCUT Q12H COUNT INCLUDES THE [facility] Last Admin: 05/10/23 01:18 Dose: 5,000 unit Documented By: ALOK Meropenem 500 mg/ Sodium (Chloride) 50 mls @ 100 mls/hr IV Q24H COUNT INCLUDES THE [facility] Last Admin: 05/10/23 10:36 Dose: 100 mls/hr Documented By: PEPE Levothyroxine Sodium (Levothyroxine Sodium 50 Mcg Tablet) 50 mcg PO DAILY@0600 COUNT INCLUDES THE [facility] Last Admin: 05/10/23 06:27 Dose: 50 mcg Documented By: ALOK Magnesium Hydroxide (Milk Of Magnesia 30 Ml Oral.Susp) 30 ml PO DAILY PRN PRN Reason: Constipation Melatonin (Melatonin 3 Mg Tablet) 3 mg PO BEDTIME PRN PRN Reason: Insomnia Midodrine (Midodrine Hcl 5 Mg Tablet) 5 mg PO BID COUNT INCLUDES THE [facility] Multivitamins/Vitamin C (Multivitamin Tablet) 1 tab PO DAILY COUNT INCLUDES THE [facility] Last Admin: 05/10/23 08:20 Dose: 1 tab Documented By: PEPE Ondansetron HCl (Ondansetron Hcl 4 Mg/2 Ml Vial) 4 mg IVPUSH Q8H PRN PRN Reason: Nausea and Vomiting Sodium Chloride (0.9 % Sodium Chloride Flush 3 Ml Syringe) 3 ml IVFLUSH QSHIFT COUNT INCLUDES THE [facility] Last Admin: 05/10/23 07:30 Dose: Not Given Documented By: PEPE Non-Admin Reason: IV Running Labs 05/10/23 05:21 05/09/23 08:17 Labs: Laboratory Results - last 24 hr 05/10/23 05:21 MCV 106.9 H MCH 35.1 H MCHC 32.8 RDW 15.9 Plt Count 94 L MPV 9.1 L Absolute Nucleated RBC 0.000 Nucleated RBC % (auto) 0.0 Microbiology Microbiology Results: Microbiology 05/08/23 Unknown Urine Culture - Preliminary Urine Catheterized - La Catheter Escherichia coli 05/08/23 03:31 Blood Culture - Preliminary Blood - Venous No growth after 48 hours. 05/08/23 03:07 Blood Culture - Preliminary Blood - Venous No growth after 48 hours. Assessment and Plan (1) Hypotension: Status: Acute (2) Elevated troponin: Status: Acute (3) Acute UTI: Status: Acute Plan 77-year-old male with history of hepatic cirrhosis, heart failure reduced ejection fraction with EF 10-20%, vascular dementia, hypertension, hyperlipidemia, history of VFib arrest in 2016, asthma, paroxysmal atrial fibrillation no longer on anticoagulation (recurrent hematuria and GI bleed), portal hypertensive gastropathy, history CVA with left-sided deficits, CLL, and ESRD TTS (follows with Dr. Mcduffie) admitted for complicated UTI and hypotension with elevated troponins. #Acute UTI, cutlures = ESBL UTI, WBC is going down. Changing Abx Meropenem renally dosed and at discharged Invanz 1 gram on dialysis days for 14 days. # hypOtension - likekly r/t hypoperfusion in ESRD and cirrhosis (not severe sepsis), received IVF and on midodrine, would continue midodrine given chronic hypotension #Elevated troponins, flat likely related ESRD, no further testing indicated per cardiology #ESRD on HD- MWF #recent R hip gela-arthroplasty, seen by ortho, no surgical site infection, continue wound dressing changes, pt eval and heparin for dvt prophylaxis #HFrEF, no decomepensation # chronic atrial fibrillation-rate controlled, no anticoagulation d/t major bleeding in past and chronic anemia # hypothyroidism -continue levothyroxine # CAD/HLD -continue statin # vascular dementia --at baseline #Stage 2 venous ulcers BLE -wound rn consult DVT prophylaxis-heparin Full code need for inpt: d/t uti, and hypotension with multiple comorbidities, he needs iv abx for resistant Abx, high risk forl detelioration into full blown sepsis Quality Stroke Does the patient have a stroke diagnosis?: No VTE Prior VTE?: No VTE Risk Level:: Medical - moderate - high VTE Device Contraindication: N/A - Device Ordered VTE Drug Contraindication: N/A - Med Ordered
--- NOTE | 2023-05-10 15:29 | PM.PNNEP ---
Subjective Subjective Date of Service: 05/10/23 Interval history: Seen and exained,events noted Physical Exam Vital Signs: Vital Signs: Last Vital Signs Temp 96.9 F 05/10/23 07:45 Pulse 58 05/10/23 07:45 Resp 18 05/10/23 07:45 BP 101/56 L 05/10/23 07:45 Pulse Ox 98 05/10/23 07:45 O2 Del Method Room Air 05/10/23 07:45 BMI result Body Mass Index 19.9 Const: Other: Constitutional - Awake and Alert, No apparent distress Eyes - PERRLA, EOMI Cardiovascular - S1S2, RRR, No edema Respiratory - Normal lung expansion, Normal respiratory effort, No respiratory distress, scattered crackles bilaterally Gastrointestinal - NT / ND; +BS; No rebound or guarding Extremities - no calf tenderness bilaterally, no swelling Skin - Warm/Dry. Venous stasis to BLE. 2cm x1cm stage 2 venous ulcers on bilateral anterior lower legs. No purulent drainage, fluctuance, or surrounding erythema. There is also a contusion to the left dorsal forearm with small skin tear without active bleeding--unchanged surgical wound site ok Neurological - Alert & oriented to self only Psychological - Appropriate affect General: cooperative, healthy appearing and no acute distress Orientation/consciousness: No patient oriented x3 HEENT: Other: Unremarkable Head: Yes normal to inspection Neck: Neck: Yes normal visual inspection Chest: Chest palpation & inspection: normal inspection of the chest Resp: Effort & Inspection: normal respiratory effort and able to speak in complete sentences Auscultation: clear to auscultation bilaterally Cardio: Palpation: normal PMI Rate: regular rate Heart sounds: S1 normal heart sound present, S2 normal heart sound present, no gallops, no murmurs and no rubs Peripheral pulses: Peripheral pulses 2+ throughout GI: Palpation (GI): Soft to palpation Back/Spine/Pelvis: Other: unremarkable Skin: General skin exam: no rashes or lesions noted Lesions: no lesions Rashes: no rashes Neuro: General: No patient oriented x3 Extrem: Other: Right hip Aquacel dressing removed. Incision site is c/d/i. [place] intact. no surrounding erythema or drainage. No signs of infection. No pain with passive ROM. NVI. General: Yes normal to inspection Psych: Mental Status: mental status grossly abnormal Objective Data Labs 05/10/23 05:21 05/09/23 08:17 Labs: Laboratory Results - last 24 hr 05/10/23 05:21 WBC 14.4 H RBC 2.48 L Hgb 8.7 L Hct 26.5 L MCV 106.9 H MCH 35.1 H MCHC 32.8 RDW 15.9 Plt Count 94 L MPV 9.1 L Absolute Nucleated RBC 0.000 Nucleated RBC % (auto) 0.0 Microbiology Microbiology Results: Microbiology 05/08/23 Unknown Urine Catheterized - La Catheter Urine Culture - Preliminary Escherichia coli 05/08/23 03:31 Blood - Venous Blood Culture - Preliminary No growth after 48 hours. 05/08/23 03:07 Blood - Venous Blood Culture - Preliminary No growth after 48 hours. Procedures Date of Service Date of Service: 05/10/23 Assessment & Plan Assessment and plan (1) Elevated troponin: Status: Acute (2) Acute UTI: Status: Acute (3) Hypotension: Status: Acute (4) ESRD (end stage renal disease): Status: Acute Plan 77-year-old male with history of hepatic cirrhosis, heart failure reduced ejection fraction with EF 10-20%, vascular dementia, hypertension, hyperlipidemia, history of VFib arrest in 2016, asthma, paroxysmal atrial fibrillation no longer on anticoagulation (recurrent hematuria and GI bleed), portal hypertensive gastropathy, history CVA with left-sided deficits, CLL, and ESRD TTS ( [facility] follwos with [facility] 1. ESRD: HD today ( off shift as usu TTS) next HD Fri or Sat--will reassess 2. Incr WBC with pyuria: c/w UTI 3. Low BPs: ongoing prob--gets midrdine pre HD REC: ABx as noted; cont HD 3x/wk and midrdine for BP support--note oupt HD unit can NOT give Invanz as its not on our formulary--if needed ques is whether SNF can give it and what IV access does he have for oit or is there an alt PO ABX that will work I TT Dr Denise re: the ABx issue as noted abopve Will follow w team Time Spent With Patient Time: Total time managing care of this patient today ____ minutes. Progress Note: Quality Stroke Does the patient have a stroke diagnosis?: No
[2023-05-10 15:40] VITALS: BP 101/57; PULSE 64; RESP 16; TEMP 36.7; O2SAT 96
[2023-05-10] MEDS: 0.9 % Sodium Chloride Flush 3 ML SYRINGE IVFLUSH ×2 (15:59→21:41)
[2023-05-10 19:19] VITALS: BP 104/52; PULSE 72; RESP 16; TEMP 36.7; O2SAT 100
[2023-05-10] MEDS: Atorvastatin Calcium 40 MG TABLET PO (21:41)
[2023-05-11] MEDS: Heparin Sodium,Porcine 5,000 UNIT/ML VIAL 5000 UNIT SUBCUT ×2 (01:39→13:51)
[2023-05-11 02:55] VITALS: BP 98/54; PULSE 68; RESP 16; TEMP 36.1; O2SAT 94
[2023-05-11] MEDS: Levothyroxine Sodium 50 MCG TABLET PO (05:57)
[2023-05-11 07:41] VITALS: BP 96/45; PULSE 67; RESP 20; TEMP 36.1; O2SAT 96
[2023-05-11] MEDS: Multivitamin TABLET 1 TAB PO (08:22)
[2023-05-11] MEDS: Midodrine HCl 5 MG TABLET PO (08:22)
[2023-05-11] MEDS: 0.9 % Sodium Chloride Flush 3 ML SYRINGE IVFLUSH (08:22)
[2023-05-11 09:49] LABS: Hematocrit 28.2 % (42.0-52.0); Hemoglobin 9.1 g/dl (14.0-18.0); Mean Corpuscular HGB Conc 32.3 g/dl (31.0-36.0); Mean Corpuscular Volume 108.5 fL (80.0-98.0); Mean Platelet Volume 8.9 fL (9.4-12.4); Platelet Count 109 X10*3/uL (160-400); Red Cell Distribution Width 16.1 % (11.0-16.0); White Blood Count 12.9 X10*3/uL (4.8-10.8)
--- NOTE | 2023-05-11 10:29 | MHC.CLN ---
F/U DIET=CARDIAC. INTAKE VARIABLE, 50-100%. PATIENT DISCHARGED 05/07 S/P RIGHT HIP BHANU ARTHROPLASTY. NOW WITH UTI. ESRD ON HEMODIALYSIS. PATIENT IS UNDERWEIGHT WITH WEIGHT 83% IBW. NO PRESSURE INJURIES TO SKIN. REPORTED THAT DOES NOT TAKE SUPPLEMENTS AT FACILITY. FOLLOW FOR INTAKE AND LABS.
--- NOTE | 2023-05-11 13:34 | MHC.CM.PN ---
tm left for [facility] pts hcp..re pt dc today at 430
--- NOTE | 2023-05-11 14:58 | PC.NURSE ---
Addendum entered by Umm Colvin RN 05/11/23 17:49: Call placed to [facility] 17:50, Spoke with Nurse Jamie, Report given, Nurse verbalizes understanding that patient is returning with a new 22G peripheral IV access to R upper arm. Original Note: Pt to return to [facility], Per case management a new peripheral IV access is needed for IV antibiotics to be administered at facility, This nurse removed current access of 22G Left lower forearm, line was intact, dressing applied. GUERLINE Patrick obtained access 22G Right upper arm at 15:00, securement device and transparent dressing applied, IV site is asymptomatic,no redness, erythema or swelling noted, blood return present, Pt reports no pain upon flushing. IV to be discontinued 05/15/2023 at 15:00 per [facility] policy. Pt to be discharged with IV intact.
--- NOTE | 2023-05-11 15:34 | HO.WOUND ---
Wound Consult: Initial 77yr old male [place] [facility]05[place]08/23 10:23- See progress notes and H&P for detailed history. Pt recently admitted and discharged s/p fall at home resulting in Right Hip Fracture with OR repair and d/c to SNF - pt seen by inpatient wound care nurse previous admission. Left Chest Etiology: Suspected Cancerous Lesion Measurements: 5cm x 5cm x 1cm Wound Bed: pink Fungating Neoplasm, not assessed to be friable at this time. Drainage / Odor: mild odor noted with dressing removal Edges: ?Irregular and not attached - mushroom appearance Soila wound: ? Intact No Induration, No Fluctuance, Erythema, Warmth - does not appear infected at time of my assessment Pain: denies Goals of Treatment: ? Defer to provider to confirm etiology and or treatment options. Topical care can consist of exudate absorption and odor management. Bilateral Legs Left Forearm Bilateral Lower Legs and left forearm Etiology: Skin Tears Wound Bed: moist partial thickness wound beds Drainage / Odor: None Edges: ?Irregular and attached - flap re-approximated to left arm Soila wound: ? Intact dry skin No Induration, No Fluctuance, Erythema, Warmth - Hemosiderin staining noted to legs Pain: denies Goals of Treatment: ? Moist wound healing with xeroform Left thigh Etiology: Suspected cutaneous horn Wound Bed: dry sharp horn noted Drainage / Odor: None Edges: ?Irregular and attached Soila wound: ? Intact Pain: tenderness reported Goals of Treatment: ? Defer to Dermatology Outpt for Biopsy / etiology and treatment - protect surrounding tissue from injury with foam dressings Recommendations: 1. Turn and Reposition every 2 hours and as needed for patient comfort. 2. Off Load all bony prominences with use of pillows and heel boots, apply preventiave foam dressings over bony prominences. 3. Monitor for incontinence and moisture control - use barrier creams as needed. 4. Provide adequate and supplemental nutrition. 5. Order low air loss mattress. 6. Sacrum - Apply Sacral foam dressing for prevention. Peel back and assess Q shift and change every 3 days and PRN. 7. Left Chest - Cleanse with NS, Pat Dry. Apply Cuticern moist gauze over wound bed to prevent sticking apply Alginate (Durafiber AG) to wound bed cover with Foam dressing. Change every other day. If Alginate is sticking to wound bed wet prior to removal to prevent bleeding. Defer to Hemotolgy for biopsy and workup if not already completed. 8. Bilateral Lower Legs and left forearm - Cleanse with NS or [place], dry with soft cloth. Apply lotion / Vaseline to lower legs. Cover open wounds with double layer xeroform, cover with abd pad and gauze wrap. Change daily. 9. Left Thigh - Protect surrounding tissue from injury with foam dressings. Peel back and assess Q shift and change every 3 days and PRN. Re-consult wound care Nurse for wound deterioration
[2023-05-11 16:00] VITALS: BP 122/63; PULSE 91; RESP 16; TEMP 36.4; O2SAT 93
== END 2023-05-11 18:36 | disposition skilled nursing facility (03) | DRG 689 ==
LOC: HO.ED 05:05 → HO.EDOVER 10:29 → HO.S3 19:58
PROVIDERS: Admitting Provider Internal Medicine; Emergency Provider Emergency Medicine; PCP Family Medicine; Visit Provider Internal Medicine
DX: N39.0 Urinary tract infection, site not specified (principal); N18.6 End stage renal disease; I50.22 Chronic systolic (congestive) heart failure; I48.20 Chronic atrial fibrillation, unspecified; I13.2 Hypertensive heart and chronic kidney disease with heart failure and with stage 5 chronic kidney disease, or end stage renal disease; I69.354 Hemiplegia and hemiparesis following cerebral infarction affecting left non-dominant side; Z16.12 Extended spectrum beta lactamase (ESBL) resistance; L97.829 Non-pressure chronic ulcer of other part of left lower leg with unspecified severity; L97.819 Non-pressure chronic ulcer of other part of right lower leg with unspecified severity; K74.60 Unspecified cirrhosis of liver; D53.9 Nutritional anemia, unspecified; D63.1 Anemia in chronic kidney disease; B96.20 Unspecified Escherichia coli [E. coli] as the cause of diseases classified elsewhere; Z99.2 Dependence on renal dialysis; I87.8 Other specified disorders of veins; I25.10 Atherosclerotic heart disease of native coronary artery without angina pectoris; E03.9 Hypothyroidism, unspecified; F01.50 Vascular dementia, unspecified severity, without behavioral disturbance, psychotic disturbance, mood disturbance, and anxiety; Z95.1 Presence of aortocoronary bypass graft; Z96.641 Presence of right artificial hip joint; I95.9 Hypotension, unspecified; Z20.822 Contact with and (suspected) exposure to COVID-19; Z79.890 Hormone replacement therapy; Z79.899 Other long term (current) drug therapy
CPT/HCPCS: 36415; 71045; 72170; 80048; 80053; 80076; 81001; 83605; 83690; 83735; 84145; 84484; 85025; 85027; 85610; 86850; 86900; 86901; 87040; 87086; 87088; 87186; 87635; 90999; 93005; 93306; 97110; 97162; 99285; J0696; J1644; J2185; J2543; Q9957

== ENCOUNTER → 2023-05-08 10:23 | Outpatient (BNV) | payer MEDICARE, MEDICAID, SELFPAY | PROVIDERS: Admitting Provider Internal Medicine; Emergency Provider Emergency Medicine; PCP Family Medicine; Visit Provider Physician Assistant | DX: S72.009A Fracture of unspecified part of neck of unspecified femur, initial encounter for closed fracture (principal) | CPT/HCPCS: 99024 ==

== ENCOUNTER → 2023-05-08 10:23 | Outpatient (BNV) | payer MEDICARE, MEDICAID, SELFPAY | PROVIDERS: Admitting Provider Internal Medicine; Emergency Provider Emergency Medicine; PCP Family Medicine; Visit Provider Physician Assistant | DX: N18.6 End stage renal disease (principal); N39.0 Urinary tract infection, site not specified; I95.9 Hypotension, unspecified; R79.89 Other specified abnormal findings of blood chemistry | CPT/HCPCS: 99223; 99232; 99238 ==

== ENCOUNTER → 2023-05-08 10:23 | Outpatient (BNV) | payer MEDICARE, MEDICAID, SELFPAY | PROVIDERS: Admitting Provider Internal Medicine; Emergency Provider Emergency Medicine; PCP Family Medicine; Visit Provider Internal Medicine | DX: R79.89 Other specified abnormal findings of blood chemistry (principal); I25.10 Atherosclerotic heart disease of native coronary artery without angina pectoris; I42.9 Cardiomyopathy, unspecified; I36.1 Nonrheumatic tricuspid (valve) insufficiency; I48.91 Unspecified atrial fibrillation; I49.3 Ventricular premature depolarization | CPT/HCPCS: 93010; 93306; 99223 ==

== ENCOUNTER 2023-05-18 14:41 | Outpatient (REF) | payer MEDICARE, MEDICAID, SELFPAY | END 2023-05-18 14:42 | disposition home or self-care (01) | LOC: HO.HOSX 14:41 | PROVIDERS: Visit Provider Physician Assistant | DX: Z13.89 Encounter for screening for other disorder (principal) ==

== ENCOUNTER 2023-05-21 10:48 | Outpatient (REF) | payer MEDICARE, MEDICAID, SELFPAY | END 2023-05-21 10:49 | disposition home or self-care (01) | LOC: HO.HOSX 10:48 | PROVIDERS: Visit Provider Physician Assistant | DX: Z13.89 Encounter for screening for other disorder (principal) ==

== ENCOUNTER 2023-06-21 11:50 | Outpatient (REF) | payer MEDICARE, SELFPAY | END 2023-06-21 11:51 | disposition home or self-care (01) | LOC: HO.HOSX 11:50 | PROVIDERS: Visit Provider Physician Assistant | DX: Z13.89 Encounter for screening for other disorder (principal) ==

== ENCOUNTER 2023-07-08 15:34 | Inpatient (IN) | payer MEDICARE, OTHER, SELFPAY ==
--- NOTE | ~2023-07-08 | XR_ITS ---
EXAMINATION: XR LUMBOSACRAL SPINE CLINICAL INFORMATION: Low back pain COMPARISON: None available. TECHNIQUE: Three views of the lumbosacral spine. FINDINGS: There are T12 and L2 vertebral body compression fractures. These are age indeterminate but october [address] No other fracture. Bone alignment and degenerative spondylosis and facet arthritis. Atherosclerotic disease. Visualized right hip prosthesis Enlarged heart. Partially visualized catheter projects over SVC/right atrium. There may be bilateral pleural effusions XR/XR lumbar spine 2-3V IMPRESSION: T12 and L2 vertebral body compression fractures. These are age indeterminate but new in the interval from October [address] Degenerative changes.
--- NOTE | ~2023-07-08 | CT_ITS ---
EXAMINATION: CT ABDOMEN AND PELVIS WITHOUT CONTRAST CLINICAL INFORMATION: Fever, poor appetite, back pain COMPARISON: 10/07/2022 TECHNIQUE: Multidetector volumetric imaging was performed from the superior aspect of the liver through the pubic symphysis. Sagittal and coronal reformatted images were obtained on the technologist's workstation. This CT examination was performed using dose optimization techniques as appropriate, variously including the following: *Automated exposure control *Adjustment of mA and/or kV according to patient size (this includes techniques or standardized protocols for targeted exams where dose is matched to indication/reason for exam; i.e. extremities or head) *Use of iterative reconstruction technique DLP: 368 mGy-cm FINDINGS: LUNG BASES: Cardiomegaly noted. Partially visualized small left pleural effusion with pleural thickening, likely with left lower lobe collapse. Trace right pleural effusion. LIVER, GALLBLADDER, AND BILIARY TREE: The liver demonstrates a nodular contour suspicious for cirrhosis. Limited assessment for focal lesions without intravenous contrast. No significant intrahepatic biliary ductal dilatation. Cholelithiasis is noted as well as pneumobilia and small amount of gas in the gallbladder, also present previously. PANCREAS: Unremarkable. SPLEEN: Unremarkable. ADRENAL GLANDS: Unremarkable. KIDNEYS AND URETERS: No hydronephrosis or obstructing calculus bilaterally. Left renal cysts are present; no follow-up recommended. A couple small bilateral renal calculi are noted. BLADDER: Suboptimally assessed due to streak artifact. Bladder appears nearly empty with a thick-walled appearance. GASTROINTESTINAL TRACT: Large amount of stool in the rectum with adjacent stranding raising the possibility of developing stercoral colitis. Colonic diverticulosis is noted. No evidence of bowel obstruction. The appendix is unremarkable. ABDOMINAL WALL: Small lower right anterior abdominal wall hernia redemonstrated. LYMPH NODES: Scattered diverticula lymph nodes measuring up to the upper limits of normal in size, nonspecific. VASCULAR: There is atherosclerotic calcification along the aorta and iliac arteries. PELVIC VISCERA: Unremarkable. OSSEOUS STRUCTURES: Degenerative changes are noted in the spine. There is partial collapse of the T12 vertebral body with approximately 50% loss of height centrally along with multiple foci of gas, new from prior with associated retropulsion narrowing the central canal to approximately 11 mm. There is severe compression deformity of L2 with approximately 70% loss of height in the anterior to central portion as well as retropulsion which narrows the central canal to approximately 11 mm. L2 has a partially sclerotic appearance favoring a degree of chronicity, though this is also new from prior. Right hip arthroplasty hardware is partially visualized. CT/CT abdomen pelvis wo IV con IMPRESSION: 1. Partial collapse of the T12 vertebral body with approximately 50% loss of height centrally and retropulsion narrowing the central canal to approximately 11; this is new from 10/07/2022. 2. Severe compression deformity of L2 with retropulsion and narrowing of the central canal to approximately 11 mm. This has a partially sclerotic appearance favoring a degree of chronicity, though this is also new from prior. 3. Large amount of stool in the rectum with adjacent stranding raising the possibility of developing stercoral colitis. 4. Bladder wall thickening, which could be due to underdistention or cystitis. 5. Partially visualized small left pleural effusion with pleural thickening, likely with left lower lobe collapse. Trace right pleural effusion. 6. Cardiomegaly. 7. Cholelithiasis. Pneumobilia and gas in the gallbladder, also present previously. 8. Nodular hepatic contour suspicious for cirrhosis.
--- NOTE | ~2023-07-08 | XR_ITS ---
EXAMINATION: XR CHEST CLINICAL INFORMATION: Question pneumonia COMPARISON: Chest radiograph 05/08/2023, CT chest 10/07/2022. TECHNIQUE: Frontal view of the chest was obtained. FINDINGS: Right internal jugular dialysis catheter in unchanged position terminating over the right atrium. Redemonstrated low lung volumes with increased hazy bilateral perihilar interstitial opacities and peribronchial cuffing. Unchanged confluent retrocardiac airspace opacity, likely relates to chronic pleural effusion and overlying rounded atelectasis better appreciated on prior CT chest. No pneumothorax. Cardiomediastinal silhouette is unchanged, enlarged. XR/XR chest 1V IMPRESSION: New mild interstitial pulmonary edema. Otherwise unchanged from 05/08/2023 without new focal consolidation.
--- NOTE | ~2023-07-08 | MR_ITS ---
MRI OF THE THORACIC SPINE WITHOUT CONTRAST MRI OF THE LUMBAR SPINE WITHOUT CONTRAST CLINICAL INFORMATION: Back pain. Thoracic fracture. Vertebral fracture. COMPARISON: Abdomen/pelvic CT 07/09/2023.. TECHNIQUE: Multiplanar multisequence MR imaging of the thoracic and lumbar spine obtained without contrast. FINDINGS: MRI THORACIC SPINE: Redemonstration of an acute to subacute vertebral body burst fracture at T12 associated with 5 mm upper endplate retropulsion that mildly narrows the central canal at the upper T12 level without compressing the lower thoracic cord. Fluid signal intensity cleft through the T12 vertebral body corresponds to osteonecrosis in the setting of an osteoporotic fracture. The remaining thoracic vertebral body heights are overall maintained. There is an upper thoracic kyphosis. There is paraspinal muscular strain injury within the lower thoracic spine. Thoracic cord morphology is normal and there are no thoracic cord signal changes accounting for artifact. A left pleural effusion with adjacent left lower lobe collapse is again noted and better appreciated on the prior CT study. There is also a right pleural effusion. No significant thoracic disc herniations. No severe central canal stenosis and no severe foraminal stenosis within the thoracic spine. MRI LUMBAR SPINE: Redemonstration of an acute to subacute edematous vertebral body burst fracture at L2 exhibiting up to 80% vertebral body height loss and 5 mm upper endplate retropulsion that mildly narrows the central canal at the upper L2 level. The remaining lumbar vertebral body heights are maintained. There is disc volume loss at L2-L3. Disc desiccation at all lumbar levels. Conus terminates at the L1 level. Simple left renal cyst for which no further imaging follow-up is warranted. There is paraspinal muscular atrophy bilaterally. L1-L2: L2 upper endplate retropulsion mildly narrows the central canal. No foraminal stenosis. L2-L3: Posterior disc contour normal. No central canal stenosis and no foraminal stenosis. Ventral annular fissure. L3-L4: Small annular disc bulge. No central canal stenosis and no foraminal stenosis. Ventral annular fissure. L4-L5: Small annular disc bulge and moderate bilateral facet arthropathy. No central canal stenosis. There is mild to moderate left and mild right foraminal stenosis. L5-S1: Disc contour is normal. There is severe bilateral facet arthropathy. No central canal stenosis and no foraminal stenosis. MR/MR thoracic spine wo con IMPRESSION: - Redemonstration of an acute to subacute edematous biconcave vertebral body burst fracture at T12 with up to 60% vertebral body height loss and 5 mm upper endplate retropulsion that results in mild central canal stenosis at the upper T12 level. There is also osteonecrosis within the T12 vertebral body in keeping with an osteoporotic fracture. There is paraspinal muscular strain injury within the lower thoracic and upper lumbar spine. - Redemonstration of an acute to subacute edematous vertebral body burst fracture at L2 exhibiting up to 80% vertebral body height loss and 5 mm upper endplate retropulsion that mildly narrows the central canal at the upper L2 level. - A left pleural effusion with adjacent left lower lobe collapse is again noted and better appreciated on the prior CT study. There is also a right pleural effusion.
[2023-07-08 15:50] VITALS: BP 121/68; PULSE 85; RESP 18; TEMP 36.5; O2SAT 93; BMI 20.4
--- NOTE | 2023-07-08 15:57 | ED_ITS ---
HPI - General Adult General Chief complaint: Back Pain/Injury Stated complaint: back pain Time Seen by Provider: 07/08/23 23:55 Source: patient, family and old records reviewed Mode of arrival: ambulatory Limitations: other (dementia) History of Present Illness HPI narrative: 77 yo male wiht PMH of CAD, elevated WBC count, CLL, ESRD on HD [facility], UTI ESBL + E. Coli, HPL, afib, cardiomyopathy here with c/o having back pain starting Sunday AM that has worsened. He just left rehab about a week ago. Family denies trauma. He has pain in mid back but no reported leg weakness, numbness, has baseline urinary incontinence. Can barely get up now. Patient lost appetite which is very unusual this started yesterday after HD MD complaint: back pain Onset (ago): day(s) (6) Location: back Radiation: non-radiation Severity: severe Quality: aching Pain Consistency: constant Relieving factors: rest Exacerbating factors: movement Associated symptoms: loss of appetite (unusual for patient) Treatments prior to arrival: none Related Data Home Medications Medication Instructions Recorded Confirmed levothyroxine 50 mcg tablet 50 mcg PO DAILY 10/07/22 07/09/23 vitamin B complex and vitamin C 1 cap PO DAILY 10/07/22 07/09/23 no.20-folic acid 1 mg capsule rosuvastatin 10 mg tablet (Crestor) 10 mg PO BEDTIME 05/01/23 07/09/23 ipratropium 0.5 mg-albuterol 3 mg 3 ml inhalation Q4H PRN Shortness 07/09/23 07/09/23 (2.5 mg base)/3 mL nebulization Of Breath/Wheezing soln sevelamer carbonate 0.8 gram oral 0.8 g PO TID 07/09/23 07/09/23 powder packet Previous Rx's Medication Instructions Recorded acetaminophen 325 mg tablet 650 mg (2 x 325 mg) PO Q6H PRN 05/07/23 Pain, Mild (Pain Scale 1-3) #30 tabs docusate sodium 100 mg capsule 100 mg PO DAILY PRN Constipation 05/07/23 #30 caps heparin (porcine) 5,000 unit/mL 5,000 unit subcut Q12H 42 days #84 05/07/23 injection solution mL meropenem 500 mg intravenous 500 mg IV Q24H #8 ea 05/11/23 solution Allergies Allergy/AdvReac Type Severity Reaction Status Date / Time No Known Allergies Allergy Verified 05/08/23 04:31 [No Known Allergies*] Review of Systems 2 Review of Systems: Constitutional : No Weight loss, No Fever, No Chills, pos fatigue, pos anorexia ENT/Mouth : No Hearing loss, No Ear Pain, No Nasal Congestion, No Sinus Pain, No Hoarseness, No sore throat, No Rhinorrhea, No Swallowing Difficulty Cardiovascular : No Chest Pain, No SOB Respiratory : No Cough, No Dyspnea Gastrointestinal : No Nausea, No Vomiting, No Diarrhea, No abdominal Pain, No Hematochezia, No Melena Genitourinary : No Dysuria, No Urinary Frequency, No Hematuria, No Urinary Incontinence, Musculoskeletal : positive back pain Skin : No Skin Lesions, No rash Neuro : No Weakness, No Numbness, No Paresthesias, no loss of bowel or bladder incontinence, no saddle anesthesia All other systems reviewed and are negative PMFSH Past Medical History Source: old records reviewed and obtained from family Medical History Cardiomyopathy CAD (coronary artery disease) ESRD (end stage renal disease) Liver cirrhosis CHF (congestive heart failure) CLL (chronic lymphocytic leukemia) CVA (cerebral vascular accident) GI bleed Recurrent hematuria HLD (hyperlipidemia) HTN (hypertension) Hypothyroid Dementia Dialysis patient Afib Chronic kidney disease Surgical History S/P triple vessel bypass Social History Social History Household Members: Other Household Members Other:: sister, patient was currently at a rehab facility Housing: House Do you presently have visiting nurse or other home services: Yes Alcohol intake: never Patient Tobacco Use Status: Never used Tobacco Use of substances other than those prescribed or required for medical reasons: No Currently Displaying Signs/Symptoms of Drug Intoxication Withdrawal: No Have you been hit, kicked, punched, or otherwise hurt by someone within the past year? If so, by whom?: No Do you feel safe in your current relationship?: No Current Relationship Is there a partner from a previous relationship who is making you feel unsafe now?: No Are you made to feel afraid or neglected: No Advance Directives: Yes Advance Directives on File: Yes Advance Directives Date on File: 05/08/23 Do you have thoughts of harming others: None Do you have a plan to hurt others: No Plan Recently lost weight without trying: Unsure Eating poorly because of decreased appetite: Yes Nutrition Risks: Poor intake 0-25% >4 days Poor oral hygiene: No service: No Physical Exam ED Vital Signs: Vital Signs - 24 hr 07/08/23 15:50 07/08/23 21:12 07/09/23 00:06 Temperature 97.7 F 98.4 F 98.8 F Pulse Rate 85 91 97 Respiratory Rate 18 18 16 Blood Pressure 121/68 125/57 L 116/82 Pulse Oximetry 93 94 97 Oxygen Delivery Method Room Air Room Air Room Air 07/09/23 01:20 07/09/23 01:52 07/09/23 02:22 Temperature 98.7 F 98.7 F Pulse Rate 96 91 100 Respiratory Rate 20 20 20 Blood Pressure 114/78 116/68 122/78 Pulse Oximetry 96 97 97 Oxygen Delivery Method Room Air Room Air Room Air BMI result Body Mass Index 20.4 Appearance: Alert. acting at baseline, slightly confused No acute distress. Eyes: Pupils equal, round and reactive to light. ENT: Pharynx normal. Neck: Normal inspection. Neck supple. CVS: Normal heart rate and rhythm. Pulses normal. chest wall line c/d/i Respiratory: No respiratory distress. Breath sounds normal. Abdomen: Soft and nontender. Back: ttp along posterior mid spine Skin: Skin warm and dry. pale skin color. thin skin Extremities: No lower extremity edema. Neuro: confused No motor deficit. No sensory deficit. Course Course Course Narrative: RME: 77 yold ESRD male presents to the ED for low back pain and not able to walk due to pain. no trauma. sister also states decrease appetiite sine yesterday Medications Administered Generic Name Dose Route Start Last Admin Trade Name Freq PRN Reason Stop Dose Admin Atorvastatin Calcium 40 mg 07/09/23 21:00 07/09/23 19:22 Atorvastatin Calcium 40 Mg Tablet PO 40 mg BEDTIME ROSALIA Administration Heparin Sodium (Porcine) 5,000 unit 07/09/23 02:30 07/10/23 14:16 Heparin Sodium,Porcine 5,000 Unit/Ml Vial SUBCUT 5,000 unit Q12H ROSALIA Administration Meropenem 500 mg/ Sodium 50 mls @ 100 mls/hr 07/09/23 21:00 07/10/23 09:00 Chloride IV Infused Q12H ROSALIA Infusion Levothyroxine Sodium 50 mcg 07/10/23 06:00 07/10/23 05:29 Levothyroxine Sodium 50 Mcg Tablet PO 50 mcg DAILY@0600 ROSALIA Administration Oxycodone HCl 5 mg 07/09/23 07:25 07/09/23 14:35 Oxycodone Hcl Immed Release 5 Mg Tablet PO 5 mg Q4H PRN Administration mod pain Sevelamer Carbonate 800 mg 07/09/23 17:00 07/10/23 11:59 Sevelamer Carbonate Powder 800 Mg Powd.Pack PO 800 mg TIDWM ROSALIA Administration Sodium Chloride 3 ml 07/09/23 08:00 07/10/23 14:16 0.9 % Sodium Chloride Flush 3 Ml Syringe IVFLUSH 3 ml QSHIFT ROSALIA Administration Discontinued Medications Generic Name Dose Route Start Last Admin Trade Name Freq PRN Reason Stop Dose Admin Furosemide 80 mg 07/09/23 06:06 07/09/23 06:31 Furosemide 100 Mg/10 Ml Vial IVPUSH 07/09/23 06:07 80 mg ONCE ONE Administration Protocol Ertapenem 0.5 gm/ Sodium 50 mls @ 100 mls/hr 07/09/23 00:00 07/09/23 01:28 Chloride IV 07/09/23 00:29 Infused ONCE ONE Infusion Sodium Chloride 500 mls @ 250 mls/hr 07/09/23 01:00 07/09/23 01:59 Ns IVCONT 07/09/23 01:59 Not Given .Q2H ROSALIA Sodium Chloride 250 mls @ 250 mls/hr 07/09/23 02:00 07/09/23 04:12 Ns IVCONT 07/09/23 02:59 Infused .Q1H ROSALIA Infusion Meropenem 1 gm/ Sodium 100 mls @ 200 mls/hr 07/09/23 02:30 07/09/23 04:24 Chloride IV Not Given Q8H ROSALIA Sodium Zirconium Cyclosilicate 5 gm 07/09/23 00:46 07/09/23 01:34 Sodium Zirconium Cyclosilicate 5 Gm Powd.Pack PO 07/09/23 00:47 5 gm ONCE ONE Administration Medical Decision Making Medical Decision Making MDM Narrative: 77 yo male wiht PMH of CAD, elevated WBC count, CLL, ESRD on HD [facility], UTI ESBL + E. Coli, HPL, afib, cardiomyopathy here with back pain, fatigue, anorexia but no trauma has new compression fractures T12 and L2 - he is intact at his baseline - WBC count is up and has poor PO intake family notes this is very unusual for him. At this time concern for UTI and new compression fractures will obtain basic labs, UA, lactic acid, cultures start on empiric ertapenem and likely admit. Differential Diagnosis Differential Diagnoses: The differential diagnosis associated with the presentation includes UTI, compression fractures, fatigue, viral syndrome Admission/Observation Consideration of admission/observation: Escalation of care including admission/observation considered admit for further workup Consult Healthcare Provider Management of the patient was discussed with: Hospitalist (will admit) Lab Data [facility] Lab Attestation statement: I reviewed the patient's lab results. 07/10/23 04:58 07/10/23 04:58 Labs: Lab Results 07/08/23 07/09/23 07/09/23 Range/Units 17:05 00:29 00:34 WBC 14.7 H (4.8-10.8) X10*3/uL RBC 3.63 L D (4.60-5.80) X10*6/uL Hgb 12.7 L D (14.0-18.0) g/dl Hct 39.0 L D (42.0-52.0) % MCV 107.4 H (80.0-98.0) fL MCH 35.0 H (27.0-33.0) pg MCHC 32.6 (31.0-36.0) g/dl RDW 16.1 H (11.0-16.0) % Plt Count 122 L (160-400) X10*3/uL MPV 9.3 L (9.4-12.4) fL Immature Gran % (Auto) 0.5 H (0.0-0.4) % Neut % (Auto) 60.7 (45-73) % Lymph % (Auto) 34.6 (20-40) % [place] % (Auto) 3.7 (2-11) % Eos % (Auto) 0.3 (0-4) % Baso % (Auto) 0.2 (0-2) % Lymph # (Auto) 5.1 H (1.2-4.9) X10*3/uL [place] # (Auto) 0.5 (0.1-1.2) X10*3/uL Eos # (Auto) 0.1 (0.0-0.4) X10*3/uL Baso # (Auto) 0.0 (0.0-0.2) X10*3/uL Abs Immat Gran (auto) 0.07 H (0.00-0.03) X10*3/uL Absolute Neuts (auto) 8.9 H (2.0-8.3) x10*3/uL Absolute Nucleated RBC 0.000 (0.0-0.012) X10*3/uL Nucleated RBC % (auto) 0.0 (0.0-0.2) /100WBC Smear Tech's Comments VERIFIED Sodium 141 (135-145) mmol/L Potassium 5.3 H D (3.3-5.1) mmol/L Chloride 98 (96-108) mmol/L Carbon Dioxide 25 (22-29) mmol/L Anion Gap 23 H (12-20) BUN 44 H (9-16) mg/dL Creatinine 4.76 H* (0.5-1.4) mg/dL Estim Creat Clear Calc 11.1 Estimated GFR 12 Random Glucose 107 (60-115) mg/dL Lactic Acid 2.5 H* (0.5-2.0) mmol/L Calcium 9.7 D (8.4-10.2) mg/dL Total Bilirubin 1.5 H (0.0-1.0) mg/dL AST 21 (5-37) U/L ALT 14 (0-40) U/L Alkaline Phosphatase 122 H (39-117) U/L B-Natriuretic Peptide (<100) pg/mL Total Protein 7.2 (6.5-8.0) g/dL Albumin 3.7 (3.5-5.0) g/dL Urine Color Dark Yellow Urine Appearance Turbid Urine pH 6.0 (5.0-9.0) Ur Specific [place] 1.020 (1.005-1.025) Urine Protein 300 (3+) H (Neg-Trace) mg/dL Urine Glucose (UA) Negative (Negative) mg/dL Urine Ketones Trace (Negative) mg/dL Urine Blood Large (3+) H (Negative) Urine Nitrite Negative (Negative) Ur Leukocyte Esterase Large (3+) H (Negative) Urine RBC >20 H (0-2) /HPF Urine WBC >50 H (0-5) /HPF Ur Squamous Epith Cells 3-5 (0-2) /HPF Urine Bacteria 4+ (None Seen) Hyaline Casts 6-10 (0-2) /LPF COVID-19 (JAYLON) Negative (Negative) COVID-19 Clin Com See Note Influenza Type A (MARCELINO) Negative (Negative) Influenza Type B (MARCELINO) Negative (Negative) Influenza A & B Note See Note 07/09/23 Range/Units 01:18 WBC (4.8-10.8) X10*3/uL RBC (4.60-5.80) X10*6/uL Hgb (14.0-18.0) g/dl Hct (42.0-52.0) % MCV (80.0-98.0) fL MCH (27.0-33.0) pg MCHC (31.0-36.0) g/dl RDW (11.0-16.0) % Plt Count (160-400) X10*3/uL MPV (9.4-12.4) fL Immature Gran % (Auto) (0.0-0.4) % Neut % (Auto) (45-73) % Lymph % (Auto) (20-40) % [place] % (Auto) (2-11) % Eos % (Auto) (0-4) % Baso % (Auto) (0-2) % Lymph # (Auto) (1.2-4.9) X10*3/uL [place] # (Auto) (0.1-1.2) X10*3/uL Eos # (Auto) (0.0-0.4) X10*3/uL Baso # (Auto) (0.0-0.2) X10*3/uL Abs Immat Gran (auto) (0.00-0.03) X10*3/uL Absolute Neuts (auto) (2.0-8.3) x10*3/uL Absolute Nucleated RBC (0.0-0.012) X10*3/uL Nucleated RBC % (auto) (0.0-0.2) /100WBC Smear Tech's Comments Sodium (135-145) mmol/L Potassium (3.3-5.1) mmol/L Chloride (96-108) mmol/L Carbon Dioxide (22-29) mmol/L Anion Gap (12-20) BUN (9-16) mg/dL Creatinine (0.5-1.4) mg/dL Estim Creat Clear Calc Estimated GFR Random Glucose (60-115) mg/dL Lactic Acid (0.5-2.0) mmol/L Calcium (8.4-10.2) mg/dL Total Bilirubin (0.0-1.0) mg/dL AST (5-37) U/L ALT (0-40) U/L Alkaline Phosphatase (39-117) U/L B-Natriuretic Peptide 2834 H (<100) pg/mL Total Protein (6.5-8.0) g/dL Albumin (3.5-5.0) g/dL Urine Color Urine Appearance Urine pH (5.0-9.0) Ur Specific [place] (1.005-1.025) Urine Protein (Neg-Trace) mg/dL Urine Glucose (UA) (Negative) mg/dL Urine Ketones (Negative) mg/dL Urine Blood (Negative) Urine Nitrite (Negative) Ur Leukocyte Esterase (Negative) Urine RBC (0-2) /HPF Urine WBC (0-5) /HPF Ur Squamous Epith Cells (0-2) /HPF Urine Bacteria (None Seen) Hyaline Casts (0-2) /LPF COVID-19 (JAYLON) (Negative) COVID-19 Clin Com Influenza Type A (MARCELINO) (Negative) Influenza Type B (MARCELINO) (Negative) Influenza A & B Note Independent Interpretation I performed an independent interpretation of an: EKG, Plain X-Ray (compression fracture) and CT Scan (compression fractures but no LE weakness or numbness moving legs and raising legs up in bed no LE deficits) Interpretation: Rate: 99 Rhythm: afib [place]: left RBBB ST T wave : no BOWEN, inverted t waves I and aVL qTC: 541 prior studies: no acute ischemia The study has been interpreted contemporaneously by me. . Radiology Impression Discussion of test interpretation with radiology: I have reviewed the radiologist's reading. Independent Historian Clinical information obtained from an independent historian. History obtained from or confirmed by: Other (family) External Record Review External record reviewed: Inpatient record Prescription Management I considered prescription management with: Other Discharge Plan Discharge Clinical Impression: Acute UTI Elevated WBC count Qualifiers: Leukocytosis type: unspecified Qualified Code(s): D72.829 - Elevated white blood cell count, unspecified Compression fx, lumbar spine Qualifiers: Encounter type: initial encounter Lumbar vertebra fracture level: L2 Qualified Code(s): S32.020A - Wedge compression fracture of second lumbar vertebra, initial encounter for closed fracture Closed compression fracture of thoracic vertebra Qualifiers: Encounter type: initial encounter Qualified Code(s): S22.000A - Wedge compression fracture of unspecified thoracic vertebra, initial encounter for closed fracture Patient Disposition: Admitted As Inpatient Interventions: Admission Worksheet (ED) Last Done: 07/09/23 04:44 Discharge Date/Time: 07/09/23 05:57
[2023-07-08 17:17] LABS: Basophils Percent Auto 0.2 % (0-2); Eosinophils Absolute Auto 0.1 X10*3/uL (0.0-0.4); Eosinophils Percent Auto 0.3 % (0-4); Hemoglobin 12.7 g/dl (14.0-18.0); Imm Gran Abs Auto 0.07 X10*3/uL (0.00-0.03); Imm Gran Pct Auto 0.5 % (0.0-0.4); Lymphocytes Absolute Auto 5.1 X10*3/uL (1.2-4.9); Lymphocytes Percent Auto 34.6 % (20-40); MANUAL DIFF FLAG SCAN; Mean Corpuscular HGB Conc 32.6 g/dl (31.0-36.0); Mean Corpuscular Volume 107.4 fL (80.0-98.0); Mean Platelet Volume 9.3 fL (9.4-12.4); Monocytes Absolute Auto 0.5 X10*3/uL (0.1-1.2); Monocytes Percent Auto 3.7 % (2-11); Neutrophils Absolute Auto 8.9 x10*3/uL (2.0-8.3); Neutrophils Percent Auto 60.7 % (45-73); Platelet Count 122 X10*3/uL (160-400); Red Blood Count 3.63 X10*6/uL (4.60-5.80); Red Cell Distribution Width 16.1 % (11.0-16.0); SCAN SMEAR FLAG 1; White Blood Count 14.7 X10*3/uL (4.8-10.8)
[2023-07-08 17:27] LABS: COVID-19 Test Negative (Negative); IDNOW Serial# 08D9AD1C; IDNOW Serial# 152EDE1D; Influenza A Negative (Negative); Influenza B2 Negative (Negative)
[2023-07-08 17:33] LABS: Alanine Aminotransferase 14 U/L (0-40); Albumin Level 3.7 g/dL (3.5-5.0); Alkaline Phosphatase 122 U/L (39-117); Anion Gap 23 (12-20); Aspartate Amino Transferase 21 U/L (5-37); Bilirubin Total 1.5 mg/dL (0.0-1.0); Blood Urea Nitrogen 44 mg/dL (9-16); Calcium 9.7 mg/dL (8.4-10.2); Carbon Dioxide 25 mmol/L (22-29); Chloride 98 mmol/L (96-108); Creatinine Clr Calc Pharmacy 11.1; Estimated Glomerular Filt Rate 12; Glucose Random 107 mg/dL (60-115); Potassium 5.3 mmol/L (3.3-5.1); Sodium 141 mmol/L (135-145); Total Protein 7.2 g/dL (6.5-8.0)
[2023-07-08 17:47] LABS: SLIDE REVIEW VERIFIED
[2023-07-08 21:12] VITALS: BP 125/57; PULSE 91; RESP 18; TEMP 36.9; O2SAT 94
[2023-07-09] VITALS (9 sets, daily range): BP systolic 108–136; BP diastolic 54–95; PULSE 65–100; RESP 16–20; TEMP 35.8–37.1; O2SAT 96–98; BMI 20.4
--- NOTE | 2023-07-09 00:07 | MHC.EDTECH ---
Patient came in from triage area,patient changed into hospital attire, patient was incot,of a large amount of stool, (brown semi soft),rectal temp taking and is 98.8.call infante in reach
--- NOTE | 2023-07-09 00:25 | ECG_ITS ---
Test Reason : HYPERKALEMIA Blood Pressure : / mmHG Vent. Rate : 099 BPM Atrial Rate : 000 BPM P-R Int : 000 ms QRS Dur : 190 ms QT Int : 422 ms P-R-T Axes : 000 -76 088 degrees QTc Int : 541 ms Atrial fibrillation Right bundle branch block Left anterior fascicular block Bifascicular block Abnormal ECG When compared with ECG of 08-MAY-2023 03:44, No significant changes seen Referred By: Ching Giang Electronically Signed By:CYNTHIA FRANCOIS
--- NOTE | 2023-07-09 00:35 | PC.NURSE ---
Addendum entered by Oralia Alegria RN 07/09/23 00:39: Skin is W/P/D and no acute distress is noted. Original Note: Pt is a 77 y/o (male oriented only to person) who presents for c/o atraumatic back pain that has been ongoing for approximately 6 weeks. Pt denies any other complaint of pain or discomfort including chest pain, shortness of breath, abd pain, headache/dizziness, nausea/vomiting, and any recent illness or fever. Food and fluid intake has been WNL for pt and no problems voiding reported.
[2023-07-09 00:47] LABS: Appearance Urine Turbid; Color Urine Dark Yellow; Glucose Urine UA Negative (Negative); Leukocyte Esterase Urine Large (3+) (Negative); Nitrite Urine Negative (Negative); UMIC TRIGGER UACC YES; Urine Blood Large (3+) (Negative); Urine Ketones Trace mg/dL (Negative); Urine Protein 300 (3+) mg/dL (Neg-Trace)
[2023-07-09] MEDS: Ertapenem Sodium 0.5 GM in 0.9 % Sodium Chloride 50 ML IV (00:49)
--- NOTE | 2023-07-09 00:49 | MHC.EDTECH ---
EKG taken per order and signed by provider, Labs and blood cultures obtained and sent to lab. Assisted RN with a straight cath, output was 200MLS urine obtained and sent to lab. Patient tolerated procedure well.
[2023-07-09 00:53] LABS: Lactic Acid 2.5 mmol/L (0.5-2.0)
[2023-07-09 00:55] LABS: Bacteria Urine 4+ (None Seen); RBC Urine >20 /HPF (0-2); UACC Culture Trigger YES; WBC Urine >50 /HPF (0-5)
[2023-07-09] MEDS: Sodium Zirconium Cyclosilicate 5 GM POWD.PACK PO (01:34)
[2023-07-09 01:47] LABS: B Type Natriuretic Peptide 2834 pg/mL (<100)
[2023-07-09] MEDS: 0.9 % Sodium Chloride 250 ML IVCONT (01:58)
--- NOTE | 2023-07-09 02:25 | PM.IMHP ---
History of Present Illness Date of Service: 07/09/23 Chief Complaint: Back pain This is a 77-year-old male with pertinent history of vascular dementia, cirrhosis, congestive heart failure with reduced ejection fraction, essential hypertension, mixed hyperlipidemia, permanent atrial fibrillation not on anticoagulation, asthma not on home oxygen, hypothyroidism, history of CVA with left-sided deficits, CLL, ESRD on hemodialysis T/T/S who presents to the emergency department for evaluation of back pain. Unable to obtain history from the patient in the setting of dementia. Patient does not know why he is in the hospital. History obtained from ER provider and chart review. Patient was discharged from rehab facility about a week ago. No trauma reported. Patient has been complaining of back pain that started about 4-5 days prior to presentation. No lower extremity weakness, tingling, numbness. Also decreased appetite reported by family. Unable to obtain review of systems Review of Systems Review of Systems: Yes Unobtainable due to mental condition PMFSH Medical History Cardiomyopathy CAD (coronary artery disease) ESRD (end stage renal disease) Liver cirrhosis CHF (congestive heart failure) CLL (chronic lymphocytic leukemia) CVA (cerebral vascular accident) GI bleed Recurrent hematuria HLD (hyperlipidemia) HTN (hypertension) Hypothyroid Dementia Dialysis patient Afib Chronic kidney disease Pertinent family history: Unable to obtain Surgical History S/P triple vessel bypass Social History Household Members: Family Household Members Other:: Sister Joyce Housing: House Do you presently have visiting nurse or other home services: Yes Alcohol intake: never Patient Tobacco Use Status: Never used Tobacco Advance Directives: Yes Advance Directives on File: Yes Advance Directives Date on File: 05/08/23 service: No Meds Allergies Allergy/AdvReac Type Severity Reaction Status Date / Time No Known Allergies Allergy Verified 05/08/23 04:31 [No Known Allergies*] Active Medications: Current Medications Sodium Chloride (Ns) 250 mls @ 250 mls/hr IVCONT .Q1H ROSALIA Stop: 07/09/23 02:59 Last Admin: 07/09/23 01:58 Dose: 250 mls/hr Home Medications Medication Instructions Recorded Confirmed Last Taken Type levothyroxine 50 mcg tablet 50 mcg PO DAILY 10/07/22 05/08/23 05/01/23 History vitamin B complex and vitamin C 1 cap PO DAILY 10/07/22 05/08/23 05/01/23 History no.20-folic acid 1 mg capsule rosuvastatin 10 mg tablet (Crestor) 10 mg PO BEDTIME 05/01/23 05/08/23 04/30/23 History Physical Exam Vital Signs and Narrative: Vital Signs: Last Vital Signs Temp 98.7 F 07/09/23 01:52 Pulse 91 07/09/23 01:52 Resp 20 07/09/23 01:52 BP 116/68 07/09/23 01:52 Pulse Ox 97 07/09/23 01:52 O2 Del Method Room Air 07/09/23 01:52 BMI result Body Mass Index 20.4 Elderly male lying in bed in no distress Neck supple Irregularly irregular, S1-S2 heard Bilateral crackles, no wheezing Abdomen soft nontender, no guarding, no rigidity Patient is awake, alert and oriented to self, disoriented to place, time and person ; no focal motor deficit Back: Tenderness present along lower spine Psych: Normal mood Results Labs 07/08/23 17:05 07/08/23 17:05 Labs: Laboratory Results - last 24 hr 07/08/23 07/09/23 07/09/23 17:05 00:29 00:34 MCV 107.4 H MCH 35.0 H MCHC 32.6 RDW 16.1 H Plt Count 122 L MPV 9.3 L Immature Gran % (Auto) 0.5 H Neut % (Auto) 60.7 Lymph % (Auto) 34.6 [place] % (Auto) 3.7 Eos % (Auto) 0.3 Baso % (Auto) 0.2 Lymph # (Auto) 5.1 H [place] # (Auto) 0.5 Eos # (Auto) 0.1 Baso # (Auto) 0.0 Abs Immat Gran (auto) 0.07 H Absolute Neuts (auto) 8.9 H Absolute Nucleated RBC 0.000 Nucleated RBC % (auto) 0.0 Smear Tech's Comments VERIFIED Anion Gap 23 H Estim Creat Clear Calc 11.1 Estimated GFR 12 Random Glucose 107 Lactic Acid 2.5 H* Calcium 9.7 D Total Bilirubin 1.5 H AST 21 ALT 14 Alkaline Phosphatase 122 H B-Natriuretic Peptide Total Protein 7.2 Albumin 3.7 Urine Color Dark Yellow Urine Appearance Turbid Urine pH 6.0 Ur Specific [place] 1.020 Urine Protein 300 (3+) H Urine Glucose (UA) Negative Urine Ketones Trace Urine Blood Large (3+) H Urine Nitrite Negative Ur Leukocyte Esterase Large (3+) H Urine RBC >20 H Urine WBC >50 H Ur Squamous Epith Cells 3-5 Urine Bacteria 4+ Hyaline Casts 6-10 COVID-19 (JAYLON) Negative COVID-19 Clin Com See Note Influenza Type A (MARCELINO) Negative Influenza Type B (MARCELINO) Negative Influenza A & B Note See Note 07/09/23 01:18 MCV MCH MCHC RDW Plt Count MPV Immature Gran % (Auto) Neut % (Auto) Lymph % (Auto) [place] % (Auto) Eos % (Auto) Baso % (Auto) Lymph # (Auto) [place] # (Auto) Eos # (Auto) Baso # (Auto) Abs Immat Gran (auto) Absolute Neuts (auto) Absolute Nucleated RBC Nucleated RBC % (auto) Smear Tech's Comments Anion Gap Estim Creat Clear Calc Estimated GFR Random Glucose Lactic Acid Calcium Total Bilirubin AST ALT Alkaline Phosphatase B-Natriuretic Peptide 2834 H Total Protein Albumin Urine Color Urine Appearance Urine pH Ur Specific [place] Urine Protein Urine Glucose (UA) Urine Ketones Urine Blood Urine Nitrite Ur Leukocyte Esterase Urine RBC Urine WBC Ur Squamous Epith Cells Urine Bacteria Hyaline Casts COVID-19 (JAYLON) COVID-19 Clin Com Influenza Type A (MARCELINO) Influenza Type B (MARCELINO) Influenza A & B Note Imaging Radiologist's Impressions: Impressions Chest X-Ray 07/08/23 16:30 IMPRESSION: New mild interstitial pulmonary edema. Otherwise unchanged from 05/08/2023 without new focal consolidation. Lumbar Spine X-Ray 07/08/23 16:30 IMPRESSION: T12 and L2 vertebral body compression fractures. These are age indeterminate but new in the interval from October [address] Degenerative changes. Abdomen/Pelvis CT 07/09/23 01:15 IMPRESSION: 1. Partial collapse of the T12 vertebral body with approximately 50% loss of height centrally and retropulsion narrowing the central canal to approximately 11; this is new from 10/07/2022. 2. Severe compression deformity of L2 with retropulsion and narrowing of the central canal to approximately 11 mm. This has a partially sclerotic appearance favoring a degree of chronicity, though this is also new from prior. 3. Large amount of stool in the rectum with adjacent stranding raising the possibility of developing stercoral colitis. 4. Bladder wall thickening, which could be due to underdistention or cystitis. 5. Partially visualized small left pleural effusion with pleural thickening, likely with left lower lobe collapse. Trace right pleural effusion. 6. Cardiomegaly. 7. Cholelithiasis. Pneumobilia and gas in the gallbladder, also present previously. 8. Nodular hepatic contour suspicious for cirrhosis. Assessment and Plan (1) Compression fx, lumbar spine: Qualifiers: Encounter type: initial encounter Lumbar vertebra fracture level: L2 Qualified Code(s): S32.020A - Wedge compression fracture of second lumbar vertebra, initial encounter for closed fracture Status: Acute (2) Closed compression fracture of thoracic vertebra: Qualifiers: Encounter type: initial encounter Qualified Code(s): S22.000A - Wedge compression fracture of unspecified thoracic vertebra, initial encounter for closed fracture Status: Acute (3) Acute UTI: Status: Acute Plan This is a 77-year-old male with pertinent history of vascular dementia, cirrhosis, congestive heart failure with reduced ejection fraction, essential hypertension, mixed hyperlipidemia, permanent atrial fibrillation not on anticoagulation, asthma not on home oxygen, hypothyroidism, history of CVA with left-sided deficits, CLL, ESRD on hemodialysis T/T/S who presents to the emergency department for evaluation of back pain. #. Sepsis due to Acute UTI: History of ESBL E coli. Initiating empiric IV antibiotics. Follow urine culture. Resuscitated with IV crystalloids in the ER. Lactic acid and blood culture obtained #. Acute lactic acidosis due to sepsis #. Acute exacerbation of congestive heart failure with reduced ejection fraction: Initiated IV diuresis. Strict I's and O's and low-salt diet. Consulted nephrology for hemodialysis #. Compression fracture of T12 and L2: Consulting IR for possible kyphoplasty #. ESRD on hemodialysis: Follows with Dr. Mcduffie. #. Permanent atrial fibrillation: Not on anticoagulation. Rate controlled in the ER #. Hypothyroidism: On Synthroid #. Coronary artery disease/mixed hyperlipidemia: On statin #. Vascular dementia: Maintain sleep-wake cycle Med rec pending DVT prophylaxis: Heparin Full code Admit as inpatient and will require two night minimum hospital stay for IV antibiotics, IV diuresis (as above), which is not possible in a lesser acute setting. Specialist consult pending Quality Stroke Does the patient have a stroke diagnosis?: No VTE Prior VTE?: No VTE Risk Level:: Medical - moderate - high VTE Device Contraindication: Treatment Not Indicated VTE Drug Contraindication: N/A - Med Ordered
[2023-07-09 02:39] LABS: Reflex Lactate? Lactic Acid Added
[2023-07-09 03:19] LABS: ~Lactic Acid-LAB USE ONLY 2.4 mmol/L (0.5-2.0)
--- NOTE | 2023-07-09 03:19 | PC.NURSE ---
Critical lactic acid of 2.4. Provider made aware.
--- NOTE | 2023-07-09 03:21 | MHC.EDTECH ---
Hourly rounds and vitals completed, patient is resting comfortably at this time and call infante in reach
--- NOTE | 2023-07-09 03:32 | MHC.EDTECH ---
Belonging list completed and copy placed in chart.
[2023-07-09] MEDS: Heparin Sodium,Porcine 5,000 UNIT/ML VIAL 5000 UNIT SUBCUT ×2 (04:08→14:35)
--- NOTE | 2023-07-09 04:27 | PC.NURSE ---
0230 dose of Meropenem not given after conferring with hospitalist. Next dose is scheduled at 0900 hours.
[2023-07-09 04:56] LABS: Reflex Lactate? 2 Y
[2023-07-09] MEDS: Furosemide 100 MG/10 ML VIAL 80 MG IVPUSH (06:31)
[2023-07-09] MEDS: oxyCODONE HCl Immed Release 5 MG TABLET PO ×3 (07:30→14:35)
[2023-07-09] MEDS: 0.9 % Sodium Chloride Flush 3 ML SYRINGE IVFLUSH ×3 (07:31→23:11)
[2023-07-09 08:01] LABS: Basophils Percent Auto 0.2 % (0-2); Eosinophils Absolute Auto 0.1 X10*3/uL (0.0-0.4); Eosinophils Percent Auto 0.8 % (0-4); Hematocrit 35.9 % (42.0-52.0); Hemoglobin 11.9 g/dl (14.0-18.0); Imm Gran Abs Auto 0.06 X10*3/uL (0.00-0.03); Imm Gran Pct Auto 0.5 % (0.0-0.4); Lymphocytes Absolute Auto 4.1 X10*3/uL (1.2-4.9); Lymphocytes Percent Auto 37.1 % (20-40); Mean Corpuscular HGB Conc 33.1 g/dl (31.0-36.0); Mean Corpuscular Hemoglobin 35.2 pg (27.0-33.0); Mean Corpuscular Volume 106.2 fL (80.0-98.0); Mean Platelet Volume 9.5 fL (9.4-12.4); Monocytes Absolute Auto 0.5 X10*3/uL (0.1-1.2); Monocytes Percent Auto 4.4 % (2-11); Neutrophils Absolute Auto 6.2 x10*3/uL (2.0-8.3); Red Blood Count 3.38 X10*6/uL (4.60-5.80); Red Cell Distribution Width 16.4 % (11.0-16.0)
[2023-07-09 08:04] LABS: INTERNATIONAL NORM RATIO 1.2 (0.9-1.1); Prothrombin Time 14.6 SEC (11.1-13.3)
[2023-07-09 08:05] LABS: Platelet Count 108 X10*3/uL (160-400)
[2023-07-09 08:23] LABS: Anion Gap 22 (12-20); Blood Urea Nitrogen 55 mg/dL (9-16); Calcium 9.4 mg/dL (8.4-10.2); Carbon Dioxide 25 mmol/L (22-29); Chloride 100 mmol/L (96-108); Creatinine Clr Calc Pharmacy 9.2; Estimated Glomerular Filt Rate 10; Glucose Random 90 mg/dL (60-115); Potassium 5.5 mmol/L (3.3-5.1); Sodium 141 mmol/L (135-145)
[2023-07-09 08:30] LABS: ~Lactic Acid-LAB USE ONLY 2.2 mmol/L (0.5-2.0)
--- NOTE | 2023-07-09 09:47 | P.PNIM_ITS ---
Subjective Subjective Date of Service: 07/09/23 Interval History: back pain Physical Exam 2 Vital Signs: Vital Signs: Last Vital Signs Temp 96.5 F L 07/09/23 07:13 Pulse 82 07/09/23 07:13 Resp 16 07/09/23 07:13 BP 122/59 L 07/09/23 07:13 Pulse Ox 97 07/09/23 07:13 O2 Del Method Room Air 07/09/23 07:13 BMI result Body Mass Index 20.4 Const: Other: Constitutional - Awake and Alert, No apparent distress Eyes - PERRLA, EOMI Cardiovascular - S1S2, RRR, No edema Respiratory - Normal lung expansion, Normal respiratory effort, No respiratory distress, scattered crackles bilaterally Gastrointestinal - NT / ND; +BS; No rebound or guarding Extremities - no calf tenderness bilaterally, no swelling Skin - Warm/Dry. Venous stasis to BLE. 2cm x1cm stage 2 venous ulcers on bilateral anterior lower legs. No purulent drainage, fluctuance, or surrounding erythema. There is also a contusion to the left dorsal forearm with small skin tear without active bleeding--unchanged surgical wound site ok Neurological - Alert & oriented to self only Psychological - Appropriate affect General: cooperative, healthy appearing and no acute distress O rientation/consciousness: No patient oriented x3 HEENT: Other: Unremarkable Head: Yes normal to inspection Neck: Neck: Yes normal visual inspection Chest: Chest palpation & inspection: normal inspection of the chest Resp: Effort & Inspection: normal respiratory effort and able to speak in complete sentences Auscultation: clear to auscultation bilaterally Cardio: Palpation: normal PMI Rate: regular rate Heart sounds: S1 normal heart sound present, S2 normal heart sound present, no gallops, no murmurs and no rubs Peripheral pulses: Peripheral pulses 2+ throughout GI: Palpation (GI): Soft to palpation Back/Spine/Pelvis: Other: unremarkable Skin: General skin exam: no rashes or lesions noted Lesions: no lesions Rashes: no rashes Neuro: General: No patient oriented x3 Extrem: Other: Right hip Aquacel dressing removed. Incision site is c/d/i. Brig[place] intact. no surrounding erythema or drainage. No signs of infection. No pain with passive ROM. NVI. General: Yes normal to inspection Psych: Mental Status: mental status grossly abnormal Objective Data Active Medications Acetaminophen (Acetaminophen 325 Mg Tablet) 650 mg PO Q6H PRN PRN Reason: Pain, Mild (Pain Scale 1-3) Heparin Sodium (Porcine) (Heparin Sodium,Porcine 5,000 Unit/Ml Vial) 5,000 unit SUBCUT Q12H [facility] Last Admin: 07/09/23 04:08 Dose: 5,000 unit Documented By: ALEX Meropenem 500 mg/ Sodium (Chloride) 50 mls @ 100 mls/hr IV Q12H [facility] Melatonin (Melatonin 3 Mg Tablet) 6 mg PO BEDTIME PRN PRN Reason: Insomnia Morphine Sulfate (Morphine Sulfate 2 Mg/Ml Cartridge) 2 mg IVPUSH Q4H PRN; Protocol PRN Reason: Pain, Severe (Pain Scale 7-10) Ondansetron HCl (Ondansetron Hcl 4 Mg/2 Ml Vial) 4 mg IVPUSH Q8H PRN PRN Reason: Nausea and Vomiting Oxycodone HCl (Oxycodone Hcl Immed Release 5 Mg Tablet) 5 mg PO Q4H PRN PRN Reason: mod pain Last Admin: 07/09/23 07:30 Dose: 5 mg Documented By: REFUGIO Sodium Chloride (0.9 % Sodium Chloride Flush 3 Ml Syringe) 3 ml IVFLUSH QSHIFT [facility] Last Admin: 07/09/23 07:31 Dose: 3 ml Documented By: REFUGIO Labs 07/09/23 07:46 07/09/23 07:45 Labs: Laboratory Results - last 24 hr 07/08/23 07/09/23 07/09/23 17:05 00:29 00:34 MCV 107.4 H MCH 35.0 H MCHC 32.6 RDW 16.1 H Plt Count 122 L MPV 9.3 L Immature Gran % (Auto) 0.5 H Neut % (Auto) 60.7 Lymph % (Auto) 34.6 [place] % (Auto) 3.7 Eos % (Auto) 0.3 Baso % (Auto) 0.2 Lymph # (Auto) 5.1 H [place] # (Auto) 0.5 Eos # (Auto) 0.1 Baso # (Auto) 0.0 Abs Immat Gran (auto) 0.07 H Absolute Neuts (auto) 8.9 H Absolute Nucleated RBC 0.000 Nucleated RBC % (auto) 0.0 Smear Tech's Comments VERIFIED PT INR Anion Gap 23 H Estim Creat Clear Calc 11.1 Estimated GFR 12 Random Glucose 107 Lactic Acid 2.5 H* Lactic Acid F/U @ 2Hr Lactic Acid F/U @ 4Hr Calcium 9.7 D Total Bilirubin 1.5 H AST 21 ALT 14 Alkaline Phosphatase 122 H B-Natriuretic Peptide Total Protein 7.2 Albumin 3.7 Urine Color Dark Yellow Urine Appearance Turbid Urine pH 6.0 Ur Specific [place] 1.020 Urine Protein 300 (3+) H Urine Glucose (UA) Negative Urine Ketones Trace Urine Blood Large (3+) H Urine Nitrite Negative Ur Leukocyte Esterase Large (3+) H Urine RBC >20 H Urine WBC >50 H Ur Squamous Epith Cells 3-5 Urine Bacteria 4+ Hyaline Casts 6-10 COVID-19 (JAYLON) Negative COVID-19 Clin Com See Note Influenza Type A (MARCELINO) Negative Influenza Type B (MARCELINO) Negative Influenza A & B Note See Note 07/09/23 07/09/23 07/09/23 01:18 02:54 07:45 MCV MCH MCHC RDW Plt Count MPV Immature Gran % (Auto) Neut % (Auto) Lymph % (Auto) [place] % (Auto) Eos % (Auto) Baso % (Auto) Lymph # (Auto) [place] # (Auto) Eos # (Auto) Baso # (Auto) Abs Immat Gran (auto) Absolute Neuts (auto) Absolute Nucleated RBC Nucleated RBC % (auto) Smear Tech's Comments PT 14.6 H INR 1.2 H Anion Gap 22 H Estim Creat Clear Calc 9.2 Estimated GFR 10 Random Glucose 90 Lactic Acid Lactic Acid F/U @ 2Hr 2.4 H* Lactic Acid F/U @ 4Hr 2.2 H* Calcium 9.4 Total Bilirubin AST ALT Alkaline Phosphatase B-Natriuretic Peptide 2834 H Total Protein Albumin Urine Color Urine Appearance Urine pH Ur Specific [place] Urine Protein Urine Glucose (UA) Urine Ketones Urine Blood Urine Nitrite Ur Leukocyte Esterase Urine RBC Urine WBC Ur Squamous Epith Cells Urine Bacteria Hyaline Casts COVID-19 (JAYLON) COVID-19 Clin Com Influenza Type A (MARCELINO) Influenza Type B (MARCELINO) Influenza A & B Note 07/09/23 07:46 MCV 106.2 H MCH 35.2 H MCHC 33.1 RDW 16.4 H Plt Count 108 L MPV 9.5 Immature Gran % (Auto) 0.5 H Neut % (Auto) 57.0 Lymph % (Auto) 37.1 [place] % (Auto) 4.4 Eos % (Auto) 0.8 Baso % (Auto) 0.2 Lymph # (Auto) 4.1 [place] # (Auto) 0.5 Eos # (Auto) 0.1 Baso # (Auto) 0.0 Abs Immat Gran (auto) 0.06 H Absolute Neuts (auto) 6.2 Absolute Nucleated RBC 0.000 Nucleated RBC % (auto) 0.0 Smear Tech's Comments PT INR Anion Gap Estim Creat Clear Calc Estimated GFR Random Glucose Lactic Acid Lactic Acid F/U @ 2Hr Lactic Acid F/U @ 4Hr Calcium Total Bilirubin AST ALT Alkaline Phosphatase B-Natriuretic Peptide Total Protein Albumin Urine Color Urine Appearance Urine pH Ur Specific [place] Urine Protein Urine Glucose (UA) Urine Ketones Urine Blood Urine Nitrite Ur Leukocyte Esterase Urine RBC Urine WBC Ur Squamous Epith Cells Urine Bacteria Hyaline Casts COVID-19 (JAYLON) COVID-19 Clin Com Influenza Type A (MARCELINO) Influenza Type B (MARCELINO) Influenza A & B Note Assessment and Plan (1) Compression fx, lumbar spine: Status: Acute Plan 77M PMH end-stage renal disease, chronic systolic CHF, unspecified cirrhosis, vascular dementia, hyperlipidemia, hypertension, permanent atrial fibrillation, hypothyroid, history of CVA with left hemiparesis, CLL, presented with sudden onset back pain. Found to have T12 and L2 compression fractures and UTI Sepsis due to UTI History of ESBL Continue meropenem, follow-up cultures Acute on chronic systolic CHF IV Lasix, hemodialysis Acute vertebral fracture PT, if unable to ambulate or Control pain may need kyphoplasty End-stage renal disease Continue hemodialysis Permanent atrial fibrillation Rate controlled, not on anticoagulation Hypothyroid Synthroid CAD Statin Vascular dementia Stable DVT prophylaxis with heparin Full code reason for continued hospitalization:unable to ambulate due to back pain Quality Stroke Does the patient have a stroke diagnosis?: No VTE Prior VTE?: No VTE Risk Level:: Medical - moderate - high VTE Device Contraindication: Treatment Not Indicated VTE Drug Contraindication: N/A - Med Ordered
--- NOTE | 2023-07-09 11:42 | PHA.MEDREC ---
Pharmacy Consult ? Medication Reconciliation Pharmacy has completed the medication reconciliation with pt who confirmed meds and with pharmacy who confirmed rosuvastatin dose 10 mg, not 40mg.
--- NOTE | 2023-07-09 11:45 | PM.CNNEP ---
History of Present Illness Reason for Consult Consult date: 07/10/23 Chief Complaint Chief complaint: back pain History of Present Illness Narrative: 77/m with pmh of vascular dementia, cirrhosis, congestive heart failure with reduced ejection fraction, essential hypertension, mixed hyperlipidemia, permanent atrial fibrillation not on anticoagulation, asthma, hypothyroidism, history of CVA with left-sided deficits, CLL, ESRD on hemodialysis T/T/S admitted for back pain. Patient was discharged from rehab facility about a week ago. No trauma reported. Patient has been complaining of back pain that started about 4-5 days prior to presentation. No lower extremity weakness, tingling, numbness. h/o decreased appetite, suspected poor po intake Review of Systems Review of Systems Yes Unobtainable due to mental status PMFSH Past Medical History Medical History Cardiomyopathy CAD (coronary artery disease) ESRD (end stage renal disease) Liver cirrhosis CHF (congestive heart failure) CLL (chronic lymphocytic leukemia) CVA (cerebral vascular accident) GI bleed Recurrent hematuria HLD (hyperlipidemia) HTN (hypertension) Hypothyroid Dementia Dialysis patient Afib Chronic kidney disease Surgical History Surgical History S/P triple vessel bypass Social History Social History Household Members: Other Household Members Other:: sister, patient was currently at a rehab facility Housing: House Do you presently have visiting nurse or other home services: Yes Alcohol intake: never Patient Tobacco Use Status: Never used Tobacco Use of substances other than those prescribed or required for medical reasons: No Currently Displaying Signs/Symptoms of Drug Intoxication Withdrawal: No Have you been hit, kicked, punched, or otherwise hurt by someone within the past year? If so, by whom?: No Do you feel safe in your current relationship?: No Current Relationship Is there a partner from a previous relationship who is making you feel unsafe now?: No Are you made to feel afraid or neglected: No Advance Directives: Yes Advance Directives on File: Yes Advance Directives Date on File: 05/08/23 Do you have thoughts of harming others: None Do you have a plan to hurt others: No Plan Recently lost weight without trying: Unsure Eating poorly because of decreased appetite: Yes Nutrition Risks: Poor intake 0-25% >4 days Poor oral hygiene: No service: No Meds Allergies Allergy/AdvReac Type Severity Reaction Status Date / Time No Known Allergies Allergy Verified 05/08/23 04:31 [No Known Allergies*] Active Medications: Current Medications Acetaminophen (Acetaminophen 325 Mg Tablet) 650 mg PO Q6H PRN PRN Reason: Pain, Mild (Pain Scale 1-3) Heparin Sodium (Porcine) (Heparin Sodium,Porcine 5,000 Unit/Ml Vial) 5,000 unit SUBCUT Q12H [facility] Last Admin: 07/09/23 04:08 Dose: 5,000 unit Meropenem 500 mg/ Sodium (Chloride) 50 mls @ 100 mls/hr IV Q12H [facility] Melatonin (Melatonin 3 Mg Tablet) 6 mg PO BEDTIME PRN PRN Reason: Insomnia Morphine Sulfate (Morphine Sulfate 2 Mg/Ml Cartridge) 2 mg IVPUSH Q4H PRN; Protocol PRN Reason: Pain, Severe (Pain Scale 7-10) Ondansetron HCl (Ondansetron Hcl 4 Mg/2 Ml Vial) 4 mg IVPUSH Q8H PRN PRN Reason: Nausea and Vomiting Oxycodone HCl (Oxycodone Hcl Immed Release 5 Mg Tablet) 5 mg PO Q4H PRN PRN Reason: mod pain Last Admin: 07/09/23 11:02 Dose: 5 mg Sodium Chloride (0.9 % Sodium Chloride Flush 3 Ml Syringe) 3 ml IVFLUSH QSHIFT [facility] Last Admin: 07/09/23 07:31 Dose: 3 ml Home Medications Medication Instructions Recorded Confirmed Last Taken Type levothyroxine 50 mcg tablet 50 mcg PO DAILY 10/07/22 07/09/23 05/01/23 History vitamin B complex and vitamin C 1 cap PO DAILY 10/07/22 07/09/23 05/01/23 History no.20-folic acid 1 mg capsule rosuvastatin 10 mg tablet (Crestor) 10 mg PO BEDTIME 05/01/23 07/09/23 04/30/23 History ipratropium 0.5 mg-albuterol 3 mg 3 ml inhalation Q4H PRN Shortness 07/09/23 07/09/23 Unknown History (2.5 mg base)/3 mL nebulization Of Breath/Wheezing soln sevelamer carbonate 0.8 gram oral 0.8 g PO TID 07/09/23 07/09/23 Unknown History powder packet Physical Exam Vital Signs: Last Vital Signs Temp 96.5 F L 07/09/23 07:13 Pulse 82 07/09/23 07:13 Resp 16 07/09/23 07:13 BP 122/59 L 07/09/23 07:13 Pulse Ox 97 07/09/23 07:13 O2 Del Method Room Air 07/09/23 07:13 BMI result Body Mass Index 20.4 cvs: s1s2 RS; cta abd: soft Results Lab Results 07/10/23 04:58 07/10/23 04:58 Lab results: Chemistry 07/08/23 07/09/23 17:05 07:45 Sodium 141 141 Potassium 5.3 H D 5.5 H Carbon Dioxide 25 25 BUN 44 H 55 H Creatinine 4.76 H* 5.73 H* Calcium 9.7 D 9.4 Hematology 07/08/23 07/09/23 17:05 07:46 WBC 14.7 H 11.0 H Hgb 12.7 L D 11.9 L Plt Count 122 L 108 L Urinalysis 07/09/23 00:34 Urine Color Dark Yellow Urine Appearance Turbid Urine pH 6.0 Ur Specific [place] 1.020 Urine Protein 300 (3+) H Urine Glucose (UA) Negative Urine Ketones Trace Urine Blood Large (3+) H Urine Nitrite Negative Ur Leukocyte Esterase Large (3+) H Urine RBC >20 H Urine WBC >50 H Ur Squamous Epith Cells 3-5 Hyaline Casts 6-10 Assessment and Plan (1) Closed compression fracture of thoracic vertebra: Qualifiers: Encounter type: initial encounter Qualified Code(s): S22.000A - Wedge compression fracture of unspecified thoracic vertebra, initial encounter for closed fracture Status: Acute (2) Acute UTI: Status: Acute (3) ESRD (end stage renal disease): Status: Acute Plan 1. ESRDon HD 2. T spine fracture 3. uti HD per TTS schedule- will do 2 hrs today as hyperkalemia protect permcath Midodrine for low BP in HD Procedures Date of Service Date of Service: 07/10/23
--- NOTE | 2023-07-09 13:22 | MHC.CM.PN ---
Addendum entered by Jeannette Azul RN 07/09/23 13:28: IMM verbally delivered to HCP via telephone, as she is not available to come to [facility] [place]. Verbalized understanding. Copy left at bedside per request. Original Note: Patient w/ dx vascular dementia. CM assessment completed with sister/HCP Tania. Patient is from home w/ sister. Ambulates with a cane and is independent w/ ADL's. Uses a w/c in the community PRN. Recent STR stay at [facility] - dc'd 06/28. Now active w/ [facility] for SN/PT. Also [facility] for MOW. HD at [facility] TTS. Sister transports. PCP: Reza Juan MD HCP: On file and verified, sister Tania DP: Pending PT eval. Home, resume services, sister to transport vs. STR via BLS. If STR is recommended [facility] is first choice, referral sent. CM will continue to follow.
--- NOTE | 2023-07-09 14:39 | MHC.CLN ---
NUTRITION LOW SODIUM DIET DUE TO EXACERBATION OF CHF. PATIENT WITH END STAGE RENAL DISEASE AND RECEIVES HEMODIALYSIS. PO INTAKE 100% X 2 MEALS. WEIGHT ESSENTIALLY STABLE X 9 MONTHS. UNDERWEIGHT AT 86% OF IBW. FOLLOW FOR INTAKE AND WEIGHT. SEE CLINICAL NUTRITION ASSESSMENT 07/09/23.
[2023-07-09] MEDS: Sevelamer Carbonate Powder 800 MG POWD.PACK PO (17:49)
[2023-07-09] MEDS: Atorvastatin Calcium 40 MG TABLET PO (19:22)
[2023-07-10] MEDS: Heparin Sodium,Porcine 5,000 UNIT/ML VIAL 5000 UNIT SUBCUT ×2 (02:39→14:16)
[2023-07-10 03:47] VITALS: BP 109/58; PULSE 66; RESP 17; TEMP 36.6; O2SAT 97
[2023-07-10 05:25] LABS: Hematocrit 30.1 % (42.0-52.0); Hemoglobin 10.2 g/dl (14.0-18.0); Mean Corpuscular HGB Conc 33.9 g/dl (31.0-36.0); Mean Corpuscular Hemoglobin 35.3 pg (27.0-33.0); Mean Corpuscular Volume 104.2 fL (80.0-98.0); Mean Platelet Volume 9.4 fL (9.4-12.4); Red Blood Count 2.89 X10*6/uL (4.60-5.80); Red Cell Distribution Width 16.3 % (11.0-16.0); White Blood Count 9.9 X10*3/uL (4.8-10.8)
[2023-07-10 05:29] LABS: Platelet Count 85 X10*3/uL (160-400)
[2023-07-10] MEDS: Levothyroxine Sodium 50 MCG TABLET PO (05:29)
[2023-07-10 05:48] LABS: Anion Gap 13 (12-20); Blood Urea Nitrogen 34 mg/dL (9-16); Calcium 8.1 mg/dL (8.4-10.2); Carbon Dioxide 25 mmol/L (22-29); Chloride 103 mmol/L (96-108); Creatinine Clr Calc Pharmacy 11.9; Estimated Glomerular Filt Rate 13; Glucose Fasting 81 mg/dL (60-99); Potassium 3.9 mmol/L (3.3-5.1); Sodium 137 mmol/L (135-145)
[2023-07-10 07:58] VITALS: BP 103/61; PULSE 75; RESP 17; TEMP 36.5; O2SAT 97
[2023-07-10] MEDS: Sevelamer Carbonate Powder 800 MG POWD.PACK PO ×3 (08:10→17:09)
[2023-07-10] MEDS: 0.9 % Sodium Chloride Flush 3 ML SYRINGE IVFLUSH ×2 (08:11→14:16)
--- NOTE | 2023-07-10 09:39 | HO.PM.IMPN ---
Subjective Subjective Date of Service: 07/10/23 Interval History: back pain Physical Exam Vital Signs: Vital Signs: Last Vital Signs Temp 97.7 F 07/10/23 07:58 Pulse 75 07/10/23 07:58 Resp 17 07/10/23 07:58 BP 103/61 07/10/23 07:58 Pulse Ox 97 07/10/23 07:58 O2 Del Method Room Air 07/10/23 07:58 BMI result Body Mass Index 20.4 cvs: s1s2 RS; cta abd: soft skin: large protruding growth on left chest wall Objective Data Active Medications Acetaminophen (Acetaminophen 325 Mg Tablet) 650 mg PO Q6H PRN PRN Reason: Pain, Mild (Pain Scale 1-3) Atorvastatin Calcium (Atorvastatin Calcium 40 Mg Tablet) 40 mg PO BEDTIME [facility] Last Admin: 07/09/23 19:22 Dose: 40 mg Documented By: KATELIN Heparin Sodium (Porcine) (Heparin Sodium,Porcine 5,000 Unit/Ml Vial) 5,000 unit SUBCUT Q12H [facility] Last Admin: 07/10/23 02:39 Dose: 5,000 unit Documented By: IFRAH Meropenem 500 mg/ Sodium (Chloride) 50 mls @ 100 mls/hr IV Q12H [facility] Last Infusion: 07/10/23 09:00 Dose: Infused Documented By: KRYSTYNA Levothyroxine Sodium (Levothyroxine Sodium 50 Mcg Tablet) 50 mcg PO DAILY@0600 [facility] Last Admin: 07/10/23 05:29 Dose: 50 mcg Documented By: IFRAH Melatonin (Melatonin 3 Mg Tablet) 6 mg PO BEDTIME PRN PRN Reason: Insomnia Morphine Sulfate (Morphine Sulfate 2 Mg/Ml Cartridge) 2 mg IVPUSH Q4H PRN; Protocol PRN Reason: Pain, Severe (Pain Scale 7-10) Ondansetron HCl (Ondansetron Hcl 4 Mg/2 Ml Vial) 4 mg IVPUSH Q8H PRN PRN Reason: Nausea and Vomiting Oxycodone HCl (Oxycodone Hcl Immed Release 5 Mg Tablet) 5 mg PO Q4H PRN PRN Reason: mod pain Last Admin: 07/09/23 14:35 Dose: 5 mg Documented By: REFUGIO Sevelamer Carbonate (Sevelamer Carbonate Powder 800 Mg Powd.Pack) 800 mg PO TIDWM [facility] Last Admin: 07/10/23 08:10 Dose: 800 mg Documented By: KRYSTYNA Sodium Chloride (0.9 % Sodium Chloride Flush 3 Ml Syringe) 3 ml IVFLUSH QSHIFT [facility] Last Admin: 07/10/23 08:11 Dose: 3 ml Documented By: KRYSTYNA Labs 07/10/23 04:58 07/10/23 04:58 Labs: Laboratory Results - last 24 hr 07/10/23 04:58 MCV 104.2 H MCH 35.3 H MCHC 33.9 RDW 16.3 H Plt Count 85 L MPV 9.4 Absolute Nucleated RBC 0.000 Nucleated RBC % (auto) 0.0 Anion Gap 13 Estim Creat Clear Calc 11.9 Estimated GFR 13 Fasting Glucose 81 Calcium 8.1 L D Microbiology Microbiology Results: Microbiology 07/09/23 00:29 Blood Culture - Preliminary Blood - Venous No growth after 24 hours. 07/09/23 00:29 Blood Culture - Preliminary Blood - Venous No growth after 24 hours. Assessment and Plan (1) Compression fx, lumbar spine: Status: Acute Plan 77M PMH end-stage renal disease, chronic systolic CHF, unspecified cirrhosis, vascular dementia, hyperlipidemia, hypertension, permanent atrial fibrillation, hypothyroid, history of CVA with left hemiparesis, CLL, presented with sudden onset back pain. Found to have T12 and L2 compression fractures and UTI Sepsis due to UTI History of ESBL Continue meropenem, follow-up cultures Acute on chronic systolic CHF improved, continue hemodialysis Acute vertebral fracture PT, if unable to ambulate or Control pain may need kyphoplasty End-stage renal disease Continue hemodialysis Permanent atrial fibrillation Rate controlled, not on anticoagulation Hypothyroid Synthroid CAD Statin Vascular dementia Stable squamous cell skin cancer, left chest wall outpatient follow up, local care DVT prophylaxis with heparin Full code reason for continued hospitalization:unable to ambulate due to back pain Quality Stroke Does the patient have a stroke diagnosis?: No VTE Prior VTE?: No VTE Risk Level:: Medical - moderate - high VTE Device Contraindication: Treatment Not Indicated VTE Drug Contraindication: N/A - Med Ordered
[2023-07-10 15:44] VITALS: BP 95/62; PULSE 84; RESP 19; TEMP 36.3; O2SAT 98
--- NOTE | 2023-07-10 15:55 | MHC.CM.PN ---
PT recommends STR. Clinical info has been [facility]. The [facility] HD [facility]st choice for STR [facility]. DP STR via BLS. Waiting to hear re bed availability.
--- NOTE | 2023-07-10 16:04 | P.CDIM_ITS ---
PROVIDER RESPONSE TEXT: To clarify, the appropriate diagnosis supported by the clinical indicators: Non-traumatic compression fracture QUERY TEXT: PHYSICIAN'S DOCUMENTATION REQUEST Date of Query: 07/10/2023 08:46 AM EST Patient Name: Brayden Velazquez Admit Date: 07/09/2023 Dear Cirilo Jaime, A review of the medical record indicates additional documentation may be needed. Please review below and update the documentation accordingly Clinical Indicators: H&P: Patient was discharged from rehab facility a week ago. No trauma reported. Has been complaining of back pain that started about 4-5 days ago prior to presentation. Acute vertebral fracture PT, if unable to ambulate or control pain may need kyphoplasty. Please provide the following additional clarification regarding the fracture Type: Non-traumatic compression fracture Traumatic compression fracture Pathological compression fracture Other (explain) Clinically unable to determine (explain) Thank you, Kristen Lagos, CCS, CDIS Use of terms such as suspected, likely, concern for, or probable (associated with a specific diagnosi s that is being evaluated, monitored, or treated as if it exists) are acceptable and can be coded in the inpatient se tting, when documented at the time of discharge. Please use your independent medical judgment in providing your response. THIS QUERY IS PART OF THE PERMANENT MEDICAL RECORD
--- NOTE | 2023-07-10 17:10 | P.CNID_ITS ---
History of Present Illness Data of Consult Service Date: 07/10/23 Requesting physician: Cirilo Jaime Primary Care Provider: Reza Juan MD HPI Reason for consult: back pain He presents with worsening back pain 01/11. He fell two weeks ago and has two burst fractures on MRI,one at T12 and one at L2. He can walk with pain He has urinalysis positive hematuria and pyuria and had ESBL E coli isolated in May. He has no fever or chills. He has WBC of 14.7. He has no abdominal pain,dysuria ,frequency,viewed hematuria or any urologic complaints. Review of Systems 2 Review of Systems: Yes all other systems are reviewed and are negative PMFSH Past Medical History Medical History Cardiomyopathy CAD (coronary artery disease) ESRD (end stage renal disease) Liver cirrhosis CHF (congestive heart failure) CLL (chronic lymphocytic leukemia) CVA (cerebral vascular accident) GI bleed Recurrent hematuria HLD (hyperlipidemia) HTN (hypertension) Hypothyroid Dementia Dialysis patient Afib Chronic kidney disease Family History Family history: reviewed and not pertinent Surgical History Surgical History S/P triple vessel bypass Social History Social History Household Members: Other Household Members Other:: sister, patient was currently at a rehab facility Housing: House Do you presently have visiting nurse or other home services: Yes Alcohol intake: never Patient Tobacco Use Status: Never used Tobacco Use of substances other than those prescribed or required for medical reasons: No Currently Displaying Signs/Symptoms of Drug Intoxication Withdrawal: No Have you been hit, kicked, punched, or otherwise hurt by someone within the past year? If so, by whom?: No Do you feel safe in your current relationship?: No Current Relationship Is there a partner from a previous relationship who is making you feel unsafe now?: No Are you made to feel afraid or neglected: No Advance Directives: Yes Advance Directives on File: Yes Advance Directives Date on File: 05/08/23 Do you have thoughts of harming others: None Do you have a plan to hurt others: No Plan Recently lost weight without trying: Unsure Eating poorly because of decreased appetite: Yes Nutrition Risks: Poor intake 0-25% >4 days Poor oral hygiene: No service: No Meds Allergies Allergy/AdvReac Type Severity Reaction Status Date / Time No Known Allergies Allergy Verified 05/08/23 04:31 [No Known Allergies*] Active Medications: Current Medications Acetaminophen (Acetaminophen 325 Mg Tablet) 650 mg PO Q6H PRN PRN Reason: Pain, Mild (Pain Scale 1-3) Atorvastatin Calcium (Atorvastatin Calcium 40 Mg Tablet) 40 mg PO BEDTIME [facility] Last Admin: 07/09/23 19:22 Dose: 40 mg Heparin Sodium (Porcine) (Heparin Sodium,Porcine 5,000 Unit/Ml Vial) 5,000 unit SUBCUT Q12H [facility] Last Admin: 07/10/23 14:16 Dose: 5,000 unit Meropenem 500 mg/ Sodium (Chloride) 50 mls @ 100 mls/hr IV Q12H [facility] Last Infusion: 07/10/23 09:00 Dose: Infused Levothyroxine Sodium (Levothyroxine Sodium 50 Mcg Tablet) 50 mcg PO DAILY@0600 [facility] Last Admin: 07/10/23 05:29 Dose: 50 mcg Melatonin (Melatonin 3 Mg Tablet) 6 mg PO BEDTIME PRN PRN Reason: Insomnia Morphine Sulfate (Morphine Sulfate 2 Mg/Ml Cartridge) 2 mg IVPUSH Q4H PRN; Protocol PRN Reason: Pain, Severe (Pain Scale 7-10) Ondansetron HCl (Ondansetron Hcl 4 Mg/2 Ml Vial) 4 mg IVPUSH Q8H PRN PRN Reason: Nausea and Vomiting Oxycodone HCl (Oxycodone Hcl Immed Release 5 Mg Tablet) 5 mg PO Q4H PRN PRN Reason: mod pain Last Admin: 07/09/23 14:35 Dose: 5 mg Sevelamer Carbonate (Sevelamer Carbonate Powder 800 Mg Powd.Pack) 800 mg PO TIDWM [facility] Last Admin: 07/10/23 17:09 Dose: 800 mg Sodium Chloride (0.9 % Sodium Chloride Flush 3 Ml Syringe) 3 ml IVFLUSH QSHIFT [facility] Last Admin: 07/10/23 14:16 Dose: 3 ml Home Medications Medication Instructions Recorded Confirmed Last Taken Type levothyroxine 50 mcg tablet 50 mcg PO DAILY 05/06/23 02/05/24 11/28/23 History vitamin B complex and vitamin C 1 cap PO DAILY 10/07/22 07/09/23 05/01/23 History no.20-folic acid 1 mg capsule rosuvastatin 10 mg tablet (Crestor) 10 mg PO BEDTIME 05/01/23 07/09/23 04/30/23 History ipratropium 0.5 mg-albuterol 3 mg 3 ml inhalation Q4H PRN Shortness 07/09/23 07/09/23 Unknown History (2.5 mg base)/3 mL nebulization Of Breath/Wheezing soln sevelamer carbonate 0.8 gram oral 0.8 g PO TID 07/09/23 07/09/23 Unknown History powder packet Physical Exam 2 Vital Signs: Vital Signs: Last Vital Signs Temp 97.3 F 07/10/23 15:44 Pulse 84 07/10/23 15:44 Resp 19 07/10/23 15:44 BP 95/62 07/10/23 15:44 Pulse Ox 98 07/10/23 15:44 O2 Del Method Room Air 07/10/23 15:44 BMI result Body Mass Index 20.4 Const: General: cooperative HEENT: Head: Yes normal to inspection Face and sinus: Yes normal facial exam Mouth: Normal oral and palatal mucosa present Teeth and gingiva: d entition normal Eyes: General: appearance normal, both eyes and all related structures P upils: Equal, round and reactive pupils present Resp: Effort & Inspection: normal respiratory effort Cardio: Rate: regular rate Rhythm: regular rhythm GI: Palpation (GI): Soft to palpation and nontender : General: Yes no CVA tenderness Back/Spine/Pelvis: Back: no CVA tenderness Skin: General skin exam: no rashes or lesions noted Neuro: General: moves all extremities Cranial nerves: Yes Equal, round and reactive pupils present Extrem: Other: back pain moves all extremities Psych: Appearance: grossly normal Results Labs 07/10/23 04:58 07/10/23 04:58 Labs: Short CBC 07/10/23 Range/Units 04:58 WBC 9.9 (4.8-10.8) X10*3/uL Hgb 10.2 L (14.0-18.0) g/dl Hct 30.1 L (42.0-52.0) % Plt Count 85 L (160-400) X10*3/uL BMP 07/10/23 04:58 Sodium 137 Potassium 3.9 D Chloride 103 Carbon Dioxide 25 BUN 34 H Creatinine 4.42 H* Calcium 8.1 L D Microbiology Microbiology Results: Microbiology 07/09/23 Unknown Urine Catheterized - [place] Urine Culture - Preliminary Culture in progress. 07/09/23 00:29 Blood - Venous Blood Culture - Preliminary No growth after 24 hours. 07/09/23 00:29 Blood - Venous Blood Culture - Preliminary No growth after 24 hours. Assessment and Plan (1) Closed compression fracture of thoracic vertebra: Qualifiers: Encounter type: initial encounter Qualified Code(s): S22.000A - Wedge compression fracture of unspecified thoracic vertebra, initial encounter for closed fracture Status: Acute (2) Compression fx, lumbar spine: Qualifiers: Encounter type: initial encounter Lumbar vertebra fracture level: L2 Qualified Code(s): S32.020A - Wedge compression fracture of second lumbar vertebra, initial encounter for closed fracture Status: Acute (3) Elevated WBC count: Qualifiers: Leukocytosis type: unspecified Qualified Code(s): D72.829 - Elevated white blood cell count, unspecified Status: Acute I think with one isolated WBC of 14.7 may be leukemoid reaction. He has no fever or urinary symptoms He probably has retention and colonization with WBC and bacteria. Blood cultures are negative and there is no OM. Plan Would continue Merem until blood cultures back and if negative po Fosfomycin 3 g x 1. See Urology hematuria.
[2023-07-10] MEDS: oxyCODONE HCl Immed Release 5 MG TABLET PO (17:23)
[2023-07-10 19:50] VITALS: BP 113/55; PULSE 79; RESP 19; TEMP 36.5; O2SAT 95
[2023-07-10] MEDS: Atorvastatin Calcium 40 MG TABLET PO (20:35)
[2023-07-10] MEDS: Acetaminophen 325 MG TABLET 650 MG PO (20:42)
--- NOTE | 2023-07-10 21:46 | PC.NURSE ---
patient crying ,c/o not feeling well,c/o headache ,c/o right flank pain,Dr. Poole notified
--- NOTE | 2023-07-10 22:43 | P.PNNP_ITS ---
Subjective Subjective Date of Service: 07/10/23 Interval history: back pain Physical Exam 2 Vital Signs: Vital Signs: Last Vital Signs Temp 97.7 F 07/10/23 19:50 Pulse 79 07/10/23 19:50 Resp 19 07/10/23 19:50 BP 113/55 L 07/10/23 19:50 Pulse Ox 95 07/10/23 19:50 O2 Del Method Room Air 07/10/23 19:50 BMI result Body Mass Index 20.4 cvs; s1s2 Rs; cta ABd; soft Objective Data Labs 07/10/23 04:58 07/10/23 04:58 Labs: Laboratory Results - last 24 hr 07/10/23 04:58 WBC 9.9 RBC 2.89 L Hgb 10.2 L Hct 30.1 L MCV 104.2 H MCH 35.3 H MCHC 33.9 RDW 16.3 H Plt Count 85 L MPV 9.4 Absolute Nucleated RBC 0.000 Nucleated RBC % (auto) 0.0 Sodium 137 Potassium 3.9 D Chloride 103 Carbon Dioxide 25 Anion Gap 13 BUN 34 H Creatinine 4.42 H* Estim Creat Clear Calc 11.9 Estimated GFR 13 Fasting Glucose 81 Calcium 8.1 L D Microbiology Microbiology Results: Microbiology 07/09/23 Unknown Urine Catheterized - [place] Urine Culture - Preliminary Culture in progress. 07/09/23 00:29 Blood - Venous Blood Culture - Preliminary No growth after 24 hours. 07/09/23 00:29 Blood - Venous Blood Culture - Preliminary No growth after 24 hours. Procedures Date of Service Date of Service: 07/10/23 Assessment & Plan Assessment and plan (1) Closed compression fracture of thoracic vertebra: Status: Acute (2) ESRD (end stage renal disease): Status: Acute Plan 1. ESRD on HD 2. T spine fracture 3. uti HD per TTS schedule- protect permcath Midodrine for low BP in HD Time Spent With Patient Time: Total time managing care of this patient today ____ minutes. Progress Note: Quality Stroke Does the patient have a stroke diagnosis?: No
[2023-07-11] MEDS: 0.9 % Sodium Chloride Flush 3 ML SYRINGE IVFLUSH ×4 (00:19→20:42)
[2023-07-11] MEDS: Heparin Sodium,Porcine 5,000 UNIT/ML VIAL 5000 UNIT SUBCUT ×2 (02:54→14:28)
[2023-07-11 03:47] VITALS: BP 112/79; PULSE 63; RESP 16; TEMP 36.3; O2SAT 98
[2023-07-11 05:46] LABS: Mean Corpuscular HGB Conc 33.3 g/dl (31.0-36.0); Mean Corpuscular Hemoglobin 35.5 pg (27.0-33.0); Mean Corpuscular Volume 106.5 fL (80.0-98.0); Mean Platelet Volume 9.7 fL (9.4-12.4); Red Cell Distribution Width 16.9 % (11.0-16.0); White Blood Count 9.6 X10*3/uL (4.8-10.8)
[2023-07-11 05:49] LABS: Platelet Count 90 X10*3/uL (160-400)
[2023-07-11 06:00] LABS: Anion Gap 15 (12-20); Blood Urea Nitrogen 32 mg/dL (9-16); Calcium 8.2 mg/dL (8.4-10.2); Carbon Dioxide 28 mmol/L (22-29); Chloride 99 mmol/L (96-108); Creatinine Clr Calc Pharmacy 13.5; Estimated Glomerular Filt Rate 15; Glucose Fasting 86 mg/dL (60-99); Potassium 3.8 mmol/L (3.3-5.1); Sodium 138 mmol/L (135-145)
[2023-07-11] MEDS: Levothyroxine Sodium 50 MCG TABLET PO (06:10)
[2023-07-11 07:55] VITALS: BP 100/50; PULSE 77; RESP 16; TEMP 36.1; O2SAT 96
[2023-07-11] MEDS: Sevelamer Carbonate Powder 800 MG POWD.PACK PO ×3 (08:21→17:33)
--- NOTE | 2023-07-11 11:49 | P.PNIM_ITS ---
Subjective Subjective Date of Service: 07/11/23 Interval History: Seen and evaluated Denies any fever or chills pain under better control able to participate with PT Review of Systems Review of Systems: Yes all other systems are reviewed and are negative Physical Exam 2 Vital Signs: Vital Signs: Last Vital Signs Temp 96.9 F 07/11/23 07:55 Pulse 77 07/11/23 07:55 Resp 16 07/11/23 07:55 BP 100/50 L 07/11/23 07:55 Pulse Ox 96 07/11/23 07:55 O2 Del Method Room Air 07/11/23 07:55 BMI result Body Mass Index 20.4 Const: Other: Constitutional - Awake and Alert, No apparent distress Eyes - PERRLA, EOMI Cardiovascular - S1S2, RRR, No edema Respiratory - Normal lung expansion, Normal respiratory effort, No respiratory distress, scattered crackles bilaterally Gastrointestinal - NT / ND; +BS; No rebound or guarding Extremities - no calf tenderness bilaterally, no swelling Skin - Warm/Dry. Venous stasis to BLE. 2cm x1cm stage 2 venous ulcers on bilateral anterior lower legs. There is also a contusion to the left dorsal forearm with small skin tear without active bleeding--unchanged surgical wound site ok Neurological - Alert & oriented to self only Objective Data Active Medications Acetaminophen (Acetaminophen 325 Mg Tablet) 650 mg PO Q6H PRN PRN Reason: Pain, Mild (Pain Scale 1-3) Last Admin: 07/10/23 20:42 Dose: 650 mg Documented By: KATELIN Atorvastatin Calcium (Atorvastatin Calcium 40 Mg Tablet) 40 mg PO BEDTIME [facility] Last Admin: 07/10/23 20:35 Dose: 40 mg Documented By: KATELIN Heparin Sodium (Porcine) (Heparin Sodium,Porcine 5,000 Unit/Ml Vial) 5,000 unit SUBCUT Q12H [facility] Last Admin: 07/11/23 02:54 Dose: 5,000 unit Documented By: MILTON Meropenem 500 mg/ Sodium (Chloride) 50 mls @ 100 mls/hr IV Q12H [facility] Last Infusion: 07/11/23 10:24 Dose: Infused Documented By: KRYSTYNA Levothyroxine Sodium (Levothyroxine Sodium 50 Mcg Tablet) 50 mcg PO DAILY@0600 [facility] Last Admin: 07/11/23 06:10 Dose: 50 mcg Documented By: MILTON Melatonin (Melatonin 3 Mg Tablet) 6 mg PO BEDTIME PRN PRN Reason: Insomnia Morphine Sulfate (Morphine Sulfate 2 Mg/Ml Cartridge) 2 mg IVPUSH Q4H PRN; Protocol PRN Reason: Pain, Severe (Pain Scale 7-10) Ondansetron HCl (Ondansetron Hcl 4 Mg/2 Ml Vial) 4 mg IVPUSH Q8H PRN PRN Reason: Nausea and Vomiting Oxycodone HCl (Oxycodone Hcl Immed Release 5 Mg Tablet) 5 mg PO Q4H PRN PRN Reason: mod pain Last Admin: 07/10/23 17:23 Dose: 5 mg Documented By: KATELIN Sevelamer Carbonate (Sevelamer Carbonate Powder 800 Mg Powd.Pack) 800 mg PO TIDWM [facility] Last Admin: 07/11/23 08:21 Dose: 800 mg Documented By: KRYSTYNA Sodium Chloride (0.9 % Sodium Chloride Flush 3 Ml Syringe) 3 ml IVFLUSH [facility] Last Admin: 07/11/23 08:29 Dose: 3 ml Documented By: KRYSTYNA Labs 07/11/23 05:12 07/11/23 05:12 Labs: Laboratory Results - last 24 hr 07/11/23 05:12 MCV 106.5 H MCH 35.5 H MCHC 33.3 RDW 16.9 H Plt Count 90 L MPV 9.7 Absolute Nucleated RBC 0.000 Nucleated RBC % (auto) 0.0 Anion Gap 15 Estim Creat Clear Calc 13.5 Estimated GFR 15 Fasting Glucose 86 Calcium 8.2 L Microbiology Microbiology Results: Microbiology 07/09/23 Unknown Urine Culture - Preliminary Urine Catheterized - [place]atheter Gram negative tonie 07/09/23 00:29 Blood Culture - Preliminary Blood - Venous No growth after 48 hours. 07/09/23 00:29 Blood Culture - Preliminary Blood - Venous No growth after 48 hours. Assessment and Plan (1) Closed compression fracture of thoracic vertebra: Status: Acute (2) Compression fx, lumbar spine: Status: Acute (3) Acute UTI: Status: Acute Plan 77M PMH end-stage renal disease, chronic systolic CHF, unspecified cirrhosis, vascular dementia, hyperlipidemia, hypertension, permanent atrial fibrillation, hypothyroid, history of CVA with left hemiparesis, CLL, presented with sudden onset back pain. Found to have T12 and L2 compression fractures and UTI Sepsis due to UTI History of ESBL Pending Urine Cx Continue meropenem, follow-up cultures ID rec follow blood Cx, change to Fosfomycin for 1 time Acute on chronic systolic CHF improved, continue hemodialysis Acute vertebral fracture PT, if unable to ambulate or Control pain may need kyphoplasty End-stage renal disease Continue hemodialysis Permanent atrial fibrillation Rate controlled, not on anticoagulation Hypothyroid Synthroid CAD Statin Vascular dementia Stable squamous cell skin cancer, left chest wall outpatient follow up, local care DVT prophylaxis with heparin Full code reason for continued hospitalization: needs further physical therapy and pain management pending discharge plan to [facility] Stroke Does the patient have a stroke diagnosis?: No VTE Prior VTE?: No VTE Risk Level:: Medical - moderate - high VTE Device Contraindication: Treatment Not Indicated VTE Drug Contraindication: N/A - Med Ordered
[2023-07-11] MEDS: oxyCODONE HCl Immed Release 5 MG TABLET PO (12:31)
--- NOTE | 2023-07-11 13:02 | MHC.CLN ---
F/U DIET CHANGED TO REGULAR PER MD. PATIENT WITH END STAGE RENAL DISEASE AND RECEIVES HEMODIALYSIS. PO INTAKE VARIABLE. FOLLOW FOR INTAKE AND WEIGHT.
--- NOTE | 2023-07-11 13:58 | MHC.CM.PN ---
Addendum entered by Ginette Royal 07/12/23 14:27: [facility] is interested in the patient. Waiting to here back from the Liason regarding Patient's financial responsibility. [place] and [facility] are also interested. [facility] is 1st choice. CM will continue to follow. Original Note: [facility] not have bed availability. Additional preferences obtained. A referral has been made to [facility]. They are in review. CM will follow.
[2023-07-11 15:27] VITALS: BP 99/65; PULSE 65; RESP 16; TEMP 36.1; O2SAT 99
[2023-07-11 19:16] VITALS: BP 100/60; PULSE 65; RESP 18; TEMP 36.4; O2SAT 93
[2023-07-11] MEDS: Atorvastatin Calcium 40 MG TABLET PO (20:39)
[2023-07-11] MEDS: Acetaminophen 325 MG TABLET 650 MG PO (20:39)
[2023-07-11] MEDS: Melatonin 3 MG TABLET 6 MG PO (20:39)
--- NOTE | 2023-07-11 21:36 | P.PNNP_ITS ---
Subjective Subjective Date of Service: 07/11/23 Interval history: Seen and evaluated Denies any fever or chills pain under better control able to participate with PT Physical Exam 2 Vital Signs: Vital Signs: Last Vital Signs Temp 97.5 F 07/11/23 19:16 Pulse 65 07/11/23 19:16 Resp 18 07/11/23 19:16 BP 100/60 07/11/23 19:16 Pulse Ox 93 07/11/23 19:16 O2 Del Method Room Air 07/11/23 15:27 BMI result Body Mass Index 20.4 cvs; s1s2 Rs; cta? ABd; soft? Objective Data Labs 07/11/23 05:12 07/11/23 05:12 Labs: Laboratory Results - last 24 hr 07/11/23 05:12 WBC 9.6 RBC 3.10 L Hgb 11.0 L Hct 33.0 L MCV 106.5 H MCH 35.5 H MCHC 33.3 RDW 16.9 H Plt Count 90 L MPV 9.7 Absolute Nucleated RBC 0.000 Nucleated RBC % (auto) 0.0 Sodium 138 Potassium 3.8 Chloride 99 Carbon Dioxide 28 Anion Gap 15 BUN 32 H Creatinine 3.92 H Estim Creat Clear Calc 13.5 Estimated GFR 15 Fasting Glucose 86 Calcium 8.2 L Microbiology Microbiology Results: Microbiology 07/09/23 Unknown Urine Catheterized - La Catheter Urine Culture - Preliminary Gram negative tonie 07/09/23 00:29 Blood - Venous Blood Culture - Preliminary No growth after 48 hours. 07/09/23 00:29 Blood - Venous Blood Culture - Preliminary No growth after 48 hours. Procedures Date of Service Date of Service: 07/11/23 Assessment & Plan Assessment and plan (1) Closed compression fracture of thoracic vertebra: Status: Acute (2) ESRD (end stage renal disease): Status: Acute Plan 1. ESRD on HD 2. T spine fracture 3. uti HD per TTS schedule- protect permcath Midodrine for low BP in HD Time Spent With Patient Time: Total time managing care of this patient today ____ minutes. Progress Note: Quality Stroke Does the patient have a stroke diagnosis?: No
[2023-07-12] MEDS: Heparin Sodium,Porcine 5,000 UNIT/ML VIAL 5000 UNIT SUBCUT ×2 (01:48→15:02)
[2023-07-12 03:17] VITALS: BP 100/53; PULSE 73; RESP 16; TEMP 36.1; O2SAT 96
[2023-07-12] MEDS: Levothyroxine Sodium 50 MCG TABLET PO (05:15)
[2023-07-12] MEDS: Sevelamer Carbonate Powder 800 MG POWD.PACK PO ×3 (07:51→16:54)
[2023-07-12] MEDS: 0.9 % Sodium Chloride Flush 3 ML SYRINGE IVFLUSH ×3 (07:51→20:06)
[2023-07-12 07:58] VITALS: BP 101/60; PULSE 70; RESP 12; TEMP 36.1; O2SAT 97
--- NOTE | 2023-07-12 13:41 | P.PNIM_ITS ---
Subjective Subjective Date of Service: 07/12/23 Interval History: Seen and evaluated this morning in dialysis session Denies any fever or chills pain under better control able to participate with PT Review of Systems Review of Systems: Yes all other systems are reviewed and are negative Physical Exam 2 Vital Signs: Vital Signs: Last Vital Signs Temp 97.0 F 07/12/23 07:58 Pulse 70 07/12/23 07:58 Resp 12 07/12/23 07:58 BP 101/60 07/12/23 07:58 Pulse Ox 97 07/12/23 07:58 O2 Del Method Room Air 07/12/23 07:58 BMI result Body Mass Index 20.4 Const: Other: Constitutional - Awake and Alert, No apparent distress Eyes - PERRLA, EOMI Cardiovascular - S1S2, RRR, No edema Respiratory - Normal lung expansion, Normal respiratory effort, No respiratory distress, scattered crackles bilaterally Gastrointestinal - NT / ND; +BS; No rebound or guarding Extremities - no calf tenderness bilaterally, no swelling Skin - Warm/Dry. Venous stasis to BLE. 2cm x1cm stage 2 venous ulcers on bilateral anterior lower legs. contusion to the left dorsal forearm surgical wound site ok Neurological - Alert & oriented to self only Objective Data Active Medications Acetaminophen (Acetaminophen 325 Mg Tablet) 650 mg PO Q6H PRN PRN Reason: Pain, Mild (Pain Scale 1-3) Last Admin: 07/11/23 20:39 Dose: 650 mg Documented By: DINO Atorvastatin Calcium (Atorvastatin Calcium 40 Mg Tablet) 40 mg PO BEDTIME [facility] Last Admin: 07/11/23 20:39 Dose: 40 mg Documented By: DINO Heparin Sodium (Porcine) (Heparin Sodium,Porcine 5,000 Unit/Ml Vial) 5,000 unit SUBCUT Q12H [facility] Last Admin: 07/12/23 01:48 Dose: 5,000 unit Documented By: DINO Meropenem 500 mg/ Sodium (Chloride) 50 mls @ 100 mls/hr IV Q12H [facility] Last Infusion: 07/12/23 13:30 Dose: Infused Documented By: CHELSEY Levothyroxine Sodium (Levothyroxine Sodium 50 Mcg Tablet) 50 mcg PO DAILY@0600 [facility] Last Admin: 07/12/23 05:15 Dose: 50 mcg Documented By: DINO Melatonin (Melatonin 3 Mg Tablet) 6 mg PO BEDTIME PRN PRN Reason: Insomnia Last Admin: 07/11/23 20:39 Dose: 6 mg Documented By: DINO Morphine Sulfate (Morphine Sulfate 2 Mg/Ml Cartridge) 2 mg IVPUSH Q4H PRN; Protocol PRN Reason: Pain, Severe (Pain Scale 7-10) Ondansetron HCl (Ondansetron Hcl 4 Mg/2 Ml Vial) 4 mg IVPUSH Q8H PRN PRN Reason: Nausea and Vomiting Oxycodone HCl (Oxycodone Hcl Immed Release 5 Mg Tablet) 5 mg PO Q4H PRN PRN Reason: mod pain Last Admin: 07/11/23 12:31 Dose: 5 mg Documented By: KRYSTYNA Sevelamer Carbonate (Sevelamer Carbonate Powder 800 Mg Powd.Pack) 800 mg PO TIDWM [facility] Last Admin: 07/12/23 12:27 Dose: 800 mg Documented By: CHELSEY Sodium Chloride (0.9 % Sodium Chloride Flush 3 Ml Syringe) [facility] Last Admin: 07/12/23 07:51 Dose: 3 ml Documented By: CHELSEY Labs 07/11/23 05:12 07/11/23 05:12 Microbiology Microbiology Results: Microbiology 07/09/23 Unknown Urine Culture - Final Urine Catheterized - La Catheter Escherichia coli Assessment and Plan (1) Closed compression fracture of thoracic vertebra: Status: Acute (2) Compression fx, lumbar spine: Status: Acute (3) Acute UTI: Status: Acute Plan 77M PMH end-stage renal disease, chronic systolic CHF, unspecified cirrhosis, vascular dementia, hyperlipidemia, hypertension, permanent atrial fibrillation, hypothyroid, history of CVA with left hemiparesis, CLL, presented with sudden onset back pain. Found to have T12 and L2 compression fractures and UTI Sepsis due to UTI History of ESBL Urine Cx growing ESBL E.Coli Continue meropenem, follow-up cultures ID rec follow blood Cx, change to Fosfomycin for 1 time Acute on chronic systolic CHF improved, continue hemodialysis Acute vertebral fracture PT, if unable to ambulate or Control pain may need kyphoplasty End-stage renal disease Continue hemodialysis Permanent atrial fibrillation Rate controlled, not on anticoagulation Hypothyroid Synthroid CAD Statin Vascular dementia Stable squamous cell skin cancer, left chest wall outpatient follow up, local care DVT prophylaxis with heparin Full code reason for continued hospitalization: needs further physical therapy and pain management pending discharge plan to SNF Quality Stroke Does the patient have a stroke diagnosis?: No VTE Prior VTE?: No VTE Risk Level:: Medical - moderate - high VTE Device Contraindication: Treatment Not Indicated VTE Drug Contraindication: N/A - Med Ordered
[2023-07-12 15:26] VITALS: BP 103/59; PULSE 69; RESP 17; TEMP 36.3; O2SAT 98
--- NOTE | 2023-07-12 15:27 | P.CDIM_ITS ---
PROVIDER RESPONSE TEXT: To clarify, the appropriate diagnosis supported by the clinical indicators: Underweight QUERY TEXT: PHYSICIAN'S DOCUMENTATION REQUEST Date of Query: 07/11/2023 12:19 PM EST Patient Name: Brayden Velazquez Admit Date: 07/09/2023 Dear Cheng Hernandez, A review of the medical record indicates additional documentation may be needed. Please review below and update the documentation accordingly. Clinical indicators: Clinical nutrition notes dated 07/09 - Underweight at 86% of IBW. BMI 20 Prolong Catabolic Illness. Follow for intake and weight. If possible, please provide an associated diagnosis related to the abnormal BMI, such as: Underweight Weight loss Anorexia Other Other (explain) Clinically unable to determine (explain) Thank you, Kristen Lagos, CCS, CDIS Use of terms such as suspected, likely, concern for, or probable (associated with a specific diagnosi s that is being evaluated, monitored, or treated as if it exists) are acceptable and can be coded in the inpatient se tting, when documented at the time of discharge. Please use your independent medical judgment in providing your response. THIS QUERY IS PART OF THE PERMANENT MEDICAL RECORD
[2023-07-12 18:58] VITALS: BP 112/74; PULSE 103; RESP 18; TEMP 36.8; O2SAT 97
[2023-07-12] MEDS: Atorvastatin Calcium 40 MG TABLET PO (20:05)
[2023-07-12] MEDS: Acetaminophen 325 MG TABLET 650 MG PO (20:05)
[2023-07-12] MEDS: Melatonin 3 MG TABLET 6 MG PO (20:06)
--- NOTE | 2023-07-12 21:09 | P.PNNP_ITS ---
Subjective Subjective Date of Service: 07/12/23 Interval history: Seen and evaluated this morning in dialysis session Denies any fever or chills pain under better control able to participate with PT Physical Exam 2 Vital Signs: Vital Signs: Last Vital Signs Temp 98.3 F 07/12/23 18:58 Pulse 103 H 07/12/23 18:58 Resp 18 07/12/23 18:58 BP 112/74 07/12/23 18:58 Pulse Ox 97 07/12/23 18:58 O2 Del Method Room Air 07/12/23 18:58 BMI result Body Mass Index 20.4 cvs; s1s2 Rs; cta? ABd; soft? Objective Data Labs 07/11/23 05:12 07/11/23 05:12 Microbiology Microbiology Results: Microbiology 07/09/23 Unknown Urine Catheterized - La Catheter Urine Culture - Final Escherichia coli 07/09/23 00:29 Blood - Venous Blood Culture - Preliminary No growth after 48 hours. 07/09/23 00:29 Blood - Venous Blood Culture - Preliminary No growth after 48 hours. Procedures Date of Service Date of Service: 07/12/23 Assessment & Plan Assessment and plan (1) Closed compression fracture of thoracic vertebra: Status: Acute (2) Acute UTI: Status: Acute (3) ESRD (end stage renal disease): Status: Acute Plan 1. ESRD on HD 2. T spine fracture 3. uti HD per TTS schedule- protect permcath Midodrine for low BP in HD Time Spent With Patient Time: Total time managing care of this patient today ____ minutes. Progress Note: Quality Stroke Does the patient have a stroke diagnosis?: No
[2023-07-13] MEDS: Heparin Sodium,Porcine 5,000 UNIT/ML VIAL 5000 UNIT SUBCUT ×2 (03:12→14:14)
[2023-07-13 04:17] VITALS: BP 102/56; PULSE 77; RESP 16; TEMP 36.3; O2SAT 96
[2023-07-13] MEDS: Levothyroxine Sodium 50 MCG TABLET PO (06:13)
[2023-07-13 07:50] VITALS: BP 101/51; PULSE 66; RESP 20; TEMP 525; TEMP 977; O2SAT 95
[2023-07-13] MEDS: Sevelamer Carbonate Powder 800 MG POWD.PACK PO ×3 (08:10→16:56)
[2023-07-13] MEDS: 0.9 % Sodium Chloride Flush 3 ML SYRINGE IVFLUSH (08:12)
--- NOTE | 2023-07-13 08:52 | MHC.CM.PN ---
Addendum entered by Ginette Royal 07/13/23 13:41: [place] [facility] has been notified that the patient will discharge today. [place] [facility] has been notified that the patient will resume HD tomorrow Sunday07/14/23. T/W spoke with Loree at [facility]. Addendum entered by Ginette Royal 07/13/23 13:25: PATIENT AND FAMILY HAVE ACCEPTED A BED OFFER FROM [facility]. TRANSPORTATION HAS BEEN BOOKED FOR [facility]. A NEW HCP HAS BEEN DOCUMENTED AND SENT TO THE FACILITY. Original Note: IMM 07/13/23 DP STR via BLS. [facility] and [facility] are interested. Pts sister is working with [facility] business office on a payment plan. Patient also has a bed offer from [facility] today. waiting to hear back from [facility] .
[2023-07-13] MEDS: Acetaminophen 325 MG TABLET 650 MG PO (11:19)
--- NOTE | 2023-07-13 11:44 | PM.DS ---
DS: Providers Provider Date of Service: 07/13/23 Date of admission: 07/09/23 02:23 Primary care physician: Reza Juan MD Consults: 07/09/23 02:26 Consult to Nephrology Routine Consulting Provider: Franko Erickson Reason for consultation: esrd 07/10/23 12:21 Consult to Infectious Diseases Routine Consulting Provider[place] [facility] [place] Reason for consultation: MEROPENEM DS: Diagnosis Discharge Diagnosis (1) Closed compression fracture of thoracic vertebra: Status: Acute (2) Acute UTI: Status: Acute (3) ESRD (end stage renal disease): Status: Acute DS: Summary Hospital Course Hospital Course: Admission note HPI This is a 77-year-old male with pertinent history of vascular dementia, cirrhosis, congestive heart failure with reduced ejection fraction, essential hypertension, mixed hyperlipidemia, permanent atrial fibrillation not on anticoagulation, asthma not on home oxygen, hypothyroidism, history of CVA with left-sided deficits, CLL, ESRD on hemodialysis T/T/S who presents to the emergency department for evaluation of back pain. Unable to obtain history from the patient in the setting of dementia. Patient does not know why he is in the hospital. History obtained from ER provider and chart review. Patient was discharged from rehab facility about a week ago. No trauma reported. Patient has been complaining of back pain that started about 4-5 days prior to presentation. No lower extremity weakness, tingling, numbness. Also decreased appetite reported by family. Unable to obtain review of systems. Hospital course The patient was admitted to the hospital for back pain. Found to have acute compression vertebral fracture. pain controlled with Tylenol and Oxycodone as he was able to participate with physical therapy sessions. he did not need kyphoplasty. Will be discharged to nursing facility to continue therapy. Found to have Sepsis due to UTI on presentation. Urine Cx growing ESBL E.Coli. Treated with meropenem as he was evaluated by ID specialist who recommended If negative blood Cx, change to Fosfomycin on discharge. will be discharged on Fosfomycin. He was also treated Acute on chronic systolic CHF from fluid overload that was corrected by Hemodialysis which was resumed TTS and followed by nephrology team. Use Oxycodone as needed for pain Fosfomycin as treatment for urine infection Continue physical therapy Time Attestation Discharge coordination time: Greater than 30 minutes Quality: Safe Use of Opioids Does Pt have an Active Cancer Diagnosis on the Problem List?: No Quality: Stroke Does the patient have a stroke diagnosis?: No Physical Exam Vital Signs: Vital Signs: Last Vital Signs Temp 977 F H 07/13/23 07:50 Pulse 66 07/13/23 07:50 Resp 20 07/13/23 07:50 BP 101/51 L 07/13/23 07:50 Pulse Ox 95 07/13/23 07:50 O2 Del Method Room Air 07/13/23 07:50 BMI result Body Mass Index 20.4 Const: Other: Constitutional - Awake and Alert, No apparent distress Eyes - PERRLA, EOMI Cardiovascular - S1S2, RRR, No edema Respiratory - Normal lung expansion, Normal respiratory effort, No respiratory distress, scattered crackles bilaterally Gastrointestinal - NT / ND; +BS; No rebound or guarding Extremities - no calf tenderness bilaterally, no swelling Skin - Warm/Dry. Venous stasis to BLE. 2cm x1cm stage 2 venous ulcers on bilateral anterior lower legs. contusion to the left dorsal forearm surgical wound site ok Neurological - Alert & oriented to self only DS: Data Data Completed and Pending Completed studies during hospitalization [Text1]: Procedures Performance of Urinary Filtration, Intermittent, Less than 6 Hours Per Day (05/08/23) Replacement of Right Hip Joint, Femoral Surface with Synthetic Substitute, Uncemented, Open Approach (05/01/23) Labs on day of discharge: Preliminary micro results at discharge 07/09/23 00:29 Blood Culture - Preliminary Blood - Venous No growth after 48 hours. 07/09/23 00:29 Blood Culture - Preliminary Blood - Venous No growth after 48 hours. Imaging Chest x-ray: Radiologist's impression: ITS Impressions Chest X-Ray 07/08/23 16:30 IMPRESSION: New mild interstitial pulmonary edema. Otherwise unchanged from 05/08/2023 without new focal consolidation. Lumbar Spine X-Ray 07/08/23 16:30 IMPRESSION: T12 and L2 vertebral body compression fractures. These are age indeterminate but new in the interval from October [address] Degenerative changes. Abdomen/Pelvis CT 07/09/23 01:15 IMPRESSION: 1. Partial collapse of the T12 vertebral body with approximately 50% loss of height centrally and retropulsion narrowing the central canal to approximately 11; this is new from 10/07/2022. 2. Severe compression deformity of L2 with retropulsion and narrowing of the central canal to approximately 11 mm. This has a partially sclerotic appearance favoring a degree of chronicity, though this is also new from prior. 3. Large amount of stool in the rectum with adjacent stranding raising the possibility of developing stercoral colitis. 4. Bladder wall thickening, which could be due to underdistention or cystitis. 5. Partially visualized small left pleural effusion with pleural thickening, likely with left lower lobe collapse. Trace right pleural effusion. 6. Cardiomegaly. 7. Cholelithiasis. Pneumobilia and gas in the gallbladder, also present previously. 8. Nodular hepatic contour suspicious for cirrhosis. Thoracic Spine MRI 07/10/23 13:35 IMPRESSION: - Redemonstration of an acute to subacute edematous biconcave vertebral body burst fracture at T12 with up to 60% vertebral body height loss and 5 mm upper endplate retropulsion that results in mild central canal stenosis at the upper T12 level. There is also osteonecrosis within the T12 vertebral body in keeping with an osteoporotic fracture. There is paraspinal muscular strain injury within the lower thoracic and upper lumbar spine. - Redemonstration of an acute to subacute edematous vertebral body burst fracture at L2 exhibiting up to 80% vertebral body height loss and 5 mm upper endplate retropulsion that mildly narrows the central canal at the upper L2 level. - A left pleural effusion with adjacent left lower lobe collapse is again noted and better appreciated on the prior CT study. There is also a right pleural effusion. Lumbar Spine MRI 07/10/23 14:05 IMPRESSION: - Redemonstration of an acute to subacute edematous biconcave vertebral body burst fracture at T12 with up to 60% vertebral body height loss and 5 mm upper endplate retropulsion that results in mild central canal stenosis at the upper T12 level. There is also osteonecrosis within the T12 vertebral body in keeping with an osteoporotic fracture. There is paraspinal muscular strain injury within the lower thoracic and upper lumbar spine. - Redemonstration of an acute to subacute edematous vertebral body burst fracture at L2 exhibiting up to 80% vertebral body height loss and 5 mm upper endplate retropulsion that mildly narrows the central canal at the upper L2 level. - A left pleural effusion with adjacent left lower lobe collapse is again noted and better appreciated on the prior CT study. There is also a right pleural effusion. Discharge Plan Discharge Anticipated Discharge Date/Time: 07/13/23 11:33 Patient Disposition: Xfer SNF Discharge Diagnosis: Compression fracture of lumbar spine Urine infection Referrals: Reza Juan MD [Primary Care Provider] - 1 Week Discharge Medications: New oxycodone 5 mg Tablet 5 mg PO Q4H PRN (Reason: mod pain) Qty: 15 0RF Rx Instructions: Partial Fill upon patient request. fosfomycin tromethamine 3 gram packet 1 packet PO Q OTHER DAY Qty: 3 0RF Continued levothyroxine 50 mcg tablet 50 mcg PO DAILY B complex with C 20-folic acid 1 mg Capsule 1 cap PO DAILY rosuvastatin [Crestor] 10 mg Tablet 10 mg PO BEDTIME docusate sodium 100 mg Capsule 100 mg PO DAILY PRN (Reason: Constipation) Qty: 30 0RF acetaminophen 325 mg Tablet 650 mg PO Q6H PRN (Reason: Pain, Mild (Pain Scale 1-3)) Qty: 30 0RF heparin (porcine) 5,000 unit/mL Solution 5,000 unit subcut Q12H 42 Days Qty: 84 0RF sevelamer carbonate 0.8 gram powder in packet 0.8 g PO TID ipratropium-albuterol 0.5 mg-3 mg(2.5 mg base)/3 mL solution for nebulization 3 ml inhalation Q4H PRN (Reason: Shortness Of Breath/Wheezing) Discontinued meropenem 500 mg Recon Soln 500 mg IV Q24H Qty: 8 0RF Discharge Orders: Discharge Order (Routine); Ordered 07/13/23 Ordered By: Cheng Hernandez Diet: Advance to usual diet Activity on Discharge: As tolerated Stand Alone Forms: Patient Portal Discharge page Care Plan Goals: Read below Health Concerns: Read below Plan of Treatment: Read below Assessment: Use Oxycodone as needed for pain Fosfomycin as treatment for urine infection Continue physical therapy
--- NOTE | 2023-07-13 13:29 | MHC.CLN ---
F/U DIET CHANGED TO REGULAR PER MD. PATIENT WITH END STAGE RENAL DISEASE AND RECEIVES HEMODIALYSIS. PO INTAKE VARIABLE, 0-100%, WITH MANY MEALS 100%. FOLLOW FOR INTAKE AND WEIGHT.
[2023-07-13 15:41] VITALS: BP 109/58; PULSE 80; RESP 20; TEMP 36.4; O2SAT 98
== END 2023-07-13 17:41 | disposition skilled nursing facility (03) | DRG 871 ==
LOC: HO.ED 07-09 00:35 → HO.EDOVER 07-09 02:28 → HO.S3 07-09 03:41
PROVIDERS: Internal Medicine; Physician Assistant; Admitting Provider Student in an Organized Health Care Education/Training Program; Emergency Provider Emergency Medicine; PCP Family Medicine; Visit Provider Student in an Organized Health Care Education/Training Program
DX: A41.9 Sepsis, unspecified organism (principal); I50.23 Acute on chronic systolic (congestive) heart failure; N18.6 End stage renal disease; M48.55XA Collapsed vertebra, not elsewhere classified, thoracolumbar region, initial encounter for fracture; I13.2 Hypertensive heart and chronic kidney disease with heart failure and with stage 5 chronic kidney disease, or end stage renal disease; I48.21 Permanent atrial fibrillation; N39.0 Urinary tract infection, site not specified; I69.354 Hemiplegia and hemiparesis following cerebral infarction affecting left non-dominant side; L97.829 Non-pressure chronic ulcer of other part of left lower leg with unspecified severity; L97.819 Non-pressure chronic ulcer of other part of right lower leg with unspecified severity; Z16.12 Extended spectrum beta lactamase (ESBL) resistance; I25.10 Atherosclerotic heart disease of native coronary artery without angina pectoris; B96.20 Unspecified Escherichia coli [E. coli] as the cause of diseases classified elsewhere; I87.8 Other specified disorders of veins; C44.529 Squamous cell carcinoma of skin of other part of trunk; E87.5 Hyperkalemia; R63.6 Underweight; Z68.20 Body mass index [BMI] 20.0-20.9, adult; E78.2 Mixed hyperlipidemia; E03.9 Hypothyroidism, unspecified; Z99.2 Dependence on renal dialysis; F01.50 Vascular dementia, unspecified severity, without behavioral disturbance, psychotic disturbance, mood disturbance, and anxiety; Z20.822 Contact with and (suspected) exposure to COVID-19; Z95.1 Presence of aortocoronary bypass graft; Z79.890 Hormone replacement therapy; Z79.899 Other long term (current) drug therapy
CPT/HCPCS: 36415; 71045; 72100; 72146; 72148; 74176; 80048; 80053; 81001; 83605; 83880; 85025; 85027; 85610; 87040; 87086; 87088; 87186; 87502; 87635; 90999; 93005; 97162; 99285; J1335; J1644; J1940; J2185

== ENCOUNTER → 2023-07-09 00:25 | Outpatient (BNV) | payer MEDICARE, MEDICAID, SELFPAY | PROVIDERS: Admitting Provider Student in an Organized Health Care Education/Training Program; Emergency Provider Emergency Medicine; PCP Family Medicine; Visit Provider Internal Medicine | DX: I50.23 Acute on chronic systolic (congestive) heart failure (principal) | CPT/HCPCS: 93010 ==

== ENCOUNTER → 2023-07-09 02:23 | Outpatient (BNV) | payer MEDICARE, MEDICAID, SELFPAY | PROVIDERS: Admitting Provider Student in an Organized Health Care Education/Training Program; Emergency Provider Emergency Medicine; PCP Family Medicine; Visit Provider Student in an Organized Health Care Education/Training Program | DX: S22.000A Wedge compression fracture of unspecified thoracic vertebra, initial encounter for closed fracture (principal); S32.020A Wedge compression fracture of second lumbar vertebra, initial encounter for closed fracture; A41.9 Sepsis, unspecified organism; N39.0 Urinary tract infection, site not specified | CPT/HCPCS: 99222; 99232; 99238; 99499 ==

== ENCOUNTER → 2023-07-09 02:23 | Outpatient (BNV) | payer MEDICARE, MEDICAID, SELFPAY | PROVIDERS: Admitting Provider Student in an Organized Health Care Education/Training Program; Emergency Provider Emergency Medicine; PCP Family Medicine; Visit Provider Internal Medicine | DX: S22.000A Wedge compression fracture of unspecified thoracic vertebra, initial encounter for closed fracture (principal); S32.020A Wedge compression fracture of second lumbar vertebra, initial encounter for closed fracture; D72.829 Elevated white blood cell count, unspecified | CPT/HCPCS: 99222 ==